=== PATIENT | male | born 1965 | race African-American/Black ===

== ENCOUNTER 2016-09-05 08:28 | Inpatient (IN) | payer OTHER ==
--- NOTE | 2016-09-05 11:24 | HP ---
Admission [facility] - [facility] Chief Complaint: I need rehab to stop drinking & using cocaine Allergies/Adverse Reactions: Allergies Allergy/AdvReac Type Severity Reaction Status Date / Time No Known Drug Allergies Allergy Verified 09/05/16 11:07 peanut Allergy Difficulty Verified 09/05/16 11:07 Breathing History of Present Illness: 50 y/o man with a long hx. of drug & alcohol dependence is admitted to rehab. Pt. completed detox at [facility] 2 wks. ago & was attending [facility]. He drank twice since completing detox. Exam Limitations: No Limitations - Ebola screening Have you traveled outside of the country in the last 21 days: No Have you had contact with anyone from an Ebola affected area: No Have you been sick,other than usual withdrawal symptoms: No Do you have a fever: No - Review of Systems Constitutional: No Symptoms Reported EENT: reports: No Symptoms Reported Respiratory: reports: No Symptoms reported Cardiac: reports: No Symptoms Reported GI: reports: No Symptoms Reported : reports: No Symptoms Reported Musculoskeletal: reports: Back Pain (mild) Integumentary: reports: No Symptoms Reported Neuro: reports: No Symptoms reported Endocrine: reports: No Symptoms Reported Hematology: reports: No Symptoms Reported Psychiatric: reports: No Sypmtoms Reported Other Systems: Reviewed and Negative Patient History - Patient Medical History Hx Anemia: No Hx Asthma: No Hx Chronic Obstructive Pulmonary Disease (COPD): No Hx Cancer: No Hx Cardiac Disorders: No Hx Congestive Heart Failure: No Hx Hypertension: No Hx Hypercholesterolemia: No Hx Pacemaker: No HX Cerebrovascular Accident: No Hx Seizures: No Hx Dementia: No Hx Diabetes: No Hx Gastrointestinal Disorders: No Hx Liver Disease: No Hx Genitourinary Disorders: No Hx Sexually Transmitted Disorders: No (syphilis treatment 21 years ago ) Hx Renal Disease (ESRD): No Hx Thyroid Disease: No Hx Human Immunodeficiency Virus (HIV): No Hx Hepatitis C: No Hx Depression: No Hx Suicide Attempt: No Hx Bipolar Disorder: No Hx Schizophrenia: No - Patient Surgical History Past Surgical History: Yes Hx Neurologic Surgery: No Hx Cataract Extraction: No Hx Cardiac Surgery: No Hx Lung Surgery: No Hx Breast Surgery: No Hx Breast Biopsy: No Hx Abdominal Surgery: Yes (umbilical hernia at age of 11 years) Hx Appendectomy: No Hx Cholecystectomy: No Hx Genitourinary Surgery: No Hx Section: No Hx Orthopedic Surgery: No Anesthesia Reaction: No - PPD History Previous Implant?: Yes Documented Results: Negative w/proof Implanted On Prior [facility] Admission?: Yes Date: 08/05/15 Results: 0 mm PPD to be Administered?: Yes - Smoking Cessation Smoking history: Never smoked Have you smoked in the past 12 months: No Aproximately how many cigarettes per day: 0 Hx Chewing Tobacco Use: No - Substance & Tx. History Hx Alcohol Use: Yes Hx Substance Use: Yes Substance Use Type: Alcohol, Cocaine Hx Substance Use Treatment: Yes (Detox) - Substances Abused Alcohol Route: Oral Frequency: Daily Amount used: Beer 2(6packs) Age of first use: 16 Date of Last Use: 09/04/16 (4 12oz can(was in detox 2 weeks ago)) Crack Route: Smoking Frequency: Daily Amount used: 1/2 gm Age of first use: 22 Date of Last Use: 09/04/16 Family Disease History - Family Disease History Family Disease History: CA: Mother (BREAST,), Other: Father (HTN,) Admission Physical Exam [facility] - Physical General Appearance: Yes: Alcohol on Breath HEENTM: Yes: Within Normal Limits Respiratory: Yes: Chest Non-Tender, Lungs Clear, Normal Breath Sounds Neck: Yes: Supple Breast: Yes: Breast Exam Deferred Cardiology: Yes: Regular Rhythm, Regular Rate, S1, S2 Abdominal: Yes: Normal Bowel Sounds, Non Tender, Soft Genitourinary: Yes: Within Normal Limits Back: Yes: Within Normal Limits Musculoskeletal: Yes: Within Normal Limits Extremities: Yes: Within Normal Limits 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: Yes: Fully Oriented, Alert Integumentary: Yes: Within Normal Limits Lymphatic: Yes: Within Normal Limits - Diagnostic (1) Cocaine dependence Current Visit: Yes Status: Acute (2) Alcohol dependence Current Visit: Yes Status: Chronic Cleared for Admission [facility] - Detox or Rehab Detox Regimen/Protocol: Not Applicable Claeared for Rehab Admission: Yes [facility] Breath Alcohol Content Breath Alcohol Content: 0.015
[2016-09-05] MEDS ORDERED: IBUPROFEN 400 MG TABLET (FP) PO PRN (11:39)
[2016-09-05] MEDS ORDERED: MAGNESIUM HYDROX 2400MG/30ML ORAL SUSPENSION 30 ML CUP PO PRN (11:39)
[2016-09-05] MEDS ORDERED: diphenhydrAMINE HCL 50 MG CAPSULE PO PRN (11:39)
[2016-09-05] MEDS ORDERED: MAGNESIUM CITRATE 300 ML BOTTLE PO PRN (11:39)
[2016-09-05] MEDS ORDERED: MAG HYDROX/AL HYDROX/SIMETH 30 ML UNIT-DOSE CUP PO PRN (11:39)
[2016-09-05] MEDS ORDERED: MENTHOL/PHENOL 1 EACH UD MM PRN (11:39)
[2016-09-05] MEDS ORDERED: P-EPHED 60MG/TRIPROLIDI 2.5MG TABLET PO PRN (11:39)
[2016-09-05] MEDS ORDERED: guaiFENesin/D-METHORPHAN HB 10 ML UNIT-DOSE CUPS PO PRN (11:39)
[2016-09-05] MEDS ORDERED: LOPERAMIDE HCL 2 MG CAPSULE PO PRN (11:39)
[2016-09-05 11:42] VITALS: BMI 29.0
[2016-09-05 14:01] LABS: MCH 29.5 pg (25.7-33.7); MCHC 32.7 g/dl (32.0-35.9); MEAN CELL VOLUME 90.3 fl (80-96); MEAN PLT VOLUME 8.5 fl (7.5-11.1); PLATELET COUNT 220 K/MM3 (134-434); RDW 14.6 % (11.9-15.9); WHITE BLOOD COUNT 7.5 K/mm3 (4.0-10.0)
[2016-09-05 14:16] LABS: ALBUMIN 3.8 g/dl (3.4-5.0); ALK PHOS 93 U/L (45-117); ANION GAP 11 (8-16); BILIRUBIN,TOTAL 0.4 mg/dL (0.2-1.0); CALCIUM 8.6 mg/dL (8.5-10.1); CO2 30 mmol/L (21-32); COCKROFT - GAULT 104.89; GLUCOSE,RANDOM 58 mg/dL (74-106); SGOT/AST 29 U/L (15-37); SGPT/ALT 32 U/L (12-78); TOT PROT 7.5 g/dl (6.4-8.2)
[2016-09-05] MEDS ORDERED: TUBERCULIN PPD 5 TU/0.1ML VIAL ID ONE (15:59)
[2016-09-05 20:19] LABS: URINE APPEARANCE CLEAR; URINE BILIRUBIN NEGATIVE (NEGATIVE); URINE BLOOD NEGATIVE (NEGATIVE); URINE COLOR LTYELLOW; URINE GLUCOSE (UA) NEGATIVE (NEGATIVE); URINE KETONE NEGATIVE (NEGATIVE); URINE LEUK ESTERASE NEGATIVE (NEGATIVE); URINE NITRITE NEGATIVE (NEGATIVE); URINE PROTEIN NEGATIVE (NEGATIVE); URINE UROBILINOGEN NEGATIVE E.U./dl (0.2-1.0)
[2016-09-05] MEDS: THIAMINE HCL 100 MG TABLET (FP) PO SCH ×2 (21:50→21:52)
[2016-09-05] MEDS: ACETAMINOPHEN 325 MG TABLET (FP) PO PRN (21:52)
--- NOTE | 2016-09-06 11:37 | HP ---
Psychiatrist Admission - Data Date of interview: 09/06/16 Admission source: [facility] Identifying data: This is one of the [address] inpatient rehabilitation admission for this 50 year old single black male whois currently undomiciled. Medical History: Significant for history of GERD, LBP, treatment for Syphilis and S/P Umbilical Hernia repair at age 11. Psychiatric History: Patient reports history of treatment for depression, first psychiatric contact in 2002, reports 3 psychiatric hospitalizations with most recent to [facility] on January of last year, reports diagnosed as MDD and was on Zoloft 50 mg po hs, states he stopped medication about 3-4 weeks ago and wants to restart medications. Physical/Sexual Abuse/Trauma History: Denies history of sexual, physical and verbal abuse. Vital Signs: Vital Signs - 24 hr 09/05/16 09/06/16 09/06/16 11:40 03:30 06:56 Temperature 97 F L 97.3 F L Pulse Rate 81 57 L Respiratory 20 18 18 Rate Blood Pressure 143/81 145/87 Allergies/Adverse Reactions: Allergies Allergy/AdvReac Type Severity Reaction Status Date / Time No Known Drug Allergies Allergy Verified 09/05/16 15:14 peanut Allergy Difficulty Verified 09/05/16 15:14 Breathing Date of last physical exam: 09/05/16 Concur with the findings of this exam: Yes - Substance Abuse/Tx History Hx Alcohol Use: Yes (2(6packs) of beer started at age of 16) Substance Use Type: Cocaine (1/2 gr daily, started at age of 22) Hx Substance Use Treatment: Yes (several detox/rehabilit. tx) - Admission Criteria Previous failed treatment: Yes Poor recovery environment: Yes Comorbidities: Yes Lacks judgement: Yes Mental Status Exam - Mental Status Exam Alert and Oriented to: Time, Place, Person Cognitive Function: Good Patient Appearance: Well Groomed Mood: Depressed, Sad Affect: Appropriate, Mood Congruent Patient Behavior: Appropriate, Cooperative Speech Pattern: Clear, Appropriate Voice Loudness: Normal Thought Process: Intact, Goal Oriented Thought Disorder: Not Present Hallucinations: Denies Suicidal Ideation: Denies Homicidal Ideation: Denies Insight/Judgement: Fair Sleep: Fair Appetite: Fair Muscle strength/Tone: Normal Gait/Station: Normal Psychiatric Findings - Problem List ([place] 1, 2,3) (1) Cocaine dependence Current Visit: Yes Status: Acute (2) Alcohol dependence Current Visit: Yes Status: Chronic (3) MDD (major depressive disorder), recurrent episode, moderate Current Visit: No Status: Chronic - Initial Treatment Plan Initial Treatment Plan: Will restart Zoloft 50 mg po daily, monitor progress as needed.
[2016-09-06] MEDS ORDERED: INFLUENZA VACCINE 45 MCG/0.5 ML (MDV 16-17) IM ONE (12:00)
[2016-09-06] MEDS: PRENATAL VITAMINS W/ FOLIC ACID TABLET (FP) PO SCH (12:53)
[2016-09-06] MEDS: METHYL SALICYLATE/MENTHOL OINT 30 GM TUBE TP SCH (15:13)
[2016-09-06] MEDS: THIAMINE HCL 100 MG TABLET (FP) PO SCH (21:29)
[2016-09-07] MEDS: PRENATAL VITAMINS W/ FOLIC ACID TABLET (FP) PO SCH (10:23)
[2016-09-07] MEDS: SERTRALINE HCL 50 MG TABLET (FP) PO SCH (10:23)
[2016-09-07] MEDS: METHYL SALICYLATE/MENTHOL OINT 30 GM TUBE TP SCH (10:23)
--- NOTE | 2016-09-07 16:17 | EKG ---
Test Reason : Blood Pressure : / mmHG Vent. Rate : 065 BPM Atrial Rate : 065 BPM P-R Int : 144 ms QRS Dur : 100 ms QT Int : 434 ms P-R-T Axes : 055 067 030 degrees QTc Int : 451 ms NORMAL SINUS RHYTHM NORMAL ECG NO PREVIOUS ECGS AVAILABLE Confirmed by MELECIO PARIS MD ([id number]) on 09/07/2016 4:17:27 PM Referred By: Deo CABRERA Confirmed By:MELECIO PARIS MD
[2016-09-07] MEDS: THIAMINE HCL 100 MG TABLET (FP) PO SCH (21:56)
[2016-09-08] MEDS: PRENATAL VITAMINS W/ FOLIC ACID TABLET (FP) PO SCH (10:12)
[2016-09-08] MEDS: METHYL SALICYLATE/MENTHOL OINT 30 GM TUBE TP SCH (10:12)
[2016-09-08] MEDS: SERTRALINE HCL 50 MG TABLET (FP) PO SCH (10:12)
[2016-09-08] MEDS: THIAMINE HCL 100 MG TABLET (FP) PO SCH (21:55)
[2016-09-09] MEDS: METHYL SALICYLATE/MENTHOL OINT 30 GM TUBE TP SCH (10:40)
[2016-09-09] MEDS: SERTRALINE HCL 50 MG TABLET (FP) PO SCH (10:40)
[2016-09-09] MEDS: PRENATAL VITAMINS W/ FOLIC ACID TABLET (FP) PO SCH (10:40)
[2016-09-09] MEDS: THIAMINE HCL 100 MG TABLET (FP) PO SCH (21:40)
[2016-09-10] MEDS: SERTRALINE HCL 50 MG TABLET (FP) PO SCH (10:19)
[2016-09-10] MEDS: PRENATAL VITAMINS W/ FOLIC ACID TABLET (FP) PO SCH (10:19)
[2016-09-10] MEDS: METHYL SALICYLATE/MENTHOL OINT 30 GM TUBE TP SCH (10:20)
[2016-09-10] MEDS: THIAMINE HCL 100 MG TABLET (FP) PO SCH (21:51)
[2016-09-11] MEDS: SERTRALINE HCL 50 MG TABLET (FP) PO SCH (10:10)
[2016-09-11] MEDS: PRENATAL VITAMINS W/ FOLIC ACID TABLET (FP) PO SCH (10:10)
[2016-09-11] MEDS: METHYL SALICYLATE/MENTHOL OINT 30 GM TUBE TP SCH (10:10)
[2016-09-11 17:05] LABS: HIV 1 & 2 AB NEGATIVE; HIV 1 AGp24 NEGATIVE
[2016-09-11] MEDS: THIAMINE HCL 100 MG TABLET (FP) PO SCH (21:44)
[2016-09-12] MEDS: PRENATAL VITAMINS W/ FOLIC ACID TABLET (FP) PO SCH (10:15)
[2016-09-12] MEDS: SERTRALINE HCL 50 MG TABLET (FP) PO SCH (10:15)
[2016-09-12] MEDS: METHYL SALICYLATE/MENTHOL OINT 30 GM TUBE TP SCH (10:16)
[2016-09-12] MEDS: ACETAMINOPHEN 325 MG TABLET (FP) PO PRN (10:16)
[2016-09-13] MEDS: THIAMINE HCL 100 MG TABLET (FP) PO SCH ×2 (00:39→21:46)
[2016-09-13] MEDS: PRENATAL VITAMINS W/ FOLIC ACID TABLET (FP) PO SCH (09:56)
[2016-09-13] MEDS: METHYL SALICYLATE/MENTHOL OINT 30 GM TUBE TP SCH (09:56)
[2016-09-13] MEDS: SERTRALINE HCL 50 MG TABLET (FP) PO SCH (09:56)
[2016-09-13] MEDS ORDERED: COLLOIDAL OATMEAL 1 BAR EACH TP PRN (10:24)
[2016-09-13] MEDS: TOLNAFTATE 1% CREAM 15 GM TUBE TP SCH ×2 (11:20→21:46)
[2016-09-14] MEDS: SERTRALINE HCL 50 MG TABLET (FP) PO SCH (10:24)
[2016-09-14] MEDS: PRENATAL VITAMINS W/ FOLIC ACID TABLET (FP) PO SCH (10:24)
[2016-09-14] MEDS: TOLNAFTATE 1% CREAM 15 GM TUBE TP SCH ×2 (10:25→21:49)
[2016-09-14] MEDS: METHYL SALICYLATE/MENTHOL OINT 30 GM TUBE TP SCH (10:25)
[2016-09-14] MEDS: THIAMINE HCL 100 MG TABLET (FP) PO SCH (21:50)
[2016-09-15] MEDS: SERTRALINE HCL 50 MG TABLET (FP) PO SCH (10:34)
[2016-09-15] MEDS: PRENATAL VITAMINS W/ FOLIC ACID TABLET (FP) PO SCH (10:34)
[2016-09-15] MEDS: METHYL SALICYLATE/MENTHOL OINT 30 GM TUBE TP SCH (10:35)
[2016-09-15] MEDS: TOLNAFTATE 1% CREAM 15 GM TUBE TP SCH ×2 (10:36→21:52)
[2016-09-15] MEDS: THIAMINE HCL 100 MG TABLET (FP) PO SCH (21:53)
[2016-09-16] MEDS: SERTRALINE HCL 50 MG TABLET (FP) PO SCH (10:47)
[2016-09-16] MEDS: METHYL SALICYLATE/MENTHOL OINT 30 GM TUBE TP SCH (10:47)
[2016-09-16] MEDS: TOLNAFTATE 1% CREAM 15 GM TUBE TP SCH ×2 (10:47→23:24)
[2016-09-16] MEDS: PRENATAL VITAMINS W/ FOLIC ACID TABLET (FP) PO SCH (10:47)
[2016-09-16] MEDS: THIAMINE HCL 100 MG TABLET (FP) PO SCH (23:25)
[2016-09-17] MEDS: METHYL SALICYLATE/MENTHOL OINT 30 GM TUBE TP SCH (10:10)
[2016-09-17] MEDS: SERTRALINE HCL 50 MG TABLET (FP) PO SCH (10:10)
[2016-09-17] MEDS: PRENATAL VITAMINS W/ FOLIC ACID TABLET (FP) PO SCH (10:10)
[2016-09-17] MEDS: TOLNAFTATE 1% CREAM 15 GM TUBE TP SCH ×2 (10:11→22:12)
[2016-09-17] MEDS: THIAMINE HCL 100 MG TABLET (FP) PO SCH (22:12)
[2016-09-18] MEDS: TOLNAFTATE 1% CREAM 15 GM TUBE TP SCH ×2 (10:15→21:34)
[2016-09-18] MEDS: METHYL SALICYLATE/MENTHOL OINT 30 GM TUBE TP SCH (10:15)
[2016-09-18] MEDS: PRENATAL VITAMINS W/ FOLIC ACID TABLET (FP) PO SCH (10:15)
[2016-09-18] MEDS: SERTRALINE HCL 50 MG TABLET (FP) PO SCH (10:15)
[2016-09-18] MEDS: THIAMINE HCL 100 MG TABLET (FP) PO SCH (21:34)
[2016-09-19] MEDS: SERTRALINE HCL 50 MG TABLET (FP) PO SCH (10:07)
[2016-09-19] MEDS: PRENATAL VITAMINS W/ FOLIC ACID TABLET (FP) PO SCH (10:07)
[2016-09-19] MEDS: TOLNAFTATE 1% CREAM 15 GM TUBE TP SCH ×2 (10:08→21:46)
[2016-09-19] MEDS: METHYL SALICYLATE/MENTHOL OINT 30 GM TUBE TP SCH (10:09)
[2016-09-19] MEDS: THIAMINE HCL 100 MG TABLET (FP) PO SCH (21:46)
[2016-09-20] MEDS: PRENATAL VITAMINS W/ FOLIC ACID TABLET (FP) PO SCH (09:37)
[2016-09-20] MEDS: SERTRALINE HCL 50 MG TABLET (FP) PO SCH (09:37)
[2016-09-20] MEDS: TOLNAFTATE 1% CREAM 15 GM TUBE TP SCH ×2 (09:38→21:48)
[2016-09-20] MEDS: METHYL SALICYLATE/MENTHOL OINT 30 GM TUBE TP SCH (09:38)
[2016-09-20] MEDS: THIAMINE HCL 100 MG TABLET (FP) PO SCH (21:48)
[2016-09-21] MEDS: TOLNAFTATE 1% CREAM 15 GM TUBE TP SCH ×2 (10:04→10:35)
[2016-09-21] MEDS: PRENATAL VITAMINS W/ FOLIC ACID TABLET (FP) PO SCH (10:04)
[2016-09-21] MEDS: SERTRALINE HCL 50 MG TABLET (FP) PO SCH (10:04)
[2016-09-21] MEDS: METHYL SALICYLATE/MENTHOL OINT 30 GM TUBE TP SCH (10:04)
[2016-09-21] MEDS: THIAMINE HCL 100 MG TABLET (FP) PO SCH (10:35)
[2016-09-22] MEDS: PRENATAL VITAMINS W/ FOLIC ACID TABLET (FP) PO SCH (10:19)
[2016-09-22] MEDS: SERTRALINE HCL 50 MG TABLET (FP) PO SCH (10:19)
[2016-09-22] MEDS: TOLNAFTATE 1% CREAM 15 GM TUBE TP SCH ×2 (10:19→22:05)
[2016-09-22] MEDS: METHYL SALICYLATE/MENTHOL OINT 30 GM TUBE TP SCH (10:19)
[2016-09-22] MEDS: THIAMINE HCL 100 MG TABLET (FP) PO SCH (22:05)
[2016-09-23] MEDS: PRENATAL VITAMINS W/ FOLIC ACID TABLET (FP) PO SCH (10:11)
[2016-09-23] MEDS: SERTRALINE HCL 50 MG TABLET (FP) PO SCH (10:11)
[2016-09-23] MEDS: TOLNAFTATE 1% CREAM 15 GM TUBE TP SCH ×2 (10:12→22:21)
[2016-09-23] MEDS: METHYL SALICYLATE/MENTHOL OINT 30 GM TUBE TP SCH (10:12)
[2016-09-23] MEDS: ACETAMINOPHEN 325 MG TABLET (FP) PO PRN (10:12)
[2016-09-23] MEDS: THIAMINE HCL 100 MG TABLET (FP) PO SCH (22:21)
[2016-09-24] MEDS: SERTRALINE HCL 50 MG TABLET (FP) PO SCH (10:28)
[2016-09-24] MEDS: PRENATAL VITAMINS W/ FOLIC ACID TABLET (FP) PO SCH (10:28)
[2016-09-24] MEDS: METHYL SALICYLATE/MENTHOL OINT 30 GM TUBE TP SCH (10:29)
[2016-09-24] MEDS: TOLNAFTATE 1% CREAM 15 GM TUBE TP SCH ×2 (10:29→22:04)
[2016-09-24] MEDS: THIAMINE HCL 100 MG TABLET (FP) PO SCH (22:04)
[2016-09-25] MEDS: TOLNAFTATE 1% CREAM 15 GM TUBE TP SCH ×2 (09:54→22:44)
[2016-09-25] MEDS: PRENATAL VITAMINS W/ FOLIC ACID TABLET (FP) PO SCH (09:54)
[2016-09-25] MEDS: METHYL SALICYLATE/MENTHOL OINT 30 GM TUBE TP SCH (09:54)
[2016-09-25] MEDS: SERTRALINE HCL 50 MG TABLET (FP) PO SCH (09:54)
--- NOTE | 2016-09-25 16:20 | PN ---
Psychiatric Progress Note Vital Signs: Vital Signs Period Temp Pulse Resp BP Sys/[place] Pulse Ox Last 24 Hr 98.2 F 60 18-19 142/82 Date of Session: 09/25/16 Chief Complaint:: Discharge visit HPI: patient addressed Alcohol,Cocaine dependence comorbid with MDD> ROS: Chronoc low back pain,HTN,GERD. Current Medications: Active Medications Generic Name Dose Route Start Last Admin Trade Name Freq PRN Reason Stop Dose Admin Acetaminophen 650 mg 09/05/16 11:39 09/23/16 10:12 Tylenol - PO 650 mg Q4H PRN Administration PAIN Al Hydroxide/Mg Hydroxide 30 ml 09/05/16 11:39 Mylanta Oral Suspension - PO Q6H PRN DYSPEPSIA Colloidal Oatmeal 1 applic 09/13/16 10:24 09/13/16 11:20 Aveeno Soap - TP 1 applic DAILY PRN Administration HYGEINE Diphenhydramine HCl 50 mg 09/05/16 11:39 Benadryl - PO HSMR1 PRN INSOMNIA Eucalyptus/Menthol/Phenol/Sorbitol 1 each 09/05/16 11:39 Cepastat Lozenge - MM Q4H PRN SORE THROAT Guaifenesin 10 ml 09/05/16 11:39 Robitussin Dm - PO Q6H PRN COUGH Ibuprofen 400 mg 09/05/16 11:39 Motrin - PO Q6H PRN SEVERE PAIN Loperamide HCl 4 mg 09/05/16 11:39 Imodium - PO Q6H PRN DIARRHEA Magnesium Citrate 300 ml 09/05/16 11:39 Citroma - PO Q48H PRN CONSTIPATION Magnesium Hydroxide 30 ml 09/05/16 11:39 Milk Of Magnesia - PO DAILY PRN CONSTIPATION Methyl Salicylate 1 applic 09/06/16 13:30 09/25/16 09:54 Francesco-Bradley - TP Not Given DAILY JAYNE Multivit/Folic Acid/Iron 1 tab 09/06/16 10:00 09/25/16 09:54 Vitamins ([facility]) - PO 1 tab DAILY JAYNE Administration Pseudoephedrine/Triprolidine 1 combo 09/05/16 11:39 Actifed - PO TID PRN NASAL CONGESTION Sertraline HCl 50 mg 09/07/16 10:00 09/25/16 09:54 Zoloft - PO 50 mg DAILY JAYNE Administration Thiamine HCl 100 mg 09/05/16 22:00 09/24/16 22:04 Vitamin B1 - PO Not Given HS JAYNE Tolnaftate 1 applic 09/13/16 10:30 09/25/16 09:54 Tinactin 1% Cream - TP Not Given BID JAYNE Current Side Effect: No Lab tests ordered: No Lab tests reviewed: Yes Provider note:: Patient will complete this program tomorrow 09/26/16.He has met his treatment goals and will continue to address his issues on outpatient rehabilitation [place] [facility].patient continue to find that Zoloft 50 mg po daily help.Script for 30 days providedPatient identifiedareas of difficulties and ways ,coping skills he can utilize to maintain recovery. Patient is stable for discharge tomorrow. Total face to face time:: 30 Mental Status Exam - Mental Status Exam Alert and Oriented to: Time, Place, Person Cognitive Function: Grossly Intact Patient Appearance: Well Groomed Mood: Euthymic Affect: Mood Congruent Patient Behavior: Cooperative Speech Pattern: Clear Voice Loudness: Normal Thought Process: Goal Oriented Thought Disorder: Not Present Hallucinations: Denies Suicidal Ideation: Denies Homicidal Ideation: Denies Insight/Judgement: Fair Sleep: Fair Appetite: Good Muscle strength/Tone: Normal Gait/Station: Normal Psychiatric Treatment Plan - Problem List (1) Cocaine dependence Current Visit: Yes (2) Alcohol dependence Current Visit: Yes (3) Chronic low back pain Current Visit: No (4) Essential hypertension Current Visit: No (5) GERD (gastroesophageal reflux disease) Current Visit: No (6) MDD (major depressive disorder), recurrent episode, moderate Current Visit: No
[2016-09-25] MEDS: THIAMINE HCL 100 MG TABLET (FP) PO SCH (22:45)
[2016-09-26 06:55] VITALS: BP 138/82; PULSE 54; TEMP 98
[2016-09-26] MEDS: SERTRALINE HCL 50 MG TABLET (FP) PO SCH (10:34)
[2016-09-26] MEDS: PRENATAL VITAMINS W/ FOLIC ACID TABLET (FP) PO SCH (10:34)
[2016-09-26] MEDS: METHYL SALICYLATE/MENTHOL OINT 30 GM TUBE TP SCH (10:35)
[2016-09-26] MEDS: TOLNAFTATE 1% CREAM 15 GM TUBE TP SCH (10:35)
== END 2016-09-26 10:55 | disposition home or self-care (01) | DRG 772 ==
LOC: YASAS 08:28 → Y5N 12:24
PROVIDERS: ADMIT Psychiatry & Neurology Psychiatry; ATTEND Psychiatry & Neurology Psychiatry
PROC: HZ42ZZZ Group Counseling for Substance Abuse Treatment, Cognitive-Behavioral (ICD-10-PCS; principal; 2016-09-05)
DX: F10.20 Alcohol dependence, uncomplicated (principal); F14.20 Cocaine dependence, uncomplicated; F33.1 Major depressive disorder, recurrent, moderate; I10 Essential (primary) hypertension; K21.9 Gastro-esophageal reflux disease without esophagitis; M54.5 Low back pain; G89.29 Other chronic pain; Z87.438 Personal history of other diseases of male genital organs
CPT/HCPCS: 36415; 80053; 81003; 85027; 86593; 87389; 93005; 93010

== ENCOUNTER 2017-02-12 13:22 | Inpatient (IN) | payer OTHER ==
[2017-02-12 15:12] VITALS: BMI 28.1
--- NOTE | 2017-02-12 17:45 | HP ---
CIWA Score - CIWA Score Nausea/Vomitin Muscle Tremors: 4-Moderate,w/Arms Extend Anxiety: 3 Agitation: 4-Moderately Restless Paroxysmal Sweats: 3 Orientation: 1-Uncertain about Date Tacttile Disturbances: 1-Very Mild Itch/Numbness Auditory Disturbances: 0-None Visual Disturbances: 0-None Headache: 2-Mild CIWA-Ar Total Score: 20 Admission ROS [facility] - HPI Chief Complaint: Withdrawal sx Allergies/Adverse Reactions: Allergies Allergy/AdvReac Type Severity Reaction Status Date / Time No Known Drug Allergies Allergy Verified 02/12/17 16:15 peanut Allergy Difficulty Verified 02/12/17 16:15 Breathing History of Present Illness: 51 y/o man with a long hx. of alcoholism is admitted for detox.Pt. has been in previous detox, pt. reports significant sobriety while attending IOP. Exam Limitations: No Limitations - Ebola screening Have you traveled outside of the country in the last 21 days: No Have you had contact with anyone from an Ebola affected area: No Have you been sick,other than usual withdrawal symptoms: No Do you have a fever: No - Review of Systems Constitutional: Diaphoresis EENT: reports: No Symptoms Reported Respiratory: reports: No Symptoms reported Cardiac: reports: No Symptoms Reported GI: reports: Diarrhea, Nausea : reports: No Symptoms Reported Musculoskeletal: reports: Muscle Pain (spasm) Integumentary: reports: Sweating Neuro: reports: Headache, Tremors, Other (frequent blackouts) Endocrine: reports: No Symptoms Reported Hematology: reports: No Symptoms Reported Psychiatric: reports: No Sypmtoms Reported Other Systems: Reviewed and Negative Patient History - Patient Medical History Hx Anemia: No Hx Asthma: No Hx Chronic Obstructive Pulmonary Disease (COPD): No Hx Cancer: No Hx Cardiac Disorders: No Hx Congestive Heart Failure: No Hx Hypertension: Yes Hx Hypercholesterolemia: No Hx Pacemaker: No HX Cerebrovascular Accident: No Hx Seizures: No Hx Dementia: No Hx Diabetes: No Hx Gastrointestinal Disorders: No Hx Liver Disease: No Hx Genitourinary Disorders: No Hx Sexually Transmitted Disorders: No Hx Renal Disease (ESRD): No Hx Thyroid Disease: No Hx Human Immunodeficiency Virus (HIV): No Hx Hepatitis C: No Hx Depression: Yes Hx Suicide Attempt: No Hx Bipolar Disorder: No Hx Schizophrenia: No - Patient Surgical History Past Surgical History: Yes Hx Neurologic Surgery: No Hx Cataract Extraction: No Hx Cardiac Surgery: No Hx Lung Surgery: No Hx Breast Surgery: No Hx Breast Biopsy: No Hx Abdominal Surgery: Yes (umbilical hernia at age of 11 years) Hx Appendectomy: No Hx Cholecystectomy: No Hx Genitourinary Surgery: No Hx Section: No Hx Orthopedic Surgery: No Other Surgical History: bunion right toe surgery done 06/18 Anesthesia Reaction: No - PPD History Previous Implant?: Yes Documented Results: Negative w/proof Implanted On Prior [facility] Admission?: Yes Date: 09/07/16 Results: 0 MM PPD to be Administered?: No - Smoking Cessation Smoking history: Never smoked Have you smoked in the past 12 months: No Aproximately how many cigarettes per day: 0 Hx Chewing Tobacco Use: No - Substance & Tx. History Hx Alcohol Use: Yes Hx Substance Use: Yes Substance Use Type: Alcohol, Cocaine Hx Substance Use Treatment: Yes (Detox at [facility] 08/2016) - Substances Abused Alcohol Route: Oral Frequency: Daily Amount used: 3-4 PINTS RUM Age of first use: 16 Date of Last Use: 02/12/17 Crack Route: Smoking Frequency: Daily Amount used: 3 GRAMS Age of first use: 22 Date of Last Use: 02/12/17 Family Disease History - Family Disease History Family Disease History: CA: Mother (BREAST,), Other: Father (HTN,) Admission Physical Exam [facility] - Vital Signs Vital Signs: Vital Signs - 24 hr 02/12/17 15:05 Temperature 96.4 F L Pulse Rate 86 Respiratory 20 Rate Blood Pressure 144/80 - Physical General Appearance: Yes: Tremorous, Sweating, Anxious HEENTM: Yes: Within Normal Limits Respiratory: Yes: Chest Non-Tender, Lungs Clear, Normal Breath Sounds Neck: Yes: Supple Breast: Yes: Breast Exam Deferred Cardiology: Yes: Regular Rhythm, Regular Rate, S1, S2 Abdominal: Yes: Normal Bowel Sounds, Non Tender, Soft Genitourinary: Yes: Within Normal Limits Back: Yes: Within Normal Limits Musculoskeletal: Yes: Within Normal Limits Extremities: Yes: Tremors 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: Yes: Fully Oriented, Alert Integumentary: Yes: Diaphoresis Lymphatic: Yes: Within Normal Limits - Diagnostic (1) Alcohol dependence with withdrawal, uncomplicated Current Visit: Yes Status: Acute (2) Cocaine dependence Current Visit: Yes Status: Acute (3) Essential hypertension Current Visit: Yes Status: Chronic Cleared for Admission [facility] - Detox or Rehab [facility] Level of Care: Medically Managed Detox Regimen/Protocol: Librium [facility] Breath Alcohol Content Breath Alcohol Content: 0 Urine Drug Screen - Results Drug Screen Negative: No Urine Drug Screen Results: JAZMIN-Cocaine, BZO-Benzodiazepines
[2017-02-12] MEDS ORDERED: diphenhydrAMINE HCL 50 MG CAPSULE PO PRN (17:49)
[2017-02-12] MEDS ORDERED: MAG HYDROX/AL HYDROX/SIMETH 30 ML UNIT-DOSE CUP PO PRN (17:49)
[2017-02-12] MEDS ORDERED: MAGNESIUM CITRATE 300 ML BOTTLE PO PRN (17:49)
[2017-02-12] MEDS ORDERED: MAGNESIUM HYDROX 2400MG/30ML ORAL SUSPENSION 30 ML CUP PO PRN (17:49)
[2017-02-12] MEDS ORDERED: ACETAMINOPHEN 325 MG TABLET (FP) PO PRN (17:49)
[2017-02-12] MEDS ORDERED: hydrOXYzine PAMOATE 50 MG CAPSULE (FP) PO PRN (17:49)
[2017-02-12] MEDS ORDERED: LOPERAMIDE HCL 2 MG CAPSULE PO PRN (17:49)
[2017-02-12] MEDS ORDERED: chlordiazePOXIDE HCL 25 MG CAPSULE PO ONE (17:49)
[2017-02-12] MEDS ORDERED: chlordiazePOXIDE HCL 25 MG CAPSULE PO PRN (17:49)
[2017-02-12] MEDS ORDERED: guaiFENesin/D-METHORPHAN HB 10 ML UNIT-DOSE CUPS PO PRN (17:49)
[2017-02-12] MEDS ORDERED: IBUPROFEN 400 MG TABLET (FP) PO PRN (17:49)
[2017-02-12] MEDS ORDERED: MENTHOL/PHENOL 1 EACH UD MM PRN (17:49)
[2017-02-12] MEDS ORDERED: P-EPHED 60MG/TRIPROLIDI 2.5MG TABLET PO PRN (17:49)
[2017-02-12] MEDS: amLODIPine BESYLATE 5 MG TABLET (FP) PO SCH (18:42)
[2017-02-12] MEDS: chlordiazePOXIDE HCL 25 MG CAPSULE PO SCH (22:23)
[2017-02-12] MEDS: THIAMINE HCL 100 MG TABLET (FP) PO SCH (22:23)
[2017-02-12] MEDS: CYCLOBENZAPRINE HCL 10 MG TABLET (FP) PO SCH (22:23)
[2017-02-13 01:32] LABS: URINE APPEARANCE CLEAR; URINE BILIRUBIN NEGATIVE (NEGATIVE); URINE BLOOD NEGATIVE (NEGATIVE); URINE COLOR YELLOW; URINE GLUCOSE (UA) NEGATIVE (NEGATIVE); URINE KETONE TRACE (NEGATIVE); URINE LEUK ESTERASE NEGATIVE (NEGATIVE); URINE NITRITE NEGATIVE (NEGATIVE); URINE PROTEIN NEGATIVE (NEGATIVE); URINE UROBILINOGEN NEGATIVE mg/dL (0.2-1.0)
[2017-02-13] MEDS: CYCLOBENZAPRINE HCL 10 MG TABLET (FP) PO SCH ×3 (05:47→22:29)
[2017-02-13] MEDS: chlordiazePOXIDE HCL 25 MG CAPSULE PO SCH ×4 (05:47→22:29)
--- NOTE | 2017-02-13 08:26 | CONSULT ---
[facility] Psychiatric Consult - Data Date of interview: 02/13/17 Admission source: [facility] Identifying data: This is 51 years old male with psychiatric hospitalization history, history of MDD, intoxicated with: Alcohol and Cocaine Substance Abuse History: - Smoking Cessation. Smoking history: Never smoked. Have you smoked in the past 12 months: No. Aproximately how many cigarettes per day: 0. Hx Chewing Tobacco Use: No. - Substance & Tx. History. Hx Alcohol Use: Yes. Hx Substance Use: Yes. Substance Use Type: Alcohol, Cocaine. Hx Substance Use Treatment: Yes (Detox at [facility] 08/2016). - Substances Abused. Alcohol. Route: Oral. Frequency: Daily. Amount used: 3-4 PINTS RUM. Age of first use: 16. Date of Last Use: 02/12/17. Crack. Route: Smoking. Frequency: Daily. Amount used: 3 GRAMS. Age of first use: 22. Date of Last Use: 02/12/17 Medical History: HTN, LBP, GERD, Syncope history Psychiatric History: Patient reports history of depression with mostb recent psychiatric admission on 2015 at [facility] for safety, denies suicidal history, reports taking prior to admission: Zoloft 50mg poqd Mental Status Exam - Mental Status Exam Alert and Oriented to: Person Cognitive Function: Fair Patient Appearance: Well Groomed Mood: Apprehensive Affect: Mood Congruent Patient Behavior: Talkative Speech Pattern: Appropriate Voice Loudness: Mildly Soft/Quiet Thought Process: Circumstantial Thought Disorder: Being Controlled Hallucinations: Denies Suicidal Ideation: Denies Homicidal Ideation: Denies Insight/Judgement: Fair Sleep: Difficulty falling asleep Appetite: Fair Muscle strength/Tone: Mild Hypotonicity Gait/Station: Shuffling Additional Comments: Zoloft 50mg poqd Psychiatric Findings - Problem List ([place] 1, 2,3) (1) Alcohol dependence with withdrawal, uncomplicated Current Visit: Yes Status: Acute (2) Cocaine dependence Current Visit: Yes Status: Acute (3) Alcohol withdrawal Current Visit: No Status: Acute (4) Alcohol dependence Current Visit: No Status: Chronic (5) MDD (major depressive disorder), recurrent episode, moderate Current Visit: No Status: Chronic (6) Drug-induced mood disorder Current Visit: Yes Status: Acute - Initial Treatment Plan Initial Treatment Plan: Zoloft 50mg poqd
--- NOTE | 2017-02-13 09:48 | PN ---
S CIWA - CIWA Score Nausea/Vomitin Muscle Tremors: 4-Moderate,w/Arms Extend Anxiety: 4-Mod. Anxious/Guarded Agitation: 4-Moderately Restless Paroxysmal Sweats: 3 Orientation: 0-Oriented Tacttile Disturbances: 1-Very Mild Itch/Numbness Auditory Disturbances: 0-None Visual Disturbances: 0-None Headache: 1-Very Mild CIWA-Ar Total Score: 20 BHS Progress Note (SOAP) Subjective: nausea, sweats, interrupted sleep, anxiety, tremors Objective: 02/13/17 09:47 Vital Signs - 8 hr 02/13/17 02/13/17 03:30 06:49 Temperature 97.7 F Pulse Rate 67 Respiratory 18 18 Rate Blood Pressure 122/75 Laboratory Tests 02/12/17 23:54 Urine Color Yellow Urine Appearance Clear Urine pH 5.0 Ur Specific [place] >= 1.030 H Urine Protein Negative Urine Glucose (UA) Negative Urine Ketones Trace H Urine Blood Negative Urine Nitrite Negative Urine Bilirubin Negative Urine Urobilinogen Negative labs still pending Assessment: 02/13/17 09:47 withdrawal sx Plan: cont detox, fluids, encoruage ambulation, cane ordered
[2017-02-13 09:59] LABS: MCHC 33.9 g/dl (32.0-35.9); MEAN CELL VOLUME 88.6 fl (80-96); MEAN PLT VOLUME 8.2 fl (7.5-11.1); PLATELET COUNT 203 K/MM3 (134-434); RDW 14.2 % (11.9-15.9); WHITE BLOOD COUNT 4.6 K/mm3 (4.0-10.0)
[2017-02-13 10:04] LABS: ALBUMIN 3.1 g/dl (3.4-5.0); ALK PHOS 79 U/L (45-117); ANION GAP 5 (8-16); BILIRUBIN,TOTAL 0.4 mg/dL (0.2-1.0); CALCIUM 8.3 mg/dL (8.5-10.1); CO2 31 mmol/L (21-32); CREATININE 0.9 mg/dL (0.7-1.3); GLUCOSE,RANDOM 95 mg/dL (74-106); SGOT/AST 17 U/L (15-37); SGPT/ALT 29 U/L (12-78); TOT PROT 6.6 g/dl (6.4-8.2)
[2017-02-13] MEDS: SERTRALINE HCL 50 MG TABLET (FP) PO SCH (10:40)
[2017-02-13] MEDS: PRENATAL VITAMINS W/ FOLIC ACID TABLET (FP) PO SCH (10:40)
[2017-02-13] MEDS: amLODIPine BESYLATE 5 MG TABLET (FP) PO SCH (10:40)
[2017-02-13] MEDS ORDERED: FLU VACCINE QUAD 60 MCG/0.5 ML (MDV 17-18) IM ONE (12:00)
--- NOTE | 2017-02-13 13:25 | EKG ---
Test Reason : Blood Pressure : / mmHG Vent. Rate : 072 BPM Atrial Rate : 072 BPM P-R Int : 156 ms QRS Dur : 094 ms QT Int : 422 ms P-R-T Axes : 051 066 044 degrees QTc Int : 462 ms NORMAL SINUS RHYTHM NORMAL ECG WHEN COMPARED WITH ECG OF 05-SEP-2016 16:05, NO SIGNIFICANT CHANGE WAS FOUND Confirmed by GUILLERMO GUZMÁN MD ([id number]) on 02/13/2017 1:25:19 PM Referred By: Tani Colón Confirmed By:GUILLERMO GUZMÁN MD
[2017-02-13] MEDS: METHYL SALICYLATE/MENTHOL OINT 30 GM TUBE TP SCH (22:28)
[2017-02-13] MEDS: THIAMINE HCL 100 MG TABLET (FP) PO SCH (22:29)
[2017-02-14] MEDS: chlordiazePOXIDE HCL 25 MG CAPSULE PO SCH ×3 (05:28→18:33)
[2017-02-14] MEDS: CYCLOBENZAPRINE HCL 5 MG TABLET PO SCH ×3 (07:04→22:36)
--- NOTE | 2017-02-14 10:17 | PN ---
S CIWA - CIWA Score Nausea/Vomitin Muscle Tremors: 3 Anxiety: 4-Mod. Anxious/Guarded Agitation: 4-Moderately Restless Paroxysmal Sweats: 3 Orientation: 0-Oriented Tacttile Disturbances: 1-Very Mild Itch/Numbness Auditory Disturbances: 0-None Visual Disturbances: 0-None Headache: 1-Very Mild CIWA-Ar Total Score: 19 BHS Progress Note (SOAP) Subjective: nausea, heaves, sweats, interrupted sleep, anxiety, tremors, worried that he has not taken his bp meds (HCTZ) and wants prescription for zooft on d/c home. Objective: 02/14/17 10:16 Vital Signs - 24 hr 02/13/17 02/13/17 02/13/17 13:00 18:58 22:02 Temperature 97.5 F L 97.7 F 98.1 F Pulse Rate 69 68 81 Respiratory 18 18 18 Rate Blood Pressure 135/85 125/52 138/88 02/14/17 02/14/17 02/14/17 00:30 03:30 06:00 Temperature 97.3 F L Pulse Rate 71 Respiratory 18 18 20 Rate Blood Pressure 124/81 02/14/17 09:34 Temperature 97.5 F L Pulse Rate 87 Respiratory 18 Rate Blood Pressure 134/83 Laboratory Tests 02/12/17 02/13/17 02/13/17 23:54 07:50 07:50 WBC 4.6 D RBC 4.51 Hgb 13.5 Hct 39.9 MCV 88.6 MCH 30.0 MCHC 33.9 RDW 14.2 Plt Count 203 MPV 8.2 Sodium 141 Potassium 3.6 Chloride 105 Carbon Dioxide 31 Anion Gap 5 L BUN 16 D Creatinine 0.9 Creat Clearance w eGFR > 60 Random Glucose 95 D Calcium 8.3 L Total Bilirubin 0.4 AST 17 D ALT 29 Alkaline Phosphatase 79 Total Protein 6.6 Albumin 3.1 L Urine Color Yellow Urine Appearance Clear Urine pH 5.0 Ur Specific [place] >= 1.030 H Urine Protein Negative Urine Glucose (UA) Negative Urine Ketones Trace H Urine Blood Negative Urine Nitrite Negative Urine Bilirubin Negative Urine Urobilinogen Negative RPR Titer 02/13/17 07:50 WBC RBC Hgb Hct MCV MCH MCHC RDW Plt Count MPV Sodium Potassium Chloride Carbon Dioxide Anion Gap BUN Creatinine Creat Clearance w eGFR Random Glucose Calcium Total Bilirubin AST ALT Alkaline Phosphatase Total Protein Albumin Urine Color Urine Appearance Urine pH Ur Specific [place] Urine Protein Urine Glucose (UA) Urine Ketones Urine Blood Urine Nitrite Urine Bilirubin Urine Urobilinogen RPR Titer Nonreactive Assessment: 02/14/17 10:16 withdrawal sx, HTN controlled off medication on libirum no using drugs/alcohol Plan: cont detox, fluids, montor bp, restart hCTZ if elevated, cont antidepressant as prescribed.
[2017-02-14] MEDS: METHYL SALICYLATE/MENTHOL OINT 30 GM TUBE TP SCH ×2 (12:48→23:16)
[2017-02-14] MEDS: SERTRALINE HCL 50 MG TABLET (FP) PO SCH (12:48)
[2017-02-14] MEDS: PRENATAL VITAMINS W/ FOLIC ACID TABLET (FP) PO SCH (12:48)
[2017-02-14] MEDS: amLODIPine BESYLATE 5 MG TABLET (FP) PO SCH (12:48)
[2017-02-14] MEDS: THIAMINE HCL 100 MG TABLET (FP) PO SCH (22:36)
[2017-02-14] MEDS: chlordiazePOXIDE 5 MG CAPSULE PO SCH (22:36)
[2017-02-15] MEDS: CYCLOBENZAPRINE HCL 5 MG TABLET PO SCH (06:15)
[2017-02-15] MEDS: chlordiazePOXIDE 5 MG CAPSULE PO SCH ×2 (06:15→10:52)
[2017-02-15 06:34] VITALS: TEMP 97.7
[2017-02-15] MEDS: PRENATAL VITAMINS W/ FOLIC ACID TABLET (FP) PO SCH (10:52)
[2017-02-15] MEDS: METHYL SALICYLATE/MENTHOL OINT 30 GM TUBE TP SCH (10:52)
[2017-02-15] MEDS: amLODIPine BESYLATE 5 MG TABLET (FP) PO SCH (10:52)
[2017-02-15] MEDS: SERTRALINE HCL 50 MG TABLET (FP) PO SCH (10:52)
[2017-02-15 10:53] VITALS: BP 134/88; PULSE 78
--- NOTE | 2017-02-15 12:03 | PN ---
S Progress Note (SOAP) Subjective: Generalized pain, mild abdominal discomfort Objective: 02/15/17 12:01 Vital Signs - 8 hr 02/15/17 02/15/17 06:34 10:52 Temperature 97.7 F 97.7 F Pulse Rate 67 78 Respiratory 18 18 Rate Blood Pressure 116/52 134/88 Laboratory Last Values WBC 4.6 K/mm3 (4.0-10.0) D 02/13/17 07:50 RBC 4.51 M/mm3 (4.00-5.60) 02/13/17 07:50 Hgb 13.5 GM/dL (11.7-16.9) 02/13/17 07:50 Hct 39.9 % (35.4-49) 02/13/17 07:50 MCV 88.6 fl (80-96) 02/13/17 07:50 MCH 30.0 pg (25.7-33.7) 02/13/17 07:50 MCHC 33.9 g/dl (32.0-35.9) 02/13/17 07:50 RDW 14.2 % (11.9-15.9) 02/13/17 07:50 Plt Count 203 K/MM3 (134-434) 02/13/17 07:50 MPV 8.2 fl (7.5-11.1) 02/13/17 07:50 Sodium 141 mmol/L (136-145) 02/13/17 07:50 Potassium 3.6 mmol/L (3.5-5.1) 02/13/17 07:50 Chloride 105 mmol/L (98-107) 02/13/17 07:50 Carbon Dioxide 31 mmol/L (21-32) 02/13/17 07:50 Anion Gap 5 (8-16) L 02/13/17 07:50 BUN 16 mg/dL (7-18) D 02/13/17 07:50 Creatinine 0.9 mg/dL (0.7-1.3) 02/13/17 07:50 Creat Clearance w eGFR > 60 (>60) 02/13/17 07:50 Random Glucose 95 mg/dL (74-106) D 02/13/17 07:50 Calcium 8.3 mg/dL (8.5-10.1) L 02/13/17 07:50 Total Bilirubin 0.4 mg/dL (0.2-1.0) 02/13/17 07:50 AST 17 U/L (15-37) D 02/13/17 07:50 ALT 29 U/L (12-78) 02/13/17 07:50 Alkaline Phosphatase 79 U/L (45-117) 02/13/17 07:50 Total Protein 6.6 g/dl (6.4-8.2) 02/13/17 07:50 Albumin 3.1 g/dl (3.4-5.0) L 02/13/17 07:50 Urine Color Yellow 02/12/17 23:54 Urine Appearance Clear 02/12/17 23:54 Urine pH 5.0 (5.0-8.0) 02/12/17 23:54 Ur Specific [place] >= 1.030 (1.005-1.025) H 02/12/17 23:54 Urine Protein Negative (NEGATIVE) 02/12/17 23:54 Urine Glucose (UA) Negative (NEGATIVE) 02/12/17 23:54 Urine Ketones Trace (NEGATIVE) H 02/12/17 23:54 Urine Blood Negative (NEGATIVE) 02/12/17 23:54 Urine Nitrite Negative (NEGATIVE) 02/12/17 23:54 Urine Bilirubin Negative (NEGATIVE) 02/12/17 23:54 Urine Urobilinogen Negative mg/dL (0.2-1.0) 02/12/17 23:54 RPR Titer Nonreactive (NONREACTIVE) 02/13/17 07:50 labs noted Assessment: 02/15/17 12:02 resolving withdrawal sx Plan: continue detox
--- NOTE | 2017-02-15 17:27 | DS ---
[facility] Detox Discharge Summary Admission Date: 02/12/17 Discharge Date: 02/15/17 - History Present History: Alcohol Dependence, Cocaine Dependence Pertinent Past History: HTN, GERD, low back pain - Physical Exam Results Vital Signs: Vital Signs Temperature 97.7 F 02/15/17 10:52 Pulse Rate 78 02/15/17 10:52 Respiratory Rate 18 02/15/17 10:52 Blood Pressure 134/88 02/15/17 10:52 O2 Sat by Pulse Oximetry (%) Pertinent Admission Physical Exam Findings: withdrawal sx Laboratory Last Values WBC 4.6 K/mm3 (4.0-10.0) D 02/13/17 07:50 RBC 4.51 M/mm3 (4.00-5.60) 02/13/17 07:50 Hgb 13.5 GM/dL (11.7-16.9) 02/13/17 07:50 Hct 39.9 % (35.4-49) 02/13/17 07:50 MCV 88.6 fl (80-96) 02/13/17 07:50 MCH 30.0 pg (25.7-33.7) 02/13/17 07:50 MCHC 33.9 g/dl (32.0-35.9) 02/13/17 07:50 RDW 14.2 % (11.9-15.9) 02/13/17 07:50 Plt Count 203 K/MM3 (134-434) 02/13/17 07:50 MPV 8.2 fl (7.5-11.1) 02/13/17 07:50 Sodium 141 mmol/L (136-145) 02/13/17 07:50 Potassium 3.6 mmol/L (3.5-5.1) 02/13/17 07:50 Chloride 105 mmol/L (98-107) 02/13/17 07:50 Carbon Dioxide 31 mmol/L (21-32) 02/13/17 07:50 Anion Gap 5 (8-16) L 02/13/17 07:50 BUN 16 mg/dL (7-18) D 02/13/17 07:50 Creatinine 0.9 mg/dL (0.7-1.3) 02/13/17 07:50 Creat Clearance w eGFR > 60 (>60) 02/13/17 07:50 Random Glucose 95 mg/dL (74-106) D 02/13/17 07:50 Calcium 8.3 mg/dL (8.5-10.1) L 02/13/17 07:50 Total Bilirubin 0.4 mg/dL (0.2-1.0) 02/13/17 07:50 AST 17 U/L (15-37) D 02/13/17 07:50 ALT 29 U/L (12-78) 02/13/17 07:50 Alkaline Phosphatase 79 U/L (45-117) 02/13/17 07:50 Total Protein 6.6 g/dl (6.4-8.2) 02/13/17 07:50 Albumin 3.1 g/dl (3.4-5.0) L 02/13/17 07:50 Urine Color Yellow 02/12/17 23:54 Urine Appearance Clear 02/12/17 23:54 Urine pH 5.0 (5.0-8.0) 02/12/17 23:54 Ur Specific [place] >= 1.030 (1.005-1.025) H 02/12/17 23:54 Urine Protein Negative (NEGATIVE) 02/12/17 23:54 Urine Glucose (UA) Negative (NEGATIVE) 02/12/17 23:54 Urine Ketones Trace (NEGATIVE) H 02/12/17 23:54 Urine Blood Negative (NEGATIVE) 02/12/17 23:54 Urine Nitrite Negative (NEGATIVE) 02/12/17 23:54 Urine Bilirubin Negative (NEGATIVE) 02/12/17 23:54 Urine Urobilinogen Negative mg/dL (0.2-1.0) 02/12/17 23:54 RPR Titer Nonreactive (NONREACTIVE) 02/13/17 07:50 labs noted - Treatment Hospital Course: Detox Protocol Followed, Detoxed Safely, Responded well, Discharged Condition Good, Rehab Referral Accepted Patient has Accepted a Rehab Referral to: [facility] - Medication Discharge Medications: Ambulatory Orders Sertraline HCl [Zoloft -] 50 mg PO DAILY #30 tablet 02/13/17 - Diagnosis (1) Alcohol dependence with withdrawal, uncomplicated Status: Acute (2) Cocaine dependence Status: Acute (3) Drug-induced mood disorder Status: Acute (4) Chronic low back pain Status: Chronic Qualifiers: Back pain laterality: bilateral Sciatica presence: without sciatica Qualified Code(s): M54.5 - Low back pain; G89.29 - Other chronic pain (5) Essential hypertension Status: Chronic (6) GERD (gastroesophageal reflux disease) Status: Chronic Qualifiers: Esophagitis presence: without esophagitis Qualified Code(s): K21.9 - Gastro-esophageal reflux disease without esophagitis (7) MDD (major depressive disorder), recurrent episode, moderate Status: Acute - AMA Did Patient Leave Against Medical Advice: No (Patient has been accepted for rehab at [facility]. )
[2017-02-15] MEDS ORDERED: chlordiazePOXIDE HCL 10 MG CAPSULE PO SCH (23:00)
== END 2017-02-15 13:00 | disposition home or self-care (01) | DRG 774 ==
LOC: YASAS 13:22 → Y6N 16:29
PROVIDERS: ADMIT Internal Medicine; ATTEND Internal Medicine
PROC: HZ2ZZZZ Detoxification Services for Substance Abuse Treatment (ICD-10-PCS; principal; 2017-02-12)
DX: F10.230 Alcohol dependence with withdrawal, uncomplicated (principal); F14.20 Cocaine dependence, uncomplicated; F33.1 Major depressive disorder, recurrent, moderate; F19.24 Other psychoactive substance dependence with psychoactive substance-induced mood disorder; I10 Essential (primary) hypertension; K21.9 Gastro-esophageal reflux disease without esophagitis; M54.5 Low back pain; G89.29 Other chronic pain
CPT/HCPCS: 36415; 80053; 81003; 85027; 86593; 90688; 93005; 93010; G0008

== ENCOUNTER 2017-05-17 11:27 | Inpatient (IN) | payer OTHER ==
[2017-05-17 11:38] VITALS: BMI 29.7
--- NOTE | 2017-05-17 12:36 | HP ---
CIWA Score - CIWA Score Nausea/Vomitin-Mild Nausea/No Vomiting Muscle Tremors: 4-Moderate,w/Arms Extend Anxiety: 4-Mod. Anxious/Guarded Agitation: 1-Slight > Activity Paroxysmal Sweats: 1-Minimal Palms Moist Orientation: 0-Oriented Tacttile Disturbances: 1-Very Mild Itch/Numbness Auditory Disturbances: 1-Very Mild Visual Disturbances: 1-Very Mild Sensitivity Headache: 1-Very Mild CIWA-Ar Total Score: 15 Admission ROS BHS - HPI Chief Complaint: I want to stop drinking, I can't do it on my own, I'm way overdue to get myself together Allergies/Adverse Reactions: Allergies Allergy/AdvReac Type Severity Reaction Status Date / Time No Known Drug Allergies Allergy Verified 02/12/17 16:15 peanut Allergy Difficulty Verified 02/12/17 16:15 Breathing History of Present Illness: 51 yo gentleman here for detox from alcohol - no seizures but does have black outs, last detox was here in january 2017, one of multiple admissions. Also using crack/cocaine (no benzo though it showed in urine tox he thinks it was cut into cocaine). Living in half-way. Exam Limitations: No Limitations - Ebola screening Have you traveled outside of the country in the last 21 days: No Have you had contact with anyone from an Ebola affected area: No Have you been sick,other than usual withdrawal symptoms: No Do you have a fever: No - Review of Systems Constitutional: Loss of Appetite, Malaise, Changes in sleep, Weakness EENT: reports: Nose Congestion Respiratory: reports: No Symptoms reported Cardiac: reports: No Symptoms Reported GI: reports: Nausea, Indigestion : reports: Frequency Musculoskeletal: reports: Back Pain, Muscle Pain Integumentary: reports: Dryness Neuro: reports: Headache, Tremors Endocrine: reports: No Symptoms Reported Hematology: reports: No Symptoms Reported Psychiatric: reports: Judgement Intact, Mood/Affect Appropiate, Orientated x3, Anxious Other Systems: Reviewed and Negative Patient History - Patient Medical History Hx Anemia: No Hx Asthma: No Hx Chronic Obstructive Pulmonary Disease (COPD): No Hx Cancer: No Hx Cardiac Disorders: No Hx Congestive Heart Failure: No Hx Hypertension: Yes (no meds) Hx Hypercholesterolemia: No Hx Pacemaker: No HX Cerebrovascular Accident: No Hx Seizures: No Hx Dementia: No Hx Diabetes: No Hx Gastrointestinal Disorders: Yes (gerd from drinking) Hx Liver Disease: No Hx Genitourinary Disorders: No Hx Sexually Transmitted Disorders: No Hx Renal Disease (ESRD): No Hx Thyroid Disease: No Hx Human Immunodeficiency Virus (HIV): No Hx Hepatitis C: No Hx Depression: Yes (non adherent with meds, hospitalized 2016) Hx Suicide Attempt: No Hx Bipolar Disorder: No Hx Schizophrenia: Yes ('no voices but I get paranoid') - Patient Surgical History Past Surgical History: Yes Hx Neurologic Surgery: No Hx Cataract Extraction: No Hx Cardiac Surgery: No Hx Lung Surgery: No Hx Breast Surgery: No Hx Breast Biopsy: No Hx Abdominal Surgery: Yes (umbilical hernia at age of 11 years) Hx Appendectomy: No Hx Cholecystectomy: No Hx Genitourinary Surgery: No Hx Section: No Hx Orthopedic Surgery: No Other Surgical History: bunion right toe surgery done 06/18 Anesthesia Reaction: No - PPD History Previous Implant?: Yes Documented Results: Negative w/proof Date: 09/07/16 Results: 0 MM PPD to be Administered?: No - Reproductive History Patient is a Female of Child Bearing Age (11 -55 yrs old): No (male) - Smoking Cessation Smoking history: Never smoked Have you smoked in the past 12 months: No Aproximately how many cigarettes per day: 0 Hx Chewing Tobacco Use: No Initiated information on smoking cessation: No - Substance & Tx. History Hx Alcohol Use: Yes Hx Substance Use: Yes Substance Use Type: Alcohol, Cocaine Hx Substance Use Treatment: Yes (detox , rehab) - Substances Abused Alcohol Route: Oral Frequency: Daily Amount used: 5 pints liquor; two six packs 16oz beer Age of first use: 16 Date of Last Use: 05/17/17 Cocaine Route: Smoking Frequency: 3-6 times per week Amount used: 5gm Age of first use: 22 Date of Last Use: 05/17/17 Family Disease History - Family Disease History Family Disease History: CA: Mother (BREAST,,), Other: Father (living, no contact HTN,), Mother, Brother (one living, healthy), Sister (three living - healthy) Admission Physical Exam BHS - Vital Signs Vital Signs: Vital Signs - 24 hr 05/17/17 11:28 Temperature 96 F L Pulse Rate 87 Respiratory 20 Rate Blood Pressure 138/80 - Physical General Appearance: Yes: Nourished, Appropriately Dressed, Mild Distress, Anxious HEENTM: Yes: EOMI, Hearing grossly Normal, Normal ENT Inspection, Normocephalic , Normal Voice Respiratory: Yes: Normal Breath Sounds, No Respiratory Distress Neck: Yes: No masses,lesions,Nodules, Supple Breast: Yes: Breast Exam Deferred Cardiology: Yes: Regular Rhythm, Regular Rate Abdominal: Yes: Non Tender, Flat Genitourinary: Yes: Frequency Back: Yes: Normal Inspection Musculoskeletal: Yes: full range of Motion, Gait Steady, Muscle Pain Extremities: Yes: Normal Inspection, Non-Tender 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: Yes: Fully Oriented, Alert, Normal Mood/Affect, Normal Response Integumentary: Yes: Normal Color, Dry, Warm Lymphatic: Yes: Within Normal Limits - Diagnostic (1) Alcohol dependence with withdrawal, uncomplicated Current Visit: Yes Status: Acute (2) Cocaine dependence Current Visit: Yes Status: Acute (3) Chronic low back pain Current Visit: Yes Status: Chronic Qualifiers: Back pain laterality: bilateral Sciatica presence: without sciatica Qualified Code(s): M54.5 - Low back pain; G89.29 - Other chronic pain; G89.29 - Other chronic pain (4) Essential hypertension Current Visit: Yes Status: Chronic (5) GERD (gastroesophageal reflux disease) Current Visit: Yes Status: Chronic Qualifiers: Esophagitis presence: without esophagitis Qualified Code(s): K21.9 - Gastro -esophageal reflux disease without esophagitis Cleared for Admission [facility] - Detox or Rehab [facility] Level of Care: Medically Managed Detox Regimen/Protocol: Librium [facility] Breath Alcohol Content Breath Alcohol Content: 0.079 Urine Drug Screen - Results Drug Screen Negative: No Urine Drug Screen Results: JAZMIN-Cocaine, BZO-Benzodiazepines
[2017-05-17] MEDS ORDERED: guaiFENesin/D-METHORPHAN HB 10 ML UNIT-DOSE CUPS PO PRN (12:39)
[2017-05-17] MEDS ORDERED: LOPERAMIDE HCL 2 MG CAPSULE PO PRN (12:39)
[2017-05-17] MEDS ORDERED: ACETAMINOPHEN 325 MG TABLET (FP) PO PRN (12:39)
[2017-05-17] MEDS ORDERED: MAGNESIUM CITRATE 300 ML BOTTLE PO PRN (12:39)
[2017-05-17] MEDS ORDERED: MENTHOL/PHENOL 1 EACH UD MM PRN (12:39)
[2017-05-17] MEDS ORDERED: chlordiazePOXIDE HCL 25 MG CAPSULE PO PRN (12:39)
[2017-05-17] MEDS ORDERED: MAG HYDROX/AL HYDROX/SIMETH 30 ML UNIT-DOSE CUP PO PRN (12:39)
[2017-05-17] MEDS ORDERED: P-EPHED 60MG/TRIPROLIDI 2.5MG TABLET PO PRN (12:39)
[2017-05-17] MEDS ORDERED: MAGNESIUM HYDROX 2400MG/30ML ORAL SUSPENSION 30 ML CUP PO PRN (12:39)
[2017-05-17] MEDS: METHYL SALICYLATE/MENTHOL OINT 30 GM TUBE TP SCH ×2 (15:02→22:17)
[2017-05-17 15:35] LABS: URINE APPEARANCE CLEAR; URINE BILIRUBIN NEGATIVE (NEGATIVE); URINE BLOOD NEGATIVE (NEGATIVE); URINE COLOR YELLOW; URINE GLUCOSE (UA) NEGATIVE (NEGATIVE); URINE KETONE TRACE (NEGATIVE); URINE LEUK ESTERASE NEGATIVE (NEGATIVE); URINE NITRITE NEGATIVE (NEGATIVE); URINE PROTEIN NEGATIVE (NEGATIVE); URINE UROBILINOGEN NEGATIVE mg/dL (0.2-1.0)
[2017-05-17] MEDS: chlordiazePOXIDE HCL 25 MG CAPSULE PO SCH ×2 (17:07→22:16)
--- NOTE | 2017-05-17 17:45 | CONSULT ---
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 Substance Abuse History: Smoking history: Never smoked. Have you smoked in the past 12 months: No. Aproximately how many cigarettes per day: 0. Hx Chewing Tobacco Use: No. Initiated information on smoking cessation: No. - Substance & Tx. History. Hx Alcohol Use: Yes. Hx Substance Use: Yes. Substance Use Type : Alcohol, Cocaine. Hx Substance Use Treatment: Yes (detox , rehab). - Substances Abused. Alcohol. Route: Oral. Frequency: Daily. Amount used: 5 pints liquor; two six packs 16oz beer. Age of first use: 16. Date of Last Use: 05/17/17. Cocaine. Route: Smoking. Frequency: 3-6 times per week. Amount used: 5gm. Age of first use: 22. Date of Last Use: 05/17/17 Medical History: History of GERD,past treatment for syphilis,surgical intervention for bunion (right toe) and umbilical herniorraphy. Psychiatric History: First contact with Psychiatry : 2002.Patient reports history of multiple psychiatric hospitalizations ([facility]).Diagnosed with MDD.Totally non-adherent to OPD care (dropped out of treatment at [facility] OPD clinic).Mr Parra indicates non-compliance with psychotropic medications for months.No reported history of suicide attempts. Physical/Sexual Abuse/Trauma History: Patient denies. Additional Comment: Urine Drug Screen Results: JAZMIN-Cocaine, BZO- Benzodiazepines.Noted. Mental Status Exam - Mental Status Exam Alert and Oriented to: Time, Place, Person Cognitive Function: Good Patient Appearance: Well Groomed Mood: Hopeful, Euthymic Affect: Appropriate, Normal Range Patient Behavior: Fatigued, Appropriate, Cooperative Speech Pattern: Clear Voice Loudness: Normal Thought Process: Intact, Goal Oriented Thought Disorder: Not Present Hallucinations: Denies Suicidal Ideation: Denies Homicidal Ideation: Denies Insight/Judgement: Poor Sleep: Well Appetite: Good Muscle strength/Tone: Normal Gait/Station: Normal Psychiatric Findings - Problem List ([place] 1, 2,3) (1) Alcohol dependence with withdrawal, uncomplicated Current Visit: Yes Status: Acute (2) Cocaine dependence Current Visit: Yes Status: Acute (3) Drug-induced mood disorder Current Visit: Yes Status: Acute - Initial Treatment Plan Initial Treatment Plan: Psychoeducation.Detoxification.Observation.
[2017-05-17 19:28] LABS: URINE LEUK ESTERASE Negative (NEGATIVE)
[2017-05-17] MEDS: THIAMINE HCL 100 MG TABLET (FP) PO SCH (22:16)
[2017-05-17] MEDS: IBUPROFEN 400 MG TABLET (FP) PO PRN (22:17)
[2017-05-18] MEDS: chlordiazePOXIDE HCL 25 MG CAPSULE PO SCH ×4 (05:52→22:03)
[2017-05-18] MEDS: IBUPROFEN 400 MG TABLET (FP) PO PRN (05:53)
[2017-05-18] MEDS ORDERED: COLLOIDAL OATMEAL 1 BAR EACH TP PRN (10:27)
[2017-05-18] MEDS: METHYL SALICYLATE/MENTHOL OINT 30 GM TUBE TP SCH ×2 (10:31→22:03)
[2017-05-18] MEDS: PRENATAL VITAMINS W/ FOLIC ACID TABLET (FP) PO SCH (10:31)
[2017-05-18 10:52] LABS: ALBUMIN 3.6 g/dl (3.4-5.0); ALK PHOS 85 U/L (45-117); ANION GAP 7 (8-16); BILIRUBIN,TOTAL 0.7 mg/dL (0.2-1.0); CALCIUM 8.3 mg/dL (8.5-10.1); CO2 30 mmol/L (21-32); GLUCOSE,RANDOM 89 mg/dL (74-106); SGOT/AST 19 U/L (15-37); SGPT/ALT 34 U/L (12-78); TOT PROT 7.2 g/dl (6.4-8.2)
[2017-05-18 11:31] LABS: MCH 29.9 pg (25.7-33.7); MEAN CELL VOLUME 90.6 fl (80-96); MEAN PLT VOLUME 8.6 fl (7.5-11.1); PLATELET COUNT 241 K/MM3 (134-434); RDW 14.9 % (11.9-15.9); WHITE BLOOD COUNT 4.3 K/mm3 (4.0-10.0)
[2017-05-18] MEDS: CYCLOBENZAPRINE HCL 10 MG TABLET (FP) PO PRN ×2 (12:52→22:03)
--- NOTE | 2017-05-18 15:38 | PN ---
S CIWA - CIWA Score Nausea/Vomitin Muscle Tremors: 4-Moderate,w/Arms Extend Anxiety: 4-Mod. Anxious/Guarded Agitation: 4-Moderately Restless Paroxysmal Sweats: 3 Orientation: 0-Oriented Tacttile Disturbances: 1-Very Mild Itch/Numbness Auditory Disturbances: 0-None Visual Disturbances: 0-None Headache: 2-Mild CIWA-Ar Total Score: 21 BHS Progress Note (SOAP) Subjective: Headache, diarrhea, nausea, muscle ache/spasm, sweating, achy legs, interrupted sleep Objective: 05/18/17 15:36 Last Vital Signs Temp Pulse Resp BP Pulse Ox 97.2 F L 97 H 18 144/94 05/18/17 13:44 05/18/17 13:44 05/18/17 13:44 05/18/17 13:44 Laboratory Tests 05/17/17 05/18/17 05/18/17 15:13 07:30 07:30 WBC 4.3 RBC 4.90 Hgb 14.7 Hct 44.4 MCV 90.6 MCH 29.9 MCHC 33.0 RDW 14.9 Plt Count 241 MPV 8.6 Sodium 140 Potassium 3.7 Chloride 103 Carbon Dioxide 30 Anion Gap 7 L BUN 19 H Creatinine 1.0 Creat Clearance w eGFR > 60 Random Glucose 89 Calcium 8.3 L Total Bilirubin 0.7 D AST 19 ALT 34 Alkaline Phosphatase 85 Total Protein 7.2 Albumin 3.6 Urine Color Yellow Urine Appearance Clear Urine pH 5.0 Ur Specific [place] 1.018 Urine Protein Negative Urine Glucose (UA) Negative Urine Ketones Trace H Urine Blood Negative Urine Nitrite Negative Urine Bilirubin Negative Urine Urobilinogen Negative Ur Leukocyte Esterase Negative RPR Titer 05/18/17 07:30 WBC RBC Hgb Hct MCV MCH MCHC RDW Plt Count MPV Sodium Potassium Chloride Carbon Dioxide Anion Gap BUN Creatinine Creat Clearance w eGFR Random Glucose Calcium Total Bilirubin AST ALT Alkaline Phosphatase Total Protein Albumin Urine Color Urine Appearance Urine pH Ur Specific [place] Urine Protein Urine Glucose (UA) Urine Ketones Urine Blood Urine Nitrite Urine Bilirubin Urine Urobilinogen Ur Leukocyte Esterase RPR Titer Nonreactive Labs noted Assessment: 05/18/17 15:37 Withdrawal symptoms Plan: Continue detox Flexeril 10mg PO TID PRN for muscle spasm
[2017-05-18] MEDS: THIAMINE HCL 100 MG TABLET (FP) PO SCH (22:03)
[2017-05-19] MEDS: chlordiazePOXIDE HCL 25 MG CAPSULE PO SCH ×2 (06:01→10:07)
[2017-05-19] MEDS: PRENATAL VITAMINS W/ FOLIC ACID TABLET (FP) PO SCH (10:07)
[2017-05-19] MEDS: METHYL SALICYLATE/MENTHOL OINT 30 GM TUBE TP SCH ×2 (10:07→22:16)
[2017-05-19] MEDS: CYCLOBENZAPRINE HCL 10 MG TABLET (FP) PO PRN (10:08)
--- NOTE | 2017-05-19 11:09 | PN ---
S CIWA - CIWA Score Nausea/Vomitin Muscle Tremors: 4-Moderate,w/Arms Extend Anxiety: 3 Agitation: 4-Moderately Restless Paroxysmal Sweats: 3 Orientation: 0-Oriented Tacttile Disturbances: 1-Very Mild Itch/Numbness Auditory Disturbances: 0-None Visual Disturbances: 0-None Headache: 3-Moderate CIWA-Ar Total Score: 23 S Progress Note (SOAP) Subjective: Headache (somewhat migraine headache as per patient and that he takes tylenol # 3 which was Rx once at [facility], patient encouraged to use motrin/ tylenol prn or to get referral from his PCP to see a neurologist if he has migraine), n/v/d (diarrhea x 3 episodes), sweating, chills, tremor. Patient requesting inpatient rehab here at [facility]. Bereavement Counselor instructed patient to speak with his counselor today regarding rehab placement. Objective: 05/19/17 11:09 Last Vital Signs Temp Pulse Resp BP Pulse Ox 97.4 F L 74 18 113/76 05/19/17 09:31 05/19/17 09:31 05/19/17 09:31 05/19/17 09:31 Laboratory Tests 05/17/17 05/18/17 05/18/17 15:13 07:30 07:30 WBC 4.3 RBC 4.90 Hgb 14.7 Hct 44.4 MCV 90.6 MCH 29.9 MCHC 33.0 RDW 14.9 Plt Count 241 MPV 8.6 Sodium 140 Potassium 3.7 Chloride 103 Carbon Dioxide 30 Anion Gap 7 L BUN 19 H Creatinine 1.0 Creat Clearance w eGFR > 60 Random Glucose 89 Calcium 8.3 L Total Bilirubin 0.7 D AST 19 ALT 34 Alkaline Phosphatase 85 Total Protein 7.2 Albumin 3.6 Urine Color Yellow Urine Appearance Clear Urine pH 5.0 Ur Specific [place] 1.018 Urine Protein Negative Urine Glucose (UA) Negative Urine Ketones Trace H Urine Blood Negative Urine Nitrite Negative Urine Bilirubin Negative Urine Urobilinogen Negative Ur Leukocyte Esterase Negative RPR Titer 05/18/17 07:30 WBC RBC Hgb Hct MCV MCH MCHC RDW Plt Count MPV Sodium Potassium Chloride Carbon Dioxide Anion Gap BUN Creatinine Creat Clearance w eGFR Random Glucose Calcium Total Bilirubin AST ALT Alkaline Phosphatase Total Protein Albumin Urine Color Urine Appearance Urine pH Ur Specific [place] Urine Protein Urine Glucose (UA) Urine Ketones Urine Blood Urine Nitrite Urine Bilirubin Urine Urobilinogen Ur Leukocyte Esterase RPR Titer Nonreactive Labs noted Assessment: 05/19/17 11:11 Withdrawal symptoms Plan: Continue detox
[2017-05-19 11:29] LABS: HIV 1 & 2 AB NEGATIVE; HIV 1 AGp24 NEGATIVE
[2017-05-19] MEDS: chlordiazePOXIDE 5 MG CAPSULE PO SCH ×2 (17:05→22:15)
[2017-05-19] MEDS: THIAMINE HCL 100 MG TABLET (FP) PO SCH (22:15)
--- NOTE | 2017-05-20 01:56 | EKG ---
Test Reason : Blood Pressure : / mmHG Vent. Rate : 087 BPM Atrial Rate : 087 BPM P-R Int : 144 ms QRS Dur : 096 ms QT Int : 384 ms P-R-T Axes : 057 060 032 degrees QTc Int : 462 ms NORMAL SINUS RHYTHM NORMAL ECG WHEN COMPARED WITH ECG OF 12-FEB-2017 17:46, T WAVE VARIATION Confirmed by WALE CHURCH MD ([id number]) on 05/20/2017 1:56:38 AM Referred By: Confirmed By:WALE CHURCH MD
[2017-05-20] MEDS: CYCLOBENZAPRINE HCL 10 MG TABLET (FP) PO PRN (05:05)
[2017-05-20] MEDS: chlordiazePOXIDE 5 MG CAPSULE PO SCH ×2 (05:05→10:09)
[2017-05-20 09:05] VITALS: BP 122/87; PULSE 71; TEMP 97.1
[2017-05-20] MEDS: METHYL SALICYLATE/MENTHOL OINT 30 GM TUBE TP SCH (10:09)
[2017-05-20] MEDS: PRENATAL VITAMINS W/ FOLIC ACID TABLET (FP) PO SCH (10:09)
--- NOTE | 2017-05-20 14:47 | DS ---
[facility] Detox Discharge Summary Admission Date: 05/17/17 Discharge Date: 05/20/17 - History Present History: Alcohol Dependence, Cocaine Dependence Additional Comments: PATIENT DENIES CURRENT DETOX SYMPTOMS AND REPORTS THAT HE FEELS WELL OVERALL AT TIME OF DISCHARGE FROM DETOX. PATIENT GOING TO [facility] ([place], [place] FOR AFTERCARE. PATIENT WAS DISCHARGED FORM DETOX UNIT IN STABLE MEDICAL CONDITION. Pertinent Past History: Asthma, Depression, Nicotine Dependence, HTN, Chronic Low Back Pain, GERD. - Physical Exam Results Vital Signs: Vital Signs Temperature 97.1 F L 05/20/17 09:05 Pulse Rate 71 05/20/17 09:05 Respiratory Rate 18 05/20/17 09:05 Blood Pressure 122/87 05/20/17 09:05 O2 Sat by Pulse Oximetry (%) Pertinent Admission Physical Exam Findings: WITHDRAWAL SYMPTOMS. Laboratory Tests 05/17/17 05/18/17 05/18/17 15:13 07:30 07:30 WBC 4.3 RBC 4.90 Hgb 14.7 Hct 44.4 MCV 90.6 MCH 29.9 MCHC 33.0 RDW 14.9 Plt Count 241 MPV 8.6 Sodium 140 Potassium 3.7 Chloride 103 Carbon Dioxide 30 Anion Gap 7 L BUN 19 H Creatinine 1.0 Creat Clearance w eGFR > 60 Random Glucose 89 Calcium 8.3 L Total Bilirubin 0.7 D AST 19 ALT 34 Alkaline Phosphatase 85 Total Protein 7.2 Albumin 3.6 Urine Color Yellow Urine Appearance Clear Urine pH 5.0 Ur Specific [place] 1.018 Urine Protein Negative Urine Glucose (UA) Negative Urine Ketones Trace H Urine Blood Negative Urine Nitrite Negative Urine Bilirubin Negative Urine Urobilinogen Negative Ur Leukocyte Esterase Negative RPR Titer HIV 1&2 Antibody Screen HIV P24 Antigen 05/18/17 05/19/17 07:30 07:00 WBC RBC Hgb Hct MCV MCH MCHC RDW Plt Count MPV Sodium Potassium Chloride Carbon Dioxide Anion Gap BUN Creatinine Creat Clearance w eGFR Random Glucose Calcium Total Bilirubin AST ALT Alkaline Phosphatase Total Protein Albumin Urine Color Urine Appearance Urine pH Ur Specific [place] Urine Protein Urine Glucose (UA) Urine Ketones Urine Blood Urine Nitrite Urine Bilirubin Urine Urobilinogen Ur Leukocyte Esterase RPR Titer Nonreactive HIV 1&2 Antibody Screen Negative HIV P24 Antigen Negative LABS NOTED. - Treatment Hospital Course: Detox Protocol Followed, Detoxed Safely, Responded well, Discharged Condition Good Patient has Accepted a Rehab Referral to: PT GOING TO [facility] ([place], [place]) FOR AFTERCARE. - Medication Discharge Medications: Ambulatory Orders NK [No Known Home Medication] 05/17/17 - Diagnosis (1) Alcohol dependence with withdrawal, uncomplicated Status: Acute (2) Chronic low back pain Status: Chronic Qualifiers: Back pain laterality: bilateral Sciatica presence: without sciatica Qualified Code(s): M54.5 - Low back pain; G89.29 - Other chronic pain; G89.29 - Other chronic pain (3) Cocaine dependence Status: Chronic (4) Essential hypertension Status: Chronic (5) GERD (gastroesophageal reflux disease) Status: Chronic Qualifiers: Esophagitis presence: without esophagitis Qualified Code(s): K21.9 - Gastro -esophageal reflux disease without esophagitis (6) Drug-induced mood disorder Status: Acute - AMA Did Patient Leave Against Medical Advice: No
[2017-05-20] MEDS ORDERED: chlordiazePOXIDE HCL 10 MG CAPSULE PO SCH (17:00)
== END 2017-05-20 10:16 | disposition home or self-care (01) | DRG 774 ==
LOC: YASAS 11:27 → Y3N 12:53
PROVIDERS: ADMIT Internal Medicine; ATTEND Internal Medicine
PROC: HZ2ZZZZ Detoxification Services for Substance Abuse Treatment (ICD-10-PCS; principal; 2017-05-17)
DX: F10.230 Alcohol dependence with withdrawal, uncomplicated (principal); F14.20 Cocaine dependence, uncomplicated; F19.24 Other psychoactive substance dependence with psychoactive substance-induced mood disorder; F33.2 Major depressive disorder, recurrent severe without psychotic features; I10 Essential (primary) hypertension; K21.9 Gastro-esophageal reflux disease without esophagitis; M54.5 Low back pain; G89.29 Other chronic pain; Z87.438 Personal history of other diseases of male genital organs; Z91.010 Allergy to peanuts; Z91.14 Patient's other noncompliance with medication regimen
CPT/HCPCS: 36415; 80053; 81003; 85027; 86593; 87389; 93005; 93010

== ENCOUNTER 2017-06-24 09:54 | Inpatient (IN) | payer OTHER ==
[2017-06-24 10:42] VITALS: BMI 29.7
--- NOTE | 2017-06-24 11:57 | HP ---
CIWA Score - CIWA Score Nausea/Vomitin-Int. Nausea w/Dry Heave (AND DIARRHEA) Muscle Tremors: 3 Anxiety: 4-Mod. Anxious/Guarded Agitation: 4-Moderately Restless Paroxysmal Sweats: 1-Minimal Palms Moist Orientation: 0-Oriented Tacttile Disturbances: 3-Moderate Itch/Numb/Burn Auditory Disturbances: 0-None Visual Disturbances: 0-None Headache: 2-Mild CIWA-Ar Total Score: 21 Admission ROS BHS - HPI Chief Complaint: WITHDRAWAL SX FROM ALCOHOL Allergies/Adverse Reactions: Allergies Allergy/AdvReac Type Severity Reaction Status Date / Time No Known Drug Allergies Allergy Verified 02/12/17 16:15 peanut Allergy Difficulty Verified 02/12/17 16:15 Breathing History of Present Illness: 51 Y/O AA/MALE WITH A HX OF ALCOHOL AND COCAINE DEPENDENCE SEEKING DETOX TX. PT HAS MULTIPLE TX EPISODES. REPORTS PERIODS OF SOBRIETY OF 5 YEARS FROM 1994 TO 1999. Exam Limitations: No Limitations - Ebola screening Have you traveled outside of the country in the last 21 days: No (N) Have you had contact with anyone from an Ebola affected area: No Have you been sick,other than usual withdrawal symptoms: No Do you have a fever: No - Review of Systems Constitutional: Chills, Night Sweats, Changes in sleep EENT: reports: Blurred Vision (WEARS GLASSES), Nose Congestion, Dental Problems (MISSING TEETH/EXTRACTION) Respiratory: reports: No Symptoms reported Cardiac: reports: Lightheadedness GI: reports: Constipated, Diarrhea, Nausea, Poor Fluid Intake, Vomiting : reports: Frequency Musculoskeletal: reports: Back Pain, Joint Pain, Muscle Pain Integumentary: reports: No Symptoms Reported Neuro: reports: Headache, Tremors, Unsteady Gait, Dizziness Endocrine: reports: No Symptoms Reported Hematology: reports: No Symptoms Reported Psychiatric: reports: Orientated x3, Depressed Other Systems: Reviewed and Negative Patient History - Patient Medical History Hx Anemia: No Hx Asthma: No Hx Chronic Obstructive Pulmonary Disease (COPD): No Hx Cancer: No Hx Cardiac Disorders: No Hx Congestive Heart Failure: No Hx Hypertension: Yes (HYDROCHLOROTHIAZIDE) Hx Hypercholesterolemia: No Hx Pacemaker: No HX Cerebrovascular Accident: No Hx Seizures: No Hx Dementia: No Hx Diabetes: No Hx Gastrointestinal Disorders: Yes (gerd from drinking) Hx Liver Disease: No Hx Genitourinary Disorders: No Hx Sexually Transmitted Disorders: No Hx Renal Disease (ESRD): No Hx Thyroid Disease: No Hx Human Immunodeficiency Virus (HIV): No (NEGATIVE HX) Hx Hepatitis C: No Hx Depression: Yes (non adherent with meds, hospitalized 2016) Hx Suicide Attempt: No (DENIES) Hx Bipolar Disorder: No Hx Schizophrenia: Yes ('no voices but I get paranoid') - Patient Surgical History Past Surgical History: Yes Hx Neurologic Surgery: No Hx Cataract Extraction: No Hx Cardiac Surgery: No Hx Lung Surgery: No Hx Breast Surgery: No Hx Breast Biopsy: No Hx Abdominal Surgery: Yes (umbilical hernia at age of 11 years) Hx Appendectomy: No Hx Cholecystectomy: No Hx Genitourinary Surgery: No Hx Orthopedic Surgery: No Other Surgical History: bunion right toe surgery done 06/18 Anesthesia Reaction: No - PPD History Previous Implant?: Yes Implanted On Prior [facility] Admission?: Yes Date: 09/07/16 Results: 0 MM PPD to be Administered?: No - Reproductive History Patient is a Female of Child Bearing Age (11 -55 yrs old): No (MALE) - Smoking Cessation Smoking history: Never smoked Have you smoked in the past 12 months: No Aproximately how many cigarettes per day: 0 Hx Chewing Tobacco Use: No Initiated information on smoking cessation: No - Substance & Tx. History Hx Alcohol Use: Yes (BARCADI/BEER) Hx Substance Use: Yes (COCAINE) Substance Use Type: Alcohol, Cocaine Hx Substance Use Treatment: Yes (LAST TX AT [facility]) - Substances Abused Alcohol Route: Oral Frequency: Daily Amount used: Liquor 4 pints, Beer 1 6pk Age of first use: 16 Date of Last Use: 06/24/17 Cocaine Route: Inhalation Frequency: Daily Amount used: 3 Gm Age of first use: 22 Date of Last Use: 06/24/17 Family Disease History - Family Disease History Family Disease History: CA: Mother (BREAST,,), Other: Father (living, no contact HTN,), Mother, Brother (one living, healthy), Sister (three living - healthy) Admission Physical Exam BHS - Vital Signs Vital Signs: Vital Signs - 24 hr 06/24/17 10:41 Temperature 96.4 F L Pulse Rate 76 Respiratory 20 Rate Blood Pressure 160/93 - Physical General Appearance: Yes: Nourished, Appropriately Dressed, Moderate Distress, Irritable, Anxious HEENTM: Yes: EOMI, MARSIEL, Pharynx Normal Respiratory: Yes: Chest Non-Tender, Lungs Clear, Normal Breath Sounds, No Respiratory Distress Neck: Yes: No masses,lesions,Nodules, Supple, Trachea in good position Breast: Yes: Breast Exam Deferred Cardiology: Yes: Regular Rhythm, Regular Rate, S1, S2 Abdominal: Yes: Normal Bowel Sounds, Non Tender, Soft Genitourinary: Yes: Other (N/C) Back: Yes: Within Normal Limits Musculoskeletal: Yes: full range of Motion, Gait Steady Extremities: Yes: Normal Range of Motion, Non-Tender 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: 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: 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 NML intact, Fully Oriented, Alert, Motor Strength 5/5 Integumentary: Yes: Dry, Warm Lymphatic: Yes: Within Normal Limits - Diagnostic (1) Alcohol dependence with withdrawal, uncomplicated Current Visit: Yes Status: Acute (2) Essential hypertension Current Visit: Yes Status: Chronic (3) Cocaine dependence, uncomplicated Current Visit: Yes Status: Acute (4) GERD (gastroesophageal reflux disease) Current Visit: Yes Status: Chronic Qualifiers: Esophagitis presence: esophagitis presence not specified Qualified Code(s) : K21.9 - Gastro-esophageal reflux disease without esophagitis Cleared for Admission [facility] - Detox or Rehab [facility] Level of Care: Medically Managed Detox Regimen/Protocol: Librium [facility] Breath Alcohol Content Breath Alcohol Content: 0 Urine Drug Screen - Results Drug Screen Negative: No Urine Drug Screen Results: JAZMIN-Cocaine
[2017-06-24] MEDS ORDERED: guaiFENesin/D-METHORPHAN HB 10 ML UNIT-DOSE CUPS PO PRN (12:11)
[2017-06-24] MEDS ORDERED: ACETAMINOPHEN 325 MG TABLET (FP) PO PRN (12:11)
[2017-06-24] MEDS ORDERED: MENTHOL/PHENOL 1 EACH UD MM PRN (12:11)
[2017-06-24] MEDS ORDERED: hydrOXYzine PAMOATE 50 MG CAPSULE (FP) PO PRN (12:11)
[2017-06-24] MEDS ORDERED: MAG HYDROX/AL HYDROX/SIMETH 30 ML UNIT-DOSE CUP PO PRN (12:11)
[2017-06-24] MEDS ORDERED: P-EPHED 60MG/TRIPROLIDI 2.5MG TABLET PO PRN (12:11)
[2017-06-24] MEDS ORDERED: LOPERAMIDE HCL 2 MG CAPSULE PO PRN (12:11)
[2017-06-24] MEDS ORDERED: IBUPROFEN 400 MG TABLET (FP) PO PRN (12:11)
[2017-06-24] MEDS ORDERED: MAGNESIUM HYDROX 2400MG/30ML ORAL SUSPENSION 30 ML CUP PO PRN (12:11)
[2017-06-24] MEDS ORDERED: MAGNESIUM CITRATE 300 ML BOTTLE PO PRN (12:11)
[2017-06-24] MEDS ORDERED: chlordiazePOXIDE HCL 25 MG CAPSULE PO PRN (12:11)
[2017-06-24] MEDS ORDERED: chlordiazePOXIDE HCL 25 MG CAPSULE PO ONE (13:02)
[2017-06-24 13:59] LABS: HEMATOCRIT 45.1 % (35.4-49); HEMOGLOBIN 14.9 GM/dL (11.7-16.9); MCH 29.4 pg (25.7-33.7); MEAN CELL VOLUME 89.3 fl (80-96); MEAN PLT VOLUME 8.8 fl (7.5-11.1); PLATELET COUNT 218 K/MM3 (134-434); RBC 5.06 M/mm3 (4.00-5.60); RDW 14.3 % (11.9-15.9); WHITE BLOOD COUNT 6.5 K/mm3 (4.0-10.0)
[2017-06-24 14:05] LABS: ALBUMIN 3.8 g/dl (3.4-5.0); ANION GAP 9 (8-16); BLOOD UREA NITROGEN 17 mg/dL (7-18); CALCIUM 8.6 mg/dL (8.5-10.1); CHLORIDE 100 mmol/L (98-107); CO2 29 mmol/L (21-32); GLUCOSE,RANDOM 82 mg/dL (74-106); POTASSIUM 3.6 mmol/L (3.5-5.1); SODIUM 138 mmol/L (136-145)
[2017-06-24 14:08] LABS: ALK PHOS 93 U/L (45-117); BILIRUBIN,TOTAL 0.5 mg/dL (0.2-1.0); SGOT/AST 18 U/L (15-37); SGPT/ALT 28 U/L (12-78); TOT PROT 7.9 g/dl (6.4-8.2)
[2017-06-24] MEDS: HYDROCHLOROTHIAZIDE 25 MG TABLET (FP) PO SCH (14:27)
[2017-06-24] MEDS: METHYL SALICYLATE/MENTHOL OINT 30 GM TUBE TP SCH ×2 (15:54→22:54)
--- NOTE | 2017-06-24 16:20 | CONSULT ---
[facility] Psychiatric Consult - Data Date of interview: 06/24/17 Admission source: [facility] Identifying data: Pt. is a 51 year old male, single, without kids, and currently unemployed. This is one of multiple admissions for patient. Pt. admitted to for alcohol and cocaine dependence. Substance Abuse History: Following information confirmed with Mr. Parra: Smoking Cessation. Smoking history: Never smoked. Have you smoked in the past 12 months: No. Aproximately how many cigarettes per day: 0. Hx Chewing Tobacco Use: No. Initiated information on smoking cessation: No. - Substance & Tx. History. Hx Alcohol Use: Yes (BARCADI/BEER). Hx Substance Use: Yes ( COCAINE). Substance Use Type: Alcohol, Cocaine. Hx Substance Use Treatment: Yes (LAST TX AT [facility]). - Substances Abused. Alcohol. Route: Oral. Frequency: Daily. Amount used: Liquor 4 pints, Beer 1 6pk. Age of first use: 16. Date of Last Use: 06/24/17. Cocaine. Route: Inhalation. Frequency: Daily. Amount used: 3 Gm. Age of first use: 22. Date of Last Use: 06/24/17 Medical History: hypertension, GERD Psychiatric History: Pt. reports approximately 8 psychiatric hospitalizations. Most recently hospitalized in March and July of 2016 at [facility] for depression. States his diagnosis is MDD and anxiety. Reports seeing an outpatient psychiatrist at [facility] three months ago and has been prescribed zoloft 50mg. Most recently took zoloft last month. As per pharmacy claims a prescription of zoloft was sent to his pharmacy on 03/17/2017. Pt. denies h/o suicide attempt. Physical/Sexual Abuse/Trauma History: Denies. Mental Status Exam - Mental Status Exam Alert and Oriented to: Time, Place, Person Cognitive Function: Good Patient Appearance: Well Groomed Mood: Hopeful Affect: Appropriate Patient Behavior: Appropriate, Cooperative Speech Pattern: Appropriate Voice Loudness: Normal Thought Process: Goal Oriented Thought Disorder: Not Present Hallucinations: Denies Suicidal Ideation: Denies Homicidal Ideation: Denies Insight/Judgement: Poor Sleep: Fair Appetite: Good Muscle strength/Tone: Normal Gait/Station: Normal Psychiatric Findings - Problem List ([facility] 1, 2,3) (1) MDD (major depressive disorder) Current Visit: Yes Status: Chronic Comment: Self reports. (2) Alcohol dependence with withdrawal, uncomplicated Current Visit: Yes Status: Acute (3) Cocaine dependence, uncomplicated Current Visit: Yes Status: Acute (4) Alcohol dependence Current Visit: Yes Status: Acute (5) Cocaine dependence Current Visit: Yes Status: Acute - Initial Treatment Plan Initial Treatment Plan: Psychoeducation provided. Detoxification in progress. Zoloft 50mg PO daily ordered. Benefits and side effects discussed. Verbal consent given. Will continue to monitor patient.
[2017-06-24] MEDS: chlordiazePOXIDE HCL 25 MG CAPSULE PO SCH ×2 (18:10→22:29)
[2017-06-24 21:21] LABS: URINE APPEARANCE CLEAR; URINE BILIRUBIN NEGATIVE (NEGATIVE); URINE BLOOD NEGATIVE (NEGATIVE); URINE COLOR YELLOW; URINE GLUCOSE (UA) 1+ (NEGATIVE); URINE KETONE NEGATIVE (NEGATIVE); URINE LEUK ESTERASE NEGATIVE (NEGATIVE); URINE NITRITE NEGATIVE (NEGATIVE); URINE PROTEIN NEGATIVE (NEGATIVE); URINE UROBILINOGEN NEGATIVE mg/dL (0.2-1.0)
[2017-06-24] MEDS: THIAMINE HCL 100 MG TABLET (FP) PO SCH (22:29)
[2017-06-25] MEDS: chlordiazePOXIDE HCL 25 MG CAPSULE PO SCH ×4 (05:45→22:38)
--- NOTE | 2017-06-25 10:06 | EKG ---
Test Reason : Blood Pressure : / mmHG Vent. Rate : 063 BPM Atrial Rate : 063 BPM P-R Int : 142 ms QRS Dur : 108 ms QT Int : 438 ms P-R-T Axes : 069 062 033 degrees QTc Int : 448 ms NORMAL SINUS RHYTHM NORMAL ECG WHEN COMPARED WITH ECG OF 17-MAY-2017 15:18, NO SIGNIFICANT CHANGE WAS FOUND Confirmed by JESSICA SCHAFER MD ([id number]) on 06/25/2017 10:06:24 AM Referred By: Confirmed By:JESSICA SCHAFER MD
[2017-06-25] MEDS: PRENATAL VITAMINS W/ FOLIC ACID TABLET (FP) PO SCH (10:48)
[2017-06-25] MEDS: HYDROCHLOROTHIAZIDE 25 MG TABLET (FP) PO SCH (10:48)
[2017-06-25] MEDS: METHYL SALICYLATE/MENTHOL OINT 30 GM TUBE TP SCH ×2 (10:48→23:02)
[2017-06-25] MEDS: SERTRALINE HCL 50 MG TABLET (FP) PO SCH (10:48)
--- NOTE | 2017-06-25 14:47 | PN ---
S CIWA - CIWA Score Nausea/Vomitin-Int. Nausea w/Dry Heave Muscle Tremors: 3 Anxiety: 3 Agitation: 3 Paroxysmal Sweats: 3 Orientation: 0-Oriented Tacttile Disturbances: 2-Mild Itch/Numbness/Burn Auditory Disturbances: 0-None Visual Disturbances: 0-None Headache: 0-None Present CIWA-Ar Total Score: 18 BHS Progress Note (SOAP) Subjective: interrupted sleep, sweats, nausea, diarrhea Objective: 06/25/17 14:44 Vital Signs Temperature 97.8 F 06/25/17 13:11 Pulse Rate 70 06/25/17 13:11 Respiratory Rate 18 06/25/17 13:11 Blood Pressure 155/97 06/25/17 13:11 O2 Sat by Pulse Oximetry (%) Laboratory Tests 06/24/17 06/24/17 06/24/17 12:05 12:05 12:05 WBC 6.5 D RBC 5.06 Hgb 14.9 Hct 45.1 MCV 89.3 MCH 29.4 MCHC 33.0 RDW 14.3 Plt Count 218 MPV 8.8 Sodium 138 Potassium 3.6 Chloride 100 Carbon Dioxide 29 Anion Gap 9 BUN 17 Creatinine 1.0 Creat Clearance w eGFR > 60 Random Glucose 82 Calcium 8.6 Total Bilirubin 0.5 D AST 18 ALT 28 Alkaline Phosphatase 93 Total Protein 7.9 Albumin 3.8 Urine Color Urine Appearance Urine pH Ur Specific [place] Urine Protein Urine Glucose (UA) Urine Ketones Urine Blood Urine Nitrite Urine Bilirubin Urine Urobilinogen Ur Leukocyte Esterase RPR Titer Nonreactive 06/24/17 17:15 WBC RBC Hgb Hct MCV MCH MCHC RDW Plt Count MPV Sodium Potassium Chloride Carbon Dioxide Anion Gap BUN Creatinine Creat Clearance w eGFR Random Glucose Calcium Total Bilirubin AST ALT Alkaline Phosphatase Total Protein Albumin Urine Color Yellow Urine Appearance Clear Urine pH 5.0 Ur Specific [place] 1.021 Urine Protein Negative Urine Glucose (UA) 1+ H Urine Ketones Negative Urine Blood Negative Urine Nitrite Negative Urine Bilirubin Negative Urine Urobilinogen Negative Ur Leukocyte Esterase Negative RPR Titer pt aox3 in nad lying in bed Assessment: 06/25/17 14:45 withdrawal sx' Plan: cont detox increase fluids imodium prn
[2017-06-25] MEDS ORDERED: COLLOIDAL OATMEAL 1 BAR EACH TP PRN (14:48)
[2017-06-25] MEDS: THIAMINE HCL 100 MG TABLET (FP) PO SCH (22:38)
[2017-06-26] MEDS: chlordiazePOXIDE HCL 25 MG CAPSULE PO SCH ×2 (05:40→10:41)
[2017-06-26] MEDS: HYDROCHLOROTHIAZIDE 25 MG TABLET (FP) PO SCH (10:41)
[2017-06-26] MEDS: PRENATAL VITAMINS W/ FOLIC ACID TABLET (FP) PO SCH (10:41)
[2017-06-26] MEDS: SERTRALINE HCL 50 MG TABLET (FP) PO SCH (10:41)
[2017-06-26] MEDS: METHYL SALICYLATE/MENTHOL OINT 30 GM TUBE TP SCH ×2 (10:43→22:37)
--- NOTE | 2017-06-26 10:54 | PN ---
S CIWA - CIWA Score Nausea/Vomitin-Mild Nausea/No Vomiting Muscle Tremors: 3 Anxiety: 3 Agitation: 3 Paroxysmal Sweats: 1-Minimal Palms Moist Orientation: 0-Oriented Tacttile Disturbances: 1-Very Mild Itch/Numbness Auditory Disturbances: 0-None Visual Disturbances: 0-None Headache: 1-Very Mild CIWA-Ar Total Score: 13 BHS Progress Note (SOAP) Subjective: mild headache sweat tremor anxiety Objective: 06/26/17 10:53 Vital Signs Temperature 97.0 F L 06/26/17 09:36 Pulse Rate 80 06/26/17 09:36 Respiratory Rate 18 06/26/17 09:36 Blood Pressure 133/82 06/26/17 09:36 O2 Sat by Pulse Oximetry (%) Laboratory Last Values WBC 6.5 K/mm3 (4.0-10.0) D 06/24/17 12:05 RBC 5.06 M/mm3 (4.00-5.60) 06/24/17 12:05 Hgb 14.9 GM/dL (11.7-16.9) 06/24/17 12:05 Hct 45.1 % (35.4-49) 06/24/17 12:05 MCV 89.3 fl (80-96) 06/24/17 12:05 MCH 29.4 pg (25.7-33.7) 06/24/17 12:05 MCHC 33.0 g/dl (32.0-35.9) 06/24/17 12:05 RDW 14.3 % (11.9-15.9) 06/24/17 12:05 Plt Count 218 K/MM3 (134-434) 06/24/17 12:05 MPV 8.8 fl (7.5-11.1) 06/24/17 12:05 Sodium 138 mmol/L (136-145) 06/24/17 12:05 Potassium 3.6 mmol/L (3.5-5.1) 06/24/17 12:05 Chloride 100 mmol/L (98-107) 06/24/17 12:05 Carbon Dioxide 29 mmol/L (21-32) 06/24/17 12:05 Anion Gap 9 (8-16) 06/24/17 12:05 BUN 17 mg/dL (7-18) 06/24/17 12:05 Creatinine 1.0 mg/dL (0.7-1.3) 06/24/17 12:05 Creat Clearance w eGFR > 60 (>60) 06/24/17 12:05 Random Glucose 82 mg/dL (74-106) 06/24/17 12:05 Calcium 8.6 mg/dL (8.5-10.1) 06/24/17 12:05 Total Bilirubin 0.5 mg/dL (0.2-1.0) D 06/24/17 12:05 AST 18 U/L (15-37) 06/24/17 12:05 ALT 28 U/L (12-78) 06/24/17 12:05 Alkaline Phosphatase 93 U/L (45-117) 06/24/17 12:05 Total Protein 7.9 g/dl (6.4-8.2) 06/24/17 12:05 Albumin 3.8 g/dl (3.4-5.0) 06/24/17 12:05 Urine Color Yellow 06/24/17 17:15 Urine Appearance Clear 06/24/17 17:15 Urine pH 5.0 (5.0-8.0) 06/24/17 17:15 Ur Specific [place] 1.021 (1.001-1.035) 06/24/17 17:15 Urine Protein Negative (NEGATIVE) 06/24/17 17:15 Urine Glucose (UA) 1+ (NEGATIVE) H 06/24/17 17:15 Urine Ketones Negative (NEGATIVE) 06/24/17 17:15 Urine Blood Negative (NEGATIVE) 06/24/17 17:15 Urine Nitrite Negative (NEGATIVE) 06/24/17 17:15 Urine Bilirubin Negative (NEGATIVE) 06/24/17 17:15 Urine Urobilinogen Negative mg/dL (0.2-1.0) 06/24/17 17:15 Ur Leukocyte Esterase Negative (NEGATIVE) 06/24/17 17:15 RPR Titer Nonreactive (NONREACTIVE) 06/24/17 12:05 lab noted Assessment: 06/26/17 10:53 withdrawal sx Plan: continue detox
[2017-06-26] MEDS: chlordiazePOXIDE 5 MG CAPSULE PO SCH ×2 (17:55→22:35)
[2017-06-26] MEDS: THIAMINE HCL 100 MG TABLET (FP) PO SCH (22:35)
[2017-06-27] MEDS: chlordiazePOXIDE 5 MG CAPSULE PO SCH (06:37)
[2017-06-27] MEDS ORDERED: chlordiazePOXIDE HCL 10 MG CAPSULE PO SCH ×2 (08:33→17:00)
--- NOTE | 2017-06-27 08:38 | DS ---
[facility] Detox Discharge Summary Admission Date: 06/24/17 Discharge Date: 06/27/17 - History Present History: Alcohol Dependence, Cocaine Dependence Additional Comments: patient requested early discharge , medically stable, detox regimen accelerated , maryetn may go to rehab today at [facility] as planned Pertinent Past History: anxiety, depression, insomnia, nicotine dependence - Physical Exam Results Vital Signs: Vital Signs Temperature 96.4 F L 06/27/17 06:50 Pulse Rate 69 06/27/17 06:50 Respiratory Rate 16 06/27/17 06:50 Blood Pressure 116/75 06/27/17 06:50 O2 Sat by Pulse Oximetry (%) Laboratory Tests 06/24/17 06/24/17 06/24/17 12:05 12:05 12:05 WBC 6.5 D RBC 5.06 Hgb 14.9 Hct 45.1 MCV 89.3 MCH 29.4 MCHC 33.0 RDW 14.3 Plt Count 218 MPV 8.8 Sodium 138 Potassium 3.6 Chloride 100 Carbon Dioxide 29 Anion Gap 9 BUN 17 Creatinine 1.0 Creat Clearance w eGFR > 60 Random Glucose 82 Calcium 8.6 Total Bilirubin 0.5 D AST 18 ALT 28 Alkaline Phosphatase 93 Total Protein 7.9 Albumin 3.8 Urine Color Urine Appearance Urine pH Ur Specific [place] Urine Protein Urine Glucose (UA) Urine Ketones Urine Blood Urine Nitrite Urine Bilirubin Urine Urobilinogen Ur Leukocyte Esterase RPR Titer Nonreactive 06/24/17 17:15 WBC RBC Hgb Hct MCV MCH MCHC RDW Plt Count MPV Sodium Potassium Chloride Carbon Dioxide Anion Gap BUN Creatinine Creat Clearance w eGFR Random Glucose Calcium Total Bilirubin AST ALT Alkaline Phosphatase Total Protein Albumin Urine Color Yellow Urine Appearance Clear Urine pH 5.0 Ur Specific [place] 1.021 Urine Protein Negative Urine Glucose (UA) 1+ H Urine Ketones Negative Urine Blood Negative Urine Nitrite Negative Urine Bilirubin Negative Urine Urobilinogen Negative Ur Leukocyte Esterase Negative RPR Titer Pertinent Admission Physical Exam Findings: withdrawal sx - Medication Discharge Medications: Ambulatory Orders Hydrochlorothiazide 25 mg PO DAILY #30 tablet 06/27/17 - Diagnosis (1) MDD (major depressive disorder), recurrent episode, moderate Current Visit: No Status: Chronic (2) Essential hypertension Current Visit: Yes Status: Chronic (3) GERD (gastroesophageal reflux disease) Current Visit: Yes Status: Chronic Qualifiers: Esophagitis presence: esophagitis presence not specified Qualified Code(s) : K21.9 - Gastro-esophageal reflux disease without esophagitis (4) Alcohol dependence with withdrawal, uncomplicated Current Visit: Yes Status: Chronic (5) Cocaine dependence, uncomplicated Current Visit: Yes Status: Chronic (6) MDD (major depressive disorder) Current Visit: Yes Status: Chronic - AMA Did Patient Leave Against Medical Advice: No
[2017-06-27 09:26] VITALS: BP 136/63; PULSE 75; TEMP 97
[2017-06-27] MEDS: HYDROCHLOROTHIAZIDE 25 MG TABLET (FP) PO SCH (09:37)
[2017-06-27] MEDS: SERTRALINE HCL 50 MG TABLET (FP) PO SCH (09:38)
[2017-06-27] MEDS: PRENATAL VITAMINS W/ FOLIC ACID TABLET (FP) PO SCH (09:38)
== END 2017-06-27 09:47 | disposition home or self-care (01) | DRG 774 ==
LOC: YASAS 09:54 → Y6N 12:55
PROVIDERS: ADMIT Internal Medicine; ATTEND Internal Medicine
PROC: HZ2ZZZZ Detoxification Services for Substance Abuse Treatment (ICD-10-PCS; principal; 2017-06-24)
DX: F10.20 Alcohol dependence, uncomplicated (principal); F14.20 Cocaine dependence, uncomplicated; F17.210 Nicotine dependence, cigarettes, uncomplicated; F41.9 Anxiety disorder, unspecified; F20.9 Schizophrenia, unspecified; F33.9 Major depressive disorder, recurrent, unspecified; G47.00 Insomnia, unspecified; I10 Essential (primary) hypertension; K21.9 Gastro-esophageal reflux disease without esophagitis
CPT/HCPCS: 36415; 80053; 81003; 85027; 86593; 93005; 93010

== ENCOUNTER 2017-09-24 10:44 | Inpatient (IN) | payer OTHER ==
[2017-09-24 11:21] VITALS: BMI 29.7
--- NOTE | 2017-09-24 14:34 | HP ---
CIWA Score - CIWA Score Nausea/Vomitin-Mild Nausea/No Vomiting Muscle Tremors: 4-Moderate,w/Arms Extend Anxiety: 4-Mod. Anxious/Guarded Agitation: 4-Moderately Restless Paroxysmal Sweats: 1-Minimal Palms Moist Orientation: 1-Uncertain about Date Tacttile Disturbances: 1-Very Mild Itch/Numbness Auditory Disturbances: 0-None Visual Disturbances: 0-None Headache: 1-Very Mild CIWA-Ar Total Score: 17 Admission ROS S - HPI Chief Complaint: withdrawal sx Allergies/Adverse Reactions: Allergies Allergy/AdvReac Type Severity Reaction Status Date / Time No Known Drug Allergies Allergy Verified 09/24/17 11:45 peanut Allergy Difficulty Verified 09/24/17 11:45 Breathing History of Present Illness: 51 years old male with long history of alcohol dependence has hypertension depression and muscle ache is admitted to detox Exam Limitations: No Limitations - Ebola screening Have you traveled outside of the country in the last 21 days: No Have you had contact with anyone from an Ebola affected area: No Have you been sick,other than usual withdrawal symptoms: No Do you have a fever: No - Review of Systems Constitutional: Changes in sleep, Weight Stable EENT: reports: Blurred Vision (eye glasses) Respiratory: reports: SOB with Exertion, Productive cough (yellowish) Cardiac: reports: No Symptoms Reported GI: reports: Nausea, Poor Fluid Intake, Indigestion, Abdominal cramping : reports: No Symptoms Reported Musculoskeletal: reports: Back Pain, Joint Pain, Muscle Pain, Neck Pain Integumentary: reports: No Symptoms Reported Neuro: reports: Tremors Endocrine: reports: No Symptoms Reported Hematology: reports: No Symptoms Reported Psychiatric: reports: Judgement Intact, Anxious, Depressed Other Systems: Reviewed and Negative Patient History - Patient Medical History Hx Anemia: No Hx Asthma: No Hx Chronic Obstructive Pulmonary Disease (COPD): No Hx Cancer: No Hx Cardiac Disorders: No Hx Congestive Heart Failure: No Hx Hypertension: Yes (ON MEDS.) Hx Hypercholesterolemia: No Hx Pacemaker: No HX Cerebrovascular Accident: No Hx Seizures: No Hx Dementia: No Hx Diabetes: No Hx Gastrointestinal Disorders: No Hx Liver Disease: No Hx Genitourinary Disorders: No Hx Sexually Transmitted Disorders: No Hx Renal Disease (ESRD): No Hx Thyroid Disease: No Hx Human Immunodeficiency Virus (HIV): No (NEGATIVE HX) Hx Hepatitis C: No Hx Depression: Yes Hx Suicide Attempt: No Hx Bipolar Disorder: No Hx Schizophrenia: No - Patient Surgical History Past Surgical History: Yes Hx Neurologic Surgery: No Hx Cataract Extraction: No Hx Cardiac Surgery: No Hx Lung Surgery: No Hx Breast Surgery: No Hx Breast Biopsy: No Hx Abdominal Surgery: Yes (umbilical hernia at age of 11 years) Hx Appendectomy: No Hx Cholecystectomy: No Hx Genitourinary Surgery: No Hx Orthopedic Surgery: No Other Surgical History: bunion right toe surgery done 06/18 Anesthesia Reaction: No - PPD History Previous Implant?: Yes Documented Results: Negative w/o proof Implanted On Prior R Admission?: Yes Date: 09/07/16 Results: 0 MM PPD to be Administered?: Yes - Smoking Cessation Smoking history: Never smoked Have you smoked in the past 12 months: No Aproximately how many cigarettes per day: 0 Hx Chewing Tobacco Use: No Initiated information on smoking cessation: No - Substance & Tx. History Hx Alcohol Use: Yes Hx Substance Use: Yes Substance Use Type: Alcohol, Cocaine Hx Substance Use Treatment: Yes (06/2017 [facility] - Substances Abused Alcohol Route: Oral Frequency: Daily Amount used: 3-4 PINTS RUM Age of first use: 16 Date of Last Use: 09/24/17 Cocaine Route: Smoking Frequency: Daily Amount used: 4-5 GRAMS Age of first use: 22 Date of Last Use: 09/23/17 Family Disease History - Family Disease History Family Disease History: CA: Mother (BREAST,,), Other: Father (living, no contact HTN,), Mother, Brother (one living, healthy), Sister (three living - healthy) Admission Physical Exam S - Vital Signs Vital Signs: Vital Signs - 24 hr 09/24/17 11:18 Temperature 96 F L Pulse Rate 79 Respiratory 20 Rate Blood Pressure 162/85 - Physical General Appearance: Yes: Nourished, Moderate Distress, Tremorous, Irritable, Sweating, Anxious HEENTM: Yes: Hearing grossly Normal, Normocephalic, Normal Voice, Nasal Congestion Respiratory: Yes: Chest Non-Tender, Lungs Clear, Normal Breath Sounds, No Respiratory Distress, No Accessory Muscle Use Neck: Yes: Supple, Trachea in good position Breast: Yes: Breasts Symetrical, No Discharge Cardiology: Yes: Regular Rhythm, Regular Rate, S1, S2 Abdominal: Yes: Normal Bowel Sounds, Non Tender, Flat Genitourinary: Yes: Within Normal Limits Back: Yes: Normal Inspection Musculoskeletal: Yes: full range of Motion, Gait Steady Extremities: Yes: Normal Inspection, Normal Range of Motion, Non-Tender, Tremors 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: Yes: Fully Oriented, Alert, Motor Strength 5/5, Normal Response, Depressed Affect Integumentary: Yes: Warm Lymphatic: Yes: Within Normal Limits - Diagnostic (1) Dry skin Current Visit: Yes Status: Chronic (2) Alcohol dependence with withdrawal, uncomplicated Current Visit: Yes Status: Acute (3) Essential hypertension Current Visit: Yes Status: Chronic (4) GERD (gastroesophageal reflux disease) Current Visit: Yes Status: Chronic Qualifiers: Esophagitis presence: esophagitis presence not specified Qualified Code(s) : K21.9 - Gastro-esophageal reflux disease without esophagitis Cleared for Admission [facility] - Detox or Rehab [facility] Level of Care: Medically Managed Detox Regimen/Protocol: Librium [facility] Breath Alcohol Content Breath Alcohol Content: 0.111 Urine Drug Screen - Results Drug Screen Negative: No Urine Drug Screen Results: JAZMIN-Cocaine, BZO-Benzodiazepines
[2017-09-24] MEDS ORDERED: MAGNESIUM CITRATE 300 ML BOTTLE PO PRN (14:35)
[2017-09-24] MEDS ORDERED: IBUPROFEN 400 MG TABLET (FP) PO PRN (14:35)
[2017-09-24] MEDS ORDERED: LOPERAMIDE HCL 2 MG CAPSULE PO PRN (14:35)
[2017-09-24] MEDS ORDERED: MENTHOL/PHENOL 1 EACH UD MM PRN (14:35)
[2017-09-24] MEDS ORDERED: MAGNESIUM HYDROX 2400MG/30ML ORAL SUSPENSION 30 ML CUP PO PRN (14:35)
[2017-09-24] MEDS ORDERED: P-EPHED 60MG/TRIPROLIDI 2.5MG TABLET PO PRN (14:35)
[2017-09-24] MEDS ORDERED: chlordiazePOXIDE HCL 25 MG CAPSULE PO PRN (14:35)
[2017-09-24] MEDS ORDERED: MAG HYDROX/AL HYDROX/SIMETH 30 ML UNIT-DOSE CUP PO PRN (14:35)
[2017-09-24] MEDS ORDERED: COLLOIDAL OATMEAL 1 BAR EACH TP PRN (14:40)
[2017-09-24] MEDS: METHYL SALICYLATE/MENTHOL OINT 30 GM TUBE TP SCH (15:47)
[2017-09-24] MEDS: HYDROCHLOROTHIAZIDE 25 MG TABLET (FP) PO SCH (15:47)
[2017-09-24] MEDS: ACETAMINOPHEN 325 MG TABLET (FP) PO PRN ×2 (15:54→20:00)
[2017-09-24] MEDS: guaiFENesin/D-METHORPHAN HB 10 ML UNIT-DOSE CUPS PO PRN ×2 (15:56→22:43)
--- NOTE | 2017-09-24 17:12 | CONSULT ---
[facility] Psychiatric Consult - Data Date of interview: 09/24/17 Admission source: [facility] Identifying data: Readmission to [facility] for this 51 y/o AA male seeking detox treatment on for alcohol and cocaine dependence.Patient is single without children,domiciled,unemployed and supported food stamps/odd jobs. Substance Abuse History: Confirmed by patient.Details in current [facility] report : Smoking history: Never smoked. Have you smoked in the past 12 months: No. Aproximately how many cigarettes per day: 0. Hx Chewing Tobacco Use: No. Initiated information on smoking cessation: No. - Substance & Tx. History. Hx Alcohol Use: Yes. Hx Substance Use: Yes. Substance Use Type: Alcohol, Cocaine. Hx Substance Use Treatment: Yes (06/2017 [facility] - Substances Abused. Alcohol. Route: Oral. Frequency: Daily. Amount used: 3-4 PINTS RUM. Age of first use: 16. Date of Last Use: 09/24/17. Cocaine. Route: Smoking. Frequency: Daily. Amount used: 4-5 GRAMS. Age of first use: 22. Date of Last Use: 09/23/17 Medical History: GERD,past treatment for syphilis,surgical intervention for bunion (right toe) and umbilical herniorraphy. Psychiatric History: Onset of emotional disturbances : 2002.Diagnosed with MDD.Patient admits to a history of multiple psychiatric hospitalizations ( [facility]).Chronically non-adherent to OPD care (dropped out of treatment at [facility] OPD clinic).Used to be prescribed zoloft 50 mg/day.No reported history of suicide attempts. Physical/Sexual Abuse/Trauma History: Patient denies. Additional Comment: Urine Drug Screen Results: JAZMIN-Cocaine, BZO- Benzodiazepines.Noted. Mental Status Exam - Mental Status Exam Alert and Oriented to: Time, Place, Person Cognitive Function: Good Patient Appearance: Well Groomed Mood: Nervous, Anxious, Hopeful Affect: Appropriate, Normal Range Patient Behavior: Appropriate, Cooperative Speech Pattern: Clear, Appropriate Voice Loudness: Normal Thought Process: Intact, Goal Oriented Thought Disorder: Not Present Hallucinations: Denies Suicidal Ideation: Denies Homicidal Ideation: Denies Insight/Judgement: Poor Sleep: Poorly, Difficulty falling asleep Appetite: Good Muscle strength/Tone: Normal Gait/Station: Normal Psychiatric Findings - Problem List (Hardy 1, 2,3) (1) Alcohol dependence with withdrawal, uncomplicated Current Visit: Yes Status: Acute (2) Cocaine dependence Current Visit: Yes Status: Acute (3) Drug-induced mood disorder Current Visit: Yes Status: Acute (4) Insomnia Current Visit: Yes Status: Acute - Initial Treatment Plan Initial Treatment Plan: Psychoeducation.Sleep hygiene.Detoxification in progress.Ambien 10 mg po hs prn.patient informed of risk of sleep- walking.Agrees with this careplan.Observation.
[2017-09-24 21:59] LABS: URINE APPEARANCE TURBID; URINE BILIRUBIN NEGATIVE (<2.0 mg/dL); URINE BLOOD NEGATIVE (NEGATIVE); URINE COLOR AMBER; URINE GLUCOSE (UA) NEGATIVE (NEGATIVE); URINE KETONE NEGATIVE (NEGATIVE); URINE LEUK ESTERASE TRACE (NEGATIVE); URINE NITRITE NEGATIVE (NEGATIVE); URINE PROTEIN NEGATIVE (NEGATIVE); URINE UROBILINOGEN NEGATIVE mg/dL (0.2-1.0)
[2017-09-24] MEDS ORDERED: MELATONIN 5 MG TABLETS PO PRN (22:00)
[2017-09-24] MEDS ORDERED: ZOLPIDEM TARTRATE 5 MG TABLET PO PRN (22:00)
[2017-09-24] MEDS: RANITIDINE HCL 150 MG TABLET (FP) PO SCH (22:41)
[2017-09-24] MEDS: THIAMINE HCL 100 MG TABLET (FP) PO SCH (22:41)
[2017-09-24] MEDS: chlordiazePOXIDE HCL 25 MG CAPSULE PO SCH (22:41)
[2017-09-24] MEDS: MINERAL OIL/PETROLAT/WATER TOPICAL CREAM 113 GM JAR TP SCH (22:41)
[2017-09-25] MEDS: chlordiazePOXIDE HCL 25 MG CAPSULE PO SCH ×4 (05:30→22:16)
[2017-09-25] MEDS: HYDROCHLOROTHIAZIDE 25 MG TABLET (FP) PO SCH (10:25)
[2017-09-25] MEDS: PRENATAL VITAMINS W/ FOLIC ACID TABLET (FP) PO SCH (10:25)
[2017-09-25] MEDS: METHYL SALICYLATE/MENTHOL OINT 30 GM TUBE TP SCH (10:25)
[2017-09-25] MEDS: RANITIDINE HCL 150 MG TABLET (FP) PO SCH ×2 (10:25→22:16)
[2017-09-25] MEDS: ACETAMINOPHEN 325 MG TABLET (FP) PO PRN ×2 (10:26→22:18)
[2017-09-25] MEDS: guaiFENesin/D-METHORPHAN HB 10 ML UNIT-DOSE CUPS PO PRN ×2 (10:28→22:18)
[2017-09-25 10:31] LABS: HEMATOCRIT 44.8 % (35.4-49); HEMOGLOBIN 15.1 GM/dL (11.7-16.9); MCH 30.4 pg (25.7-33.7); MCHC 33.8 g/dl (32.0-35.9); MEAN CELL VOLUME 90.1 fl (80-96); MEAN PLT VOLUME 9.1 fl (7.5-11.1); PLATELET COUNT 238 K/MM3 (134-434); RBC 4.97 M/mm3 (4.00-5.60); RDW 15.3 % (11.9-15.9); WHITE BLOOD COUNT 6.3 K/mm3 (4.0-10.0)
[2017-09-25 10:44] LABS: CHLORIDE 102 mmol/L (98-107); POTASSIUM 3.7 mmol/L (3.5-5.1); SODIUM 141 mmol/L (136-145)
[2017-09-25 11:11] LABS: ALBUMIN 3.9 g/dl (3.4-5.0); ALK PHOS 97 U/L (45-117); ANION GAP 8 (8-16); BILIRUBIN,TOTAL 0.3 mg/dL (0.2-1.0); BLOOD UREA NITROGEN 16 mg/dL (7-18); CALCIUM 8.5 mg/dL (8.5-10.1); CO2 31 mmol/L (21-32); GLUCOSE,RANDOM 80 mg/dL (74-106); SGOT/AST 50 U/L (15-37); SGPT/ALT 37 U/L (12-78); TOT PROT 8.1 g/dl (6.4-8.2)
[2017-09-25] MEDS ORDERED: LIDOCAINE VISCOUS 2% ORAL/TOP 20 ML UNIT-DOSE CUP MM PRN (12:37)
--- NOTE | 2017-09-25 13:00 | EKG ---
Test Reason : Blood Pressure : / mmHG Vent. Rate : 078 BPM Atrial Rate : 078 BPM P-R Int : 140 ms QRS Dur : 096 ms QT Int : 414 ms P-R-T Axes : 073 064 035 degrees QTc Int : 471 ms NORMAL SINUS RHYTHM NORMAL ECG WHEN COMPARED WITH ECG OF 24-JUN-2017 14:20, NO SIGNIFICANT CHANGE WAS FOUND Confirmed by GUILLERMO GUZMÁN MD ([id number]) on 09/25/2017 1:00:21 PM Referred By: Confirmed By:GUILLERMO GUZMÁN MD
--- NOTE | 2017-09-25 14:11 | PN ---
[facility] CIWA - CIWA Score Nausea/Vomitin-No Nausea/No Vomiting Muscle Tremors: 4-Moderate,w/Arms Extend Anxiety: 4-Mod. Anxious/Guarded Agitation: 4-Moderately Restless Paroxysmal Sweats: 1-Minimal Palms Moist Orientation: 0-Oriented Tacttile Disturbances: 0-None Auditory Disturbances: 0-None Visual Disturbances: 0-None Headache: 0-None Present CIWA-Ar Total Score: 13 BHS Progress Note (SOAP) Subjective: ANXIETY, SLIGHT TREMORS, IRRITABILITY, TOOTH ACHE WITH SWELLING TO LOWER LEFT JAW. REPORTS WAS PRESCRIBED AMOXICILLIN 2 WEEKS AGO BUT DID NOT TAKE IT YET. REQUESTS TREATMENT. VERIFIED VIA THE POSTING ON PT'S HOME PHARMACY FOR 09/08/17. Objective: 09/25/17 14:10 Vital Signs Temperature 96.8 F L 09/25/17 13:44 Pulse Rate 73 09/25/17 13:44 Respiratory Rate 18 09/25/17 13:44 Blood Pressure 115/78 09/25/17 13:44 O2 Sat by Pulse Oximetry (%) Laboratory Last Values WBC 6.3 K/mm3 (4.0-10.0) 09/25/17 05:50 RBC 4.97 M/mm3 (4.00-5.60) 09/25/17 05:50 Hgb 15.1 GM/dL (11.7-16.9) 09/25/17 05:50 Hct 44.8 % (35.4-49) 09/25/17 05:50 MCV 90.1 fl (80-96) 09/25/17 05:50 MCH 30.4 pg (25.7-33.7) 09/25/17 05:50 MCHC 33.8 g/dl (32.0-35.9) 09/25/17 05:50 RDW 15.3 % (11.9-15.9) 09/25/17 05:50 Plt Count 238 K/MM3 (134-434) 09/25/17 05:50 MPV 9.1 fl (7.5-11.1) 09/25/17 05:50 Sodium 141 mmol/L (136-145) 09/25/17 05:50 Potassium 3.7 mmol/L (3.5-5.1) 09/25/17 05:50 Chloride 102 mmol/L (98-107) 09/25/17 05:50 Carbon Dioxide 31 mmol/L (21-32) 09/25/17 05:50 Anion Gap 8 (8-16) 09/25/17 05:50 BUN 16 mg/dL (7-18) 09/25/17 05:50 Creatinine 1.0 mg/dL (0.7-1.3) 09/25/17 05:50 Creat Clearance w eGFR > 60 (>60) 09/25/17 05:50 Random Glucose 80 mg/dL (74-106) 09/25/17 05:50 Calcium 8.5 mg/dL (8.5-10.1) 09/25/17 05:50 Total Bilirubin 0.3 mg/dL (0.2-1.0) D 09/25/17 05:50 AST 50 U/L (15-37) H D 09/25/17 05:50 ALT 37 U/L (12-78) D 09/25/17 05:50 Alkaline Phosphatase 97 U/L (45-117) 09/25/17 05:50 Total Protein 8.1 g/dl (6.4-8.2) 09/25/17 05:50 Albumin 3.9 g/dl (3.4-5.0) 09/25/17 05:50 Urine Color Lisa 09/24/17 21:11 Urine Appearance Turbid 09/24/17 21:11 Urine pH 5.0 (5.0-8.0) 09/24/17 21:11 Ur Specific [place] 1.023 (1.001-1.035) 09/24/17 21:11 Urine Protein Negative (NEGATIVE) 09/24/17 21:11 Urine Glucose (UA) Negative (NEGATIVE) 09/24/17 21:11 Urine Ketones Negative (NEGATIVE) 09/24/17 21:11 Urine Blood Negative (NEGATIVE) 09/24/17 21:11 Urine Nitrite Negative (NEGATIVE) 09/24/17 21:11 Urine Bilirubin Negative (<2.0 mg/dL) 09/24/17 21:11 Urine Urobilinogen Negative mg/dL (0.2-1.0) 09/24/17 21:11 Ur Leukocyte Esterase Trace (NEGATIVE) 09/24/17 21:11 Urine WBC (Auto) 4 /hpf (3-5) 09/24/17 21:11 Urine RBC (Auto) 9 /hpf (0-3) 09/24/17 21:11 RPR Titer Nonreactive (NONREACTIVE) 09/25/17 05:50 Assessment: 09/25/17 14:10 WITHDRAWAL SX TOOTH ABSCESS Plan: CONTINUE DETOX RESTART AMOXICILLIN 500 MG PO TID X 5 DAYS
[2017-09-25] MEDS: AMOXICILLIN 500 MG CAPSULE (FP) PO SCH ×2 (14:12→22:16)
[2017-09-25] MEDS: THIAMINE HCL 100 MG TABLET (FP) PO SCH (22:16)
[2017-09-25] MEDS: MINERAL OIL/PETROLAT/WATER TOPICAL CREAM 113 GM JAR TP SCH (23:37)
[2017-09-26] MEDS: AMOXICILLIN 500 MG CAPSULE (FP) PO SCH ×3 (06:15→22:23)
[2017-09-26] MEDS: chlordiazePOXIDE HCL 25 MG CAPSULE PO SCH ×3 (06:15→17:10)
[2017-09-26] MEDS: PRENATAL VITAMINS W/ FOLIC ACID TABLET (FP) PO SCH (10:32)
[2017-09-26] MEDS: RANITIDINE HCL 150 MG TABLET (FP) PO SCH ×2 (10:32→22:23)
[2017-09-26] MEDS: METHYL SALICYLATE/MENTHOL OINT 30 GM TUBE TP SCH (10:32)
[2017-09-26] MEDS: HYDROCHLOROTHIAZIDE 25 MG TABLET (FP) PO SCH (10:32)
[2017-09-26] MEDS: guaiFENesin/D-METHORPHAN HB 10 ML UNIT-DOSE CUPS PO PRN (11:05)
--- NOTE | 2017-09-26 11:51 | PN ---
S CIWA - CIWA Score Nausea/Vomitin-No Nausea/No Vomiting Muscle Tremors: None Anxiety: 2 Agitation: 2 Paroxysmal Sweats: 3 Orientation: 0-Oriented Tacttile Disturbances: 2-Mild Itch/Numbness/Burn Auditory Disturbances: 1-Very Mild Visual Disturbances: 2-Mild Sensitivity Headache: 3-Moderate CIWA-Ar Total Score: 15 BHS Progress Note (SOAP) Subjective: Body Aches, H/A, Sweating. Objective: PATIENT A & O X 3, OBSERVED AMBULATING ON UNIT. NO ACUTE DISTRESS. 09/26/17 11:50 Vital Signs Temperature 96.6 F L 09/26/17 09:10 Pulse Rate 76 09/26/17 09:10 Respiratory Rate 16 09/26/17 09:10 Blood Pressure 106/76 09/26/17 09:10 O2 Sat by Pulse Oximetry (%) Laboratory Tests 09/24/17 09/25/17 09/25/17 21:11 05:50 05:50 WBC 6.3 RBC 4.97 Hgb 15.1 Hct 44.8 MCV 90.1 MCH 30.4 MCHC 33.8 RDW 15.3 Plt Count 238 MPV 9.1 Sodium 141 Potassium 3.7 Chloride 102 Carbon Dioxide 31 Anion Gap 8 BUN 16 Creatinine 1.0 Creat Clearance w eGFR > 60 Random Glucose 80 Calcium 8.5 Total Bilirubin 0.3 D AST 50 H D ALT 37 D Alkaline Phosphatase 97 Total Protein 8.1 Albumin 3.9 Urine Color Lisa Urine Appearance Turbid Urine pH 5.0 Ur Specific [place] 1.023 Urine Protein Negative Urine Glucose (UA) Negative Urine Ketones Negative Urine Blood Negative Urine Nitrite Negative Urine Bilirubin Negative Urine Urobilinogen Negative Ur Leukocyte Esterase Trace Urine WBC (Auto) 4 Urine RBC (Auto) 9 RPR Titer 09/25/17 05:50 WBC RBC Hgb Hct MCV MCH MCHC RDW Plt Count MPV Sodium Potassium Chloride Carbon Dioxide Anion Gap BUN Creatinine Creat Clearance w eGFR Random Glucose Calcium Total Bilirubin AST ALT Alkaline Phosphatase Total Protein Albumin Urine Color Urine Appearance Urine pH Ur Specific [place] Urine Protein Urine Glucose (UA) Urine Ketones Urine Blood Urine Nitrite Urine Bilirubin Urine Urobilinogen Ur Leukocyte Esterase Urine WBC (Auto) Urine RBC (Auto) RPR Titer Nonreactive LABS NOTED. Assessment: 09/26/17 11:51 WITHDRAWAL SYMPTOMS. Plan: CONTINUE DETOX.
[2017-09-26] MEDS: THIAMINE HCL 100 MG TABLET (FP) PO SCH (22:23)
[2017-09-26] MEDS: chlordiazePOXIDE 5 MG CAPSULE PO SCH (22:23)
[2017-09-26] MEDS: MINERAL OIL/PETROLAT/WATER TOPICAL CREAM 113 GM JAR TP SCH (23:52)
[2017-09-27] MEDS: AMOXICILLIN 500 MG CAPSULE (FP) PO SCH ×3 (05:24→22:53)
[2017-09-27] MEDS: chlordiazePOXIDE 5 MG CAPSULE PO SCH ×3 (05:24→18:10)
[2017-09-27] MEDS: PRENATAL VITAMINS W/ FOLIC ACID TABLET (FP) PO SCH (10:29)
[2017-09-27] MEDS: RANITIDINE HCL 150 MG TABLET (FP) PO SCH ×2 (10:29→22:53)
[2017-09-27] MEDS: HYDROCHLOROTHIAZIDE 25 MG TABLET (FP) PO SCH (10:29)
[2017-09-27] MEDS: METHYL SALICYLATE/MENTHOL OINT 30 GM TUBE TP SCH (10:29)
[2017-09-27] MEDS: guaiFENesin/D-METHORPHAN HB 10 ML UNIT-DOSE CUPS PO PRN (10:31)
--- NOTE | 2017-09-27 16:10 | PN ---
BHS Progress Note (SOAP) Subjective: Body Aches, Sweating. Objective: PATIENT A & O X 3, OBSERVED AMBULATING ON UNIT. NO ACUTE DISTRESS. 09/27/17 16:10 Vital Signs Temperature 97.6 F 09/27/17 14:40 Pulse Rate 74 09/27/17 14:40 Respiratory Rate 20 09/27/17 14:40 Blood Pressure 97/66 09/27/17 14:40 O2 Sat by Pulse Oximetry (%) Laboratory Tests 09/24/17 09/25/17 09/25/17 21:11 05:50 05:50 WBC 6.3 RBC 4.97 Hgb 15.1 Hct 44.8 MCV 90.1 MCH 30.4 MCHC 33.8 RDW 15.3 Plt Count 238 MPV 9.1 Sodium 141 Potassium 3.7 Chloride 102 Carbon Dioxide 31 Anion Gap 8 BUN 16 Creatinine 1.0 Creat Clearance w eGFR > 60 Random Glucose 80 Calcium 8.5 Total Bilirubin 0.3 D AST 50 H D ALT 37 D Alkaline Phosphatase 97 Total Protein 8.1 Albumin 3.9 Urine Color Lisa Urine Appearance Turbid Urine pH 5.0 Ur Specific [place] 1.023 Urine Protein Negative Urine Glucose (UA) Negative Urine Ketones Negative Urine Blood Negative Urine Nitrite Negative Urine Bilirubin Negative Urine Urobilinogen Negative Ur Leukocyte Esterase Trace Urine WBC (Auto) 4 Urine RBC (Auto) 9 RPR Titer 09/25/17 05:50 WBC RBC Hgb Hct MCV MCH MCHC RDW Plt Count MPV Sodium Potassium Chloride Carbon Dioxide Anion Gap BUN Creatinine Creat Clearance w eGFR Random Glucose Calcium Total Bilirubin AST ALT Alkaline Phosphatase Total Protein Albumin Urine Color Urine Appearance Urine pH Ur Specific [place] Urine Protein Urine Glucose (UA) Urine Ketones Urine Blood Urine Nitrite Urine Bilirubin Urine Urobilinogen Ur Leukocyte Esterase Urine WBC (Auto) Urine RBC (Auto) RPR Titer Nonreactive LABS NOTED. Assessment: 09/27/17 16:10 WITHDRAWAL SYMPTOMS. Plan: CONTINUE DETOX. INCREASE DAILY PO FLUID INTAKE.
[2017-09-27] MEDS: ACETAMINOPHEN 325 MG TABLET (FP) PO PRN (19:11)
[2017-09-27] MEDS: chlordiazePOXIDE HCL 10 MG CAPSULE PO SCH (22:53)
[2017-09-27] MEDS: MINERAL OIL/PETROLAT/WATER TOPICAL CREAM 113 GM JAR TP SCH (22:53)
[2017-09-27] MEDS: THIAMINE HCL 100 MG TABLET (FP) PO SCH (22:53)
[2017-09-28] MEDS: AMOXICILLIN 500 MG CAPSULE (FP) PO SCH (06:20)
[2017-09-28] MEDS: chlordiazePOXIDE HCL 10 MG CAPSULE PO SCH (06:21)
[2017-09-28 06:47] VITALS: BP 121/74; PULSE 56; TEMP 96.4
--- NOTE | 2017-09-28 20:24 | PN ---
BHS Progress Note (SOAP) Subjective: Patient denies current Detox symptoms and reports that he feels well overall. Objective: PATIENT A & O X 3, OBSERVED AMBULATING ON UNIT. NO ACUTE DISTRESS. 09/28/17 20:23 Vital Signs Temperature 96.4 F L 09/28/17 06:46 Pulse Rate 56 L 09/28/17 06:46 Respiratory Rate 18 09/28/17 06:46 Blood Pressure 121/74 09/28/17 06:46 O2 Sat by Pulse Oximetry (%) Laboratory Tests 09/24/17 09/25/17 09/25/17 21:11 05:50 05:50 WBC 6.3 RBC 4.97 Hgb 15.1 Hct 44.8 MCV 90.1 MCH 30.4 MCHC 33.8 RDW 15.3 Plt Count 238 MPV 9.1 Sodium 141 Potassium 3.7 Chloride 102 Carbon Dioxide 31 Anion Gap 8 BUN 16 Creatinine 1.0 Creat Clearance w eGFR > 60 Random Glucose 80 Calcium 8.5 Total Bilirubin 0.3 D AST 50 H D ALT 37 D Alkaline Phosphatase 97 Total Protein 8.1 Albumin 3.9 Urine Color Lisa Urine Appearance Turbid Urine pH 5.0 Ur Specific [place] 1.023 Urine Protein Negative Urine Glucose (UA) Negative Urine Ketones Negative Urine Blood Negative Urine Nitrite Negative Urine Bilirubin Negative Urine Urobilinogen Negative Ur Leukocyte Esterase Trace Urine WBC (Auto) 4 Urine RBC (Auto) 9 RPR Titer 09/25/17 05:50 WBC RBC Hgb Hct MCV MCH MCHC RDW Plt Count MPV Sodium Potassium Chloride Carbon Dioxide Anion Gap BUN Creatinine Creat Clearance w eGFR Random Glucose Calcium Total Bilirubin AST ALT Alkaline Phosphatase Total Protein Albumin Urine Color Urine Appearance Urine pH Ur Specific [place] Urine Protein Urine Glucose (UA) Urine Ketones Urine Blood Urine Nitrite Urine Bilirubin Urine Urobilinogen Ur Leukocyte Esterase Urine WBC (Auto) Urine RBC (Auto) RPR Titer Nonreactive LABS NOTED. Assessment: 09/28/17 20:24 COMPLETION OF DETOX REGIMEN. Plan: PATIENT SCHEDULED FOR DISCHARGE FROM DETOX UNIT TODAY.
--- NOTE | 2017-09-28 20:28 | DS ---
[facility] Detox Discharge Summary Admission Date: 09/24/17 Discharge Date: 09/28/17 - History Present History: Alcohol Dependence, Cocaine Dependence Additional Comments: PATIENT GOING TO [facility] ([place]) FOR AFTERCARE. PATIENT WAS DISCHARGED FROM DETOX UNIT IN STABLE MEDICAL CONDITION. Pertinent Past History: Depression, HTN, GERD, Dry Skin, Low Back Pain, Insomnia. - Physical Exam Results Vital Signs: Vital Signs Temperature 96.4 F L 09/28/17 06:46 Pulse Rate 56 L 09/28/17 06:46 Respiratory Rate 18 09/28/17 06:46 Blood Pressure 121/74 09/28/17 06:46 O2 Sat by Pulse Oximetry (%) Pertinent Admission Physical Exam Findings: WITHDRAWAL SYMPTOMS. Laboratory Tests 09/24/17 09/25/17 09/25/17 21:11 05:50 05:50 WBC 6.3 RBC 4.97 Hgb 15.1 Hct 44.8 MCV 90.1 MCH 30.4 MCHC 33.8 RDW 15.3 Plt Count 238 MPV 9.1 Sodium 141 Potassium 3.7 Chloride 102 Carbon Dioxide 31 Anion Gap 8 BUN 16 Creatinine 1.0 Creat Clearance w eGFR > 60 Random Glucose 80 Calcium 8.5 Total Bilirubin 0.3 D AST 50 H D ALT 37 D Alkaline Phosphatase 97 Total Protein 8.1 Albumin 3.9 Urine Color Lisa Urine Appearance Turbid Urine pH 5.0 Ur Specific [place] 1.023 Urine Protein Negative Urine Glucose (UA) Negative Urine Ketones Negative Urine Blood Negative Urine Nitrite Negative Urine Bilirubin Negative Urine Urobilinogen Negative Ur Leukocyte Esterase Trace Urine WBC (Auto) 4 Urine RBC (Auto) 9 RPR Titer 09/25/17 05:50 WBC RBC Hgb Hct MCV MCH MCHC RDW Plt Count MPV Sodium Potassium Chloride Carbon Dioxide Anion Gap BUN Creatinine Creat Clearance w eGFR Random Glucose Calcium Total Bilirubin AST ALT Alkaline Phosphatase Total Protein Albumin Urine Color Urine Appearance Urine pH Ur Specific [place] Urine Protein Urine Glucose (UA) Urine Ketones Urine Blood Urine Nitrite Urine Bilirubin Urine Urobilinogen Ur Leukocyte Esterase Urine WBC (Auto) Urine RBC (Auto) RPR Titer Nonreactive LABS NOTED. - Treatment Hospital Course: Detox Protocol Followed, Detoxed Safely, Responded well, Discharged Condition Good, Rehab Referral Accepted Patient has Accepted a Rehab Referral to: [facility] ([place] - Medication Discharge Medications: Ambulatory Orders Hydrochlorothiazide 25 mg PO DAILY #30 tablet 06/27/17 Sertraline HCl [Zoloft -] 50 mg PO DAILY #30 tablet 06/27/17 - Diagnosis (1) Alcohol dependence with withdrawal, uncomplicated Status: Acute (2) Cocaine dependence, uncomplicated Status: Acute (3) Dry skin Status: Chronic (4) GERD (gastroesophageal reflux disease) Status: Chronic Qualifiers: Esophagitis presence: esophagitis presence not specified Qualified Code(s) : K21.9 - Gastro-esophageal reflux disease without esophagitis (5) Chronic low back pain Status: Chronic Qualifiers: Back pain laterality: bilateral Sciatica presence: without sciatica Qualified Code(s): M54.5 - Low back pain; G89.29 - Other chronic pain; G89.29 - Other chronic pain (6) Essential hypertension Status: Chronic (7) Drug-induced mood disorder Status: Acute (8) Insomnia Status: Acute Qualifiers: Insomnia type: unspecified Qualified Code(s): G47.00 - Insomnia, unspecified - AMA Did Patient Leave Against Medical Advice: No
== END 2017-09-28 09:25 | disposition home or self-care (01) | DRG 774 ==
LOC: YASAS 10:44 → Y3N 14:55
PROVIDERS: ADMIT Internal Medicine; ATTEND Internal Medicine
PROC: HZ2ZZZZ Detoxification Services for Substance Abuse Treatment (ICD-10-PCS; principal; 2017-09-24)
DX: F10.230 Alcohol dependence with withdrawal, uncomplicated (principal); F14.20 Cocaine dependence, uncomplicated; F19.24 Other psychoactive substance dependence with psychoactive substance-induced mood disorder; K21.9 Gastro-esophageal reflux disease without esophagitis; I10 Essential (primary) hypertension; M54.5 Low back pain; G89.29 Other chronic pain; G47.00 Insomnia, unspecified; L98.8 Other specified disorders of the skin and subcutaneous tissue; K04.7 Periapical abscess without sinus; Z87.438 Personal history of other diseases of male genital organs; Z91.010 Allergy to peanuts
CPT/HCPCS: 36415; 80053; 81003; 81015; 85027; 86593; 93005; 93010

== ENCOUNTER 2018-02-14 08:23 | Inpatient (IN) | payer OTHER ==
[2018-02-14 10:35] VITALS: BMI 30.2
--- NOTE | 2018-02-14 10:47 | HP ---
CIWA Score - CIWA Score Nausea/Vomitin-Mild Nausea/No Vomiting Muscle Tremors: 4-Moderate,w/Arms Extend Anxiety: 4-Mod. Anxious/Guarded Agitation: 1-Slight > Activity Paroxysmal Sweats: 1-Minimal Palms Moist Orientation: 1-Uncertain about Date Tacttile Disturbances: 1-Very Mild Itch/Numbness Auditory Disturbances: 2-Mild Harshness/Frighten Visual Disturbances: 1-Very Mild Sensitivity Headache: 3-Moderate CIWA-Ar Total Score: 19 Admission ROS BHS - HPI Chief Complaint: I relapsed, I need help to stop Allergies/Adverse Reactions: Allergies Allergy/AdvReac Type Severity Reaction Status Date / Time No Known Drug Allergies Allergy Verified 02/14/18 10:54 peanut Allergy Difficulty Verified 02/14/18 10:54 Breathing History of Present Illness: 52 yo gentleman here for detox from alcohol - one of multiple admissions for detox, last here in October,. NO seizures but does get black outs. Noted urine tox + BZO - patient denies using or being in ED recently - thinks must have been mixed with cocaine. Exam Limitations: Clinical Condition - Ebola screening Have you traveled outside of the country in the last 21 days: No (N) Have you had contact with anyone from an Ebola affected area: No Have you been sick,other than usual withdrawal symptoms: No Do you have a fever: No - Review of Systems Constitutional: Loss of Appetite, Night Sweats, Changes in sleep EENT: reports: No Symptoms Reported, Blurred Vision Respiratory: reports: No Symptoms reported Cardiac: reports: No Symptoms Reported GI: reports: Nausea, Poor Appetite : reports: No Symptoms Reported Musculoskeletal: reports: Back Pain, Muscle Pain Integumentary: reports: Dryness Neuro: reports: Headache, Tremors Endocrine: reports: No Symptoms Reported Hematology: reports: No Symptoms Reported Psychiatric: reports: Judgement Intact, Mood/Affect Appropiate, Anxious Other Systems: Reviewed and Negative Patient History - Patient Medical History Hx Anemia: No Hx Asthma: No Hx Chronic Obstructive Pulmonary Disease (COPD): No Hx Cancer: No Hx Cardiac Disorders: No Hx Congestive Heart Failure: No Hx Hypertension: Yes (on meds.) Hx Hypercholesterolemia: No Hx Pacemaker: No HX Cerebrovascular Accident: No Hx Seizures: No Hx Dementia: No Hx Diabetes: No Hx Gastrointestinal Disorders: No Hx Liver Disease: No Hx Genitourinary Disorders: No Hx Sexually Transmitted Disorders: No Hx Renal Disease (ESRD): No Hx Thyroid Disease: No Hx Human Immunodeficiency Virus (HIV): No (NEGATIVE HX) Hx Hepatitis C: No Hx Depression: Yes (on meds, hospitalized Jun 2017 [facility]) Hx Suicide Attempt: No Hx Bipolar Disorder: Yes Hx Schizophrenia: Yes (not hearing voices now) - Patient Surgical History Past Surgical History: Yes Hx Neurologic Surgery: No Hx Cataract Extraction: No Hx Cardiac Surgery: No Hx Lung Surgery: No Hx Breast Surgery: No Hx Breast Biopsy: No Hx Abdominal Surgery: Yes (umbilical hernia at age of 11 years) Hx Appendectomy: No Hx Cholecystectomy: No Hx Genitourinary Surgery: No Hx Section: No Hx Orthopedic Surgery: No Other Surgical History: bunion right toe surgery done 06/18 Anesthesia Reaction: No - PPD History Previous Implant?: Yes Documented Results: Negative w/proof Implanted On Prior [facility] Admission?: Yes Date: 09/26/17 Results: 0 mm PPD to be Administered?: No - Reproductive History Patient is a Female of Child Bearing Age (11 -55 yrs old): No (male) - Smoking Cessation Smoking history: Never smoked Have you smoked in the past 12 months: No Aproximately how many cigarettes per day: 0 Hx Chewing Tobacco Use: No Initiated information on smoking cessation: No - Substance & Tx. History Hx Alcohol Use: Yes Hx Substance Use: Yes Substance Use Type: Alcohol, Cocaine Hx Substance Use Treatment: Yes (detox, rehab) - Substances Abused alcohol Route: Oral Frequency: Daily Amount used: 3 pints liquor; 2 16 oz beers Age of first use: 16 Date of Last Use: 02/14/18 cocaine Route: Smoking Frequency: 3-6 times per week Amount used: 4gm Age of first use: 22 Date of Last Use: 02/13/18 Family Disease History - Family Disease History Family Disease History: CA: Mother (BREAST,,), Other: Father (living, no contact HTN,), Mother, Brother (one living, healthy), Sister (three living - healthy) Admission Physical Exam BHS - Vital Signs Vital Signs: Vital Signs - 24 hr 02/14/18 10:29 Temperature 97.0 F L Pulse Rate 71 Respiratory 18 Rate Blood Pressure 112/74 - Physical General Appearance: Yes: Nourished, Appropriately Dressed, Moderate Distress, Anxious HEENTM: Yes: Hearing grossly Normal, Normal ENT Inspection, Normocephalic, Normal Voice, Pharynx Normal Respiratory: Yes: Normal Breath Sounds, No Respiratory Distress Neck: Yes: Within Normal Limits Breast: Yes: Breast Exam Deferred Cardiology: Yes: Regular Rhythm, Regular Rate Abdominal: Yes: Flat, Soft Genitourinary: Yes: Frequency Back: Yes: Normal Inspection Musculoskeletal: Yes: full range of Motion, Gait Steady, Back pain, Muscle Pain Extremities: Yes: Normal Inspection, Normal Range of Motion, Non-Tender 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: Yes: Fully Oriented, Alert, Normal Mood/Affect, Normal Response Integumentary: Yes: Normal Color, Warm Lymphatic: Yes: Within Normal Limits - Diagnostic (1) Alcohol dependence with withdrawal, uncomplicated Current Visit: Yes Status: Acute (2) Cocaine dependence, uncomplicated Current Visit: Yes Status: Chronic (3) Chronic low back pain Current Visit: Yes Status: Chronic Qualifiers: Back pain laterality: midline Sciatica presence: without sciatica Qualified Code(s): M54.5 - Low back pain; G89.29 - Other chronic pain Cleared for Admission [facility] - Detox or Rehab [facility] Level of Care: Medically Managed Detox Regimen/Protocol: Librium [facility] Breath Alcohol Content Breath Alcohol Content: 0 Urine Drug Screen - Results Urine Drug Screen Results: JAZMIN-Cocaine, BZO-Benzodiazepines
[2018-02-14] MEDS ORDERED: guaiFENesin/D-METHORPHAN HB 10 ML UNIT-DOSE CUPS PO PRN (10:52)
[2018-02-14] MEDS ORDERED: LOPERAMIDE HCL 2 MG CAPSULE PO PRN (10:52)
[2018-02-14] MEDS ORDERED: MAGNESIUM HYDROX 2400MG/30ML ORAL SUSPENSION 30 ML CUP PO PRN (10:52)
[2018-02-14] MEDS ORDERED: chlordiazePOXIDE HCL 25 MG CAPSULE PO PRN (10:52)
[2018-02-14] MEDS ORDERED: P-EPHED 60MG/TRIPROLIDI 2.5MG TABLET PO PRN (10:52)
[2018-02-14] MEDS ORDERED: MAG HYDROX/AL HYDROX/SIMETH 30 ML UNIT-DOSE CUP PO PRN (10:52)
[2018-02-14] MEDS ORDERED: ACETAMINOPHEN 325 MG TABLET (FP) PO PRN (10:52)
[2018-02-14] MEDS ORDERED: MAGNESIUM CITRATE 300 ML BOTTLE PO PRN (10:52)
[2018-02-14] MEDS ORDERED: MENTHOL/PHENOL 1 EACH UD MM PRN (10:52)
[2018-02-14] MEDS: HYDROCHLOROTHIAZIDE 25 MG TABLET (FP) PO SCH (12:19)
[2018-02-14] MEDS: amLODIPine BESYLATE 5 MG TABLET (FP) PO SCH (12:19)
[2018-02-14] MEDS: METHYL SALICYLATE/MENTHOL OINT 30 GM TUBE TP SCH ×2 (12:20→22:43)
[2018-02-14] MEDS: IBUPROFEN 400 MG TABLET (FP) PO PRN (12:22)
[2018-02-14 17:53] LABS: URINE APPEARANCE CLOUDY; URINE BILIRUBIN NEGATIVE (<2.0 mg/dL); URINE COLOR LTYELLOW; URINE GLUCOSE (UA) 1+ (NEGATIVE); URINE KETONE NEGATIVE (NEGATIVE); URINE LEUK ESTERASE NEGATIVE (NEGATIVE); URINE NITRITE NEGATIVE (NEGATIVE); URINE PROTEIN NEGATIVE (NEGATIVE); URINE UROBILINOGEN NEGATIVE mg/dL (0.2-1.0)
[2018-02-14] MEDS: chlordiazePOXIDE HCL 25 MG CAPSULE PO SCH ×2 (18:26→22:42)
[2018-02-14] MEDS ORDERED: MELATONIN 5 MG TABLETS PO PRN (22:00)
[2018-02-14] MEDS: THIAMINE HCL 100 MG TABLET (FP) PO SCH (22:42)
[2018-02-15] MEDS: chlordiazePOXIDE HCL 25 MG CAPSULE PO SCH ×4 (05:57→23:07)
[2018-02-15] MEDS: PRENATAL VITAMINS W/ FOLIC ACID TABLET (FP) PO SCH (10:36)
[2018-02-15] MEDS: HYDROCHLOROTHIAZIDE 25 MG TABLET (FP) PO SCH (10:37)
[2018-02-15] MEDS: METHYL SALICYLATE/MENTHOL OINT 30 GM TUBE TP SCH ×2 (10:37→23:00)
[2018-02-15] MEDS: amLODIPine BESYLATE 5 MG TABLET (FP) PO SCH (10:37)
[2018-02-15 10:41] LABS: HEMATOCRIT 41.7 % (35.4-49); HEMOGLOBIN 13.9 GM/dL (11.7-16.9); MCH 30.1 pg (25.7-33.7); MCHC 33.2 g/dl (32.0-35.9); MEAN CELL VOLUME 90.7 fl (80-96); MEAN PLT VOLUME 8.5 fl (7.5-11.1); PLATELET COUNT 195 K/MM3 (134-434); RDW 14.9 % (11.9-15.9); WHITE BLOOD COUNT 3.8 K/mm3 (4.0-10.0)
[2018-02-15 10:49] LABS: ALBUMIN 3.1 g/dl (3.4-5.0); ANION GAP 9 MMOL/L (8-16); BILIRUBIN,TOTAL 0.4 mg/dL (0.2-1.0); BLOOD UREA NITROGEN 11 mg/dL (7-18); CALCIUM 8.5 mg/dL (8.5-10.1); CHLORIDE 103 mmol/L (98-107); CO2 30 mmol/L (21-32); CREATININE 0.9 mg/dL (0.55-1.3); GLUCOSE,RANDOM 91 mg/dL (74-106); POTASSIUM 3.3 mmol/L (3.5-5.1); SGOT/AST 15 U/L (15-37); SGPT/ALT 22 U/L (13-61); SODIUM 142 mmol/L (136-145); TOT PROT 6.5 g/dl (6.4-8.2)
[2018-02-15 10:50] LABS: ALK PHOS 71 U/L (45-117)
[2018-02-15] MEDS ORDERED: COLLOIDAL OATMEAL 1 BAR EACH TP PRN (10:52)
[2018-02-15] MEDS: CYCLOBENZAPRINE HCL 10 MG TABLET (FP) PO PRN (17:29)
--- NOTE | 2018-02-15 17:49 | PN ---
[facility] CIWA - CIWA Score Nausea/Vomitin-Mild Nausea/No Vomiting Muscle Tremors: 4-Moderate,w/Arms Extend Anxiety: 4-Mod. Anxious/Guarded Agitation: 4-Moderately Restless Paroxysmal Sweats: 3 Orientation: 0-Oriented Tacttile Disturbances: 1-Very Mild Itch/Numbness Auditory Disturbances: 0-None Visual Disturbances: 0-None Headache: 1-Very Mild CIWA-Ar Total Score: 18 BHS Progress Note (SOAP) Subjective: Back spasm, interrupted sleep, headache, muscle ache Objective: 02/15/18 17:44 Last Vital Signs Temp Pulse Resp BP Pulse Ox 97.0 F L 75 18 116/76 02/15/18 14:23 02/15/18 14:23 02/15/18 14:23 02/15/18 14:23 Laboratory Tests 02/14/18 02/15/18 02/15/18 11:17 07:25 07:25 WBC 3.8 L RBC 4.60 Hgb 13.9 Hct 41.7 MCV 90.7 MCH 30.1 MCHC 33.2 RDW 14.9 Plt Count 195 MPV 8.5 Sodium 142 Potassium 3.3 L Chloride 103 Carbon Dioxide 30 Anion Gap 9 BUN 11 Creatinine 0.9 Creat Clearance w eGFR > 60 Random Glucose 91 Calcium 8.5 Total Bilirubin 0.4 AST 15 ALT 22 Alkaline Phosphatase 71 Total Protein 6.5 Albumin 3.1 L Urine Color [place] Urine Appearance Cloudy Urine pH 5.0 Ur Specific [place] 1.017 Urine Protein Negative Urine Glucose (UA) 1+ H Urine Ketones Negative Urine Blood Negative Urine Nitrite Negative Urine Bilirubin Negative Urine Urobilinogen Negative Ur Leukocyte Esterase Negative RPR Titer 02/15/18 07:25 WBC RBC Hgb Hct MCV MCH MCHC RDW Plt Count MPV Sodium Potassium Chloride Carbon Dioxide Anion Gap BUN Creatinine Creat Clearance w eGFR Random Glucose Calcium Total Bilirubin AST ALT Alkaline Phosphatase Total Protein Albumin Urine Color Urine Appearance Urine pH Ur Specific [place] Urine Protein Urine Glucose (UA) Urine Ketones Urine Blood Urine Nitrite Urine Bilirubin Urine Urobilinogen Ur Leukocyte Esterase RPR Titer Nonreactive Labs reviewed: K 3.3, UA shows 1+ glucose Assessment: 02/15/18 17:45 Withdrawal symptoms Noted with hypokalemia and glycosuria Plan: Continue detox Hypokalemia: K Dur 40meq PO x 1 dose, send serum K level in AM Glycosuria: encouraged PO water intake, repeat UA
[2018-02-15] MEDS ORDERED: POTASSIUM CHLORIDE ORAL LIQUID 20 MEQ/15 ML PO ONE (17:52)
--- NOTE | 2018-02-15 22:30 | EKG ---
Test Reason : Blood Pressure : / mmHG Vent. Rate : 065 BPM Atrial Rate : 065 BPM P-R Int : 154 ms QRS Dur : 096 ms QT Int : 436 ms P-R-T Axes : 058 071 040 degrees QTc Int : 453 ms NORMAL SINUS RHYTHM NORMAL ECG WHEN COMPARED WITH ECG OF 24-NOV-2017 12:33, NO SIGNIFICANT CHANGE WAS FOUND Confirmed by NEW ESPINOZA MD ([id number]) on 02/15/2018 10:30:05 PM Referred By: Confirmed By:NEW ESPINOZA MD
[2018-02-15] MEDS: THIAMINE HCL 100 MG TABLET (FP) PO SCH (23:00)
[2018-02-16] MEDS: chlordiazePOXIDE HCL 25 MG CAPSULE PO SCH ×2 (05:46→10:40)
[2018-02-16] MEDS: PRENATAL VITAMINS W/ FOLIC ACID TABLET (FP) PO SCH (10:39)
[2018-02-16] MEDS: amLODIPine BESYLATE 5 MG TABLET (FP) PO SCH (10:39)
[2018-02-16] MEDS: METHYL SALICYLATE/MENTHOL OINT 30 GM TUBE TP SCH ×2 (10:39→22:11)
[2018-02-16] MEDS: HYDROCHLOROTHIAZIDE 25 MG TABLET (FP) PO SCH (10:39)
[2018-02-16] MEDS: CYCLOBENZAPRINE HCL 10 MG TABLET (FP) PO PRN (10:40)
[2018-02-16] MEDS: IBUPROFEN 400 MG TABLET (FP) PO PRN (10:42)
[2018-02-16 14:54] LABS: URINE APPEARANCE CLEAR; URINE BILIRUBIN NEGATIVE (<2.0 mg/dL); URINE COLOR LTYELLOW; URINE GLUCOSE (UA) NEGATIVE (NEGATIVE); URINE KETONE NEGATIVE (NEGATIVE); URINE LEUK ESTERASE NEGATIVE (NEGATIVE); URINE NITRITE NEGATIVE (NEGATIVE); URINE PROTEIN NEGATIVE (NEGATIVE); URINE UROBILINOGEN NEGATIVE mg/dL (0.2-1.0)
[2018-02-16] MEDS: chlordiazePOXIDE 5 MG CAPSULE PO SCH ×2 (17:44→22:10)
--- NOTE | 2018-02-16 19:25 | PN ---
S CIWA - CIWA Score Nausea/Vomitin Muscle Tremors: 3 Anxiety: 3 Agitation: 2 Paroxysmal Sweats: 3 Orientation: 0-Oriented Tacttile Disturbances: 0-None Auditory Disturbances: 0-None Visual Disturbances: 0-None Headache: 0-None Present CIWA-Ar Total Score: 13 [facility] Progress Note (SOAP) Subjective: shakes sweats sleep disturbance Objective: 02/16/18 19:23 A & O x 3 Laboratory Tests 02/14/18 02/15/18 02/15/18 11:17 07:25 07:25 WBC 3.8 L RBC 4.60 Hgb 13.9 Hct 41.7 MCV 90.7 MCH 30.1 MCHC 33.2 RDW 14.9 Plt Count 195 MPV 8.5 Sodium 142 Potassium 3.3 L Chloride 103 Carbon Dioxide 30 Anion Gap 9 BUN 11 Creatinine 0.9 Creat Clearance w eGFR > 60 Random Glucose 91 Calcium 8.5 Total Bilirubin 0.4 AST 15 ALT 22 Alkaline Phosphatase 71 Total Protein 6.5 Albumin 3.1 L Urine Color Ltyellow Urine Appearance Cloudy Urine pH 5.0 Ur Specific [place] 1.017 Urine Protein Negative Urine Glucose (UA) 1+ H Urine Ketones Negative Urine Blood Negative Urine Nitrite Negative Urine Bilirubin Negative Urine Urobilinogen Negative Ur Leukocyte Esterase Negative RPR Titer 02/15/18 02/16/18 02/16/18 07:25 06:00 10:30 WBC RBC Hgb Hct MCV MCH MCHC RDW Plt Count MPV Sodium Potassium 4.0 Chloride Carbon Dioxide Anion Gap BUN Creatinine Creat Clearance w eGFR Random Glucose Calcium Total Bilirubin AST ALT Alkaline Phosphatase Total Protein Albumin Urine Color Ltyellow Urine Appearance Clear Urine pH 5.0 Ur Specific [place] 1.020 Urine Protein Negative Urine Glucose (UA) Negative Urine Ketones Negative Urine Blood Negative Urine Nitrite Negative Urine Bilirubin Negative Urine Urobilinogen Negative Ur Leukocyte Esterase Negative RPR Titer Nonreactive labs noted; K= now 4.0 Assessment: 02/16/18 19:24 withdrawal sx Plan: continue detox increase fluid K= d/edinson
[2018-02-16] MEDS: THIAMINE HCL 100 MG TABLET (FP) PO SCH (22:10)
[2018-02-17] MEDS: chlordiazePOXIDE 5 MG CAPSULE PO SCH (05:59)
[2018-02-17 09:31] VITALS: BP 104/75; PULSE 80; TEMP 96.8
--- NOTE | 2018-02-17 09:50 | PN ---
[facility] Progress Note Note: PATIENT REQUESTED TO SIGN OUT AMA. STATES HE HAS TO RECERTIFY WITH HEALTH INSURANCE. PATIENT DENIES MEDICAL COMPLAINTS TODAY. DENIES SI/HI. ENCOURAGED TO FOLLOW TO COMPLETE DETOX AND EDUCATED REGARDING RISK FACTORS OF AND RELAPSE. PATIENT REFUSED TO STAY IN DETOX. ADVISED TO FOLLOW UP WITH GROUP MEETINGS TO PREVENT RELAPSE. TWO WEEK PRESCRIPTION OF ANTIHYPERTENSIVE MEDICATION SENT TO PHARMACY.
[2018-02-17] MEDS ORDERED: chlordiazePOXIDE HCL 10 MG CAPSULE PO SCH (17:00)
== END 2018-02-17 09:20 | disposition left against medical advice (07) | DRG 770 ==
LOC: YASAS 08:23 → Y3N 11:08
PROC: HZ2ZZZZ Detoxification Services for Substance Abuse Treatment (ICD-10-PCS; principal; 2018-02-14)
DX: F10.230 Alcohol dependence with withdrawal, uncomplicated (principal); F14.20 Cocaine dependence, uncomplicated; F20.9 Schizophrenia, unspecified; F31.9 Bipolar disorder, unspecified; F32.9 Major depressive disorder, single episode, unspecified; F19.24 Other psychoactive substance dependence with psychoactive substance-induced mood disorder; I10 Essential (primary) hypertension; E87.6 Hypokalemia; K21.9 Gastro-esophageal reflux disease without esophagitis; M54.5 Low back pain; G89.29 Other chronic pain; R81 Glycosuria
CPT/HCPCS: 36415; 80053; 81003; 84132; 85027; 86593; 93005; 93010

== ENCOUNTER 2018-06-26 08:09 | Inpatient (IN) | payer OTHER ==
[2018-06-26 08:18] VITALS: BMI 30.2
--- NOTE | 2018-06-26 08:41 | HP ---
CIWA Score Nausea/Vomitin Muscle Tremors: 2 Anxiety: 2 Agitation: 1-Slight > Activity Paroxysmal Sweats: 2 Orientation: 0-Oriented Tacttile Disturbances: 2-Mild Itch/Numbness/Burn Auditory Disturbances: 0-None Visual Disturbances: 0-None Headache: 2-Mild CIWA-Ar Total Score: 13 - Admission Criteria OASAS Guidelines: Admission for Medically Managed Detox: Requires at least one of the followin. CIWA greater than 12 2. Seizures within the past 24 hours 3. Delirium tremens within the past 24 hours 4. Hallucinations within the past 24 hours 5. Acute intervention needed for co occurring medical disorder 6. Acute intervention needed for co occurring psychiatric disorder 7. Severe withdrawal that cannot be handled at a lower level of care (continued vomiting, continued diarrhea, abnormal vital signs) requiring intravenous medication and/or fluids 8. Patient presents the following: CIWA greater than 12 Admission Criteria Met: Admission criteria met Admission ROS [facility] - HPI Chief Complaint: I'm exhausted I have to stop this life I gotta quit . Allergies/Adverse Reactions: Allergies Allergy/AdvReac Type Severity Reaction Status Date / Time No Known Drug Allergies Allergy Verified 02/14/18 10:54 peanut Allergy Difficulty Verified 02/14/18 10:54 Breathing History of Present Illness: 52 y/o m pt with longstanding h/o etoh /crack dep. seeking detox and rehab. pt want to quit useing etoh and crack. Exam Limitations: No Limitations - Ebola screening Have you traveled outside of the country in the last 21 days: No Have you had contact with anyone from an Ebola affected area: No Have you been sick,other than usual withdrawal symptoms: No Do you have a fever: No - Review of Systems Constitutional: Chills, Malaise, Night Sweats, Changes in sleep EENT: reports: Nose Congestion, Dental Problems (missing tooth) Respiratory: reports: SOB with Exertion Cardiac: reports: No Symptoms Reported GI: reports: Diarrhea, Nausea, Vomiting, Indigestion : reports: Frequency Musculoskeletal: reports: Back Pain, Joint Pain (neck and shoulders) Integumentary: reports: Pruritus (legs) Neuro: reports: Headache, Tremors (when withdrawing), Other (h/o blackouts - last episode 2 weeks ago.) Endocrine: reports: Increased Urine Hematology: reports: No Symptoms Reported Psychiatric: reports: Orientated x3, Anxious, Depressed Other Systems: Reviewed and Negative Patient History - Patient Medical History Hx Anemia: No Hx Asthma: No Hx Chronic Obstructive Pulmonary Disease (COPD): No Hx Cancer: No Hx Cardiac Disorders: No Hx Congestive Heart Failure: No Hx Hypertension: Yes (on hctz 25mg/d,amlodipine 5mg /d .) Hx Hypercholesterolemia: Yes (simvastatin ) Hx Pacemaker: No HX Cerebrovascular Accident: No Hx Seizures: No Hx Dementia: No Hx Diabetes: No Hx Gastrointestinal Disorders: Yes (gerd , ) Hx Liver Disease: No Hx Genitourinary Disorders: No Hx Sexually Transmitted Disorders: No Hx Renal Disease (ESRD): No Hx Thyroid Disease: No Hx Human Immunodeficiency Virus (HIV): No (NEGATIVE HX in 2018) Hx Hepatitis C: No Hx Depression: Yes (on meds, hospitalized Jun 2017 [facility], on zoloft ) Hx Suicide Attempt: No Hx Bipolar Disorder: Yes (no meds ) Hx Schizophrenia: Yes (not hearing voices now) - Patient Surgical History Past Surgical History: Yes Hx Neurologic Surgery: No Hx Cataract Extraction: No Hx Cardiac Surgery: No Hx Lung Surgery: No Hx Breast Surgery: No Hx Breast Biopsy: No Hx Abdominal Surgery: Yes (umbilical hernia at age of 11 years) Hx Appendectomy: No Hx Cholecystectomy: No Hx Genitourinary Surgery: No Hx Section: No Hx Orthopedic Surgery: No Other Surgical History: bunion right toe surgery done 06/18 Anesthesia Reaction: No - PPD History Previous Implant?: No Documented Results: Negative w/o proof Date: 09/26/17 Results: 0 mm PPD to be Administered?: No - Reproductive History Patient is a Female of Child Bearing Age (11 -55 yrs old): No - Smoking Cessation Smoking history: Current some day smoker Have you smoked in the past 12 months: No Aproximately how many cigarettes per day: 2 Cigars Per Day: 0 Hx Chewing Tobacco Use: No Initiated information on smoking cessation: Yes 'Breaking Loose' booklet given: 06/26/18 - Substance & Tx. History Hx Alcohol Use: Yes Hx Substance Use: Yes Substance Use Type: Alcohol, Cocaine Hx Substance Use Treatment: Yes ([facility]) - Substances Abused Alcohol Route: Oral Frequency: Daily Amount used: rum 4 pts , 2-six pks Age of first use: 16 Date of Last Use: 06/26/18 Crack Route: Smoking Frequency: Daily Amount used: 3-4 gms/day Age of first use: 22 Date of Last Use: 06/26/18 Family Disease History - Family Disease History Family Disease History: CA: Mother (BREAST,,), Other: Father (living, no contact HTN,), Mother, Brother (one living, healthy), Sister (three living - healthy) Admission Physical Exam [facility] - Vital Signs Vital Signs: Vital Signs - 24 hr 06/26/18 08:14 Temperature 96.6 F L Pulse Rate 88 Respiratory 18 Rate Blood Pressure 130/75 - Physical General Appearance: Yes: Appropriately Dressed, Obese, Anxious HEENTM: Yes: EOMI, Hearing grossly Normal, Normocephalic, Normal Voice, MARISEL, Other (missing rt lower k9) Respiratory: Yes: Chest Non-Tender, Lungs Clear, Normal Breath Sounds, No Respiratory Distress Neck: Yes: Supple, Trachea in good position Breast: Yes: Within Normal Limits Cardiology: Yes: Regular Rhythm, Regular Rate, S1, S2 Abdominal: Yes: Non Tender, Soft, Increased Bowel Sounds, Protuberent Genitourinary: Yes: Frequency Back: Yes: Decreased Range of Motion Musculoskeletal: Yes: Back pain, Muscle Pain Extremities: Yes: Tremors (mild) 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, Fully Oriented, Alert, Motor Strength 5/5, Normal Mood/Affect, Normal Response Integumentary: Yes: Moist Lymphatic: Yes: Within Normal Limits - Diagnostic (1) Alcohol dependence with withdrawal, uncomplicated Current Visit: Yes Status: Acute (2) Cocaine dependence, uncomplicated Current Visit: Yes Status: Chronic (3) Essential hypertension Current Visit: Yes Status: Chronic (4) GERD (gastroesophageal reflux disease) Current Visit: Yes Status: Chronic Qualifiers: Esophagitis presence: with esophagitis Qualified Code(s): K21.0 - Gastro- esophageal reflux disease with esophagitis (5) MDD (major depressive disorder) Current Visit: Yes Status: Chronic Qualifiers: Major depression episode severity: unspecified Comment: Self reports. Cleared for Admission [facility] - Detox or Rehab [facility] Level of Care: Medically Managed Detox Regimen/Protocol: Librium S Breath Alcohol Content Breath Alcohol Content: 0.040 Urine Drug Screen - Results Drug Screen Negative: No Urine Drug Screen Results: JAZMIN-Cocaine, BZO-Benzodiazepines
[2018-06-26] MEDS ORDERED: P-EPHED 60MG/TRIPROLIDI 2.5MG TABLET PO PRN (09:03)
[2018-06-26] MEDS ORDERED: ACETAMINOPHEN 325 MG TABLET (FP) PO PRN (09:03)
[2018-06-26] MEDS ORDERED: MAG HYDROX/AL HYDROX/SIMETH 30 ML UNIT-DOSE CUP PO PRN (09:03)
[2018-06-26] MEDS ORDERED: chlordiazePOXIDE HCL 25 MG CAPSULE PO PRN (09:03)
[2018-06-26] MEDS ORDERED: LOPERAMIDE HCL 2 MG CAPSULE PO PRN (09:03)
[2018-06-26] MEDS ORDERED: guaiFENesin/D-METHORPHAN HB 10 ML UNIT-DOSE CUPS PO PRN (09:03)
[2018-06-26] MEDS ORDERED: MENTHOL/PHENOL 1 EACH UD MM PRN (09:03)
[2018-06-26] MEDS ORDERED: MAGNESIUM CITRATE 300 ML BOTTLE PO PRN (09:03)
[2018-06-26] MEDS ORDERED: MAGNESIUM HYDROX 2400MG/30ML ORAL SUSPENSION 30 ML CUP PO PRN (09:03)
[2018-06-26] MEDS: chlordiazePOXIDE HCL 25 MG CAPSULE PO SCH ×3 (12:54→22:31)
[2018-06-26] MEDS: HYDROCHLOROTHIAZIDE 25 MG TABLET (FP) PO SCH (12:54)
[2018-06-26] MEDS: amLODIPine BESYLATE 5 MG TABLET (FP) PO SCH (12:54)
[2018-06-26] MEDS: IBUPROFEN 400 MG TABLET (FP) PO PRN (12:58)
[2018-06-26] MEDS: PRENATAL VITAMINS W/ FOLIC ACID TABLET (FP) PO SCH (12:59)
[2018-06-26] MEDS ORDERED: MELATONIN 5 MG TABLETS PO PRN (22:00)
[2018-06-26] MEDS: THIAMINE HCL 100 MG TABLET (FP) PO SCH (22:31)
[2018-06-27] MEDS: chlordiazePOXIDE HCL 25 MG CAPSULE PO SCH ×4 (05:48→22:59)
[2018-06-27] MEDS: HYDROCHLOROTHIAZIDE 25 MG TABLET (FP) PO SCH (10:51)
[2018-06-27] MEDS: PRENATAL VITAMINS W/ FOLIC ACID TABLET (FP) PO SCH (10:51)
[2018-06-27] MEDS: amLODIPine BESYLATE 5 MG TABLET (FP) PO SCH (10:52)
[2018-06-27 11:00] LABS: HEMATOCRIT 42.1 % (35.4-49); HEMOGLOBIN 14.6 GM/dL (11.7-16.9); MCH 31.4 pg (25.7-33.7); MCHC 34.7 g/dl (32.0-35.9); MEAN CELL VOLUME 90.7 fl (80-96); MEAN PLT VOLUME 9.3 fl (7.5-11.1); PLATELET COUNT 223 K/MM3 (134-434); RBC 4.65 M/mm3 (4.00-5.60); RDW 14.5 % (11.9-15.9); WHITE BLOOD COUNT 6.6 K/mm3 (4.0-10.0)
[2018-06-27 11:21] LABS: ALBUMIN 3.8 g/dl (3.4-5.0); ALK PHOS 90 U/L (45-117); ANION GAP 5 MMOL/L (8-16); BILIRUBIN,TOTAL 0.3 mg/dL (0.2-1); BLOOD UREA NITROGEN 19 mg/dL (7-18); CALCIUM 8.6 mg/dL (8.5-10.1); CHLORIDE 103 mmol/L (98-107); CO2 31 mmol/L (21-32); CREATININE 1.1 mg/dL (0.55-1.3); GLUCOSE,RANDOM 109 mg/dL (74-106); POTASSIUM 3.9 mmol/L (3.5-5.1); SGOT/AST 24 U/L (15-37); SGPT/ALT 36 U/L (13-61); SODIUM 139 mmol/L (136-145); TOT PROT 7.7 g/dl (6.4-8.2)
[2018-06-27 11:32] LABS: URINE APPEARANCE TURBID; URINE BILIRUBIN NEGATIVE (<2.0 mg/dL); URINE COLOR DKYELLOW; URINE GLUCOSE (UA) 1+ (NEGATIVE); URINE KETONE NEGATIVE (NEGATIVE); URINE LEUK ESTERASE NEGATIVE (NEGATIVE); URINE NITRITE NEGATIVE (NEGATIVE); URINE PROTEIN NEGATIVE (NEGATIVE); URINE UROBILINOGEN NEGATIVE mg/dL (0.2-1.0)
--- NOTE | 2018-06-27 13:26 | EKG ---
Test Reason : Blood Pressure : / mmHG Vent. Rate : 083 BPM Atrial Rate : 083 BPM P-R Int : 164 ms QRS Dur : 096 ms QT Int : 408 ms P-R-T Axes : 061 068 037 degrees QTc Int : 479 ms NORMAL SINUS RHYTHM NORMAL ECG WHEN COMPARED WITH ECG OF 14-FEB-2018 12:05, NO SIGNIFICANT CHANGE WAS FOUND Confirmed by HEIDY TRAYLOR MD ([id number]) on 06/27/2018 1:26:02 PM Referred By: Confirmed By:HEIDY TRAYLOR MD
--- NOTE | 2018-06-27 13:49 | PN ---
S CIWA - CIWA Score Nausea/Vomitin Muscle Tremors: 2 Anxiety: 2 Agitation: 2 Paroxysmal Sweats: 2 Orientation: 0-Oriented Tacttile Disturbances: 2-Mild Itch/Numbness/Burn Auditory Disturbances: 1-Very Mild Visual Disturbances: 1-Very Mild Sensitivity Headache: 1-Very Mild CIWA-Ar Total Score: 15 [facility] Progress Note (SOAP) Subjective: Sweats, tremors,nausea and headache Objective: 06/27/18 13:48 Vital Signs - 8 hr 06/27/18 06/27/18 06:00 09:49 Temperature 97.5 F L 97.8 F Pulse Rate 69 75 Respiratory 18 19 Rate Blood Pressure 126/76 111/59 L Laboratory Last Values WBC 6.6 K/mm3 (4.0-10.0) 06/27/18 05:40 RBC 4.65 M/mm3 (4.00-5.60) 06/27/18 05:40 Hgb 14.6 GM/dL (11.7-16.9) 06/27/18 05:40 Hct 42.1 % (35.4-49) 06/27/18 05:40 MCV 90.7 fl (80-96) 06/27/18 05:40 MCH 31.4 pg (25.7-33.7) 06/27/18 05:40 MCHC 34.7 g/dl (32.0-35.9) 06/27/18 05:40 RDW 14.5 % (11.9-15.9) 06/27/18 05:40 Plt Count 223 K/MM3 (134-434) 06/27/18 05:40 MPV 9.3 fl (7.5-11.1) 06/27/18 05:40 Sodium 139 mmol/L (136-145) 06/27/18 05:40 Potassium 3.9 mmol/L (3.5-5.1) 06/27/18 05:40 Chloride 103 mmol/L (98-107) 06/27/18 05:40 Carbon Dioxide 31 mmol/L (21-32) 06/27/18 05:40 Anion Gap 5 MMOL/L (8-16) L 06/27/18 05:40 BUN 19 mg/dL (7-18) H 06/27/18 05:40 Creatinine 1.1 mg/dL (0.55-1.3) 06/27/18 05:40 Creat Clearance w eGFR > 60 (>60) 06/27/18 05:40 Random Glucose 109 mg/dL (74-106) H 06/27/18 05:40 Calcium 8.6 mg/dL (8.5-10.1) 06/27/18 05:40 Total Bilirubin 0.3 mg/dL (0.2-1) 06/27/18 05:40 AST 24 U/L (15-37) 06/27/18 05:40 ALT 36 U/L (13-61) 06/27/18 05:40 Alkaline Phosphatase 90 U/L (45-117) 06/27/18 05:40 Total Protein 7.7 g/dl (6.4-8.2) 06/27/18 05:40 Albumin 3.8 g/dl (3.4-5.0) 06/27/18 05:40 Urine Color Dkyellow 06/27/18 08:50 Urine Appearance Turbid 06/27/18 08:50 Urine pH 6.0 (5.0-8.0) 06/27/18 08:50 Ur Specific [place] 1.021 (1.010-1.035) 06/27/18 08:50 Urine Protein Negative (NEGATIVE) 06/27/18 08:50 Urine Glucose (UA) 1+ (NEGATIVE) H 06/27/18 08:50 Urine Ketones Negative (NEGATIVE) 06/27/18 08:50 Urine Blood Negative (NEGATIVE) 06/27/18 08:50 Urine Nitrite Negative (NEGATIVE) 06/27/18 08:50 Urine Bilirubin Negative (<2.0 mg/dL) 06/27/18 08:50 Urine Urobilinogen Negative mg/dL (0.2-1.0) 06/27/18 08:50 Ur Leukocyte Esterase Negative (NEGATIVE) 06/27/18 08:50 RPR Titer Nonreactive (NONREACTIVE) 06/27/18 05:40 HIV 1&2 Antibody Screen Negative 06/26/18 10:20 HIV P24 Antigen Negative 06/26/18 10:20 Labs noted-no panic values Assessment: 06/27/18 13:49 Withdrawal sx Plan: Continue detox
--- NOTE | 2018-06-27 14:40 | CONSULT ---
[facility] Psychiatric Consult - Data Date of interview: 06/27/18 Admission source: [facility] Identifying data: This is one of multiple admissions to [facility] for this 52 y/ o AA male undergoing detoxification treatment (lacohol, cocaine). Examined on 3 . 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 Substance Abuse History: Confirmed by the patient in this session. Details to be found in current [facility] report as follows : Smoking history: Current some day smoker. Have you smoked in the past 12 months: No. Aproximately how many cigarettes per day: 2. Cigars Per Day: 0. Hx Chewing Tobacco Use: No. Initiated information on smoking cessation: Yes. 'Breaking Loose' booklet given : 06/26/18. - Substance & Tx. History. Hx Alcohol Use: Yes. Hx Substance Use : Yes. Substance Use Type: Alcohol, Cocaine. Hx Substance Use Treatment: Yes ( [facility]). - Substances Abused. Alcohol. Route: Oral. Frequency: Daily. Amount used: rum 4 pts , 2-six pks. Age of first use: 16. Date of Last Use: . Crack. Route: Smoking. Frequency: Daily. Amount used: 3-4 gms/ day. Age of first use: 22. Date of Last Use: 06/26/18 Medical History: Consistent with hypertension, GERD, past treatment for syphilis , surgical intervention for bunion (right toe) and a distant history of herniorraphy (umbilical). Psychiatric History: In this interview, the patient reports that he experienced hs first psychiatric disturbances in 2009. Diagnosed at the time with MDD, Bipolar Disorder and Anxiety Disorder. Mr Parra admits to a history of multiple psychiatric hospitalizations ([facility] + [facility]). Known for his chronic non-adherence to OPD care and medications ( dropped out of treatment at [facility] OPD clinic). Patient has been lost to follow-up for several months. Used to be prescribed zoloft 50 mg/day. Patient denies history of suicide attempts. Physical/Sexual Abuse/Trauma History: Patient denies. Additional Comment: Urine Drug Screen Results: JAZMIN-Cocaine, BZO- Benzodiazepines. Noted. Mental Status Exam - Mental Status Exam Alert and Oriented to: Time, Place, Person Cognitive Function: Good Patient Appearance: Well Groomed Mood: Nervous, Withdrawn, Hopeful Affect: Constricted Patient Behavior: Fatigued, Appropriate, Cooperative Speech Pattern: Clear Voice Loudness: Normal Thought Process: Goal Oriented Thought Disorder: Not Present Hallucinations: Denies Suicidal Ideation: Denies Homicidal Ideation: Denies Insight/Judgement: Poor Sleep: Well Appetite: Good Muscle strength/Tone: Normal Gait/Station: Normal Psychiatric Findings - Problem List ([place] 1, 2,3) (1) Alcohol dependence with withdrawal, uncomplicated Current Visit: Yes Status: Acute (2) Cocaine dependence, uncomplicated Current Visit: Yes Status: Chronic (3) Drug-induced mood disorder Current Visit: Yes Status: Chronic - Initial Treatment Plan Initial Treatment Plan: Psychoeducation : made aware of complications of alcohol /cocaine abuse in terms of medical, legal, psychological, vocational and social issues. Sleep hygiene. Detoxification in progress. Encouraged to enlist in rehabilitation. Informed of current strategies for relapse prevention ( naltrexone, AA doctrine, psychotherapy). No clinical justification for resumption of sertraline at this stage. Patient is in agreement with this plan of care.
[2018-06-27] MEDS: THIAMINE HCL 100 MG TABLET (FP) PO SCH (22:58)
[2018-06-28] MEDS: chlordiazePOXIDE HCL 25 MG CAPSULE PO SCH (05:32)
[2018-06-28] MEDS: IBUPROFEN 400 MG TABLET (FP) PO PRN (10:13)
[2018-06-28] MEDS: chlordiazePOXIDE 5 MG CAPSULE PO SCH ×3 (10:14→22:39)
[2018-06-28] MEDS: amLODIPine BESYLATE 5 MG TABLET (FP) PO SCH (10:14)
[2018-06-28] MEDS: PRENATAL VITAMINS W/ FOLIC ACID TABLET (FP) PO SCH (10:14)
[2018-06-28] MEDS: HYDROCHLOROTHIAZIDE 25 MG TABLET (FP) PO SCH (10:14)
[2018-06-28] MEDS ORDERED: CYCLOBENZAPRINE HCL 10 MG TABLET (FP) PO PRN (11:17)
--- NOTE | 2018-06-28 17:30 | PN ---
[facility] CIWA - CIWA Score Nausea/Vomitin-Mild Nausea/No Vomiting Muscle Tremors: 3 Anxiety: 3 Agitation: 3 Paroxysmal Sweats: 3 Orientation: 0-Oriented Tacttile Disturbances: 0-None Auditory Disturbances: 0-None Visual Disturbances: 0-None Headache: 0-None Present CIWA-Ar Total Score: 13 [facility] Progress Note (SOAP) Subjective: Headache 8/10, sweating, muscle spasm/aches, interrupted sleep, diarrhea. Patient requesting flexeril. Objective: 06/28/18 17:28 Last Vital Signs Temp Pulse Resp BP Pulse Ox 97.9 F 75 18 133/78 06/28/18 14:34 06/28/18 14:34 06/28/18 14:34 06/28/18 14:34 Laboratory Tests 06/26/18 06/27/18 06/27/18 10:20 05:40 05:40 WBC 6.6 RBC 4.65 Hgb 14.6 Hct 42.1 MCV 90.7 MCH 31.4 MCHC 34.7 RDW 14.5 Plt Count 223 MPV 9.3 Sodium 139 Potassium 3.9 Chloride 103 Carbon Dioxide 31 Anion Gap 5 L BUN 19 H Creatinine 1.1 Creat Clearance w eGFR > 60 Random Glucose 109 H Calcium 8.6 Total Bilirubin 0.3 AST 24 ALT 36 Alkaline Phosphatase 90 Total Protein 7.7 Albumin 3.8 Urine Color Urine Appearance Urine pH Ur Specific [place] Urine Protein Urine Glucose (UA) Urine Ketones Urine Blood Urine Nitrite Urine Bilirubin Urine Urobilinogen Ur Leukocyte Esterase RPR Titer HIV 1&2 Antibody Screen Negative HIV P24 Antigen Negative 06/27/18 06/27/18 05:40 08:50 WBC RBC Hgb Hct MCV MCH MCHC RDW Plt Count MPV Sodium Potassium Chloride Carbon Dioxide Anion Gap BUN Creatinine Creat Clearance w eGFR Random Glucose Calcium Total Bilirubin AST ALT Alkaline Phosphatase Total Protein Albumin Urine Color Dkyellow Urine Appearance Turbid Urine pH 6.0 Ur Specific [place] 1.021 Urine Protein Negative Urine Glucose (UA) 1+ H Urine Ketones Negative Urine Blood Negative Urine Nitrite Negative Urine Bilirubin Negative Urine Urobilinogen Negative Ur Leukocyte Esterase Negative RPR Titer Nonreactive HIV 1&2 Antibody Screen HIV P24 Antigen Labs reviewed: UA shows 1+ glucose Assessment: 06/28/18 17:29 Withdrawal symptoms Glycosuria noted Plan: Continue detox Encouraged PO water hydration Glycosuria: most likely due to withdrawal, repeat UA
[2018-06-28] MEDS: THIAMINE HCL 100 MG TABLET (FP) PO SCH (22:39)
[2018-06-29] MEDS: chlordiazePOXIDE 5 MG CAPSULE PO SCH (05:09)
[2018-06-29] MEDS: IBUPROFEN 400 MG TABLET (FP) PO PRN (05:10)
[2018-06-29 09:31] VITALS: BP 112/67; PULSE 75; TEMP 97.7
[2018-06-29 09:55] LABS: URINE APPEARANCE CLEAR; URINE BILIRUBIN NEGATIVE (<2.0 mg/dL); URINE COLOR YELLOW; URINE GLUCOSE (UA) NEGATIVE (NEGATIVE); URINE KETONE NEGATIVE (NEGATIVE); URINE LEUK ESTERASE NEGATIVE (NEGATIVE); URINE NITRITE NEGATIVE (NEGATIVE); URINE PROTEIN NEGATIVE (NEGATIVE); URINE UROBILINOGEN NEGATIVE mg/dL (0.2-1.0)
[2018-06-29] MEDS: HYDROCHLOROTHIAZIDE 25 MG TABLET (FP) PO SCH (10:30)
[2018-06-29] MEDS: PRENATAL VITAMINS W/ FOLIC ACID TABLET (FP) PO SCH (10:30)
[2018-06-29] MEDS: amLODIPine BESYLATE 5 MG TABLET (FP) PO SCH (10:31)
[2018-06-29] MEDS ORDERED: chlordiazePOXIDE HCL 10 MG CAPSULE PO SCH (11:00)
--- NOTE | 2018-06-29 12:23 | PN ---
[facility] Progress Note Note: pt states feeling better no s/s of withdrawals, however he wants to sign out AMA.
--- NOTE | 2018-06-29 12:24 | DS ---
[facility] Detox Discharge Summary Admission Date: 06/26/18 - History Present History: Alcohol Dependence, Cocaine Dependence - Physical Exam Results Vital Signs: Vital Signs Temperature 97.7 F 06/29/18 09:30 Pulse Rate 75 06/29/18 09:30 Respiratory Rate 18 06/29/18 09:30 Blood Pressure 112/67 06/29/18 09:30 O2 Sat by Pulse Oximetry (%) - Treatment Hospital Course: Discharged Condition Good - Medication Discharge Medications: Ambulatory Orders Sertraline HCl [Zoloft -] 50 mg PO DAILY #30 tablet 06/27/17 Amlodipine Besylate [Norvasc -] 5 mg PO DAILY #14 tablet 02/17/18 Hydrochlorothiazide 25 mg PO DAILY #14 tablet 02/17/18 - AMA Did Patient Leave Against Medical Advice: Yes
== END 2018-06-29 12:36 | disposition left against medical advice (07) | DRG 770 ==
LOC: YASAS 08:09 → Y6N 11:25
PROVIDERS: ADMIT Neuromusculoskeletal Medicine & OMM; ATTEND Neuromusculoskeletal Medicine & OMM
PROC: HZ2ZZZZ Detoxification Services for Substance Abuse Treatment (ICD-10-PCS; principal; 2018-06-26)
DX: F10.230 Alcohol dependence with withdrawal, uncomplicated (principal); F10.282 Alcohol dependence with alcohol-induced sleep disorder; F14.20 Cocaine dependence, uncomplicated; F17.210 Nicotine dependence, cigarettes, uncomplicated; F33.1 Major depressive disorder, recurrent, moderate; F19.24 Other psychoactive substance dependence with psychoactive substance-induced mood disorder; I10 Essential (primary) hypertension; E78.00 Pure hypercholesterolemia, unspecified; K21.9 Gastro-esophageal reflux disease without esophagitis; R81 Glycosuria; M54.5 Low back pain; G89.29 Other chronic pain; E66.9 Obesity, unspecified; Z68.30 Body mass index [BMI] 30.0-30.9, adult; Z87.438 Personal history of other diseases of male genital organs; Z91.010 Allergy to peanuts
CPT/HCPCS: 36415; 80053; 81003; 85027; 86593; 87389; 93005; 93010

== ENCOUNTER 2018-07-28 14:23 | Inpatient (IN) | payer OTHER ==
[2018-07-28 17:20] VITALS: BMI 31.0
--- NOTE | 2018-07-28 18:45 | HP ---
CIWA Score Nausea/Vomitin-No Nausea/No Vomiting Muscle Tremors: 2 Anxiety: 3 Agitation: 2 Paroxysmal Sweats: 2 Orientation: 1-Uncertain about Date Tacttile Disturbances: 0-None Auditory Disturbances: 2-Mild Harshness/Frighten Visual Disturbances: 0-None Headache: 2-Mild CIWA-Ar Total Score: 14 - Admission Criteria OASAS Guidelines: Admission for Medically Managed Detox: Requires at least one of the followin. CIWA greater than 12 2. Seizures within the past 24 hours 3. Delirium tremens within the past 24 hours 4. Hallucinations within the past 24 hours 5. Acute intervention needed for co occurring medical disorder 6. Acute intervention needed for co occurring psychiatric disorder 7. Severe withdrawal that cannot be handled at a lower level of care (continued vomiting, continued diarrhea, abnormal vital signs) requiring intravenous medication and/or fluids 8. Patient presents the following: CIWA greater than 12 Admission Criteria Met: Admission criteria met Admission ROS BHS - HPI Chief Complaint: " I want to get clean" Allergies/Adverse Reactions: Allergies Allergy/AdvReac Type Severity Reaction Status Date / Time peanut Allergy Difficulty Verified 06/26/18 09:30 Breathing History of Present Illness: 52 yo male with hx of alcohol and cocaine dependence is here seeking alcohol detox, self referred, this is one of multiple admissions. Reports getting the " shakes in AM and diarrhea." PMHX: HTN, GERD, HDL, depression, anxiety. Denies suicidal / homicidal ideation. Denies hx of seizures. Reports hx of ETOH blacks out with last episode four weeks ago. Exam Limitations: No Limitations - Ebola screening Have you traveled outside of the country in the last 21 days: No Have you had contact with anyone from an Ebola affected area: No Have you been sick,other than usual withdrawal symptoms: No - Review of Systems Constitutional: Night Sweats, Changes in sleep, Weakness EENT: reports: No Symptoms Reported Respiratory: reports: No Symptoms reported Cardiac: reports: No Symptoms Reported GI: reports: Diarrhea (x 4 days), Poor Fluid Intake Musculoskeletal: reports: Back Pain, Joint Pain Integumentary: reports: No Symptoms Reported Neuro: reports: See HPI, Headache, Weakness Endocrine: reports: Increased Thirst Hematology: reports: No Symptoms Reported Psychiatric: reports: Orientated x3, Anxious Other Systems: Reviewed and Negative Patient History - Patient Medical History Hx Anemia: No Hx Asthma: No Hx Chronic Obstructive Pulmonary Disease (COPD): No Hx Cancer: No Hx Cardiac Disorders: No Hx Congestive Heart Failure: No Hx Hypertension: Yes Hx Hypercholesterolemia: Yes (simvastatin ) Hx Pacemaker: No HX Cerebrovascular Accident: No Hx Seizures: No Hx Dementia: No Hx Diabetes: No Hx Gastrointestinal Disorders: No Hx Liver Disease: No Hx Genitourinary Disorders: No Hx Sexually Transmitted Disorders: Yes (syphilis at age 24) Hx Renal Disease (ESRD): No Hx Thyroid Disease: No Hx Human Immunodeficiency Virus (HIV): No (NEGATIVE HX in 2018) Hx Hepatitis C: No Hx Depression: Yes Hx Suicide Attempt: No Hx Bipolar Disorder: Yes (no meds ) Hx Schizophrenia: No - Patient Surgical History Past Surgical History: Yes Hx Neurologic Surgery: No Hx Cataract Extraction: No Hx Cardiac Surgery: No Hx Lung Surgery: No Hx Breast Surgery: No Hx Breast Biopsy: No Hx Abdominal Surgery: Yes (umbilical hernia repair at age 11) Hx Appendectomy: No Hx Cholecystectomy: No Hx Genitourinary Surgery: No Hx Section: No Hx Orthopedic Surgery: No Other Surgical History: bunion right toe surgery done 06/18 Anesthesia Reaction: No - PPD History Previous Implant?: No Documented Results: Negative w/proof Date: 09/26/17 Results: 0 mm PPD to be Administered?: No - Smoking Cessation Smoking history: Current some day smoker Have you smoked in the past 12 months: No Aproximately how many cigarettes per day: 2 If you are a former smoker, when did you quit?: 2014 Cigars Per Day: 0 Hx Chewing Tobacco Use: No Initiated information on smoking cessation: No 'Breaking Loose' booklet given: 07/28/18 - Substance & Tx. History Hx Alcohol Use: Yes Hx Substance Use: Yes Substance Use Type: Alcohol, Cocaine Hx Substance Use Treatment: Yes ([facility] detox 06/26/18 -06/29/18) - Substances Abused alcohol Route: Oral Frequency: Daily Amount used: 3 pints liquor + 8 - 9 x 16 oz beers Age of first use: 16 Date of Last Use: 07/28/18 cocaine Route: Inhalation Frequency: Daily Amount used: 2 - 3 grams Age of first use: 22 Date of Last Use: 07/27/18 Family Disease History - Family Disease History Family Disease History: [place]: Mother (BREAST,,), Other: Father (living, no contact HTN,), Mother, Brother (one living, healthy), Sister (three living - healthy) Admission Physical Exam [facility] - Vital Signs Vital Signs: Vital Signs - 24 hr 07/28/18 17:18 Temperature 98.5 F Pulse Rate 84 Respiratory 19 Rate Blood Pressure 124/69 - Physical General Appearance: Yes: Appropriately Dressed, Mild Distress, Tremorous, Sweating, Anxious HEENTM: Yes: EOMI, Hearing grossly Normal, Normal ENT Inspection, Normocephalic , Normal Voice, MARISEL, Pharynx Normal Respiratory: Yes: Chest Non-Tender, Lungs Clear, Normal Breath Sounds, No Respiratory Distress, No Accessory Muscle Use Neck: Yes: Within Normal Limits Breast: Yes: Breast Exam Deferred Cardiology: Yes: Regular Rhythm, Regular Rate Abdominal: Yes: Normal Bowel Sounds, Non Tender, Flat, Soft Genitourinary: Yes: Within Normal Limits Back: Yes: Normal Inspection Musculoskeletal: Yes: full range of Motion, Gait Steady, Pelvis Stable, Back pain Extremities: Yes: Normal Capillary Refill, Normal Inspection, Normal Range of Motion 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: Yes: [email or web address] II-XII NML intact, Fully Oriented, Alert, Motor Strength 5/5, Depressed Affect Integumentary: Yes: Normal Color, Warm, Diaphoresis Lymphatic: Yes: Within Normal Limits - Diagnostic (1) Hyperlipidemia Current Visit: Yes Status: Acute Qualifiers: Hyperlipidemia type: unspecified Qualified Code(s): E78.5 - Hyperlipidemia , unspecified (2) Diarrhea Current Visit: Yes Status: Acute Qualifiers: Diarrhea type: unspecified type Qualified Code(s): R19.7 - Diarrhea, unspecified (3) Alcohol dependence with withdrawal, uncomplicated Current Visit: Yes Status: Acute (4) Chronic low back pain Current Visit: Yes Status: Chronic Qualifiers: Back pain laterality: midline Sciatica presence: without sciatica Qualified Code(s): M54.5 - Low back pain; G89.29 - Other chronic pain (5) Cocaine dependence Current Visit: Yes Status: Chronic (6) Dry skin Current Visit: Yes Status: Chronic (7) Essential hypertension Current Visit: Yes Status: Chronic (8) GERD (gastroesophageal reflux disease) Current Visit: Yes Status: Chronic Qualifiers: Esophagitis presence: with esophagitis Qualified Code(s): K21.0 - Gastro- esophageal reflux disease with esophagitis Cleared for Admission [facility] - Detox or Rehab [facility] Level of Care: Medically Managed Detox Regimen/Protocol: Librium [facility] Breath Alcohol Content Breath Alcohol Content: 0.038 Urine Drug Screen - Results Drug Screen Negative: No Urine Drug Screen Results: JAZMIN-Cocaine, BZO-Benzodiazepines Inpatient Rehab Admission - Rehab Decision to Admit Inpatient rehab admission?: No
[2018-07-28] MEDS ORDERED: P-EPHED 60MG/TRIPROLIDI 2.5MG TABLET PO PRN (18:52)
[2018-07-28] MEDS ORDERED: ACETAMINOPHEN 325 MG TABLET (FP) PO PRN (18:52)
[2018-07-28] MEDS ORDERED: MAGNESIUM CITRATE 300 ML BOTTLE PO PRN (18:52)
[2018-07-28] MEDS ORDERED: MAG HYDROX/AL HYDROX/SIMETH 30 ML UNIT-DOSE CUP PO PRN (18:52)
[2018-07-28] MEDS ORDERED: LOPERAMIDE HCL 2 MG CAPSULE PO PRN (18:52)
[2018-07-28] MEDS ORDERED: MENTHOL/PHENOL 1 EACH UD MM PRN (18:52)
[2018-07-28] MEDS ORDERED: guaiFENesin/D-METHORPHAN HB 10 ML UNIT-DOSE CUPS PO PRN (18:52)
[2018-07-28] MEDS ORDERED: MAGNESIUM HYDROX 2400MG/30ML ORAL SUSPENSION 30 ML CUP PO PRN (18:52)
[2018-07-28] MEDS ORDERED: chlordiazePOXIDE HCL 25 MG CAPSULE PO PRN (18:52)
[2018-07-28] MEDS ORDERED: COLLOIDAL OATMEAL 1 BAR EACH TP PRN (18:57)
[2018-07-28] MEDS ORDERED: MELATONIN 5 MG TABLETS PO PRN (22:00)
[2018-07-29] MEDS: IBUPROFEN 400 MG TABLET (FP) PO PRN (02:31)
[2018-07-29] MEDS: THIAMINE HCL 100 MG TABLET (FP) PO SCH ×2 (02:32→22:41)
[2018-07-29] MEDS: chlordiazePOXIDE HCL 25 MG CAPSULE PO SCH ×5 (02:32→22:40)
[2018-07-29] MEDS: ATORVASTATIN CA 10 MG TABLET (FP) PO SCH ×2 (02:32→22:40)
--- NOTE | 2018-07-29 07:45 | CONSULT ---
[facility] Psychiatric Consult - Data Date of interview: 07/29/18 Admission source: [facility] Identifying data: 52 yo male with hx of alcohol and cocaine dependence is here seeking alcohol detox, self referred, this is one of multiple admissions. Reports getting the " shakes in AM and diarrhea.". PMHX: HTN, GERD, HDL, depression, anxiety. Denies suicidal / homicidal ideation. Denies hx of seizures. Reports hx of ETOH blacks out with last episode four weeks ago. Substance Abuse History: Smoking history: Current some day smoker. Have you smoked in the past 12 months: No. Aproximately how many cigarettes per day: 2. If you are a former smoker, when did you quit?: 2014. Cigars Per Day: 0. Hx Chewing Tobacco Use: No. Initiated information on smoking cessation: No. ' Breaking Loose' booklet given: 07/28/18. - Substance & Tx. History. Hx Alcohol Use: Yes. Hx Substance Use: Yes. Substance Use Type: Alcohol, Cocaine. Hx Substance Use Treatment: Yes ([facility] detox 06/26/18 -06/29/18). - Substances Abused. alcohol. Route: Oral. Frequency: Daily. Amount used: 3 pints liquor + 8 - 9 x 16 oz beers. Age of first use: 16. Date of Last Use: 07/28/18. cocaine. Route: Inhalation. Frequency: Daily. Amount used: 2 - 3 grams. Age of first use: 22. Date of Last Use: 07/27/18 Psychiatric Findings - Problem List ([place] 1, 2,3) (1) Alcohol dependence with withdrawal, uncomplicated Current Visit: Yes Status: Acute (2) Hyperlipidemia Current Visit: Yes Status: Acute Qualifiers: Hyperlipidemia type: unspecified Qualified Code(s): E78.5 - Hyperlipidemia , unspecified (3) Chronic low back pain Current Visit: Yes Status: Chronic Qualifiers: Back pain laterality: midline Sciatica presence: without sciatica Qualified Code(s): M54.5 - Low back pain; G89.29 - Other chronic pain (4) Cocaine dependence Current Visit: Yes Status: Chronic (5) Essential hypertension Current Visit: Yes Status: Chronic (6) GERD (gastroesophageal reflux disease) Current Visit: Yes Status: Chronic Qualifiers: Esophagitis presence: with esophagitis Qualified Code(s): K21.0 - Gastro- esophageal reflux disease with esophagitis (7) Alcohol dependence Current Visit: No Status: Acute (8) Cocaine dependence, uncomplicated Current Visit: No Status: Chronic (9) Drug-induced mood disorder Current Visit: No Status: Chronic (10) MDD (major depressive disorder) Current Visit: No Status: Chronic Qualifiers: Major depression recurrence: recurrent Major depression episode severity: moderate Comment: Self reports. (11) Syncope Current Visit: No Status: Chronic (12) Hypokalemia Current Visit: No Status: Resolved
--- NOTE | 2018-07-29 10:12 | CONSULT ---
[facility] Psychiatric Consult - Data Date of interview: 07/29/18 Admission source: [facility] Identifying data: This is one of the multilple admissions to [facility] for this 52 yo AA single childless male ,unempoyed,undomiciled admitted to detox for Alcohol,Cocaine dependence . Substance Abuse History: Reports drinking since 16 years old,4 pints of rum,2 six packs of beer daily,Cocaine since 22 yo,3-4 gms daily. Medical History: Significant for HTN,GERD,H/o Syphilis,H/O Umbilical hernia repair. Psychiatric History: Patient reports first contact with psychiatrist about 5 years ago when he was hospitalized to [facility] as a result of suicidal attempt(DOD with cocaine),severe depression,anxiety.He wasx dx with Bipolar disorder and plced on medications.Patient reports 4 more psychiatric admissions.Poor OPD care,poor compliance with treatment.Obtains Zoloft 50 mg po daily from his PCO and willing to restrat above medication while in treatment. Physical/Sexual Abuse/Trauma History: denies Mental Status Exam - Mental Status Exam Alert and Oriented to: Time, Place, Person Cognitive Function: Grossly Intact Patient Appearance: Unkempt Mood: Sad Affect: Mood Congruent, Labile Patient Behavior: Cooperative Speech Pattern: Clear Voice Loudness: Normal Thought Process: Goal Oriented Thought Disorder: Not Present Hallucinations: Denies Suicidal Ideation: Denies Homicidal Ideation: Denies Insight/Judgement: Fair Sleep: Fair Appetite: Fair Muscle strength/Tone: Normal Gait/Station: Normal Psychiatric Findings - Problem List ([place] 1, 2,3) (1) Hyperlipidemia Current Visit: Yes Status: Chronic Qualifiers: Hyperlipidemia type: unspecified Qualified Code(s): E78.5 - Hyperlipidemia , unspecified (2) Chronic low back pain Current Visit: Yes Status: Chronic Qualifiers: Back pain laterality: midline Sciatica presence: without sciatica Qualified Code(s): M54.5 - Low back pain; G89.29 - Other chronic pain (3) Cocaine dependence Current Visit: Yes Status: Chronic (4) Dry skin Current Visit: Yes Status: Chronic (5) Essential hypertension Current Visit: Yes Status: Chronic (6) GERD (gastroesophageal reflux disease) Current Visit: Yes Status: Chronic Qualifiers: Esophagitis presence: with esophagitis Qualified Code(s): K21.0 - Gastro- esophageal reflux disease with esophagitis (7) Alcohol dependence Current Visit: Yes Status: Chronic (8) Bipolar disorder Current Visit: Yes Status: Chronic - Initial Treatment Plan Initial Treatment Plan: Zoloft 50 mg po daily. Will monitor progress.
[2018-07-29] MEDS: PRENATAL VITAMINS W/ FOLIC ACID TABLET (FP) PO SCH (10:16)
[2018-07-29] MEDS: SERTRALINE HCL 50 MG TABLET (FP) PO SCH (10:16)
[2018-07-29] MEDS: amLODIPine BESYLATE 5 MG TABLET (FP) PO SCH (10:16)
[2018-07-29] MEDS: CYCLOBENZAPRINE HCL 10 MG TABLET (FP) PO PRN (10:16)
[2018-07-29] MEDS: HYDROCHLOROTHIAZIDE 25 MG TABLET (FP) PO SCH (10:17)
[2018-07-29] MEDS: hydrOXYzine PAMOATE 25 MG CAPSULE (FP) PO PRN (10:18)
[2018-07-29 12:40] LABS: HEMATOCRIT 39.2 % (35.4-49); HEMOGLOBIN 13.3 GM/dL (11.7-16.9); MCH 30.8 pg (25.7-33.7); MCHC 33.8 g/dl (32.0-35.9); MEAN CELL VOLUME 91.2 fl (80-96); MEAN PLT VOLUME 8.3 fl (7.5-11.1); PLATELET COUNT 195 K/MM3 (134-434); RDW 14.4 % (11.9-15.9); WHITE BLOOD COUNT 3.7 K/mm3 (4.0-10.0)
[2018-07-29 12:44] LABS: ALBUMIN 3.1 g/dl (3.4-5.0); ALK PHOS 74 U/L (45-117); ANION GAP 3 MMOL/L (8-16); BILIRUBIN,TOTAL 0.4 mg/dL (0.2-1); BLOOD UREA NITROGEN 16 mg/dL (7-18); CALCIUM 7.6 mg/dL (8.5-10.1); CHLORIDE 107 mmol/L (98-107); CO2 30 mmol/L (21-32); GLUCOSE,RANDOM 82 mg/dL (74-106); POTASSIUM 3.8 mmol/L (3.5-5.1); SGOT/AST 17 U/L (15-37); SGPT/ALT 26 U/L (13-61); SODIUM 140 mmol/L (136-145); TOT PROT 6.7 g/dl (6.4-8.2)
--- NOTE | 2018-07-29 15:50 | PN ---
[facility] CIWA - CIWA Score Nausea/Vomitin-No Nausea/No Vomiting Muscle Tremors: None Anxiety: 3 Agitation: 1-Slight > Activity Paroxysmal Sweats: 3 Orientation: 0-Oriented Tacttile Disturbances: 2-Mild Itch/Numbness/Burn Auditory Disturbances: 2-Mild Harshness/Frighten Visual Disturbances: 3-Moderate Sensitivity Headache: 0-None Present CIWA-Ar Total Score: 14 S Progress Note (SOAP) Subjective: Sweating, Body Aches, Fatigue. Objective: PATIENT A & O X 3. IN NO ACUTE DISTRESS. 07/29/18 15:48 Vital Signs Temperature 98.3 F 07/29/18 13:10 Pulse Rate 90 07/29/18 13:10 Respiratory Rate 18 07/29/18 13:10 Blood Pressure 138/89 07/29/18 13:10 O2 Sat by Pulse Oximetry (%) Laboratory Tests 07/29/18 07/29/18 07:00 07:00 WBC 3.7 L RBC 4.30 Hgb 13.3 Hct 39.2 MCV 91.2 MCH 30.8 MCHC 33.8 RDW 14.4 Plt Count 195 MPV 8.3 D Sodium 140 Potassium 3.8 Chloride 107 Carbon Dioxide 30 Anion Gap 3 L BUN 16 Creatinine 1.0 Creat Clearance w eGFR > 60 Random Glucose 82 Calcium 7.6 L Total Bilirubin 0.4 AST 17 ALT 26 Alkaline Phosphatase 74 Total Protein 6.7 Albumin 3.1 L LABS NOTED. RPR RESULT PENDING. 07/29/18 15:51 Assessment: 07/29/18 15:49 WITHDRAWAL SYMPTOMS. LEUKOPENIA. 07/29/18 15:50 Plan: CONTINUE DETOX.
[2018-07-29] MEDS: METHYL SALICYLATE/MENTHOL OINT 30 GM TUBE TP SCH (23:12)
[2018-07-30] MEDS: hydrOXYzine PAMOATE 25 MG CAPSULE (FP) PO PRN (06:19)
[2018-07-30] MEDS: chlordiazePOXIDE HCL 25 MG CAPSULE PO SCH ×3 (06:25→17:25)
[2018-07-30] MEDS: PRENATAL VITAMINS W/ FOLIC ACID TABLET (FP) PO SCH (10:44)
[2018-07-30] MEDS: amLODIPine BESYLATE 5 MG TABLET (FP) PO SCH (10:44)
[2018-07-30] MEDS: METHYL SALICYLATE/MENTHOL OINT 30 GM TUBE TP SCH ×2 (10:44→23:02)
[2018-07-30] MEDS: SERTRALINE HCL 50 MG TABLET (FP) PO SCH (10:44)
[2018-07-30] MEDS: CYCLOBENZAPRINE HCL 10 MG TABLET (FP) PO PRN (10:44)
[2018-07-30] MEDS: HYDROCHLOROTHIAZIDE 25 MG TABLET (FP) PO SCH (10:44)
[2018-07-30] MEDS: IBUPROFEN 400 MG TABLET (FP) PO PRN (10:45)
[2018-07-30] MEDS ORDERED: RANITIDINE HCL 150 MG TABLET (FP) PO ONE (14:08)
--- NOTE | 2018-07-30 14:55 | PN ---
S CIWA - CIWA Score Nausea/Vomitin Muscle Tremors: None Anxiety: 2 Agitation: 0-Normal Activity Paroxysmal Sweats: 3 Orientation: 0-Oriented Tacttile Disturbances: 0-None Auditory Disturbances: 1-Very Mild Visual Disturbances: 2-Mild Sensitivity Headache: 3-Moderate CIWA-Ar Total Score: 14 S Progress Note (SOAP) Subjective: Body Aches, Fatigue, Sweating, Nausea, Stomach Cramping, Diarrhea, H/A. Objective: PATIENT A & O X 3, OBSERVED AMBULATING ON UNIT. IN NO ACUTE DISTRESS. 07/30/18 14:56 Vital Signs Temperature 98.0 F 07/30/18 13:12 Pulse Rate 69 07/30/18 13:12 Respiratory Rate 20 07/30/18 13:12 Blood Pressure 106/59 L 07/30/18 13:12 O2 Sat by Pulse Oximetry (%) Laboratory Tests 07/29/18 07/29/18 07/29/18 07:00 07:00 07:00 WBC 3.7 L RBC 4.30 Hgb 13.3 Hct 39.2 MCV 91.2 MCH 30.8 MCHC 33.8 RDW 14.4 Plt Count 195 MPV 8.3 D Sodium 140 Potassium 3.8 Chloride 107 Carbon Dioxide 30 Anion Gap 3 L BUN 16 Creatinine 1.0 Creat Clearance w eGFR > 60 Random Glucose 82 Calcium 7.6 L Total Bilirubin 0.4 AST 17 ALT 26 Alkaline Phosphatase 74 Total Protein 6.7 Albumin 3.1 L RPR Titer Nonreactive LABS NOTED. ADMISSION UA RESULTS PENDING. 07/30/18 14:57 Assessment: 07/30/18 14:57 WITHDRAWAL SYMPTOMS. LEUKOPENIA. 07/30/18 14:58 Plan: CONTINUE DETOX. INCREASE DAILY PO FLUID INTAKE. PRN IMMODIUM FOR DIARRHEA.
[2018-07-30 18:07] LABS: URINE APPEARANCE CLEAR; URINE BILIRUBIN NEGATIVE (<2.0 mg/dL); URINE COLOR YELLOW; URINE GLUCOSE (UA) NEGATIVE (NEGATIVE); URINE KETONE NEGATIVE (NEGATIVE); URINE LEUK ESTERASE NEGATIVE (NEGATIVE); URINE NITRITE NEGATIVE (NEGATIVE); URINE PROTEIN NEGATIVE (NEGATIVE); URINE UROBILINOGEN NEGATIVE mg/dL (0.2-1.0)
[2018-07-30] MEDS: RANITIDINE HCL 150 MG TABLET (FP) PO SCH (22:59)
[2018-07-30] MEDS: ATORVASTATIN CA 10 MG TABLET (FP) PO SCH (22:59)
[2018-07-30] MEDS: chlordiazePOXIDE 5 MG CAPSULE PO SCH (22:59)
[2018-07-30] MEDS: THIAMINE HCL 100 MG TABLET (FP) PO SCH (22:59)
[2018-07-31] MEDS: chlordiazePOXIDE 5 MG CAPSULE PO SCH ×2 (05:49→10:38)
--- NOTE | 2018-07-31 09:30 | PN ---
S Progress Note (SOAP) Subjective: alert,irritable,interrupted sleep Objective: 07/31/18 09:29 Vital Signs Temperature 97.9 F 07/31/18 09:21 Pulse Rate 73 07/31/18 09:21 Respiratory Rate 18 07/31/18 09:21 Blood Pressure 110/57 L 07/31/18 09:21 O2 Sat by Pulse Oximetry (%) Assessment: 07/31/18 09:29 withdrawal symptom Plan: continue detox,discharge in am
[2018-07-31] MEDS: METHYL SALICYLATE/MENTHOL OINT 30 GM TUBE TP SCH (10:00)
[2018-07-31] MEDS: RANITIDINE HCL 150 MG TABLET (FP) PO SCH (10:35)
[2018-07-31] MEDS: HYDROCHLOROTHIAZIDE 25 MG TABLET (FP) PO SCH (10:35)
[2018-07-31] MEDS: PRENATAL VITAMINS W/ FOLIC ACID TABLET (FP) PO SCH (10:35)
[2018-07-31] MEDS: SERTRALINE HCL 50 MG TABLET (FP) PO SCH (10:35)
[2018-07-31] MEDS: amLODIPine BESYLATE 5 MG TABLET (FP) PO SCH (10:38)
--- NOTE | 2018-07-31 14:12 | PN ---
[facility] Progress Note Note: patient is stable for discharge today ,to go to rehab for further level of care today,no withdrawal symptom,
--- NOTE | 2018-07-31 14:13 | DS ---
[facility] Detox Discharge Summary Admission Date: 07/28/18 Discharge Date: 07/31/18 - History Present History: Alcohol Dependence, Cocaine Dependence Additional Comments: patient is stable to be discharged to rehab for further level of care Pertinent Past History: hypertension gerd hyperlipidemia - Physical Exam Results Vital Signs: Vital Signs Temperature 97.7 F 07/31/18 13:04 Pulse Rate 82 07/31/18 13:04 Respiratory Rate 18 07/31/18 13:04 Blood Pressure 106/72 07/31/18 13:04 O2 Sat by Pulse Oximetry (%) Pertinent Admission Physical Exam Findings: withdrawal signs and symptom - Treatment Hospital Course: Detox Protocol Followed, Detoxed Safely, Responded well, Discharged Condition Good, Rehab Referral Accepted Patient has Accepted a Rehab Referral to: [facility] - Medication Discharge Medications: Ambulatory Orders Amlodipine Besylate [Norvasc -] 5 mg PO DAILY #14 tablet 02/17/18 Hydrochlorothiazide 25 mg PO DAILY #14 tablet 02/17/18 Simvastatin 20 mg PO HS 07/28/18 Sertraline HCl [Zoloft -] 50 mg PO DAILY #30 tablet 07/29/18 - Diagnosis (1) Alcohol dependence with withdrawal, uncomplicated Current Visit: Yes Status: Acute (2) Bipolar disorder Current Visit: Yes Status: Chronic (3) Chronic low back pain Current Visit: Yes Status: Chronic Qualifiers: Back pain laterality: midline Sciatica presence: without sciatica Qualified Code(s): M54.5 - Low back pain; G89.29 - Other chronic pain (4) Cocaine dependence Current Visit: Yes Status: Chronic - AMA Did Patient Leave Against Medical Advice: No
[2018-07-31 17:08] VITALS: BP 156/97; PULSE 74; TEMP 98.2
[2018-07-31] MEDS ORDERED: chlordiazePOXIDE HCL 10 MG CAPSULE PO SCH (23:00)
== END 2018-07-31 07:23 | disposition other institution (70) | DRG 774 ==
LOC: YASAS 14:23 → Y6N 21:34
PROVIDERS: ADMIT Surgery; ATTEND Surgery
PROC: HZ2ZZZZ Detoxification Services for Substance Abuse Treatment (ICD-10-PCS; principal; 2018-07-28)
DX: F10.230 Alcohol dependence with withdrawal, uncomplicated (principal); F14.20 Cocaine dependence, uncomplicated; F31.9 Bipolar disorder, unspecified; I10 Essential (primary) hypertension; K21.0 Gastro-esophageal reflux disease with esophagitis; L85.3 Xerosis cutis; E78.5 Hyperlipidemia, unspecified; D72.819 Decreased white blood cell count, unspecified; M54.5 Low back pain; G89.29 Other chronic pain; R19.7 Diarrhea, unspecified; Z86.19 Personal history of other infectious and parasitic diseases
CPT/HCPCS: 36415; 80053; 81003; 85027; 86593

== ENCOUNTER 2018-07-31 19:21 | Inpatient (IN) | payer OTHER ==
--- NOTE | 2018-07-31 15:09 | HP ---
[facility] Rehab Assess/Revision - Admission History Admitted to Rehab from: [facility] Date of Admission to Rehab: [facility] - Findings Detox History & Physical reviewed: Yes Concur with findings: Yes Comments/Additional Findings: for rehab as protocol Inpatient Rehab Admission - Rehab Decision to Admit Inpatient rehab admission?: Yes - Initial Determination Are CD services needed?: Yes Free of communicable disease: Yes Not in need of hospitalization: Yes - Rehab Admission Criteria Previous failed treatment: Yes Poor recovery environment: Yes Comorbidities: Yes Lacks judgement: No Patient is meeting Inpatient Rehab admission criteria:: Yes
[~2018-07-31 19:21] MED LIST: ACETAMINOPHEN 325 MG TABLET (FP) PO PRN; IBUPROFEN 400 MG TABLET (FP) PO PRN; LOPERAMIDE HCL 2 MG CAPSULE PO PRN; MAG HYDROX/AL HYDROX/SIMETH 30 ML UNIT-DOSE CUP PO PRN; MAGNESIUM CITRATE 300 ML BOTTLE PO PRN; MAGNESIUM HYDROX 2400MG/30ML ORAL SUSPENSION 30 ML CUP PO PRN; MENTHOL/PHENOL 1 EACH UD MM PRN; P-EPHED 60MG/TRIPROLIDI 2.5MG TABLET PO PRN; guaiFENesin/D-METHORPHAN HB 10 ML UNIT-DOSE CUPS PO PRN; hydrOXYzine PAMOATE 50 MG CAPSULE (FP) PO PRN
[2018-07-31] MEDS ORDERED: MELATONIN 5 MG TABLETS PO PRN (22:00)
[2018-07-31] MEDS ORDERED: THIAMINE HCL 100 MG TABLET (FP) PO SCH (22:00)
[2018-07-31] MEDS ORDERED: ATORVASTATIN CA 10 MG TABLET (FP) PO SCH (22:00)
[2018-08-01 07:00] VITALS: BP 121/85; PULSE 67; TEMP 97.5
--- NOTE | 2018-08-01 07:30 | DS ---
[facility] Detox Discharge Summary Admission Date: 07/31/18 Discharge Date: 08/01/18 - History Additional Comments: Patient is leaving against medical advice. He was transferred from [address] [place] [address] yesterday and reports that he does not like his room. Patient was offered to move to another room since we have some empty beds. He declined and states that he has already made up his mind to leave because he is not ready for rehab now. Patient is medically stable at this time. He is in no acute distress, alert and and time. oriented to person, place and time. Pertinent Past History: ALCOHOL DEPENDENCE, GERD, HYPERTENSION, hYPERLIPIDEMIA, LOW BACK PAIN AND COCAINE DEPENDENCE - Physical Exam Results Vital Signs: Vital Signs Temperature 97.5 F L 08/01/18 06:59 Pulse Rate 67 08/01/18 06:59 Respiratory Rate 18 08/01/18 06:59 Blood Pressure 121/85 08/01/18 06:59 O2 Sat by Pulse Oximetry (%) Pertinent Admission Physical Exam Findings: Alcohol withdrawal symptoms - Medication Discharge Medications: Ambulatory Orders Amlodipine Besylate [Norvasc -] 5 mg PO DAILY #14 tablet 02/17/18 Hydrochlorothiazide 25 mg PO DAILY #14 tablet 02/17/18 Simvastatin 20 mg PO HS 07/28/18 Sertraline HCl [Zoloft -] 50 mg PO DAILY #30 tablet 07/29/18 - Diagnosis (1) Alcohol dependence with withdrawal, uncomplicated Status: Chronic (2) Chronic low back pain Status: Chronic Qualifiers: Back pain laterality: midline Sciatica presence: without sciatica Qualified Code(s): M54.5 - Low back pain; G89.29 - Other chronic pain (3) Cocaine dependence Status: Chronic (4) Dry skin Status: Chronic (5) Essential hypertension Status: Chronic (6) GERD (gastroesophageal reflux disease) Status: Chronic Qualifiers: Esophagitis presence: with esophagitis Qualified Code(s): K21.0 - Gastro- esophageal reflux disease with esophagitis (7) Hyperlipidemia Status: Chronic Qualifiers: Hyperlipidemia type: unspecified Qualified Code(s): E78.5 - Hyperlipidemia , unspecified - AMA Did Patient Leave Against Medical Advice: Yes
[2018-08-01] MEDS ORDERED: amLODIPine BESYLATE 5 MG TABLET (FP) PO SCH (10:00)
[2018-08-01] MEDS ORDERED: HYDROCHLOROTHIAZIDE 25 MG TABLET (FP) PO SCH (10:00)
[2018-08-01] MEDS ORDERED: PRENATAL VITAMINS W/ FOLIC ACID TABLET (FP) PO SCH (10:00)
== END 2018-08-01 06:35 | disposition left against medical advice (07) | DRG 770 ==
LOC: YASAS 19:21 → Y3W 19:23
PROVIDERS: ADMIT Neuromusculoskeletal Medicine & OMM; ATTEND Neuromusculoskeletal Medicine & OMM
PROC: HZ42ZZZ Group Counseling for Substance Abuse Treatment, Cognitive-Behavioral (ICD-10-PCS; principal; 2018-07-31)
DX: F10.20 Alcohol dependence, uncomplicated (principal); F14.20 Cocaine dependence, uncomplicated; I10 Essential (primary) hypertension; L98.8 Other specified disorders of the skin and subcutaneous tissue; K21.9 Gastro-esophageal reflux disease without esophagitis; E78.5 Hyperlipidemia, unspecified; M54.5 Low back pain; G89.29 Other chronic pain

== ENCOUNTER 2018-09-13 10:18 | Inpatient (IN) | payer OTHER ==
[2018-09-13 11:18] VITALS: BMI 30.8
--- NOTE | 2018-09-13 12:09 | HP ---
CIWA Score Nausea/Vomitin Muscle Tremors: 2 Anxiety: 2 Agitation: 2 Paroxysmal Sweats: 2 Orientation: 0-Oriented Tacttile Disturbances: 1-Very Mild Itch/Numbness Auditory Disturbances: 1-Very Mild Visual Disturbances: 0-None Headache: 2-Mild CIWA-Ar Total Score: 14 - Admission Criteria OASAS Guidelines: Admission for Medically Managed Detox: Requires at least one of the followin. CIWA greater than 12 2. Seizures within the past 24 hours 3. Delirium tremens within the past 24 hours 4. Hallucinations within the past 24 hours 5. Acute intervention needed for co occurring medical disorder 6. Acute intervention needed for co occurring psychiatric disorder 7. Severe withdrawal that cannot be handled at a lower level of care (continued vomiting, continued diarrhea, abnormal vital signs) requiring intravenous medication and/or fluids 8. Admission ROS [facility] - HPI Chief Complaint: i need help to stop drinking alcohol and cocaine Allergies/Adverse Reactions: Allergies Allergy/AdvReac Type Severity Reaction Status Date / Time No Known Drug Allergies Allergy Verified 09/13/18 11:11 peanut Allergy Difficulty Verified 09/13/18 11:11 Breathing History of Present Illness: this 52 years old male with alcohol and cocaine dependence,seeking detox, withdrawal symptom multiple admissions in he past last [facility] 07/28/18 to 07/31/18 detox,rehab 07/31/18 o 08/01/18 not completed syncope alcohol related hypertension,hypercholesterolemia longest sobriety 5 years plan for rehab after detox Exam Limitations: No Limitations - Ebola screening Have you traveled outside of the country in the last 21 days: No (N) Have you had contact with anyone from an Ebola affected area: No Do you have a fever: No - Review of Systems Constitutional: Loss of Appetite, Malaise, Night Sweats, Changes in sleep, Weakness EENT: reports: Nose Congestion Respiratory: reports: No Symptoms reported Cardiac: reports: No Symptoms Reported GI: reports: Nausea, Poor Appetite, Abdominal cramping : reports: No Symptoms Reported Musculoskeletal: reports: Back Pain, Muscle Pain Integumentary: reports: Dryness Neuro: reports: Headache, Tremors Endocrine: reports: No Symptoms Reported Hematology: reports: No Symptoms Reported Psychiatric: reports: No Sypmtoms Reported, Judgement Intact, Mood/Affect Appropiate, Orientated x3, Anxious, Depressed, other Patient History - Patient Medical History Hx Anemia: No Hx Asthma: No Hx Chronic Obstructive Pulmonary Disease (COPD): No Hx Cancer: No Hx Cardiac Disorders: No Hx Congestive Heart Failure: No Hx Hypertension: Yes (on med) Hx Hypercholesterolemia: Yes (simvastatin ) Hx Pacemaker: No HX Cerebrovascular Accident: No Hx Seizures: No Hx Dementia: No Hx Diabetes: No Hx Gastrointestinal Disorders: Yes Hx Liver Disease: No Hx Genitourinary Disorders: No Hx Sexually Transmitted Disorders: No Hx Renal Disease (ESRD): No Hx Thyroid Disease: No Hx Human Immunodeficiency Virus (HIV): No (NEGATIVE HX in 2018) Hx Hepatitis C: No Hx Depression: Yes Hx Suicide Attempt: No Hx Bipolar Disorder: Yes (no meds ) Hx Schizophrenia: No Other Medical History: no suicidal,no homicidal - Patient Surgical History Past Surgical History: Yes Hx Neurologic Surgery: No Hx Cataract Extraction: No Hx Cardiac Surgery: No Hx Lung Surgery: No Hx Breast Surgery: No Hx Breast Biopsy: No Hx Abdominal Surgery: Yes (umbilical hernia repair at age 11) Hx Appendectomy: No Hx Cholecystectomy: No Hx Genitourinary Surgery: No Hx Section: No Hx Orthopedic Surgery: No Other Surgical History: bunion right toe surgery done 06/18 Anesthesia Reaction: No - PPD History Previous Implant?: Yes Documented Results: Negative w/proof Date: 09/26/17 Results: 0 mm PPD to be Administered?: No - Smoking Cessation Smoking history: Never smoked Have you smoked in the past 12 months: No Cigars Per Day: 0 Hx Chewing Tobacco Use: No - Substance & Tx. History Hx Alcohol Use: Yes Hx Substance Use: Yes Substance Use Type: Alcohol, Cocaine Hx Substance Use Treatment: Yes ([facility] 07/28/18 to 07/31/18 detox,rehab 07/31/18 to 08/01/18 not cpmpleted) - Substances abused Alcohol Substance route: Oral Frequency: Daily Amount used: 3 PINTS OF BACARDI AND 8 CANS OF 16 OUNCES OF BEER Age of first use: 16 Date of last use: 09/12/18 Cocaine Substance route: Inhalation Frequency: Daily Amount used: 2-3 GRAMS Age of first use: 22 Date of last use: 09/12/18 Family Disease History - Family Disease History Family Disease History: [place]: Mother (BREAST,,), Other: Father (living, no contact HTN,), Mother, Brother (one living, healthy), Sister (three living - healthy) Admission Physical Exam [facility] - Vital Signs Vital Signs: Vital Signs - 24 hr 09/13/18 09/13/18 11:14 11:26 Temperature 99.1 F 99.1 F Pulse Rate 85 85 Respiratory 18 18 Rate Blood Pressure 104/56 L 104/56 L - Physical General Appearance: Yes: Moderate Distress, Tremorous, Irritable, Sweating, Anxious HEENTM: Yes: Normal ENT Inspection, MARISEL, Pharynx Normal Respiratory: Yes: Lungs Clear, Normal Breath Sounds, No Respiratory Distress Neck: Yes: Within Normal Limits, Supple, Trachea in good position Breast: Yes: Within Normal Limits Cardiology: Yes: Within Normal Limits, Regular Rhythm, Regular Rate, S1, S2 Abdominal: Yes: Within Normal Limits, Normal Bowel Sounds, Non Tender, Flat, Soft Genitourinary: Yes: Within Normal Limits Back: Yes: Muscle Spasm Musculoskeletal: Yes: full range of Motion, Back pain, Muscle Pain Extremities: Yes: Within Normal Limits, Normal Range of Motion, Tremors 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: Yes: head custodian II-XII NML intact, Alert, Motor Strength 5/5 Integumentary: Yes: Dry Lymphatic: Yes: Within Normal Limits - Diagnostic (1) Alcohol dependence with withdrawal, uncomplicated Current Visit: No Status: Chronic (2) Bipolar disorder Current Visit: No Status: Chronic (3) Chronic low back pain Current Visit: No Status: Chronic Qualifiers: Back pain laterality: midline Sciatica presence: without sciatica Qualified Code(s): M54.5 - Low back pain; G89.29 - Other chronic pain (4) Cocaine dependence Current Visit: No Status: Chronic (5) Essential hypertension Current Visit: No Status: Chronic (6) GERD (gastroesophageal reflux disease) Current Visit: No Status: Chronic Qualifiers: Esophagitis presence: with esophagitis Qualified Code(s): K21.0 - Gastro- esophageal reflux disease with esophagitis (7) Hyperlipidemia Current Visit: No Status: Chronic Qualifiers: Hyperlipidemia type: unspecified Qualified Code(s): E78.5 - Hyperlipidemia , unspecified (8) Syncope Current Visit: No Status: Chronic Cleared for Admission [facility] - Detox or Rehab [facility] Level of Care: Medically Managed Detox Regimen/Protocol: Librium Breathalyzer - Breathalyzer Breathalyzer: 0 Urine Drug Screen - Test Device Lot number: [id number] Expiration date: 05/01/20 - Control Is test valid?: Yes - Results Drug screen NEGATIVE: No Urine drug screen results: THC-Marijuana, JAZMIN-Cocaine, BZO-Benzodiazepines Inpatient Rehab Admission - Rehab Decision to Admit Inpatient rehab admission?: No
[2018-09-13] MEDS ORDERED: MELATONIN 5 MG TABLETS PO PRN (12:18)
[2018-09-13] MEDS ORDERED: chlordiazePOXIDE HCL 25 MG CAPSULE PO PRN (12:18)
[2018-09-13] MEDS ORDERED: ACETAMINOPHEN 325 MG TABLET (FP) PO PRN ×2 (12:18)
[2018-09-13] MEDS ORDERED: MENTHOL/PHENOL 1 EACH UD MM PRN (12:18)
[2018-09-13] MEDS ORDERED: MAGNESIUM HYDROX 2400MG/30ML ORAL SUSPENSION 30 ML CUP PO PRN (12:18)
[2018-09-13] MEDS ORDERED: BISMUTH SUBSALICYLATE 524 MG/30 ML UD PO PRN (12:18)
[2018-09-13] MEDS ORDERED: hydrOXYzine PAMOATE 25 MG CAPSULE (FP) PO PRN (12:18)
[2018-09-13] MEDS ORDERED: MAGNESIUM CITRATE 300 ML BOTTLE PO PRN (12:18)
[2018-09-13] MEDS ORDERED: MAG HYDROX/AL HYDROX/SIMETH 30 ML UNIT-DOSE CUP PO PRN (12:18)
[2018-09-13] MEDS: IBUPROFEN 400 MG TABLET (FP) PO PRN (13:32)
[2018-09-13] MEDS: chlordiazePOXIDE HCL 25 MG CAPSULE PO SCH ×2 (18:25→22:23)
[2018-09-13] MEDS: THIAMINE HCL 100 MG TABLET (FP) PO SCH (22:22)
[2018-09-13] MEDS: ATORVASTATIN CA 10 MG TABLET (FP) PO SCH (22:22)
[2018-09-14] MEDS: chlordiazePOXIDE HCL 25 MG CAPSULE PO SCH ×4 (04:49→23:29)
[2018-09-14] MEDS: IBUPROFEN 400 MG TABLET (FP) PO PRN (04:50)
[2018-09-14 10:05] LABS: HEMOGLOBIN 13.6 GM/dL (11.7-16.9); MCH 30.7 pg (25.7-33.7); MCHC 33.9 g/dl (32.0-35.9); MEAN CELL VOLUME 90.6 fl (80-96); MEAN PLT VOLUME 8.6 fl (7.5-11.1); PLATELET COUNT 187 K/MM3 (134-434); RBC 4.41 M/mm3 (4.00-5.60); RDW 14.4 % (11.9-15.9); WHITE BLOOD COUNT 3.5 K/mm3 (4.0-10.0)
[2018-09-14 10:14] LABS: ALBUMIN 3.1 g/dl (3.4-5.0); ALK PHOS 79 U/L (45-117); ANION GAP 4 MMOL/L (8-16); BILIRUBIN,TOTAL 0.4 mg/dL (0.2-1); BLOOD UREA NITROGEN 18 mg/dL (7-18); CALCIUM 8.2 mg/dL (8.5-10.1); CHLORIDE 105 mmol/L (98-107); CO2 29 mmol/L (21-32); GLUCOSE,RANDOM 91 mg/dL (74-106); POTASSIUM 3.6 mmol/L (3.5-5.1); SGOT/AST 17 U/L (15-37); SGPT/ALT 27 U/L (13-61); SODIUM 138 mmol/L (136-145); TOT PROT 6.6 g/dl (6.4-8.2)
[2018-09-14] MEDS: SERTRALINE HCL 50 MG TABLET (FP) PO SCH (10:36)
[2018-09-14] MEDS: amLODIPine BESYLATE 5 MG TABLET (FP) PO SCH (10:36)
[2018-09-14] MEDS: HYDROCHLOROTHIAZIDE 25 MG TABLET (FP) PO SCH (10:36)
[2018-09-14] MEDS: PRENATAL VITAMINS W/ FOLIC ACID TABLET (FP) PO SCH (10:36)
[2018-09-14] MEDS: METHOCARBAMOL 500 MG TABLET PO PRN (10:40)
[2018-09-14] MEDS ORDERED: ONDANSETRON *ODT* 4 MG TABLET SL PRN (12:18)
--- NOTE | 2018-09-14 12:19 | PN ---
S CIWA - CIWA Score Nausea/Vomitin Muscle Tremors: 2 Anxiety: 2 Agitation: 1-Slight > Activity Paroxysmal Sweats: 3 Orientation: 0-Oriented Tacttile Disturbances: 0-None Auditory Disturbances: 0-None Visual Disturbances: 2-Mild Sensitivity Headache: 3-Moderate CIWA-Ar Total Score: 18 BHS Progress Note (SOAP) Subjective: Sweating, H/A, Vomiting, Stomach Cramping, Tremors, Interrupted Sleep, Body Aches. Objective: PATIENT A & O X 3, OBSERVED AMBULATING ON UNIT. IN NO ACUTE DISTRESS. 09/14/18 12:17 Vital Signs Temperature 99.3 F 09/14/18 09:45 Pulse Rate 88 09/14/18 09:45 Respiratory Rate 18 09/14/18 09:45 Blood Pressure 119/75 09/14/18 09:45 O2 Sat by Pulse Oximetry (%) Laboratory Tests 09/14/18 09/14/18 09/14/18 07:00 07:00 07:00 WBC 3.5 L RBC 4.41 Hgb 13.6 Hct 40.0 MCV 90.6 MCH 30.7 MCHC 33.9 RDW 14.4 Plt Count 187 MPV 8.6 Sodium 138 Potassium 3.6 Chloride 105 Carbon Dioxide 29 Anion Gap 4 L BUN 18 Creatinine 1.0 Creat Clearance w eGFR 78.47 Random Glucose 91 Calcium 8.2 L Total Bilirubin 0.4 AST 17 ALT 27 Alkaline Phosphatase 79 Total Protein 6.6 Albumin 3.1 L RPR Titer Nonreactive LABS NOTED. Assessment: 09/14/18 12:18 WITHDRAWAL SYMPTOMS. LEUKOPENIA. Plan: CONTINUE DETOX. PRN ROBAXIN PO FOR BODY ACHES / MUSCLE SPASMS. PRN ZOFRAN SL FOR VOMITING.
[2018-09-14] MEDS: METHYL SALICYLATE/MENTHOL OINT 30 GM TUBE TP SCH ×2 (14:50→23:28)
--- NOTE | 2018-09-14 15:02 | CONSULT ---
[facility] Psychiatric Consult - Data Date of interview: 09/14/18 Admission source: [facility] Identifying data: Readmission to [facility] for this 52 y/o AA male self- referred for detoxification treatment (alcohol, cocaine). Examined on . 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 Substance Abuse History: Confirmed by patient in this interview. Details in current [facility] report : Smoking history: Never smoked. Have you smoked in the past 12 months: No. Cigars Per Day: 0. Hx Chewing Tobacco Use: No. - Substance & Tx. History. Hx Alcohol Use: Yes. Hx Substance Use: Yes. Substance Use Type: Alcohol, Cocaine. Hx Substance Use Treatment: Yes ([facility] to 07/31/18 detox,rehab 07/31/18 to 08/01/18 not cpmpleted). - Substances abused. Alcohol. Substance route: Oral. Frequency: Daily. Amount used: 3 PINTS OF BACARDI AND 8 CANS OF 16 OUNCES OF BEER. Age of first use: 16. Date of last use: 09/12/18. Cocaine. Substance route: Inhalation. Frequency: Daily. Amount used: 2-3 GRAMS. Age of first use: 22. Date of last use: 09/12/18 Medical History: Remarkable for hypertension, GERD, past treatment for syphilis , surgical intervention for bunion (right toe) and a distant history of herniorraphy (umbilical). Psychiatric History: Onset of psychiatric disturbances : 2009 (during incarceration). Diagnosed, at the time, with MDD, Bipolar Disorder and Anxiety Disorder. Mr Parra admits to a history of multiple psychiatric hospitalizations ([facility] + [facility]). Chronically non-adherent to OPD care and medications (dropped out of treatment at [facility] OPD clinic). Lost to follow-up for several months. Used to be prescribed zoloft 50 mg/day + seroquel 100 mg/hs + trazodone 50 mg/hs. Currently willing to resume these medications. Patient denies history of suicide attempts. Physical/Sexual Abuse/Trauma History: No history of abuse. Patient indicates that he has been incarcerated for 20 years (cumulatively) for various offenses. Not on parole or probation. Additional Comment: Urine drug screen results: THC-Marijuana, JAZMIN-Cocaine, BZO- Benzodiazepines. Noted. Mental Status Exam - Mental Status Exam Alert and Oriented to: Time, Place, Person Cognitive Function: Good Patient Appearance: Well Groomed Mood: Nervous, Withdrawn, Hopeful Affect: Appropriate, Normal Range Patient Behavior: Fatigued, Appropriate, Cooperative Speech Pattern: Clear, Appropriate Voice Loudness: Normal Thought Process: Intact, Goal Oriented Thought Disorder: Not Present Hallucinations: Denies Suicidal Ideation: Denies Homicidal Ideation: Denies Insight/Judgement: Poor Sleep: Poorly, Difficulty falling asleep Appetite: Good Muscle strength/Tone: Normal Gait/Station: Normal Psychiatric Findings - Problem List ([place] 1, 2,3) (1) Alcohol dependence Current Visit: Yes Status: Chronic (2) Cannabis abuse Current Visit: Yes Status: Chronic (3) Cocaine dependence Current Visit: Yes Status: Chronic (4) Bipolar disorder Current Visit: Yes Status: Chronic Comment: By history. Non-compliant with medications. (5) Substance induced mood disorder Current Visit: Yes Status: Chronic (6) Insomnia Current Visit: Yes Status: Chronic Qualifiers: Insomnia type: alcohol-induced Qualified Code(s): F10.982 - Alcohol use, unspecified with alcohol-induced sleep disorder (7) Non-compliance Current Visit: Yes Status: Chronic - Initial Treatment Plan Initial Treatment Plan: Psychoeducation. Sleep hygiene. Detoxification in progress. Support. AA meetings. Relapse prevention (MAT choices) : discussed with patient. Rehabilitation suggested : met with patient's ambivalence. Medications resumed at patient's request : seroquel 100 mg po hs. Side effects/ benefits are discussed with the patient (in addition to risk of priapism, metabolic syndrome and oversedation). Ms Parra expresses his agreement to this plan of care. Consent (verbal) granted to Md. Pelayo
[2018-09-14] MEDS: ATORVASTATIN CA 10 MG TABLET (FP) PO SCH (23:29)
[2018-09-14] MEDS: THIAMINE HCL 100 MG TABLET (FP) PO SCH (23:29)
[2018-09-14] MEDS: QUEtiapine FUMARATE 100 MG TABLET (FP) PO SCH (23:29)
[2018-09-15] MEDS: chlordiazePOXIDE HCL 25 MG CAPSULE PO SCH ×2 (05:52→10:27)
[2018-09-15 10:15] LABS: PH,URINE 6.5 (5.0-8.0); URINE APPEARANCE CLEAR; URINE BILIRUBIN NEGATIVE (NEGATIVE); URINE COLOR YELLOW; URINE GLUCOSE (UA) NEGATIVE (NEGATIVE); URINE KETONE NEGATIVE (NEGATIVE); URINE LEUK ESTERASE NEGATIVE (NEGATIVE); URINE NITRITE NEGATIVE (NEGATIVE); URINE PROTEIN NEGATIVE (NEGATIVE); URINE UROBILINOGEN 0.2 mg/dL (0.2-1.0)
[2018-09-15] MEDS: amLODIPine BESYLATE 5 MG TABLET (FP) PO SCH (10:26)
[2018-09-15] MEDS: PRENATAL VITAMINS W/ FOLIC ACID TABLET (FP) PO SCH (10:26)
[2018-09-15] MEDS: HYDROCHLOROTHIAZIDE 25 MG TABLET (FP) PO SCH (10:26)
[2018-09-15] MEDS: SERTRALINE HCL 50 MG TABLET (FP) PO SCH (10:27)
[2018-09-15] MEDS: METHYL SALICYLATE/MENTHOL OINT 30 GM TUBE TP SCH ×2 (10:27→22:14)
[2018-09-15] MEDS: METHOCARBAMOL 500 MG TABLET PO PRN (10:30)
--- NOTE | 2018-09-15 10:57 | PN ---
S CIWA - CIWA Score Nausea/Vomitin-No Nausea/No Vomiting Muscle Tremors: 3 Anxiety: 3 Agitation: 0-Normal Activity Paroxysmal Sweats: 3 Orientation: 0-Oriented Tacttile Disturbances: 0-None Auditory Disturbances: 1-Very Mild Visual Disturbances: 1-Very Mild Sensitivity Headache: 0-None Present CIWA-Ar Total Score: 11 BHS Progress Note (SOAP) Subjective: Sweating, Tremors, Interrupted Sleep. Patient reports that withdrawal symptoms in general are subsiding in severity. Objective: PATIENT A & O X 3, OBSERVED AMBULATING ON UNIT. IN NO ACUTE DISTRESS. 09/15/18 10:54 Vital Signs Temperature 98.3 F 09/15/18 09:10 Pulse Rate 66 09/15/18 09:10 Respiratory Rate 18 09/15/18 09:10 Blood Pressure 130/72 09/15/18 09:10 O2 Sat by Pulse Oximetry (%) Laboratory Tests 09/14/18 09/14/18 09/14/18 07:00 07:00 07:00 WBC 3.5 L RBC 4.41 Hgb 13.6 Hct 40.0 MCV 90.6 MCH 30.7 MCHC 33.9 RDW 14.4 Plt Count 187 MPV 8.6 Sodium 138 Potassium 3.6 Chloride 105 Carbon Dioxide 29 Anion Gap 4 L BUN 18 Creatinine 1.0 Creat Clearance w eGFR 78.47 Random Glucose 91 Calcium 8.2 L Total Bilirubin 0.4 AST 17 ALT 27 Alkaline Phosphatase 79 Total Protein 6.6 Albumin 3.1 L Urine Color Urine Appearance Urine pH Ur Specific [place] Urine Protein Urine Glucose (UA) Urine Ketones Urine Blood Urine Nitrite Urine Bilirubin Urine Urobilinogen Ur Leukocyte Esterase RPR Titer Nonreactive 09/15/18 07:00 WBC RBC Hgb Hct MCV MCH MCHC RDW Plt Count MPV Sodium Potassium Chloride Carbon Dioxide Anion Gap BUN Creatinine Creat Clearance w eGFR Random Glucose Calcium Total Bilirubin AST ALT Alkaline Phosphatase Total Protein Albumin Urine Color Yellow Urine Appearance Clear Urine pH 6.5 Ur Specific [place] 1.017 Urine Protein Negative Urine Glucose (UA) Negative Urine Ketones Negative Urine Blood Negative Urine Nitrite Negative Urine Bilirubin Negative Urine Urobilinogen 0.2 Ur Leukocyte Esterase Negative RPR Titer LABS NOTED. Assessment: 09/15/18 10:55 WITHDRAWAL SYMPTOMS. LEUKOPENIA. 09/15/18 10:57 Plan: CONTINUE DETOX. INCREASE DAILY PO FLUID / WATER INTAKE.
[2018-09-15] MEDS ORDERED: chlordiazePOXIDE HCL 10 MG CAPSULE PO PRN (17:00)
[2018-09-15] MEDS: chlordiazePOXIDE HCL 10 MG CAPSULE PO SCH ×2 (17:32→22:14)
[2018-09-15] MEDS: IBUPROFEN 400 MG TABLET (FP) PO PRN (17:33)
[2018-09-15] MEDS: QUEtiapine FUMARATE 100 MG TABLET (FP) PO SCH (22:14)
[2018-09-15] MEDS: THIAMINE HCL 100 MG TABLET (FP) PO SCH (22:14)
[2018-09-15] MEDS: ATORVASTATIN CA 10 MG TABLET (FP) PO SCH (22:14)
[2018-09-16] MEDS: chlordiazePOXIDE HCL 10 MG CAPSULE PO SCH ×3 (06:08→17:45)
[2018-09-16] MEDS: PRENATAL VITAMINS W/ FOLIC ACID TABLET (FP) PO SCH (10:45)
[2018-09-16] MEDS: SERTRALINE HCL 50 MG TABLET (FP) PO SCH (10:45)
[2018-09-16] MEDS: HYDROCHLOROTHIAZIDE 25 MG TABLET (FP) PO SCH (10:45)
[2018-09-16] MEDS: METHYL SALICYLATE/MENTHOL OINT 30 GM TUBE TP SCH ×2 (10:46→22:20)
[2018-09-16] MEDS: amLODIPine BESYLATE 5 MG TABLET (FP) PO SCH (10:46)
[2018-09-16] MEDS: IBUPROFEN 400 MG TABLET (FP) PO PRN (10:49)
--- NOTE | 2018-09-16 11:07 | PN ---
BHS Progress Note (SOAP) Subjective: tired interrupted sleep Objective: 09/16/18 11:07 Vital Signs Temperature 98.2 F 09/16/18 09:29 Pulse Rate 74 09/16/18 09:29 Respiratory Rate 18 09/16/18 09:29 Blood Pressure 111/66 09/16/18 09:29 O2 Sat by Pulse Oximetry (%) [id number] ambulating no acute distress Assessment: 09/16/18 11:07 mild withdrawal sx Plan: continue detox increase fluids d/c in am
[2018-09-16] MEDS: THIAMINE HCL 100 MG TABLET (FP) PO SCH (22:19)
[2018-09-16] MEDS: QUEtiapine FUMARATE 100 MG TABLET (FP) PO SCH (22:19)
[2018-09-16] MEDS: ATORVASTATIN CA 10 MG TABLET (FP) PO SCH (22:19)
[2018-09-17] MEDS: chlordiazePOXIDE HCL 10 MG CAPSULE PO SCH (05:43)
[2018-09-17 06:18] VITALS: BP 128/77; PULSE 59; TEMP 97
--- NOTE | 2018-09-17 09:21 | PN ---
[facility] Progress Note Note: Psychiatric nurse practitioner note: A seven day supply of Seroquel 100mg was electronically sent to [facility]. Patient recommend to follow up with his psychiatrist after discharge.
--- NOTE | 2018-09-17 15:51 | DS ---
[facility] Detox Discharge Summary Admission Date: 09/13/18 Discharge Date: 09/17/18 - History Present History: Alcohol Dependence, Cannabis Dependence, Cocaine Dependence Additional Comments: PATIENT RETURNING HOME AND GOING TO ATTEND 'PROJECT RENEWAL' OUTPATIENT PROGRAM ([place], [place]) FOR AFTERCARE. PATIENT DECLINED OFFER OF MEDICATION PRESCRIPTION FOR HOME (ANTI-HYPERTENSIVE) MEDICATION AT TIME OF DISCHARGE FROM DETOX, NOTING THAT HE CURRENTLY HAS RENEWALS OF THOSE MEDICATIONS WAITING TO BE PICKED UP AT HIS PHARMACY. PATIENT WAS DISCHARGED FORM DETOX UNIT IN STABLE MEDICAL CONDITION. Pertinent Past History: HTN, Hyperlipidemia, History Of Bipolar Disorder, History Of Lower Back Pain, History Of G.E.R.D., History Of Syncope, History Of Insomnia. - Physical Exam Results Vital Signs: Vital Signs Temperature 97 F L 09/17/18 06:18 Pulse Rate 59 L 09/17/18 06:18 Respiratory Rate 16 09/17/18 06:18 Blood Pressure 128/77 09/17/18 06:18 O2 Sat by Pulse Oximetry (%) Pertinent Admission Physical Exam Findings: WITHDRAWAL SYMPTOMS. Laboratory Tests 09/14/18 09/14/18 09/14/18 07:00 07:00 07:00 WBC 3.5 L RBC 4.41 Hgb 13.6 Hct 40.0 MCV 90.6 MCH 30.7 MCHC 33.9 RDW 14.4 Plt Count 187 MPV 8.6 Sodium 138 Potassium 3.6 Chloride 105 Carbon Dioxide 29 Anion Gap 4 L BUN 18 Creatinine 1.0 Creat Clearance w eGFR 78.47 Random Glucose 91 Calcium 8.2 L Total Bilirubin 0.4 AST 17 ALT 27 Alkaline Phosphatase 79 Total Protein 6.6 Albumin 3.1 L Urine Color Urine Appearance Urine pH Ur Specific [place] Urine Protein Urine Glucose (UA) Urine Ketones Urine Blood Urine Nitrite Urine Bilirubin Urine Urobilinogen Ur Leukocyte Esterase RPR Titer Nonreactive 09/15/18 07:00 WBC RBC Hgb Hct MCV MCH MCHC RDW Plt Count MPV Sodium Potassium Chloride Carbon Dioxide Anion Gap BUN Creatinine Creat Clearance w eGFR Random Glucose Calcium Total Bilirubin AST ALT Alkaline Phosphatase Total Protein Albumin Urine Color Yellow Urine Appearance Clear Urine pH 6.5 Ur Specific [place] 1.017 Urine Protein Negative Urine Glucose (UA) Negative Urine Ketones Negative Urine Blood Negative Urine Nitrite Negative Urine Bilirubin Negative Urine Urobilinogen 0.2 Ur Leukocyte Esterase Negative RPR Titer LABS NOTED. - Treatment Hospital Course: Detox Protocol Followed, Detoxed Safely, Responded well, Discharged Condition Good Patient has Accepted a Rehab Referral to: PATIENT WILL ATTEND 'PROJECT RENEWAL' OUTPATIENT PROGRAM ([place] - Medication Discharge Medications: Ambulatory Orders Amlodipine Besylate [Norvasc -] 5 mg PO DAILY #14 tablet 02/17/18 Hydrochlorothiazide 25 mg PO DAILY #14 tablet 02/17/18 Simvastatin 20 mg PO HS 07/28/18 Sertraline HCl [Zoloft -] 50 mg PO DAILY #30 tablet 07/29/18 Quetiapine Fumarate [Seroquel] 100 mg PO HS #7 tablet 09/17/18 - Diagnosis (1) Alcohol dependence with withdrawal, uncomplicated Status: Acute (2) Bipolar disorder Status: Chronic Qualifiers: Active/Remission status: remission status unspecified Qualified Code(s): F31.9 - Bipolar disorder, unspecified (3) Chronic low back pain Status: Chronic Qualifiers: Back pain laterality: midline Sciatica presence: without sciatica Qualified Code(s): M54.5 - Low back pain; G89.29 - Other chronic pain (4) Cocaine dependence, uncomplicated Status: Chronic (5) Essential hypertension Status: Chronic (6) GERD (gastroesophageal reflux disease) Status: Chronic Qualifiers: Esophagitis presence: with esophagitis Qualified Code(s): K21.0 - Gastro- esophageal reflux disease with esophagitis (7) Hyperlipidemia Status: Chronic Qualifiers: Hyperlipidemia type: unspecified Qualified Code(s): E78.5 - Hyperlipidemia , unspecified (8) Syncope Status: Chronic Qualifiers: Syncope type: unspecified Qualified Code(s): R55 - Syncope and collapse (9) Insomnia Status: Chronic Qualifiers: Insomnia type: alcohol-induced Qualified Code(s): F10.982 - Alcohol use, unspecified with alcohol-induced sleep disorder (10) Non-compliance Status: Chronic (11) Cannabis abuse Status: Chronic (12) Substance induced mood disorder Status: Chronic - AMA Did Patient Leave Against Medical Advice: No
== END 2018-09-17 09:20 | disposition home or self-care (01) | DRG 774 ==
LOC: YASAS 10:18 → Y6N 12:18
PROVIDERS: ADMIT Surgery; ATTEND Surgery
PROC: HZ2ZZZZ Detoxification Services for Substance Abuse Treatment (ICD-10-PCS; principal; 2018-09-13)
DX: F10.230 Alcohol dependence with withdrawal, uncomplicated (principal); F14.20 Cocaine dependence, uncomplicated; F12.20 Cannabis dependence, uncomplicated; F19.24 Other psychoactive substance dependence with psychoactive substance-induced mood disorder; F10.282 Alcohol dependence with alcohol-induced sleep disorder; F31.9 Bipolar disorder, unspecified; I10 Essential (primary) hypertension; E78.5 Hyperlipidemia, unspecified; K21.0 Gastro-esophageal reflux disease with esophagitis; D72.819 Decreased white blood cell count, unspecified; Z86.79 Personal history of other diseases of the circulatory system; Z86.19 Personal history of other infectious and parasitic diseases; Z91.19 Patient's noncompliance with other medical treatment and regimen
CPT/HCPCS: 36415; 80053; 81003; 85027; 86593

== ENCOUNTER 2018-10-10 17:40 | Inpatient (IN) | payer OTHER ==
[2018-10-10 21:56] VITALS: BMI 29.0
--- NOTE | 2018-10-10 22:11 | HP ---
CIWA Score Nausea/Vomitin-Mild Nausea/No Vomiting Muscle Tremors: 3 Anxiety: 4-Mod. Anxious/Guarded Agitation: 1-Slight > Activity Paroxysmal Sweats: 3 (Increased facial moisture) Orientation: 0-Oriented Tacttile Disturbances: 0-None Auditory Disturbances: 0-None Visual Disturbances: 0-None Headache: 2-Mild CIWA-Ar Total Score: 14 - Admission Criteria OAS Guidelines: Admission for Medically Managed Detox: Requires at least one of the followin. CIWA greater than 12 2. Seizures within the past 24 hours 3. Delirium tremens within the past 24 hours 4. Hallucinations within the past 24 hours 5. Acute intervention needed for co occurring medical disorder 6. Acute intervention needed for co occurring psychiatric disorder 7. Severe withdrawal that cannot be handled at a lower level of care (continued vomiting, continued diarrhea, abnormal vital signs) requiring intravenous medication and/or fluids 8. Patient presents the following: CIWA greater than 12 Admission Criteria Met: Admission criteria met Admission ROS [facility] Chief Complaint: Here for alcohol withdrawal. Allergies/Adverse Reactions: Allergies Allergy/AdvReac Type Severity Reaction Status Date / Time No Known Drug Allergies Allergy Verified 10/10/18 21:43 peanut Allergy Difficulty Verified 10/10/18 21:43 Breathing History of Present Illness: States I need detox from alcohol and cocaine. 53 yo male with multiple admissions for alcohol and cocaine use disorder. Alcohol use began at age 16. States current use for years. Cocaine use began at age 22. Sniffs and smokes. Longest sobriety after discharge is 1-2 weeks. Past sobriety [id number]. PMHX: HTN, GERD, Increased Lipids, shoulder and back aches, cough MHHx: Depression and anxiety.Denies thoughts of harming self or others. States on MH meds. Last saw a MH Provider 10/02/18. Denies hx of seizures. Hx of blackouts with last episode four weeks ago. Patient Name: Dimitrios Parra Date: 1965 Address: [address] [address] Sex: Male Rx Written Rx Dispensed Drug Quantity Days Supply Prescriber Name 08/04/2018 08/04/2018 diazepam 10 mg tablet 18 5 Jamshid Abel) Exam Limitations: No Limitations - Ebola screening Have you traveled outside of the country in the last 21 days: No (N) Have you had contact with anyone from an Ebola affected area: No Have you been sick,other than usual withdrawal symptoms: No (Denies recent exposure to measles.) Do you have a fever: No - Review of Systems Constitutional: Diaphoresis, Changes in sleep (Difficulty staying aslee.) EENT: reports: Blurred Vision, Throat Pain (Scratchy throat.) Respiratory: reports: Cough (Cough x 1 week - yellow mucous.), Shortness of Breath (when laying down) Cardiac: reports: No Symptoms Reported GI: reports: Diarrhea (watery, green x 3 episodes today. Denies abd pain.), Nausea, Vomiting (States vomited up food) : reports: No Symptoms Reported Musculoskeletal: reports: Back Pain (LBP x 7 years. Sharp r/t activity. Increases w/ bending; improves w/ back support and icy hot), Joint Pain ((R) shoulder sharp pain x years: Increases when puts pressure on it. Improves w/ ' icy-hot') Integumentary: reports: No Symptoms Reported Neuro: reports: Headache (Mild - frontal) Endocrine: reports: Increased Thirst Hematology: reports: No Symptoms Reported Psychiatric: reports: Judgement Intact, Orientated x3, Agitated, Anxious, Depressed (Denies thoughts of harming self or others.) Patient History - Patient Medical History Hx Anemia: No Hx Asthma: No Hx Chronic Obstructive Pulmonary Disease (COPD): No Hx Cancer: No Hx Cardiac Disorders: No Hx Congestive Heart Failure: No Hx Hypertension: Yes (on med) Hx Hypercholesterolemia: Yes (simvastatin ) Hx Pacemaker: No HX Cerebrovascular Accident: No Hx Seizures: No Hx Dementia: No Hx Diabetes: No Hx Gastrointestinal Disorders: Yes Hx Liver Disease: No Hx Genitourinary Disorders: No Hx Sexually Transmitted Disorders: No Hx Renal Disease (ESRD): No Hx Thyroid Disease: No Hx Human Immunodeficiency Virus (HIV): No (NEGATIVE HX in 2018) Hx Hepatitis C: No Hx Depression: Yes Hx Suicide Attempt: No Hx Bipolar Disorder: Yes (no meds ) Hx Schizophrenia: No - Patient Surgical History Past Surgical History: Yes Hx Neurologic Surgery: No Hx Cataract Extraction: No Hx Cardiac Surgery: No Hx Lung Surgery: No Hx Breast Surgery: No Hx Breast Biopsy: No Hx Abdominal Surgery: Yes (umbilical hernia repair at age 11) Hx Appendectomy: No Hx Cholecystectomy: No Hx Genitourinary Surgery: No Hx Section: No Hx Orthopedic Surgery: No Other Surgical History: bunion right toe surgery done 06/18 Anesthesia Reaction: No - PPD History Previous Implant?: Yes Documented Results: Negative w/o proof Implanted On Prior [facility] Admission?: Yes Date: 09/26/17 Results: 0 mm PPD to be Administered?: Yes - Smoking Cessation Smoking history: Never smoked Have you smoked in the past 12 months: No Cigars Per Day: 0 Hx Chewing Tobacco Use: No - Substance & Tx. History Hx Alcohol Use: Yes Hx Substance Use: Yes Substance Use Type: Alcohol, Cocaine Hx Substance Use Treatment: Yes (Multiple admissions to detox and rehab) - Substances abused Alcohol Substance route: Oral Frequency: Daily Amount used: 3 PINTS OF BACARDI AND 8 CANS OF 16 OUNCES OF BEER Age of first use: 16 Date of last use: 10/10/18 Cocaine Substance route: Inhalation Frequency: Daily Amount used: 2-3 GRAMS Age of first use: 22 Date of last use: 10/10/18 Family Disease History - Family Disease History Family Disease History: CA: Mother (BREAST,,), Other: Father (living, no contact HTN,), Mother, Brother (one living, healthy), Sister (three living - healthy) Admission Physical Exam S - Vital Signs Vital Signs: Vital Signs - 24 hr 10/10/18 10/10/18 10/10/18 21:40 21:44 21:47 Temperature 98.6 F 98.6 F 98.6 F Pulse Rate 70 70 70 Respiratory 16 16 16 Rate Blood Pressure 123/82 123/82 123/82 - Physical General Appearance: Yes: Nourished, Mild Distress, Tremorous (Mild), Sweating, Anxious HEENTM: Yes: EOMI, Hearing grossly Normal, Normocephalic, Normal Voice, MARISEL, Pharynx Normal, Nasal Congestion Respiratory: Yes: No Respiratory Distress, No Accessory Muscle Use, Wheezing ( Mild inspir wheeze both lobes.), Other (Noisy cough, non-productive. 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 intact, Fully Oriented, Alert, Motor Strength 5/5 Integumentary: Yes: Normal Color, Warm Lymphatic: Yes: Within Normal Limits - Diagnostic (1) Alcohol dependence with withdrawal, uncomplicated Current Visit: Yes Status: Acute (2) Chronic low back pain Current Visit: Yes Status: Chronic Qualifiers: Back pain laterality: midline Sciatica presence: without sciatica Qualified Code(s): M54.5 - Low back pain; G89.29 - Other chronic pain (3) Cocaine dependence, uncomplicated Current Visit: Yes Status: Chronic (4) GERD (gastroesophageal reflux disease) Current Visit: Yes Status: Chronic Qualifiers: Esophagitis presence: with esophagitis Qualified Code(s): K21.0 - Gastro- esophageal reflux disease with esophagitis (5) Inspiratory wheeze on examination Current Visit: Yes Status: Acute Comment: w/o SOB Cleared for Admission [facility] - Detox or Rehab [facility] Level of Care: Medically Managed Detox Regimen/Protocol: Librium Claeared for Rehab Admission: No Breathalyzer - Breathalyzer Breathalyzer: 0 Urine Drug Screen - Test Device Lot number: [id number] Expiration date: 07/02/20 - Control Is test valid?: Yes - Results Drug screen NEGATIVE: No Urine drug screen results: THC-Marijuana, JAZMIN-Cocaine, BZO-Benzodiazepines Inpatient Rehab Admission - Rehab Decision to Admit Inpatient rehab admission?: No
[2018-10-10] MEDS ORDERED: MAGNESIUM CITRATE 300 ML BOTTLE PO PRN (22:42)
[2018-10-10] MEDS ORDERED: chlordiazePOXIDE HCL 25 MG CAPSULE PO PRN (22:42)
[2018-10-10] MEDS ORDERED: MAGNESIUM HYDROX 2400MG/30ML ORAL SUSPENSION 30 ML CUP PO PRN (22:42)
[2018-10-10] MEDS ORDERED: MENTHOL/PHENOL 1 EACH UD MM PRN (22:42)
[2018-10-10] MEDS ORDERED: PROCHLORPERAZINE MALEATE 5 MG TABLET PO PRN (22:42)
[2018-10-10] MEDS ORDERED: METHOCARBAMOL 500 MG TABLET PO PRN (22:42)
[2018-10-10] MEDS ORDERED: MAG HYDROX/AL HYDROX/SIMETH 30 ML UNIT-DOSE CUP PO PRN (22:42)
[2018-10-10] MEDS ORDERED: MELATONIN 5 MG TABLETS PO PRN (22:42)
[2018-10-10] MEDS ORDERED: BISMUTH SUBSALICYLATE 524 MG/30 ML UD PO PRN (22:42)
[2018-10-10] MEDS ORDERED: ACETAMINOPHEN 325 MG TABLET (FP) PO PRN ×2 (22:42)
[2018-10-10] MEDS ORDERED: ALBUTEROL SO4 0.083% IH SOL 2.5 MG/3 ML VIAL.NEB. NEB PRN (22:50)
[2018-10-10] MEDS ORDERED: ALBUTEROL SO4 0.083% IH SOL 2.5 MG/3 ML VIAL.NEB. NEB ONE (22:50)
[2018-10-10] MEDS: chlordiazePOXIDE HCL 25 MG CAPSULE PO SCH (23:43)
[2018-10-11] MEDS: chlordiazePOXIDE HCL 25 MG CAPSULE PO SCH ×4 (06:00→22:24)
[2018-10-11] MEDS: HYDROCHLOROTHIAZIDE 25 MG TABLET (FP) PO SCH (10:25)
[2018-10-11] MEDS: amLODIPine BESYLATE 5 MG TABLET (FP) PO SCH (10:25)
[2018-10-11] MEDS: PRENATAL VITAMINS W/ FOLIC ACID TABLET (FP) PO SCH (10:25)
[2018-10-11] MEDS: IBUPROFEN 400 MG TABLET (FP) PO PRN (10:28)
[2018-10-11 10:49] LABS: ALBUMIN 3.1 g/dl (3.4-5.0); BILIRUBIN,TOTAL 0.4 mg/dL (0.2-1); CALCIUM 8.2 mg/dL (8.5-10.1); POTASSIUM 3.2 mmol/L (3.5-5.1); TOT PROT 6.4 g/dl (6.4-8.2)
[2018-10-11 11:10] LABS: HEMATOCRIT 40.5 % (35.4-49); HEMOGLOBIN 13.6 GM/dL (11.7-16.9); MCH 30.5 pg (25.7-33.7); MCHC 33.7 g/dl (32.0-35.9); MEAN CELL VOLUME 90.6 fl (80-96); MEAN PLT VOLUME 8.7 fl (7.5-11.1); PLATELET COUNT 194 K/MM3 (134-434); RBC 4.47 M/mm3 (4.00-5.60); RDW 14.4 % (11.9-15.9); WHITE BLOOD COUNT 4.2 K/mm3 (4.0-10.0)
--- NOTE | 2018-10-11 11:22 | PN ---
[facility] CIWA - CIWA Score Nausea/Vomitin-Mild Nausea/No Vomiting Muscle Tremors: 3 Anxiety: 2 Agitation: 2 Paroxysmal Sweats: 1-Minimal Palms Moist Orientation: 1-Uncertain about Date Tacttile Disturbances: 0-None Auditory Disturbances: 0-None Visual Disturbances: 0-None Headache: 0-None Present CIWA-Ar Total Score: 10 S Progress Note (SOAP) Subjective: doing well with librium detox regimen general body aches from arthritis kim dubois Objective: 10/11/18 11:19 Vital Signs Temperature 96.9 F L 10/11/18 10:24 Pulse Rate 61 10/11/18 10:24 Respiratory Rate 18 10/11/18 10:24 Blood Pressure 134/66 10/11/18 10:24 O2 Sat by Pulse Oximetry (%) Laboratory Last Values Sodium 140 mmol/L (136-145) 10/11/18 07:40 Potassium 3.2 mmol/L (3.5-5.1) L 10/11/18 07:40 Chloride 105 mmol/L (98-107) 10/11/18 07:40 Carbon Dioxide 30 mmol/L (21-32) 10/11/18 07:40 Anion Gap 6 MMOL/L (8-16) L 10/11/18 07:40 BUN 17 mg/dL (7-18) 10/11/18 07:40 Creatinine 1.0 mg/dL (0.55-1.3) 10/11/18 07:40 Est GFR (CKD-EPI)AfAm 99.15 10/11/18 07:40 Est GFR (CKD-EPI)NonAf 85.55 10/11/18 07:40 Random Glucose 99 mg/dL (74-106) 10/11/18 07:40 Calcium 8.2 mg/dL (8.5-10.1) L 10/11/18 07:40 Total Bilirubin 0.4 mg/dL (0.2-1) 10/11/18 07:40 AST 12 U/L (15-37) L 10/11/18 07:40 ALT 22 U/L (13-61) 10/11/18 07:40 Alkaline Phosphatase 72 U/L (45-117) 10/11/18 07:40 Total Protein 6.4 g/dl (6.4-8.2) 10/11/18 07:40 Albumin 3.1 g/dl (3.4-5.0) L 10/11/18 07:40 lab noted K+ low Assessment: 10/11/18 11:22 alcohol withdrawal sx low K+ Plan: continue alcohol detox K+ supplement repeat K+
[2018-10-11] MEDS: METHYL SALICYLATE/MENTHOL OINT 30 GM TUBE TP PRN (12:10)
[2018-10-11] MEDS: METHYL SALICYLATE/MENTHOL OINT 30 GM TUBE TP SCH ×2 (12:10→22:24)
[2018-10-11] MEDS: POTASSIUM CHLORIDE ORAL LIQUID 20 MEQ/15 ML PO SCH ×2 (12:10→17:35)
--- NOTE | 2018-10-11 12:15 | CONSULT ---
[facility] Psychiatric Consult - Data Date of interview: 10/11/18 Admission source: [facility] Identifying data: 53 y/o AA male single, unemployed, homeless no children with weak support system. Readmitted due to alcohol and cocaine dependence Substance Abuse History: Patient has a history of multiple detox admissions. He has a historyof black out spells but no seizure. he e drinks daily Bacardi, beer. He relepased following his most recent Detox admission to [facility] was in August. Refer to addiction counselor note for more relevant substance use history Medical History: HTN, hypercholesterolemia, GERD , Sciatica. Surgical history is signficant for umbilical hernia repair during adolescence age Psychiatric History: patient suffers from depression, he has prior psychiatric hospitalizations and treatment and is medciated with Seroquel and Zoloft. He efeels depressed, he wants to withdraw from Serqouel becauese he feels it is ineffective. 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 Mental Status Exam - Mental Status Exam Alert and Oriented to: Place, Person Cognitive Function: Fair Patient Appearance: Unkempt Mood: Depressed, Nervous Affect: Appropriate Patient Behavior: Appropriate, Cooperative Speech Pattern: Appropriate Voice Loudness: Normal Thought Process: Intact Thought Disorder: Not Present Hallucinations: Denies Suicidal Ideation: Denies Homicidal Ideation: Denies Insight/Judgement: Poor Sleep: Fair Appetite: Fair Muscle strength/Tone: Normal Gait/Station: Normal Psychiatric Findings - Problem List ([place] 1, 2,3) (1) Cocaine dependence, uncomplicated Current Visit: Yes Status: Chronic (2) GERD (gastroesophageal reflux disease) Current Visit: Yes Status: Chronic Qualifiers: Esophagitis presence: with esophagitis Qualified Code(s): K21.0 - Gastro- esophageal reflux disease with esophagitis (3) Alcohol dependence Current Visit: No Status: Chronic (4) Bipolar disorder Current Visit: No Status: Chronic Qualifiers: Active/Remission status: remission status unspecified Qualified Code(s): F31.9 - Bipolar disorder, unspecified Comment: By history. Non-compliant with medications. (5) Cannabis abuse Current Visit: No Status: Chronic (6) Drug-induced mood disorder Current Visit: No Status: Chronic - Initial Treatment Plan Initial Treatment Plan: Continue detox protocol. Renew Zoloft 50 mg po daily. Monitor response
[2018-10-11] MEDS: guaiFENesin 200 MG/10 ML 10 ML UNIT-DOSE CUPS PO PRN (13:38)
[2018-10-11 14:12] LABS: URINE APPEARANCE TURBID; URINE BILIRUBIN NEGATIVE (NEGATIVE); URINE COLOR YELLOW; URINE GLUCOSE (UA) NEGATIVE (NEGATIVE); URINE KETONE NEGATIVE (NEGATIVE); URINE LEUK ESTERASE NEGATIVE (NEGATIVE); URINE NITRITE NEGATIVE (NEGATIVE); URINE PROTEIN NEGATIVE (NEGATIVE); URINE UROBILINOGEN 0.2 mg/dL (0.2-1.0)
[2018-10-11] MEDS ORDERED: PATIENT'S OWN MEDICATION (NON-FORMULARY) (Simvastatin [Simvastatin] 20 MG) PO SCH (22:00)
[2018-10-11] MEDS: THIAMINE HCL 100 MG TABLET (FP) PO SCH (22:24)
[2018-10-11] MEDS: ATORVASTATIN CA 10 MG TABLET (FP) PO SCH (22:24)
[2018-10-12] MEDS: chlordiazePOXIDE HCL 25 MG CAPSULE PO SCH ×3 (05:46→17:32)
[2018-10-12] MEDS ORDERED: SERTRALINE HCL 50 MG TABLET (FP) PO SCH (10:00)
[2018-10-12] MEDS: PRENATAL VITAMINS W/ FOLIC ACID TABLET (FP) PO SCH (10:57)
[2018-10-12] MEDS: amLODIPine BESYLATE 5 MG TABLET (FP) PO SCH (10:57)
[2018-10-12] MEDS: HYDROCHLOROTHIAZIDE 25 MG TABLET (FP) PO SCH (10:57)
[2018-10-12] MEDS: METHYL SALICYLATE/MENTHOL OINT 30 GM TUBE TP PRN (10:58)
[2018-10-12] MEDS: IBUPROFEN 400 MG TABLET (FP) PO PRN ×2 (10:59→22:18)
[2018-10-12] MEDS: METHYL SALICYLATE/MENTHOL OINT 30 GM TUBE TP SCH ×2 (11:04→22:31)
[2018-10-12] MEDS: guaiFENesin 200 MG/10 ML 10 ML UNIT-DOSE CUPS PO PRN (11:15)
--- NOTE | 2018-10-12 12:38 | PN ---
S CIWA - CIWA Score Nausea/Vomitin-Mild Nausea/No Vomiting Muscle Tremors: 3 Anxiety: 1-Mildly Anxious Agitation: 2 Paroxysmal Sweats: 1-Minimal Palms Moist Orientation: 0-Oriented Tacttile Disturbances: 0-None Auditory Disturbances: 0-None Visual Disturbances: 0-None Headache: 0-None Present CIWA-Ar Total Score: 8 S Progress Note (SOAP) Subjective: feeling better social with peers in day room discuss risks of alcohol misuse Objective: 10/12/18 12:40 Vital Signs Temperature 97.4 F L 10/12/18 09:11 Pulse Rate 64 10/12/18 09:11 Respiratory Rate 18 10/12/18 09:11 Blood Pressure 105/69 10/12/18 09:11 O2 Sat by Pulse Oximetry (%) Laboratory Last Values WBC 4.2 K/mm3 (4.0-10.0) 10/11/18 07:40 RBC 4.47 M/mm3 (4.00-5.60) 10/11/18 07:40 Hgb 13.6 GM/dL (11.7-16.9) 10/11/18 07:40 Hct 40.5 % (35.4-49) 10/11/18 07:40 MCV 90.6 fl (80-96) 10/11/18 07:40 MCH 30.5 pg (25.7-33.7) 10/11/18 07:40 MCHC 33.7 g/dl (32.0-35.9) 10/11/18 07:40 RDW 14.4 % (11.9-15.9) 10/11/18 07:40 Plt Count 194 K/MM3 (134-434) 10/11/18 07:40 MPV 8.7 fl (7.5-11.1) 10/11/18 07:40 Sodium 140 mmol/L (136-145) 10/11/18 07:40 Potassium 3.6 mmol/L (3.5-5.1) 10/12/18 08:00 Chloride 105 mmol/L (98-107) 10/11/18 07:40 Carbon Dioxide 30 mmol/L (21-32) 10/11/18 07:40 Anion Gap 6 MMOL/L (8-16) L 10/11/18 07:40 BUN 17 mg/dL (7-18) 10/11/18 07:40 Creatinine 1.0 mg/dL (0.55-1.3) 10/11/18 07:40 Est GFR (CKD-EPI)AfAm 99.15 10/11/18 07:40 Est GFR (CKD-EPI)NonAf 85.55 10/11/18 07:40 Random Glucose 99 mg/dL (74-106) 10/11/18 07:40 Calcium 8.2 mg/dL (8.5-10.1) L 10/11/18 07:40 Total Bilirubin 0.4 mg/dL (0.2-1) 10/11/18 07:40 AST 12 U/L (15-37) L 10/11/18 07:40 ALT 22 U/L (13-61) 10/11/18 07:40 Alkaline Phosphatase 72 U/L (45-117) 10/11/18 07:40 Total Protein 6.4 g/dl (6.4-8.2) 10/11/18 07:40 Albumin 3.1 g/dl (3.4-5.0) L 10/11/18 07:40 Urine Color Yellow 10/11/18 09:48 Urine Appearance Turbid 10/11/18 09:48 Urine pH 5.0 (5.0-8.0) D 10/11/18 09:48 Ur Specific [place] 1.020 (1.010-1.035) 10/11/18 09:48 Urine Protein Negative (NEGATIVE) 10/11/18 09:48 Urine Glucose (UA) Negative (NEGATIVE) 10/11/18 09:48 Urine Ketones Negative (NEGATIVE) 10/11/18 09:48 Urine Blood Negative (NEGATIVE) 10/11/18 09:48 Urine Nitrite Negative (NEGATIVE) 10/11/18 09:48 Urine Bilirubin Negative (NEGATIVE) 10/11/18 09:48 Urine Urobilinogen 0.2 mg/dL (0.2-1.0) 10/11/18 09:48 Ur Leukocyte Esterase Negative (NEGATIVE) 10/11/18 09:48 RPR Titer Nonreactive (NONREACTIVE) 10/11/18 07:40 lab noted Assessment: 10/12/18 12:43 withdrawal sx Plan: continue detox
[2018-10-12] MEDS: THIAMINE HCL 100 MG TABLET (FP) PO SCH (22:16)
[2018-10-12] MEDS: ATORVASTATIN CA 10 MG TABLET (FP) PO SCH (22:16)
[2018-10-12] MEDS: chlordiazePOXIDE HCL 10 MG CAPSULE PO SCH (22:17)
[2018-10-12] MEDS ORDERED: chlordiazePOXIDE HCL 10 MG CAPSULE PO PRN (23:00)
[2018-10-13] MEDS: chlordiazePOXIDE HCL 10 MG CAPSULE PO SCH (05:39)
[2018-10-13 06:47] VITALS: BP 119/76; PULSE 56; TEMP 97.6
--- NOTE | 2018-10-13 14:03 | DS ---
[facility] Detox Discharge Summary Admission Date: 10/10/18 Discharge Date: 10/13/18 - History Present History: Alcohol Dependence Additional Comments: 53 years old male admitted on 10/10/18 for alcohol withdrawal stabilization feeling better today preferring alcohol rehab today aftercare as per counselor arrangement Pertinent Past History: bring in medication list and lab report to aftercare appointment - Physical Exam Results Vital Signs: Vital Signs Temperature 97.6 F 10/13/18 06:47 Pulse Rate 56 L 10/13/18 06:47 Respiratory Rate 18 10/13/18 06:47 Blood Pressure 119/76 10/13/18 06:47 O2 Sat by Pulse Oximetry (%) Pertinent Admission Physical Exam Findings: alcohol withdrawal sx Laboratory Last Values WBC 4.2 K/mm3 (4.0-10.0) 10/11/18 07:40 RBC 4.47 M/mm3 (4.00-5.60) 10/11/18 07:40 Hgb 13.6 GM/dL (11.7-16.9) 10/11/18 07:40 Hct 40.5 % (35.4-49) 10/11/18 07:40 MCV 90.6 fl (80-96) 10/11/18 07:40 MCH 30.5 pg (25.7-33.7) 10/11/18 07:40 MCHC 33.7 g/dl (32.0-35.9) 10/11/18 07:40 RDW 14.4 % (11.9-15.9) 10/11/18 07:40 Plt Count 194 K/MM3 (134-434) 10/11/18 07:40 MPV 8.7 fl (7.5-11.1) 10/11/18 07:40 Sodium 140 mmol/L (136-145) 10/11/18 07:40 Potassium 3.6 mmol/L (3.5-5.1) 10/12/18 08:00 Chloride 105 mmol/L (98-107) 10/11/18 07:40 Carbon Dioxide 30 mmol/L (21-32) 10/11/18 07:40 Anion Gap 6 MMOL/L (8-16) L 10/11/18 07:40 BUN 17 mg/dL (7-18) 10/11/18 07:40 Creatinine 1.0 mg/dL (0.55-1.3) 10/11/18 07:40 Est GFR (CKD-EPI)AfAm 99.15 10/11/18 07:40 Est GFR (CKD-EPI)NonAf 85.55 10/11/18 07:40 Random Glucose 99 mg/dL (74-106) 10/11/18 07:40 Calcium 8.2 mg/dL (8.5-10.1) L 10/11/18 07:40 Total Bilirubin 0.4 mg/dL (0.2-1) 10/11/18 07:40 AST 12 U/L (15-37) L 10/11/18 07:40 ALT 22 U/L (13-61) 10/11/18 07:40 Alkaline Phosphatase 72 U/L (45-117) 10/11/18 07:40 Total Protein 6.4 g/dl (6.4-8.2) 10/11/18 07:40 Albumin 3.1 g/dl (3.4-5.0) L 10/11/18 07:40 Urine Color Yellow 10/11/18 09:48 Urine Appearance Turbid 10/11/18 09:48 Urine pH 5.0 (5.0-8.0) D 10/11/18 09:48 Ur Specific [place] 1.020 (1.010-1.035) 10/11/18 09:48 Urine Protein Negative (NEGATIVE) 10/11/18 09:48 Urine Glucose (UA) Negative (NEGATIVE) 10/11/18 09:48 Urine Ketones Negative (NEGATIVE) 10/11/18 09:48 Urine Blood Negative (NEGATIVE) 10/11/18 09:48 Urine Nitrite Negative (NEGATIVE) 10/11/18 09:48 Urine Bilirubin Negative (NEGATIVE) 10/11/18 09:48 Urine Urobilinogen 0.2 mg/dL (0.2-1.0) 10/11/18 09:48 Ur Leukocyte Esterase Negative (NEGATIVE) 10/11/18 09:48 RPR Titer Nonreactive (NONREACTIVE) 10/11/18 07:40 lab noted - Treatment Hospital Course: Detox Protocol Followed, Detoxed Safely, Responded well, Discharged Condition Good, Rehab Referral Accepted Patient has Accepted a Rehab Referral to: as per counselor arrangement - Medication Discharge Medications: Ambulatory Orders Sertraline HCl [Zoloft -] 50 mg PO DAILY #30 tablet 07/29/18 Quetiapine Fumarate [Seroquel] 100 mg PO HS #7 tablet 09/17/18 Amlodipine Besylate [Norvasc -] 5 mg PO DAILY #14 tablet 10/13/18 Hydrochlorothiazide 25 mg PO DAILY #14 tablet 10/13/18 Simvastatin 20 mg PO HS #14 tablet 10/13/18 - Diagnosis (1) Alcohol dependence with withdrawal, uncomplicated Status: Acute (2) Essential hypertension Status: Chronic (3) GERD (gastroesophageal reflux disease) Status: Chronic Qualifiers: Esophagitis presence: with esophagitis Qualified Code(s): K21.0 - Gastro- esophageal reflux disease with esophagitis (4) Hyperlipidemia Status: Chronic Qualifiers: Hyperlipidemia type: unspecified Qualified Code(s): E78.5 - Hyperlipidemia , unspecified (5) Substance induced mood disorder Status: Suspected - AMA Did Patient Leave Against Medical Advice: No
[2018-10-13] MEDS ORDERED: chlordiazePOXIDE HCL 10 MG CAPSULE PO SCH (23:00)
== END 2018-10-13 09:20 | disposition home or self-care (01) | DRG 774 ==
LOC: YASAS 17:40 → Y3N 23:08
PROVIDERS: ADMIT Surgery; ATTEND Surgery
PROC: HZ2ZZZZ Detoxification Services for Substance Abuse Treatment (ICD-10-PCS; principal; 2018-10-10)
DX: F10.230 Alcohol dependence with withdrawal, uncomplicated (principal); F14.20 Cocaine dependence, uncomplicated; F12.20 Cannabis dependence, uncomplicated; F19.24 Other psychoactive substance dependence with psychoactive substance-induced mood disorder; F31.9 Bipolar disorder, unspecified; I10 Essential (primary) hypertension; K21.9 Gastro-esophageal reflux disease without esophagitis; E78.5 Hyperlipidemia, unspecified; M54.5 Low back pain; G89.29 Other chronic pain; R06.2 Wheezing; Z91.010 Allergy to peanuts
CPT/HCPCS: 36415; 80053; 81003; 84132; 85027; 86593

== ENCOUNTER 2018-12-21 11:54 | Inpatient (IN) | payer OTHER ==
[2018-12-21 15:34] VITALS: BMI 28.6
--- NOTE | 2018-12-21 16:14 | HP ---
CIWA Score Nausea/Vomitin-Mild Nausea/No Vomiting Muscle Tremors: 3 Anxiety: 2 Agitation: 2 Paroxysmal Sweats: 2 Orientation: 0-Oriented Tacttile Disturbances: 0-None Auditory Disturbances: 0-None Visual Disturbances: 0-None Headache: 2-Mild CIWA-Ar Total Score: 12 - Admission Criteria OASAS Guidelines: Admission for Medically Managed Detox: Requires at least one of the followin. CIWA greater than 12 2. Seizures within the past 24 hours 3. Delirium tremens within the past 24 hours 4. Hallucinations within the past 24 hours 5. Acute intervention needed for co occurring medical disorder 6. Acute intervention needed for co occurring psychiatric disorder 7. Severe withdrawal that cannot be handled at a lower level of care (continued vomiting, continued diarrhea, abnormal vital signs) requiring intravenous medication and/or fluids 8. Admission ROS [facility] Chief Complaint: here for alcohol and cocaine detox Allergies/Adverse Reactions: Allergies Allergy/AdvReac Type Severity Reaction Status Date / Time peanut Allergy Difficulty Verified 10/10/18 21:43 Breathing History of Present Illness: 53 yo male with multiple admissions for alcohol and cocaine use disorder, last here 09/2018. Pt is homeless in [place]. alcohol use- 2-3 pints/day bacardi rum, and a few beers cocaine- 3-4 grams/da, sniffing and smoking From last admission: Alcohol use began at age 16. States current use for years. Cocaine use began at age 22. Sniffs and smokes. Longest sobriety after discharge is 1-2 weeks. Past sobriety [id number]. PMHX: HTN, GERD, Increased Lipids MHHx: Depression and anxiety.Denies thoughts of harming self or others. States on MH meds. Last saw a MH Provider when he was admitted here Denies hx of seizures. Hx of blackouts with last episode four weeks ago. DUR- no recent meds - Ebola screening Have you traveled outside of the country in the last 21 days: No Have you had contact with anyone from an Ebola affected area: No - Review of Systems Constitutional: No Symptoms Reported EENT: reports: No Symptoms Reported Respiratory: reports: No Symptoms reported Cardiac: reports: No Symptoms Reported GI: reports: No Symptoms Reported Musculoskeletal: reports: No Symptoms Reported Integumentary: reports: No Symptoms Reported Neuro: reports: No Symptoms reported Endocrine: reports: No Symptoms Reported Hematology: reports: No Symptoms Reported, Swollen Glands Other Systems: Reviewed and Negative Patient History - Patient Medical History Hx Anemia: No Hx Asthma: No Hx Chronic Obstructive Pulmonary Disease (COPD): No Hx Cancer: No Hx Cardiac Disorders: No Hx Congestive Heart Failure: No Hx Hypertension: Yes (on med) Hx Hypercholesterolemia: Yes (simvastatin ) Hx Pacemaker: No HX Cerebrovascular Accident: No Hx Seizures: No Hx Dementia: No Hx Diabetes: No Hx Gastrointestinal Disorders: Yes Hx Liver Disease: No Hx Genitourinary Disorders: No Hx Sexually Transmitted Disorders: No Hx Renal Disease (ESRD): No Hx Thyroid Disease: No Hx Human Immunodeficiency Virus (HIV): No (NEGATIVE HX in 2018) Hx Hepatitis C: No Hx Depression: Yes Hx Suicide Attempt: No Hx Bipolar Disorder: Yes (no meds ) Hx Schizophrenia: No - Patient Surgical History Past Surgical History: Yes Hx Neurologic Surgery: No Hx Cataract Extraction: No Hx Cardiac Surgery: No Hx Lung Surgery: No Hx Breast Surgery: No Hx Breast Biopsy: No Hx Abdominal Surgery: Yes (umbilical hernia repair at age 11) Hx Appendectomy: No Hx Cholecystectomy: No Hx Genitourinary Surgery: No Hx Section: No Hx Orthopedic Surgery: No Other Surgical History: bunion right toe surgery done 06/18 Anesthesia Reaction: No - PPD History Date: 10/12/18 Results: 0 mm - Smoking Cessation Smoking history: Never smoked Have you smoked in the past 12 months: No Aproximately how many cigarettes per day: 2 If you are a former smoker, when did you quit?: 2014 Cigars Per Day: 0 Hx Chewing Tobacco Use: No Initiated information on smoking cessation: No - Substance & Tx. History Hx Alcohol Use: Yes Hx Substance Use: Yes Substance Use Type: Alcohol, Cocaine - Substances abused Alcohol Substance route: Oral Frequency: Daily Amount used: 3 PINTS OF BACARDI AND 8 CANS OF 16 OUNCES OF BEER Age of first use: 16 Date of last use: 12/21/18 Cocaine Substance route: Smoking Frequency: Daily Amount used: 2-3 GRAMS Age of first use: Date of last use: 12/21/18 Family Disease History - Family Disease History Family Disease History: CA: Mother (BREAST,,), Other: Father (living, no contact HTN,), Mother, Brother (one living, healthy), Sister (three living - healthy) Admission Physical Exam S - Vital Signs Vital Signs: Vital Signs - 24 hr 12/21/18 15:29 Temperature 97.0 F L Pulse Rate 76 Respiratory 18 Rate Blood Pressure 136/93 - Physical General Appearance: Yes: Within Normal Limits HEENTM: Yes: Within Normal Limits, EOMI Respiratory: Yes: Within Normal Limits, Chest Non-Tender, Lungs Clear Neck: Yes: Within Normal Limits, No masses,lesions,Nodules Cardiology: Yes: Within Normal Limits, Regular Rhythm Abdominal: Yes: Within Normal Limits, Normal Bowel Sounds Genitourinary: Yes: Within Normal Limits Back: Yes: Within Normal Limits Musculoskeletal: Yes: Within Normal Limits Extremities: Yes: Within Normal Limits, Normal Capillary Refill 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: Yes: Within Normal Limits, water manager II-XII NML intact, Motor Strength 5 /5, Normal Mood/Affect Integumentary: Yes: Within Normal Limits Lymphatic: Yes: Within Normal Limits - Diagnostic (1) Cannabis abuse Current Visit: No Status: Chronic (2) Cocaine dependence Current Visit: No Status: Chronic Breathalyzer - Breathalyzer Breathalyzer: 0 Urine Drug Screen - Test Device Lot number: [id number] Expiration date: 09/29/20 - Control Is test valid?: Yes - Results Drug screen NEGATIVE: No Urine drug screen results: JAZMIN-Cocaine, BZO-Benzodiazepines Inpatient Rehab Admission - Rehab Decision to Admit Inpatient rehab admission?: No
[2018-12-21] MEDS ORDERED: MELATONIN 5 MG TABLETS PO PRN (16:17)
[2018-12-21] MEDS ORDERED: MENTHOL/PHENOL 1 EACH UD MM PRN (16:17)
[2018-12-21] MEDS ORDERED: BISMUTH SUBSALICYLATE 524 MG/30 ML UD PO PRN (16:17)
[2018-12-21] MEDS ORDERED: METHOCARBAMOL 500 MG TABLET PO PRN (16:17)
[2018-12-21] MEDS ORDERED: MAGNESIUM HYDROX 2400MG/30ML ORAL SUSPENSION 30 ML CUP PO PRN (16:17)
[2018-12-21] MEDS ORDERED: hydrOXYzine HCL 25 MG TABLET (FP) PO PRN (16:17)
[2018-12-21] MEDS ORDERED: ACETAMINOPHEN 325 MG TABLET (FP) PO PRN (16:17)
[2018-12-21] MEDS ORDERED: MAG HYDROX/AL HYDROX/SIMETH 30 ML UNIT-DOSE CUP PO PRN (16:17)
[2018-12-21] MEDS ORDERED: MAGNESIUM CITRATE 300 ML BOTTLE PO PRN (16:17)
[2018-12-21] MEDS ORDERED: chlordiazePOXIDE HCL 25 MG CAPSULE PO PRN (16:19)
[2018-12-21] MEDS: chlordiazePOXIDE HCL 25 MG CAPSULE PO SCH ×2 (17:25→22:39)
[2018-12-21] MEDS: IBUPROFEN 400 MG TABLET (FP) PO PRN (17:26)
[2018-12-21] MEDS: ATORVASTATIN CA 10 MG TABLET (FP) PO SCH (22:39)
[2018-12-21] MEDS: traZODone HCL 50 MG TABLET (FP) PO PRN (22:39)
[2018-12-21] MEDS: THIAMINE HCL 100 MG TABLET (FP) PO SCH (22:40)
[2018-12-21] MEDS: METHYL SALICYLATE/MENTHOL OINT 30 GM TUBE TP SCH (22:41)
[2018-12-22] MEDS: chlordiazePOXIDE HCL 25 MG CAPSULE PO SCH ×4 (06:03→23:21)
[2018-12-22] MEDS: METHYL SALICYLATE/MENTHOL OINT 30 GM TUBE TP SCH ×2 (10:25→23:20)
[2018-12-22] MEDS: PRENATAL VITAMINS W/ FOLIC ACID TABLET (FP) PO SCH (10:25)
[2018-12-22] MEDS: SERTRALINE HCL 50 MG TABLET (FP) PO SCH (10:26)
[2018-12-22] MEDS: amLODIPine BESYLATE 5 MG TABLET (FP) PO SCH (10:26)
[2018-12-22] MEDS: HYDROCHLOROTHIAZIDE 25 MG TABLET (FP) PO SCH (10:26)
[2018-12-22] MEDS: IBUPROFEN 400 MG TABLET (FP) PO PRN (10:29)
[2018-12-22 12:15] LABS: HEMATOCRIT 41.3 % (35.4-49); HEMOGLOBIN 14.1 GM/dL (11.7-16.9); MCH 30.8 pg (25.7-33.7); MCHC 34.1 g/dl (32.0-35.9); MEAN CELL VOLUME 90.3 fl (80-96); MEAN PLT VOLUME 8.6 fl (7.5-11.1); PLATELET COUNT 205 K/MM3 (134-434); RBC 4.57 M/mm3 (4.00-5.60); RDW 14.8 % (11.9-15.9); WHITE BLOOD COUNT 3.5 K/mm3 (4.0-10.0)
[2018-12-22 12:22] LABS: ALBUMIN 3.2 g/dl (3.4-5.0); BILIRUBIN,TOTAL 0.5 mg/dL (0.2-1); BLOOD UREA NITROGEN 16.3 mg/dL (7-18); CALCIUM 8.3 mg/dL (8.5-10.1); TOT PROT 6.4 g/dl (6.4-8.2)
--- NOTE | 2018-12-22 12:34 | PN ---
S CIWA - CIWA Score Nausea/Vomitin-No Nausea/No Vomiting Muscle Tremors: 3 Anxiety: 1-Mildly Anxious Agitation: 2 Paroxysmal Sweats: 1-Minimal Palms Moist Orientation: 0-Oriented Tacttile Disturbances: 0-None Auditory Disturbances: 0-None Visual Disturbances: 0-None Headache: 0-None Present CIWA-Ar Total Score: 7 BHS Progress Note (SOAP) Subjective: sweats interrupted sleep body aches agitation Objective: 12/22/18 12:32 Vital Signs Temperature 97.7 F 12/22/18 09:47 Pulse Rate 69 12/22/18 09:47 Respiratory Rate 16 12/22/18 09:47 Blood Pressure 121/61 12/22/18 09:47 O2 Sat by Pulse Oximetry (%) Laboratory Tests 12/22/18 12/22/18 07:00 07:00 WBC 3.5 L RBC 4.57 Hgb 14.1 Hct 41.3 MCV 90.3 MCH 30.8 MCHC 34.1 RDW 14.8 Plt Count 205 MPV 8.6 Sodium 142 Potassium 4.0 Chloride 107 Carbon Dioxide 31 Anion Gap 4 L BUN 16.3 Creatinine 1.0 Est GFR (CKD-EPI)AfAm 99.15 Est GFR (CKD-EPI)NonAf 85.55 Random Glucose 86 Calcium 8.3 L Total Bilirubin 0.5 AST 16 ALT 30 Alkaline Phosphatase 79 Total Protein 6.4 Albumin 3.2 L aaox3 ambulating no acute distress labs noted Assessment: 12/22/18 12:33 mild withdrawal sx Plan: continue detox increase fluids
[2018-12-22] MEDS: ATORVASTATIN CA 10 MG TABLET (FP) PO SCH (23:21)
[2018-12-22] MEDS: THIAMINE HCL 100 MG TABLET (FP) PO SCH (23:21)
[2018-12-23] MEDS: chlordiazePOXIDE HCL 25 MG CAPSULE PO SCH ×4 (05:38→22:42)
[2018-12-23] MEDS: amLODIPine BESYLATE 5 MG TABLET (FP) PO SCH (10:18)
[2018-12-23] MEDS: SERTRALINE HCL 50 MG TABLET (FP) PO SCH (10:18)
[2018-12-23] MEDS: HYDROCHLOROTHIAZIDE 25 MG TABLET (FP) PO SCH (10:18)
[2018-12-23] MEDS: METHYL SALICYLATE/MENTHOL OINT 30 GM TUBE TP SCH ×2 (10:18→22:42)
[2018-12-23] MEDS: PRENATAL VITAMINS W/ FOLIC ACID TABLET (FP) PO SCH (10:18)
--- NOTE | 2018-12-23 10:29 | PN ---
[facility] CIWA - CIWA Score Nausea/Vomitin-No Nausea/No Vomiting Muscle Tremors: 1-None Visible, but [place] Anxiety: 2 Agitation: 2 Paroxysmal Sweats: 1-Minimal Palms Moist Orientation: 0-Oriented Tacttile Disturbances: 0-None Auditory Disturbances: 0-None Visual Disturbances: 0-None Headache: 0-None Present CIWA-Ar Total Score: 6 BHS Progress Note (SOAP) Subjective: sweats interrupted sleep body aches irritable Objective: 12/23/18 10:25 Vital Signs Temperature 97.5 F L 12/23/18 09:19 Pulse Rate 68 12/23/18 09:19 Respiratory Rate 18 12/23/18 09:19 Blood Pressure 108/60 12/23/18 09:19 O2 Sat by Pulse Oximetry (%) Laboratory Tests 12/22/18 12/22/18 12/22/18 07:00 07:00 07:00 WBC 3.5 L RBC 4.57 Hgb 14.1 Hct 41.3 MCV 90.3 MCH 30.8 MCHC 34.1 RDW 14.8 Plt Count 205 MPV 8.6 Sodium 142 Potassium 4.0 Chloride 107 Carbon Dioxide 31 Anion Gap 4 L BUN 16.3 Creatinine 1.0 Est GFR (CKD-EPI)AfAm 99.15 Est GFR (CKD-EPI)NonAf 85.55 Random Glucose 86 Calcium 8.3 L Total Bilirubin 0.5 AST 16 ALT 30 Alkaline Phosphatase 79 Total Protein 6.4 Albumin 3.2 L RPR Titer Nonreactive aaox3 ambulating no acute distress Assessment: 12/23/18 10:29 withdrawal sx Plan: continue detox increase fluids
[2018-12-23] MEDS: THIAMINE HCL 100 MG TABLET (FP) PO SCH (22:42)
[2018-12-23] MEDS: ATORVASTATIN CA 10 MG TABLET (FP) PO SCH (22:42)
[2018-12-23] MEDS: traZODone HCL 50 MG TABLET (FP) PO PRN (22:45)
[2018-12-24] MEDS ORDERED: chlordiazePOXIDE HCL 10 MG CAPSULE PO PRN
[2018-12-24] MEDS: chlordiazePOXIDE HCL 10 MG CAPSULE PO SCH ×4 (06:30→22:44)
[2018-12-24] MEDS: PRENATAL VITAMINS W/ FOLIC ACID TABLET (FP) PO SCH (10:33)
[2018-12-24] MEDS: amLODIPine BESYLATE 5 MG TABLET (FP) PO SCH (10:33)
[2018-12-24] MEDS: METHYL SALICYLATE/MENTHOL OINT 30 GM TUBE TP SCH ×2 (10:33→22:43)
[2018-12-24] MEDS: HYDROCHLOROTHIAZIDE 25 MG TABLET (FP) PO SCH (10:33)
[2018-12-24] MEDS: SERTRALINE HCL 50 MG TABLET (FP) PO SCH (10:33)
[2018-12-24] MEDS: IBUPROFEN 400 MG TABLET (FP) PO PRN (10:36)
--- NOTE | 2018-12-24 11:29 | PN ---
S CIWA - CIWA Score Nausea/Vomitin-No Nausea/No Vomiting Muscle Tremors: 2 Anxiety: 2 Agitation: 2 Paroxysmal Sweats: 2 Orientation: 0-Oriented Tacttile Disturbances: 0-None Auditory Disturbances: 0-None Visual Disturbances: 0-None Headache: 0-None Present CIWA-Ar Total Score: 8 BHS Progress Note (SOAP) Subjective: agitation sweats irritable Objective: 12/24/18 11:29 Vital Signs Temperature 98.2 F 12/24/18 09:27 Pulse Rate 72 12/24/18 09:27 Respiratory Rate 18 12/24/18 09:27 Blood Pressure 103/71 12/24/18 09:27 O2 Sat by Pulse Oximetry (%) aaox3 ambulating no acute distress Assessment: 12/24/18 11:29 mild withdrawal sx Plan: continue detox increase fluids
[2018-12-24] MEDS: ATORVASTATIN CA 10 MG TABLET (FP) PO SCH (22:43)
[2018-12-24] MEDS: THIAMINE HCL 100 MG TABLET (FP) PO SCH (22:43)
[2018-12-25] MEDS ORDERED: chlordiazePOXIDE HCL 10 MG CAPSULE PO SCH (05:00)
[2018-12-25 06:14] VITALS: BP 111/63; PULSE 63; TEMP 98.1
--- NOTE | 2018-12-25 09:38 | DS ---
[facility] Detox Discharge Summary Admission Date: 12/21/18 Discharge Date: 12/25/18 - History Present History: Alcohol Dependence, Cannabis Dependence, Cocaine Dependence - Physical Exam Results Vital Signs: Vital Signs Temperature 98.1 F 12/25/18 06:14 Pulse Rate 63 12/25/18 06:14 Respiratory Rate 18 12/25/18 06:14 Blood Pressure 111/63 12/25/18 06:14 O2 Sat by Pulse Oximetry (%) Pertinent Admission Physical Exam Findings: pt arrived in withdrawals Laboratory Tests 12/22/18 12/22/18 12/22/18 07:00 07:00 07:00 WBC 3.5 L RBC 4.57 Hgb 14.1 Hct 41.3 MCV 90.3 MCH 30.8 MCHC 34.1 RDW 14.8 Plt Count 205 MPV 8.6 Sodium 142 Potassium 4.0 Chloride 107 Carbon Dioxide 31 Anion Gap 4 L BUN 16.3 Creatinine 1.0 Est GFR (CKD-EPI)AfAm 99.15 Est GFR (CKD-EPI)NonAf 85.55 Random Glucose 86 Calcium 8.3 L Total Bilirubin 0.5 AST 16 ALT 30 Alkaline Phosphatase 79 Total Protein 6.4 Albumin 3.2 L RPR Titer Nonreactive today pt is aaox3 ambulating no acute distress no s/s of withdrawals - Treatment Hospital Course: Detox Protocol Followed, Detoxed Safely, Responded well, Discharged Condition Good, Rehab Referral Accepted Patient has Accepted a Rehab Referral to: pt declined rehab - Medication Discharge Medications: Ambulatory Orders Sertraline HCl [Zoloft -] 50 mg PO DAILY #30 tablet 07/29/18 Quetiapine Fumarate [Seroquel] 100 mg PO HS #7 tablet 09/17/18 Amlodipine Besylate [Norvasc -] 5 mg PO DAILY #14 tablet 10/13/18 Hydrochlorothiazide 25 mg PO DAILY #14 tablet 10/13/18 Simvastatin 20 mg PO HS #14 tablet 10/13/18 - Diagnosis (1) Alcohol dependence with withdrawal, uncomplicated Status: Chronic (2) Glycosuria Status: Acute (3) Inspiratory wheeze on examination Status: Acute (4) Tooth decay Status: Acute (5) Bipolar disorder Status: Chronic Qualifiers: Active/Remission status: remission status unspecified Qualified Code(s): F31.9 - Bipolar disorder, unspecified (6) Cannabis abuse Status: Chronic (7) Chronic low back pain Status: Chronic Qualifiers: Back pain laterality: midline Sciatica presence: without sciatica Qualified Code(s): M54.5 - Low back pain; G89.29 - Other chronic pain (8) Cocaine dependence, uncomplicated Status: Chronic (9) Drug-induced mood disorder Status: Chronic (10) Dry skin Status: Chronic (11) Essential hypertension Status: Chronic (12) GERD (gastroesophageal reflux disease) Status: Chronic Qualifiers: Esophagitis presence: with esophagitis Qualified Code(s): K21.0 - Gastro- esophageal reflux disease with esophagitis (13) Hyperlipidemia Status: Chronic Qualifiers: Hyperlipidemia type: unspecified Qualified Code(s): E78.5 - Hyperlipidemia , unspecified (14) Insomnia Status: Chronic Qualifiers: Insomnia type: alcohol-induced Qualified Code(s): F10.982 - Alcohol use, unspecified with alcohol-induced sleep disorder (15) MDD (major depressive disorder) Status: Chronic Qualifiers: Major depression recurrence: recurrent Major depression episode severity: moderate (16) MDD (major depressive disorder), recurrent episode, moderate Status: Chronic (17) Syncope Status: Chronic Qualifiers: Syncope type: unspecified Qualified Code(s): R55 - Syncope and collapse (18) Substance induced mood disorder Status: Suspected - AMA Did Patient Leave Against Medical Advice: No (pt refused rehab; referral provided)
[2018-12-26] MEDS ORDERED: chlordiazePOXIDE HCL 10 MG CAPSULE PO ONE (05:00)
== END 2018-12-25 08:35 | disposition home or self-care (01) | DRG 774 ==
LOC: YASAS 11:54 → Y6N 16:47
PROVIDERS: ADMIT Surgery; ATTEND Surgery
PROC: HZ2ZZZZ Detoxification Services for Substance Abuse Treatment (ICD-10-PCS; principal; 2018-12-21)
DX: F10.230 Alcohol dependence with withdrawal, uncomplicated (principal); F14.20 Cocaine dependence, uncomplicated; F12.10 Cannabis abuse, uncomplicated; F19.24 Other psychoactive substance dependence with psychoactive substance-induced mood disorder; F33.1 Major depressive disorder, recurrent, moderate; I10 Essential (primary) hypertension; R81 Glycosuria; R06.2 Wheezing; K02.9 Dental caries, unspecified; M54.5 Low back pain; G89.29 Other chronic pain; L98.8 Other specified disorders of the skin and subcutaneous tissue; K21.9 Gastro-esophageal reflux disease without esophagitis; E78.5 Hyperlipidemia, unspecified; G47.00 Insomnia, unspecified; Z91.010 Allergy to peanuts
CPT/HCPCS: 36415; 80053; 85027; 86593

== ENCOUNTER 2019-01-27 08:08 | Inpatient (IN) | payer OTHER ==
[2019-01-27 08:50] VITALS: BMI 29.0
--- NOTE | 2019-01-27 09:18 | HP ---
CIWA Score Nausea/Vomitin-No Nausea/No Vomiting Muscle Tremors: 1-None Visible, but [place] Anxiety: 0-No Anxiety, at Ease Agitation: 0-Normal Activity Paroxysmal Sweats: No Perspiration Orientation: 0-Oriented Tacttile Disturbances: 0-None Auditory Disturbances: 0-None Visual Disturbances: 0-None Headache: 0-None Present (appropriate for rehab admission) CIWA-Ar Total Score: 1 - Admission Criteria OASAS Guidelines: Admission for Medically Managed Detox: Requires at least one of the followin. CIWA greater than 12 2. Seizures within the past 24 hours 3. Delirium tremens within the past 24 hours 4. Hallucinations within the past 24 hours 5. Acute intervention needed for co occurring medical disorder 6. Acute intervention needed for co occurring psychiatric disorder 7. Severe withdrawal that cannot be handled at a lower level of care (continued vomiting, continued diarrhea, abnormal vital signs) requiring intravenous medication and/or fluids 8. Admission ROS [facility] Chief Complaint: "i am here for rehab." Allergies/Adverse Reactions: Allergies Allergy/AdvReac Type Severity Reaction Status Date / Time No Known Drug Allergies Allergy Verified 01/27/19 08:41 peanut Allergy Difficulty Verified 01/27/19 08:41 Breathing History of Present Illness: 53 year old black male who was referred from detox at [facility] but yesterday there was no bed but he is here today for rehab admission. Patient is drinking 3 pints of vodka per day, last drank on last week. Patient is using cocaine about 3 gm per day, last used last Friday last week. Patient has had blackouts in the past, last one in july 2018. Patient never smoked ciggarettes. Patient rarely uses marijuana. Last time 3 months ago. Patient denies all other substances: benzo, metamphetamine, adderall, etc. Patient has no pending legal issues. PMH: HTN, HLD Psurg Hx: Unbilical Hernia at age 11 Psych Hx: Depression on Zoloft 50 qhs Patient is domiciled. 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 - Ebola screening Have you traveled outside of the country in the last 21 days: No Have you had contact with anyone from an Ebola affected area: No Have you been sick,other than usual withdrawal symptoms: No Do you have a fever: No - Review of Systems Constitutional: No Symptoms Reported EENT: reports: No Symptoms Reported Respiratory: reports: No Symptoms reported Cardiac: reports: No Symptoms Reported GI: reports: No Symptoms Reported : reports: No Symptoms Reported Musculoskeletal: reports: Back Pain, Muscle Pain Integumentary: reports: No Symptoms Reported Neuro: reports: No Symptoms reported Endocrine: reports: No Symptoms Reported Hematology: reports: No Symptoms Reported Psychiatric: reports: No Sypmtoms Reported, Judgement Intact, Mood/Affect Appropiate, Orientated x3 Other Systems: Reviewed and Negative Patient History - Patient Medical History Hx Anemia: No Hx Asthma: No Hx Chronic Obstructive Pulmonary Disease (COPD): No Hx Cancer: No Hx Cardiac Disorders: No Hx Congestive Heart Failure: No Hx Hypertension: No Hx Hypercholesterolemia: Yes (simvastatin ) Hx Pacemaker: No HX Cerebrovascular Accident: No Hx Seizures: No Hx Dementia: No Hx Diabetes: No Hx Gastrointestinal Disorders: No Hx Liver Disease: No Hx Genitourinary Disorders: No Hx Sexually Transmitted Disorders: No Hx Renal Disease (ESRD): No Hx Thyroid Disease: No Hx Human Immunodeficiency Virus (HIV): No (NEGATIVE HX in 2018) Hx Hepatitis C: No Hx Depression: Yes Hx Suicide Attempt: No Hx Bipolar Disorder: Yes (no meds ) Hx Schizophrenia: No - Patient Surgical History Past Surgical History: Yes Hx Neurologic Surgery: No Hx Cataract Extraction: No Hx Cardiac Surgery: No Hx Lung Surgery: No Hx Breast Surgery: No Hx Breast Biopsy: No Hx Abdominal Surgery: Yes (umbilical hernia repair at age 11) Hx Appendectomy: No Hx Cholecystectomy: No Hx Genitourinary Surgery: No Hx Section: No Hx Orthopedic Surgery: No Other Surgical History: bunion right toe surgery done 06/18 Anesthesia Reaction: No - PPD History Previous Implant?: Yes Documented Results: Negative w/proof Implanted On Prior R Admission?: Yes Date: 10/12/18 Results: 0 mm PPD to be Administered?: Yes - Reproductive History Patient is a Female of Child Bearing Age (11 -55 yrs old): No - Smoking Cessation Smoking history: Never smoked Have you smoked in the past 12 months: No Aproximately how many cigarettes per day: 2 If you are a former smoker, when did you quit?: 2015 Cigars Per Day: 0 Hx Chewing Tobacco Use: No Initiated information on smoking cessation: No - Substance & Tx. History Hx Alcohol Use: Yes (2 pints daily) Hx Substance Use: Yes Substance Use Type: Cocaine, Tranquilizers Hx Substance Use Treatment: Yes (multiple prior detoxes and rehabs) - Substances abused Alcohol Substance route: Oral Frequency: Daily Amount used: 3 PINTS OF BACARDI AND 8 CANS OF 16 OUNCES OF BEER Age of first use: 16 Date of last use: 01/22/19 Cocaine Substance route: Smoking Frequency: Daily Amount used: 2-3 GRAMS Age of first use: 22 Date of last use: 01/22/19 Family Disease History - Family Disease History Family Disease History: CA: Mother (BREAST,,), Other: Father (living, no contact HTN,), Mother, Brother (one living, healthy), Sister (three living - healthy) Admission Physical Exam S - Vital Signs Vital Signs: Vital Signs - 24 hr 01/27/19 08:41 Temperature 97.5 F L Pulse Rate 55 L Respiratory 18 Rate Blood Pressure 144/90 - Physical General Appearance: Yes: No Apparent Distress HEENTM: Yes: EOMI, Hearing grossly Normal, Normal ENT Inspection, Normocephalic , MARISEL, Pharynx Normal Respiratory: Yes: Chest Non-Tender, Lungs Clear, Normal Breath Sounds, No Respiratory Distress, No Accessory Muscle Use Neck: Yes: No masses,lesions,Nodules, Supple, Trachea in good position Breast: Yes: Within Normal Limits Cardiology: Yes: Regular Rhythm, Regular Rate, S1, S2 Abdominal: Yes: Normal Bowel Sounds, Protuberent, Surgical Scar Genitourinary: Yes: Within Normal Limits Back: Yes: Normal Inspection Musculoskeletal: Yes: full range of Motion, Gait Steady Extremities: Yes: Normal Capillary Refill, Normal Inspection, Normal Range of Motion, Non-Tender 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: Yes: records and information manager II-XII NML intact, Fully Oriented, Alert, Motor Strength 5/5, Normal Mood/Affect Integumentary: Yes: Normal Color, Warm Lymphatic: Yes: Within Normal Limits - Diagnostic (1) Alcohol dependence Current Visit: Yes Status: Acute (2) Chronic low back pain Current Visit: Yes Status: Chronic Qualifiers: Back pain laterality: midline Sciatica presence: without sciatica Qualified Code(s): M54.5 - Low back pain; G89.29 - Other chronic pain (3) Hyperlipidemia Current Visit: Yes Status: Chronic Qualifiers: Hyperlipidemia type: unspecified Qualified Code(s): E78.5 - Hyperlipidemia , unspecified (4) MDD (major depressive disorder) Current Visit: Yes Status: Chronic Qualifiers: Major depression recurrence: recurrent Major depression episode severity: moderate Comment: Self reports. Cleared for Admission [facility] - Detox or Rehab [facility] Level of Care: Medically Managed Screened but not Admitted - Documentation of Visit Screened but not Admitted: No Breathalyzer - Breathalyzer Breathalyzer: 0 (almost one week ago) Vital Signs - Vital Signs Vital signs refused: No Temperature: 97.5 F Temperature source: Oral Pulse Rate: 55 Respiratory Rate: 18 Blood Pressure: 144/90 BP Location: Left Arm Blood Pressure position: Sitting - Height Height: 5 ft 7 in - Weight Weight: 185 lb Weight measurement method: Standing scale (185) - BMI Body Mass Index (BMI): 29.0 - Bowel Function Bowel Movement: No Urine Drug Screen - Test Device Lot number: [id number] Expiration date: 09/29/20 - Control Is test valid?: Yes - Results Drug screen NEGATIVE: No Urine drug screen results: JAZMIN-Cocaine, BZO-Benzodiazepines Inpatient Rehab Admission - Rehab Decision to Admit Inpatient rehab admission?: Yes - Initial Determination Are CD services needed?: Yes Free of communicable disease: Yes Not in need of hospitalization: Yes - Rehab Admission Criteria Previous failed treatment: Yes Poor recovery environment: Yes Comorbidities: Yes Lacks judgement: Yes Patient is meeting Inpatient Rehab admission criteria:: Yes
[2019-01-27] MEDS ORDERED: LOPERAMIDE HCL 2 MG CAPSULE PO PRN (09:28)
[2019-01-27] MEDS ORDERED: guaiFENesin 200 MG/10 ML 10 ML UNIT-DOSE CUPS PO PRN (09:28)
[2019-01-27] MEDS ORDERED: P-EPHED 60MG/TRIPROLIDI 2.5MG TABLET PO PRN (09:28)
[2019-01-27] MEDS ORDERED: MAGNESIUM CITRATE 300 ML BOTTLE PO PRN (09:28)
[2019-01-27] MEDS ORDERED: MAGNESIUM HYDROX 2400MG/30ML ORAL SUSPENSION 30 ML CUP PO PRN (09:28)
[2019-01-27] MEDS ORDERED: ACETAMINOPHEN 325 MG TABLET (FP) PO PRN (09:28)
[2019-01-27] MEDS ORDERED: MAG HYDROX/AL HYDROX/SIMETH 30 ML UNIT-DOSE CUP PO PRN (09:28)
[2019-01-27] MEDS ORDERED: MENTHOL/PHENOL 1 EACH UD MM PRN (09:28)
[2019-01-27] MEDS ORDERED: PNEUMOC 13-VAL CONJ-DIP CRM/PF 0.5 ML DISP.SYRIN IM ONE (09:47)
[2019-01-27] MEDS: SERTRALINE HCL 50 MG TABLET (FP) PO SCH (10:58)
[2019-01-27] MEDS: PRENATAL VITAMINS W/ FOLIC ACID TABLET (FP) PO SCH (10:58)
[2019-01-27] MEDS: amLODIPine BESYLATE 10 MG TABLET (FP) PO SCH (10:58)
[2019-01-27] MEDS ORDERED: PNEUMOCOCCAL 23 VACCINE 0.5 ML VIAL IM ONE (12:00)
[2019-01-27 12:28] LABS: HEMATOCRIT 42.3 % (35.4-49); HEMOGLOBIN 14.3 GM/dL (11.7-16.9); MCH 30.4 pg (25.7-33.7); MCHC 33.8 g/dl (32.0-35.9); MEAN CELL VOLUME 90.2 fl (80-96); MEAN PLT VOLUME 8.9 fl (7.5-11.1); PLATELET COUNT 223 K/MM3 (134-434); RBC 4.69 M/mm3 (4.00-5.60); RDW 15.1 % (11.9-15.9); WHITE BLOOD COUNT 5.1 K/mm3 (4.0-10.0)
[2019-01-27 12:35] LABS: ALBUMIN 3.5 g/dl (3.4-5.0); BILIRUBIN,TOTAL 0.4 mg/dL (0.2-1); BLOOD UREA NITROGEN 16.9 mg/dL (7-18); CALCIUM 8.7 mg/dL (8.5-10.1); CREATININE 1.1 mg/dL (0.55-1.3); TOT PROT 7.2 g/dl (6.4-8.2)
--- NOTE | 2019-01-27 14:10 | CONSULT ---
[facility] Psychiatric Consult - Data Date of interview: 01/27/19 Admission source: [facility] Identifying data: Direct admission to [address] for this 53 y/o AA male self-referred for rehabilitation to address substance use disorder (alcohol , cocaine) co-morbid with MDD. 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 Substance Abuse History: Discussed in this session. Patient confirms current [facility] report on his addictions. Details as follows : Smoking history: Never smoked. Have you smoked in the past 12 months: No. Aproximately how many cigarettes per day: 2. If you are a former smoker, when did you quit?: 2014. Cigars Per Day: 0. Hx Chewing Tobacco Use: No. Initiated information on smoking cessation: No. - Substance & Tx. History. Hx Alcohol Use: Yes (2 pints daily). Hx Substance Use: Yes. Substance Use Type: Cocaine, Tranquilizers. Hx Substance Use Treatment: Yes (multiple prior detoxes and rehabs). - Substances abused. Alcohol. Substance route: Oral. Frequency: Daily. Amount used: 3 PINTS OF BACARDI AND 8 CANS OF 16 OUNCES OF BEER. Age of first use: 16. Date of last use: 01/22/19. Cocaine. Substance route: Smoking. Frequency: Daily. Amount used: 2-3 GRAMS. Age of first use: 22. Date of last use: 01/22/19 Medical History: Medical profile is remarkable for hypertension, GERD, past treatment for syphilis, surgical intervention for bunion (right toe) and a distant history of herniorraphy (umbilical). Psychiatric History: No change in psychiatric profile since encounter of 2018. Mr Parra maintains that his psychiatric issues started in 2009 (during incarceration). Was reportedly diagnosed, at the time, with MDD, Bipolar Disorder and Anxiety Disorder. History of multiple psychiatric hospitalizations ([facility] + [facility]). Patient endorses chronic non-adherence to OPD care and medications (dropped out of treatment at [facility] OPD clinic). Lost to follow-up for several months. Used to be prescribed zoloft 50 mg/day + seroquel 100 mg/hs + trazodone 50 mg/ hs. Patient denies history of suicide attempts. Physical/Sexual Abuse/Trauma History: Patient denies. Additional Comment: Urine drug screen results: JAZMIN-Cocaine, BZO- Benzodiazepines. Noted. Mental Status Exam - Mental Status Exam Alert and Oriented to: Time, Place, Person Cognitive Function: Good Patient Appearance: Well Groomed Mood: Hopeful, Euthymic Affect: Appropriate, Normal Range Patient Behavior: Appropriate, Cooperative Speech Pattern: Clear, Appropriate Voice Loudness: Normal Thought Process: Intact, Goal Oriented Thought Disorder: Not Present Hallucinations: Denies Suicidal Ideation: Denies Homicidal Ideation: Denies Insight/Judgement: Fair Sleep: Well Appetite: Good Muscle strength/Tone: Normal Gait/Station: Normal Psychiatric Findings - Problem List ([place] 1, 2,3) (1) Alcohol dependence Current Visit: Yes Status: Chronic (2) Cocaine dependence, uncomplicated Current Visit: Yes Status: Chronic (3) MDD (major depressive disorder) Current Visit: Yes Status: Chronic Qualifiers: Major depression recurrence: recurrent Major depression episode severity: moderate Comment: - Initial Treatment Plan Initial Treatment Plan: Psychoeducation. Support. Sleep hygiene. Motivational counseling. Groups. Relapse prevention (MAT) discussed with patient. Zoloft 50 mg po daily. Side effects/benefits discussed. Mr Parra gave verbal consent to MD. Tan.
[2019-01-27 14:29] LABS: URINE APPEARANCE CLEAR; URINE BILIRUBIN NEGATIVE (NEGATIVE); URINE COLOR YELLOW; URINE GLUCOSE (UA) NEGATIVE (NEGATIVE); URINE KETONE NEGATIVE (NEGATIVE); URINE LEUK ESTERASE NEGATIVE (NEGATIVE); URINE NITRITE NEGATIVE (NEGATIVE); URINE PROTEIN NEGATIVE (NEGATIVE); URINE UROBILINOGEN 0.2 mg/dL (0.2-1.0)
[2019-01-27] MEDS ORDERED: MELATONIN 5 MG TABLETS PO PRN (22:00)
[2019-01-27] MEDS: THIAMINE HCL 100 MG TABLET (FP) PO SCH (22:08)
[2019-01-27] MEDS: LIDOCAINE PATCH REMOVAL MC SCH (22:09)
[2019-01-28] MEDS: LIDOCAINE 5% TOPICAL PATCH TP SCH (10:20)
[2019-01-28] MEDS: amLODIPine BESYLATE 10 MG TABLET (FP) PO SCH (10:20)
[2019-01-28] MEDS: SERTRALINE HCL 50 MG TABLET (FP) PO SCH (10:20)
[2019-01-28] MEDS: PRENATAL VITAMINS W/ FOLIC ACID TABLET (FP) PO SCH (10:20)
[2019-01-28] MEDS: IBUPROFEN 400 MG TABLET (FP) PO PRN (10:22)
[2019-01-28] MEDS: METHYL SALICYLATE/MENTHOL OINT 30 GM TUBE TP SCH (13:07)
[2019-01-28] MEDS ORDERED: PT OWN MED DRAWER 7, Y5N ONE (16:02)
[2019-01-28] MEDS: LIDOCAINE PATCH REMOVAL MC SCH (22:02)
[2019-01-28] MEDS: THIAMINE HCL 100 MG TABLET (FP) PO SCH (22:03)
[2019-01-29] MEDS: SERTRALINE HCL 50 MG TABLET (FP) PO SCH (10:03)
[2019-01-29] MEDS: amLODIPine BESYLATE 10 MG TABLET (FP) PO SCH (10:03)
[2019-01-29] MEDS: METHYL SALICYLATE/MENTHOL OINT 30 GM TUBE TP SCH (10:03)
[2019-01-29] MEDS: PRENATAL VITAMINS W/ FOLIC ACID TABLET (FP) PO SCH (10:03)
[2019-01-29] MEDS: LIDOCAINE 5% TOPICAL PATCH TP SCH (10:04)
[2019-01-29] MEDS: THIAMINE HCL 100 MG TABLET (FP) PO SCH (21:15)
[2019-01-29] MEDS: LIDOCAINE PATCH REMOVAL MC SCH (21:16)
[2019-01-30] MEDS: PRENATAL VITAMINS W/ FOLIC ACID TABLET (FP) PO SCH (10:05)
[2019-01-30] MEDS: SERTRALINE HCL 50 MG TABLET (FP) PO SCH (10:05)
[2019-01-30] MEDS: LIDOCAINE 5% TOPICAL PATCH TP SCH (10:05)
[2019-01-30] MEDS: amLODIPine BESYLATE 10 MG TABLET (FP) PO SCH (10:05)
[2019-01-30] MEDS: METHYL SALICYLATE/MENTHOL OINT 30 GM TUBE TP SCH (10:05)
[2019-01-30] MEDS: IBUPROFEN 400 MG TABLET (FP) PO PRN (10:06)
[2019-01-30] MEDS: LIDOCAINE PATCH REMOVAL MC SCH (22:51)
[2019-01-30] MEDS: THIAMINE HCL 100 MG TABLET (FP) PO SCH (22:51)
[2019-01-31] MEDS: PRENATAL VITAMINS W/ FOLIC ACID TABLET (FP) PO SCH (10:14)
[2019-01-31] MEDS: amLODIPine BESYLATE 10 MG TABLET (FP) PO SCH (10:14)
[2019-01-31] MEDS: METHYL SALICYLATE/MENTHOL OINT 30 GM TUBE TP SCH (10:14)
[2019-01-31] MEDS: SERTRALINE HCL 50 MG TABLET (FP) PO SCH (10:14)
[2019-01-31] MEDS: IBUPROFEN 400 MG TABLET (FP) PO PRN (10:15)
[2019-01-31] MEDS: LIDOCAINE 5% TOPICAL PATCH TP SCH (10:16)
[2019-01-31] MEDS: LIDOCAINE PATCH REMOVAL MC SCH (21:24)
[2019-01-31] MEDS: THIAMINE HCL 100 MG TABLET (FP) PO SCH (21:25)
[2019-02-01] MEDS ORDERED: hydrOXYzine PAMOATE 50 MG CAPSULE (FP) PO PRN (09:02)
[2019-02-01] MEDS: SERTRALINE HCL 50 MG TABLET (FP) PO SCH (10:02)
[2019-02-01] MEDS: amLODIPine BESYLATE 10 MG TABLET (FP) PO SCH (10:02)
[2019-02-01] MEDS: PRENATAL VITAMINS W/ FOLIC ACID TABLET (FP) PO SCH (10:02)
[2019-02-01] MEDS: METHYL SALICYLATE/MENTHOL OINT 30 GM TUBE TP SCH (10:02)
[2019-02-01] MEDS: LIDOCAINE 5% TOPICAL PATCH TP SCH (10:03)
--- NOTE | 2019-02-01 11:35 | PN ---
[facility] Progress Note (SOAP) Subjective: PATIENT c/o right ear pain; denies using q-tips; takes showers but dries ear with rolled up tissues, denies nasal congestion. Objective: General: no apparent distress HEENT: left ear: clear, tympanic membrane pearly rooney, no pain on palpation; Right ear canal reddened, slightly swollen, difficult to visualize tympanic membrane. Tender on palpation. nares patent, sinus non-tender. Throat clear Lymph nodes: non-tender to palpation Lungs: clear Heart: s1 s2 audible Neuro: hearing intact. 02/01/19 11:31 CBC, BMP 01/27/19 09:50 01/27/19 09:50 Vital Signs (72 hours) 01/30/19 01/30/19 01/30/19 00:30 03:30 06:36 Temperature 98.5 F Pulse Rate 61 Respiratory 18 18 18 Rate Blood Pressure 128/82 01/30/19 01/31/19 01/31/19 09:18 00:30 03:30 Temperature Pulse Rate 65 Respiratory 18 18 Rate Blood Pressure 123/70 01/31/19 01/31/19 02/01/19 06:51 11:07 00:30 Temperature 98 F Pulse Rate 62 63 Respiratory 18 18 Rate Blood Pressure 133/84 129/78 02/01/19 02/01/19 03:30 06:34 Temperature 97.9 F Pulse Rate 58 L Respiratory 18 18 Rate Blood Pressure 135/84 Assessment: Otitis externa 02/01/19 11:34 Plan: ofloxicin 10 gtt right ear for 10 days.
[2019-02-01] MEDS: OFLOXACIN 0.3% OTIC SOLUTION 5 ML BOTTLE AD SCH (14:40)
[2019-02-01] MEDS: TOLNAFTATE 1% POWDER 45 GM POW TP SCH (21:13)
[2019-02-01] MEDS: LIDOCAINE PATCH REMOVAL MC SCH (21:13)
[2019-02-01] MEDS: THIAMINE HCL 100 MG TABLET (FP) PO SCH (21:13)
[2019-02-02] MEDS: amLODIPine BESYLATE 10 MG TABLET (FP) PO SCH (10:15)
[2019-02-02] MEDS: METHYL SALICYLATE/MENTHOL OINT 30 GM TUBE TP SCH (10:15)
[2019-02-02] MEDS: LIDOCAINE 5% TOPICAL PATCH TP SCH (10:15)
[2019-02-02] MEDS: PRENATAL VITAMINS W/ FOLIC ACID TABLET (FP) PO SCH (10:15)
[2019-02-02] MEDS: OFLOXACIN 0.3% OTIC SOLUTION 5 ML BOTTLE AD SCH (10:15)
[2019-02-02] MEDS: SERTRALINE HCL 50 MG TABLET (FP) PO SCH (10:15)
[2019-02-02] MEDS: TOLNAFTATE 1% POWDER 45 GM POW TP SCH ×2 (10:15→21:48)
[2019-02-02] MEDS: THIAMINE HCL 100 MG TABLET (FP) PO SCH (21:48)
[2019-02-02] MEDS: LIDOCAINE PATCH REMOVAL MC SCH (21:48)
[2019-02-03] MEDS: PRENATAL VITAMINS W/ FOLIC ACID TABLET (FP) PO SCH (10:23)
[2019-02-03] MEDS: amLODIPine BESYLATE 10 MG TABLET (FP) PO SCH (10:23)
[2019-02-03] MEDS: SERTRALINE HCL 50 MG TABLET (FP) PO SCH (10:23)
[2019-02-03] MEDS ORDERED: PT OWN MED DRAWER 7, Y5N ONE (10:24)
[2019-02-03] MEDS: OFLOXACIN 0.3% OTIC SOLUTION 5 ML BOTTLE AD SCH (10:24)
[2019-02-03] MEDS: METHYL SALICYLATE/MENTHOL OINT 30 GM TUBE TP SCH (10:24)
[2019-02-03] MEDS: TOLNAFTATE 1% POWDER 45 GM POW TP SCH ×2 (10:24→21:58)
[2019-02-03] MEDS: LIDOCAINE 5% TOPICAL PATCH TP SCH (10:25)
[2019-02-03] MEDS: IBUPROFEN 400 MG TABLET (FP) PO PRN (10:25)
[2019-02-03] MEDS: THIAMINE HCL 100 MG TABLET (FP) PO SCH (21:58)
[2019-02-03] MEDS: LIDOCAINE PATCH REMOVAL MC SCH (21:58)
[2019-02-04] MEDS: SERTRALINE HCL 50 MG TABLET (FP) PO SCH (10:09)
[2019-02-04] MEDS: OFLOXACIN 0.3% OTIC SOLUTION 5 ML BOTTLE AD SCH (10:09)
[2019-02-04] MEDS: PRENATAL VITAMINS W/ FOLIC ACID TABLET (FP) PO SCH (10:09)
[2019-02-04] MEDS: amLODIPine BESYLATE 10 MG TABLET (FP) PO SCH (10:09)
[2019-02-04] MEDS: LIDOCAINE 5% TOPICAL PATCH TP SCH (10:10)
[2019-02-04] MEDS: METHYL SALICYLATE/MENTHOL OINT 30 GM TUBE TP SCH (10:10)
[2019-02-04] MEDS: TOLNAFTATE 1% POWDER 45 GM POW TP SCH ×2 (10:11→22:01)
[2019-02-04] MEDS ORDERED: PT OWN MED DRAWER 7, Y5N ONE (20:29)
[2019-02-04] MEDS: LIDOCAINE PATCH REMOVAL MC SCH (22:01)
[2019-02-04] MEDS: THIAMINE HCL 100 MG TABLET (FP) PO SCH (22:01)
[2019-02-05] MEDS: PRENATAL VITAMINS W/ FOLIC ACID TABLET (FP) PO SCH (10:21)
[2019-02-05] MEDS: LIDOCAINE 5% TOPICAL PATCH TP SCH (10:22)
[2019-02-05] MEDS: amLODIPine BESYLATE 10 MG TABLET (FP) PO SCH (10:22)
[2019-02-05] MEDS: SERTRALINE HCL 50 MG TABLET (FP) PO SCH (10:22)
[2019-02-05] MEDS: OFLOXACIN 0.3% OTIC SOLUTION 5 ML BOTTLE AD SCH (10:25)
[2019-02-05] MEDS: TOLNAFTATE 1% POWDER 45 GM POW TP SCH ×2 (10:27→22:06)
[2019-02-05] MEDS ORDERED: PT OWN MED DRAWER 7, Y5N ONE (10:27)
[2019-02-05] MEDS: METHYL SALICYLATE/MENTHOL OINT 30 GM TUBE TP SCH (10:27)
[2019-02-05] MEDS: IBUPROFEN 400 MG TABLET (FP) PO PRN (21:09)
[2019-02-05] MEDS: THIAMINE HCL 100 MG TABLET (FP) PO SCH (21:09)
[2019-02-05] MEDS: LIDOCAINE PATCH REMOVAL MC SCH (21:10)
[2019-02-06] MEDS ORDERED: PT OWN MED DRAWER 7, Y5N ONE (08:38)
[2019-02-06] MEDS: SERTRALINE HCL 50 MG TABLET (FP) PO SCH (09:52)
[2019-02-06] MEDS: PRENATAL VITAMINS W/ FOLIC ACID TABLET (FP) PO SCH (09:52)
[2019-02-06] MEDS: OFLOXACIN 0.3% OTIC SOLUTION 5 ML BOTTLE AD SCH (09:52)
[2019-02-06] MEDS: LIDOCAINE 5% TOPICAL PATCH TP SCH (09:52)
[2019-02-06] MEDS: TOLNAFTATE 1% POWDER 45 GM POW TP SCH ×2 (09:52→21:47)
[2019-02-06] MEDS: amLODIPine BESYLATE 10 MG TABLET (FP) PO SCH (09:52)
[2019-02-06] MEDS: METHYL SALICYLATE/MENTHOL OINT 30 GM TUBE TP SCH (09:52)
[2019-02-06] MEDS: LIDOCAINE PATCH REMOVAL MC SCH (21:47)
[2019-02-06] MEDS: THIAMINE HCL 100 MG TABLET (FP) PO SCH (21:47)
[2019-02-07] MEDS: SERTRALINE HCL 50 MG TABLET (FP) PO SCH (09:49)
[2019-02-07] MEDS: PRENATAL VITAMINS W/ FOLIC ACID TABLET (FP) PO SCH (09:49)
[2019-02-07] MEDS: TOLNAFTATE 1% POWDER 45 GM POW TP SCH ×2 (09:49→21:49)
[2019-02-07] MEDS: METHYL SALICYLATE/MENTHOL OINT 30 GM TUBE TP SCH (09:49)
[2019-02-07] MEDS: amLODIPine BESYLATE 10 MG TABLET (FP) PO SCH (09:49)
[2019-02-07] MEDS: LIDOCAINE 5% TOPICAL PATCH TP SCH (09:49)
[2019-02-07] MEDS: IBUPROFEN 400 MG TABLET (FP) PO PRN (09:50)
[2019-02-07] MEDS: OFLOXACIN 0.3% OTIC SOLUTION 5 ML BOTTLE AD SCH (09:51)
[2019-02-07] MEDS: LIDOCAINE PATCH REMOVAL MC SCH (21:49)
[2019-02-07] MEDS: THIAMINE HCL 100 MG TABLET (FP) PO SCH (21:49)
[2019-02-08] MEDS: PRENATAL VITAMINS W/ FOLIC ACID TABLET (FP) PO SCH (10:36)
[2019-02-08] MEDS: SERTRALINE HCL 50 MG TABLET (FP) PO SCH (10:37)
[2019-02-08] MEDS: TOLNAFTATE 1% POWDER 45 GM POW TP SCH ×2 (10:38→22:26)
[2019-02-08] MEDS: amLODIPine BESYLATE 10 MG TABLET (FP) PO SCH (10:38)
[2019-02-08] MEDS: METHYL SALICYLATE/MENTHOL OINT 30 GM TUBE TP SCH (10:39)
[2019-02-08] MEDS ORDERED: PT OWN MED DRAWER 7, Y5N ONE (10:40)
[2019-02-08] MEDS: LIDOCAINE 5% TOPICAL PATCH TP SCH (10:41)
[2019-02-08] MEDS: LIDOCAINE PATCH REMOVAL MC SCH (22:26)
[2019-02-08] MEDS: THIAMINE HCL 100 MG TABLET (FP) PO SCH (22:26)
[2019-02-09] MEDS: TOLNAFTATE 1% POWDER 45 GM POW TP SCH ×2 (10:38→21:59)
[2019-02-09] MEDS: SERTRALINE HCL 50 MG TABLET (FP) PO SCH (10:38)
[2019-02-09] MEDS: PRENATAL VITAMINS W/ FOLIC ACID TABLET (FP) PO SCH (10:38)
[2019-02-09] MEDS: METHYL SALICYLATE/MENTHOL OINT 30 GM TUBE TP SCH (10:38)
[2019-02-09] MEDS: amLODIPine BESYLATE 10 MG TABLET (FP) PO SCH (10:38)
[2019-02-09] MEDS: LIDOCAINE 5% TOPICAL PATCH TP SCH (10:39)
[2019-02-09] MEDS: LIDOCAINE PATCH REMOVAL MC SCH (21:59)
[2019-02-09] MEDS: THIAMINE HCL 100 MG TABLET (FP) PO SCH (21:59)
[2019-02-10] MEDS: PRENATAL VITAMINS W/ FOLIC ACID TABLET (FP) PO SCH (10:27)
[2019-02-10] MEDS: amLODIPine BESYLATE 10 MG TABLET (FP) PO SCH (10:27)
[2019-02-10] MEDS: SERTRALINE HCL 50 MG TABLET (FP) PO SCH (10:27)
[2019-02-10] MEDS: METHYL SALICYLATE/MENTHOL OINT 30 GM TUBE TP SCH (10:28)
[2019-02-10] MEDS: TOLNAFTATE 1% POWDER 45 GM POW TP SCH ×2 (10:28→21:53)
[2019-02-10] MEDS: LIDOCAINE 5% TOPICAL PATCH TP SCH (10:29)
[2019-02-10] MEDS: THIAMINE HCL 100 MG TABLET (FP) PO SCH (21:53)
[2019-02-10] MEDS: LIDOCAINE PATCH REMOVAL MC SCH (21:53)
[2019-02-11] MEDS: SERTRALINE HCL 50 MG TABLET (FP) PO SCH (10:19)
[2019-02-11] MEDS: PRENATAL VITAMINS W/ FOLIC ACID TABLET (FP) PO SCH (10:19)
[2019-02-11] MEDS: amLODIPine BESYLATE 10 MG TABLET (FP) PO SCH (10:19)
[2019-02-11] MEDS: LIDOCAINE 5% TOPICAL PATCH TP SCH (10:20)
[2019-02-11] MEDS: TOLNAFTATE 1% POWDER 45 GM POW TP SCH (10:20)
[2019-02-11] MEDS: METHYL SALICYLATE/MENTHOL OINT 30 GM TUBE TP SCH (10:20)
[2019-02-11 10:21] VITALS: BP 112/61; PULSE 76; TEMP 98.3
[2019-02-11] MEDS ORDERED: PT OWN MED DRAWER 7, Y5N ONE (10:22)
--- NOTE | 2019-02-11 10:37 | DS ---
[facility] Rehab Discharge Summary - [facility] Rehab Discharge Summary Admission Date: 01/27/19 Discharge Date: 02/11/19 - History Present History: Alcohol dependence, Cannabis dependence, Cocaine dependence Pertinent Past History: History of Present Illness: Patient is drinking 3 pints of vodka per day, Patient is using cocaine about 3 gm per day, Patient has had blackouts in the past, last one in july 2018. Patient never smoked cigarettes. Patient rarely uses marijuana. Last time 3 months ago. Patient denies all other substances: benzo, metamphetamine, adderall, etc. Patient has no pending legal issues. PMH: HTN, HLD Psurg Hx: Unbilical Hernia at age 11 Psych Hx: Depression on Zoloft 50 qhs Patient is domiciled. 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 - Discharge Physical Exam Vital Signs: Vital Signs Temperature 98.3 F 02/11/19 09:00 Pulse Rate 76 02/11/19 09:00 Respiratory Rate 16 02/11/19 09:00 Blood Pressure 112/61 02/11/19 09:00 O2 Sat by Pulse Oximetry (%) Pertinent Admission Physical Exam Findings: - Physical General Appearance: No Apparent Distress HEENTM: Normocephalic, PERLLA Respiratory: Lungs Clear, Neck: Supple, Trachea in good position Cardiology:S1, S2 Abdominal:+ Bowel Sounds, Protuberent, Surgical Scar Musculoskeletal: full range of Motion, Gait Steady, full Range of Motion 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: still tender II-XII NML intact, Motor Strength 5/5, Integumentary: color consistent throughout trunk and extremities - Treatment Discharge Condition: Outpatient referral accepted (Patient will go to [facility] in [place], [place]. He has an appointment on 02/18, but plans to go there today.) Hospital Course: patient was adherent to the treatment program and medication regimen. He attended meetings and met with his counselor 1:1; he was also seen by psychiatry. He was seen by the medical provider for an ear infection, which was treated with ofloxcin gtts and resolved. He is medically stable for discharge. - Medication Discharge Medications: Ambulatory Orders Sertraline HCl [Zoloft -] 50 mg PO DAILY #30 tablet 07/29/18 Amlodipine Besylate [Norvasc -] 10 mg PO DAILY #30 tablet 02/11/19 - Medication-Assisted Treatment (MAT) Medication-Assisted Treatment (MAT): No - Discharge Instructions Diet, activity, other medical instructions: Diet: as tolerated Activity: as tolerated Other medical instructions: please keep appointment for aftercare with [facility]. - Diagnosis (1) Alcohol dependence Current Visit: Yes Status: Chronic Qualifiers: Substance use status: uncomplicated Qualified Code(s): F10.20 - Alcohol dependence, uncomplicated (2) Cocaine dependence, uncomplicated Current Visit: Yes Status: Chronic (3) Cannabis abuse Current Visit: No Status: Chronic - Follow-up Referral Minutes to complete discharge: 20 - AMA Did Patient Leave Against Medical Advice: No
== END 2019-02-11 10:56 | disposition home or self-care (01) | DRG 772 ==
LOC: YASAS 08:08 → Y3W 10:15
PROVIDERS: ADMIT Neuromusculoskeletal Medicine & OMM; ATTEND Neuromusculoskeletal Medicine & OMM
PROC: HZ42ZZZ Group Counseling for Substance Abuse Treatment, Cognitive-Behavioral (ICD-10-PCS; principal; 2019-01-27)
DX: F10.20 Alcohol dependence, uncomplicated (principal); F14.20 Cocaine dependence, uncomplicated; F12.10 Cannabis abuse, uncomplicated; F33.1 Major depressive disorder, recurrent, moderate; I10 Essential (primary) hypertension; H60.91 Unspecified otitis externa, right ear; K21.9 Gastro-esophageal reflux disease without esophagitis; E78.5 Hyperlipidemia, unspecified; M54.5 Low back pain; G89.29 Other chronic pain; Z91.010 Allergy to peanuts; Z87.438 Personal history of other diseases of male genital organs
CPT/HCPCS: 36415; 80053; 81003; 85027; 86593; 86803; 90732; G0009

== ENCOUNTER 2019-03-22 14:27 | Inpatient (IN) | payer OTHER ==
[2019-03-22 15:11] VITALS: BMI 29.0
--- NOTE | 2019-03-22 16:49 | HP ---
CIWA Score Nausea/Vomitin-Mild Nausea/No Vomiting Muscle Tremors: 1-None Visible, but [place] Anxiety: 4-Mod. Anxious/Guarded Agitation: 0-Normal Activity Paroxysmal Sweats: 3 (Increased facial moisture) Orientation: 0-Oriented Tacttile Disturbances: 0-None Auditory Disturbances: 0-None Visual Disturbances: 0-None Headache: 4-Moderately Severe CIWA-Ar Total Score: 13 - Admission Criteria OASAS Guidelines: Admission for Medically Managed Detox: Requires at least one of the followin. CIWA greater than 12 2. Seizures within the past 24 hours 3. Delirium tremens within the past 24 hours 4. Hallucinations within the past 24 hours 5. Acute intervention needed for co occurring medical disorder 6. Acute intervention needed for co occurring psychiatric disorder 7. Severe withdrawal that cannot be handled at a lower level of care (continued vomiting, continued diarrhea, abnormal vital signs) requiring intravenous medication and/or fluids 8. Admitting History and Physical - Smoking History Smoking history: Never smoked Have you smoked in the past 12 months: No Aproximately how many cigarettes per day: 2 If you are a former smoker, when did you quit?: 2015 - Alcohol/Substance Use Hx Alcohol Use: Yes (2 pints daily) Admission [facility] Chief Complaint: Here for detox from alcohol and cocaine. Allergies/Adverse Reactions: Allergies Allergy/AdvReac Type Severity Reaction Status Date / Time No Known Drug Allergies Allergy Verified 03/22/19 15:03 peanut Allergy Difficulty Verified 03/22/19 15:03 Breathing History of Present Illness: 53 yo presents requesting detox and then rehab for history of alcohol and cocaine use disorder. Last admission @ [facility] 01/27/19-02/11/19. States relapsed 2 weeks after last discharge. States started drinking CARMEN: 0.0 Utox: + JAZMIN/BZO Alcohol use began at age 16. States current use 3-4 pints liquor but does not drink every day. States last drink of 3-4 pints liquor yesterday, and prior to that 3 days ago. Cocaine use began at age 22. Sniffs and smokes. Last used yesterday. Denies hx of seizures or overdoses. Longest sobriety after discharge is 1-2 weeks. Past sobriety [id number]. PMHX: HTN (last took meds 1 week ago) GERD, Cough x 5 days Encouraged to obtain a PCP. EK06/26/18: NSR RPR: 01/27/19: Nonreactive MHHx: Depression and anxiety. Denies thoughts of harming self or others. States stopped MH meds when ran and has not f/u w/ a MH Provider. Encouraged to obtain a MH Provider. SHx: Homeless. Unemployed. Denies legal. Search Terms: Fidel Plunkett, 1965 Search Date: 03/22/2019 04:33:54 PM The Drug Utilization Report below displays all of the controlled substance prescriptions, if any, that your patient has filled in the last twelve months. The information displayed on this report is compiled from pharmacy submissions to the Department, and accurately reflects the information as submitted by the pharmacies. This report was requested by: Cristiana Lima | Reference #: [id number] There are no results for the search terms that you entered. Patient Name: Dimitrios Parra Date: 1965 Address: [place] [address] Sex: Male Rx Written Rx Dispensed Drug Quantity Days Supply Prescriber Name 08/04/2018 08/04/2018 diazepam 10 mg tablet 18 5 Jamshid Abel () Exam Limitations: No Limitations - Ebola screening Have you traveled outside of the country in the last 21 days: No Have you had contact with anyone from an Ebola affected area: No Have you been sick,other than usual withdrawal symptoms: No Do you have a fever: No - Review of Systems Constitutional: Chills, Changes in sleep (Difficulty falling and staying asleep) EENT: reports: Blurred Vision, Other (throat dry and scratchy) Respiratory: reports: Cough (Cough x 5 days - coughing up yellow phlegm) Cardiac: reports: No Symptoms Reported GI: reports: Constipated (Last BM 3 days ago - did not look at stool), Nausea, Vomiting (Yesterday - vomitied food), Indigestion (Acid reflux,), Abdominal cramping : reports: No Symptoms Reported Musculoskeletal: reports: Back Pain (Chronic sharp upper and lower back pain. States present all the time. Unsure of what makes it worse or better. Pain is a "7"), Joint Pain (Eder sharp knee pain - present all the time. Increases w/ walker. Improves w/ muscle rub.) Integumentary: reports: No Symptoms Reported Neuro: reports: Headache (Throbbing "9" headache x 3 days. Denies hitting head.) Endocrine: reports: Increased Thirst Hematology: reports: No Symptoms Reported Psychiatric: reports: Orientated x3, Agitated, Anxious, Depressed Patient History - Patient Medical History Hx Anemia: No Hx Asthma: No Hx Chronic Obstructive Pulmonary Disease (COPD): No Hx Cancer: No Hx Cardiac Disorders: No Hx Congestive Heart Failure: No Hx Hypertension: Yes (currently on medication) Hx Hypercholesterolemia: Yes (simvastatin ) Hx Pacemaker: No HX Cerebrovascular Accident: No Hx Seizures: No Hx Dementia: No Hx Diabetes: No Hx Gastrointestinal Disorders: No Hx Liver Disease: No Hx Genitourinary Disorders: No Hx Sexually Transmitted Disorders: No Hx Renal Disease (ESRD): No Hx Thyroid Disease: No Hx Human Immunodeficiency Virus (HIV): No (NEGATIVE HX in 2018) Hx Hepatitis C: No Hx Depression: Yes Hx Suicide Attempt: No Hx Bipolar Disorder: Yes (no meds ) Hx Schizophrenia: No - Patient Surgical History Past Surgical History: Yes Hx Neurologic Surgery: No Hx Cataract Extraction: No Hx Cardiac Surgery: No Hx Lung Surgery: No Hx Breast Surgery: No Hx Breast Biopsy: No Hx Abdominal Surgery: Yes (umbilical hernia repair at age 11) Hx Appendectomy: No Hx Cholecystectomy: No Hx Genitourinary Surgery: No Hx Section: No Hx Orthopedic Surgery: No Other Surgical History: bunion right toe surgery done 06/18 Anesthesia Reaction: No - PPD History Previous Implant?: Yes Documented Results: Negative w/proof Implanted On Prior [facility] Admission?: Yes Date: 10/12/18 Results: 0 mm PPD to be Administered?: No - Smoking Cessation Smoking history: Former smoker Have you smoked in the past 12 months: No If you are a former smoker, when did you quit?: 2014 Cigars Per Day: 0 Hx Chewing Tobacco Use: No Initiated information on smoking cessation: No - Substance & Tx. History Hx Alcohol Use: Yes Hx Substance Use: Yes Substance Use Type: Alcohol, Cocaine Hx Substance Use Treatment: Yes (detox, rehab) - Substances abused Alcohol Substance route: Oral Frequency: Daily Amount used: 4 PINTS OF BACARDI AND 8 CANS OF 16 OUNCES OF BEER Age of first use: 16 Date of last use: 03/22/19 Cocaine Substance route: Smoking Frequency: Daily Amount used: 4 GRAMS Age of first use: 22 Date of last use: 03/21/19 Admission Physical Exam [facility] - Vital Signs Vital Signs: Vital Signs - 24 hr 03/22/19 15:02 Temperature 97.8 F Pulse Rate 77 Respiratory 18 Rate Blood Pressure 126/77 - Physical General Appearance: Yes: Nourished, Mild Distress, Tremorous (Mild), Irritable, Sweating (Increased facial moisture), Anxious HEENTM: Yes: EOMI, Hearing grossly Normal, Normal ENT Inspection, Normocephalic , Normal Voice, MARISEL Respiratory: Yes: Lungs Clear (Pulse Ox = 96 %), Normal Breath Sounds, No Respiratory Distress Neck: Yes: No masses,lesions,Nodules, Supple Breast: Yes: Breast Exam Deferred Cardiology: Yes: Regular Rhythm, Regular Rate, S1, S2 Abdominal: Yes: Normal Bowel Sounds, Non Tender, Soft Genitourinary: Yes: Within Normal Limits Back: Yes: Normal Inspection Musculoskeletal: Yes: full range of Motion, Gait Steady Extremities: Yes: Normal Capillary Refill (Peipheral pulses +), Tremors (Slight felt) 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: Yes: relationship manager II-XII NML intact, Fully Oriented, Alert, Motor Strength 5/5 Integumentary: Yes: Normal Color, Warm, Diaphoresis (Increased facial moisture) , Other (1 cm superficial lacteration (R) pointer finger w/ serous drainage.) Lymphatic: Yes: Within Normal Limits - Diagnostic (1) Alcohol dependence with withdrawal, uncomplicated Current Visit: Yes Status: Acute (2) Chronic low back pain Current Visit: Yes Status: Chronic Qualifiers: Back pain laterality: midline Sciatica presence: without sciatica Qualified Code(s): M54.5 - Low back pain; G89.29 - Other chronic pain (3) Cocaine dependence, uncomplicated Current Visit: Yes Status: Chronic (4) Laceration Current Visit: Yes Status: Acute Comment: Superficial (R) pointer finger (5) GERD (gastroesophageal reflux disease) Current Visit: Yes Status: Chronic Qualifiers: Esophagitis presence: without esophagitis Qualified Code(s): K21.9 - Gastro -esophageal reflux disease without esophagitis Cleared for Admission [facility] - Detox or Rehab [facility] Level of Care: Medically Managed Detox Regimen/Protocol: Librium Claeared for Rehab Admission: No Breathalyzer - Breathalyzer Breathalyzer: 0 Urine Drug Screen - Test Device Lot number: [id number] Expiration date: 10/30/20 - Control Is test valid?: Yes - Results Drug screen NEGATIVE: No Urine drug screen results: JAZMIN-Cocaine, BZO-Benzodiazepines Inpatient Rehab Admission - Rehab Decision to Admit Inpatient rehab admission?: No
[2019-03-22] MEDS ORDERED: chlordiazePOXIDE HCL 25 MG CAPSULE PO PRN (17:24)
[2019-03-22] MEDS ORDERED: ACETAMINOPHEN 325 MG TABLET (FP) PO PRN ×2 (17:24)
[2019-03-22] MEDS ORDERED: METHOCARBAMOL 500 MG TABLET PO PRN (17:24)
[2019-03-22] MEDS ORDERED: MAGNESIUM CITRATE 300 ML BOTTLE PO PRN (17:24)
[2019-03-22] MEDS ORDERED: MELATONIN 5 MG TABLETS PO PRN (17:24)
[2019-03-22] MEDS ORDERED: MAGNESIUM HYDROX 2400MG/30ML ORAL SUSPENSION 30 ML CUP PO PRN (17:24)
[2019-03-22] MEDS ORDERED: BISMUTH SUBSALICYLATE 524 MG/30 ML UD PO PRN (17:24)
[2019-03-22] MEDS ORDERED: MENTHOL/PHENOL 1 EACH UD MM PRN (17:24)
[2019-03-22] MEDS ORDERED: chlordiazePOXIDE HCL 25 MG CAPSULE PO ONE (17:24)
[2019-03-22] MEDS ORDERED: MAG HYDROX/AL HYDROX/SIMETH 30 ML UNIT-DOSE CUP PO PRN (17:24)
[2019-03-22] MEDS: THIAMINE HCL 100 MG TABLET (FP) PO SCH (22:27)
[2019-03-22] MEDS: BACITRACIN 15 GM TUBE TOPICAL OINTMENT TP SCH (22:27)
[2019-03-22] MEDS: guaiFENesin 200 MG/10 ML 10 ML UNIT-DOSE CUPS PO SCH (22:30)
[2019-03-22] MEDS: chlordiazePOXIDE HCL 25 MG CAPSULE PO SCH (22:50)
[2019-03-23] MEDS: guaiFENesin 200 MG/10 ML 10 ML UNIT-DOSE CUPS PO SCH ×5 (00:35→23:38)
[2019-03-23] MEDS: chlordiazePOXIDE HCL 25 MG CAPSULE PO SCH ×4 (05:43→23:38)
[2019-03-23] MEDS: IBUPROFEN 400 MG TABLET (FP) PO PRN ×2 (06:42→17:50)
[2019-03-23] MEDS: PRENATAL VITAMINS W/ FOLIC ACID TABLET (FP) PO SCH (10:20)
[2019-03-23] MEDS: BACITRACIN 15 GM TUBE TOPICAL OINTMENT TP SCH (10:21)
[2019-03-23] MEDS: amLODIPine BESYLATE 5 MG TABLET (FP) PO SCH (10:21)
[2019-03-23 12:09] LABS: HEMATOCRIT 43.1 % (35.4-49); HEMOGLOBIN 14.4 GM/dL (11.7-16.9); MCH 30.1 pg (25.7-33.7); MCHC 33.4 g/dl (32.0-35.9); MEAN CELL VOLUME 90.3 fl (80-96); MEAN PLT VOLUME 8.5 fl (7.5-11.1); PLATELET COUNT 256 K/MM3 (134-434); RBC 4.77 M/mm3 (4.00-5.60); WHITE BLOOD COUNT 3.9 K/mm3 (4.0-10.0)
[2019-03-23 12:21] LABS: ALBUMIN 3.2 g/dl (3.4-5.0); BILIRUBIN,TOTAL 0.5 mg/dL (0.2-1); BLOOD UREA NITROGEN 15.9 mg/dL (7-18); CALCIUM 8.4 mg/dL (8.5-10.1); POTASSIUM 3.7 mmol/L (3.5-5.1); TOT PROT 6.7 g/dl (6.4-8.2)
--- NOTE | 2019-03-23 12:58 | PN ---
[facility] Progress Note (SOAP) Subjective: received nurse report that cough medication scheduled in odd time change schedule q6h begin 1700 today
--- NOTE | 2019-03-23 13:02 | PN ---
[facility] CIWA - CIWA Score Nausea/Vomitin-Mild Nausea/No Vomiting Muscle Tremors: 2 Anxiety: 3 Agitation: 2 Paroxysmal Sweats: 2 Orientation: 0-Oriented Tacttile Disturbances: 0-None Auditory Disturbances: 0-None Visual Disturbances: 0-None Headache: 0-None Present CIWA-Ar Total Score: 10 [facility] Progress Note (SOAP) Subjective: doing well with librium detox regimen ambulating on hallway social with peers in day room less tremor mild anxiety Objective: 03/23/19 13:01 Vital Signs Temperature 98 F 03/23/19 09:22 Pulse Rate 58 L 03/23/19 09:22 Respiratory Rate 20 03/23/19 09:22 Blood Pressure 121/62 03/23/19 09:22 O2 Sat by Pulse Oximetry (%) Laboratory Last Values WBC 3.9 K/mm3 (4.0-10.0) L 03/23/19 08:40 RBC 4.77 M/mm3 (4.00-5.60) 03/23/19 08:40 Hgb 14.4 GM/dL (11.7-16.9) 03/23/19 08:40 Hct 43.1 % (35.4-49) 03/23/19 08:40 MCV 90.3 fl (80-96) 03/23/19 08:40 MCH 30.1 pg (25.7-33.7) 03/23/19 08:40 MCHC 33.4 g/dl (32.0-35.9) 03/23/19 08:40 RDW 15.0 % (11.9-15.9) 03/23/19 08:40 Plt Count 256 K/MM3 (134-434) 03/23/19 08:40 MPV 8.5 fl (7.5-11.1) 03/23/19 08:40 Sodium 140 mmol/L (136-145) 03/23/19 08:40 Potassium 3.7 mmol/L (3.5-5.1) 03/23/19 08:40 Chloride 104 mmol/L (98-107) 03/23/19 08:40 Carbon Dioxide 28 mmol/L (21-32) 03/23/19 08:40 Anion Gap 8 MMOL/L (8-16) 03/23/19 08:40 BUN 15.9 mg/dL (7-18) 03/23/19 08:40 Creatinine 1.0 mg/dL (0.55-1.3) 03/23/19 08:40 Est GFR (CKD-EPI)AfAm 99.15 03/23/19 08:40 Est GFR (CKD-EPI)NonAf 85.55 03/23/19 08:40 Random Glucose 75 mg/dL (74-106) 03/23/19 08:40 Calcium 8.4 mg/dL (8.5-10.1) L 03/23/19 08:40 Total Bilirubin 0.5 mg/dL (0.2-1) 03/23/19 08:40 AST 15 U/L (15-37) 03/23/19 08:40 ALT 23 U/L (13-61) 03/23/19 08:40 Alkaline Phosphatase 95 U/L (45-117) 03/23/19 08:40 Total Protein 6.7 g/dl (6.4-8.2) 03/23/19 08:40 Albumin 3.2 g/dl (3.4-5.0) L 03/23/19 08:40 lab noted Assessment: 03/23/19 13:02 alcohol withdrawal sx Plan: continue librium detox regimen
[2019-03-23] MEDS: THIAMINE HCL 100 MG TABLET (FP) PO SCH (23:38)
[2019-03-24] MEDS: chlordiazePOXIDE HCL 25 MG CAPSULE PO SCH ×2 (05:25→10:11)
[2019-03-24] MEDS: guaiFENesin 200 MG/10 ML 10 ML UNIT-DOSE CUPS PO SCH ×2 (05:25→11:48)
[2019-03-24 09:09] VITALS: BP 115/82; PULSE 90; TEMP 96.9
[2019-03-24] MEDS: PRENATAL VITAMINS W/ FOLIC ACID TABLET (FP) PO SCH (09:47)
[2019-03-24] MEDS: amLODIPine BESYLATE 5 MG TABLET (FP) PO SCH (09:47)
[2019-03-24] MEDS: BACITRACIN 15 GM TUBE TOPICAL OINTMENT TP SCH (09:47)
--- NOTE | 2019-03-24 14:17 | DS ---
[facility] Detox Discharge Summary Admission Date: 03/22/19 Discharge Date: 03/24/19 - History Present History: Alcohol Dependence Additional Comments: 53 years old male admitted on 03/22/19 for alcohol withdrawal sx management did well with librium detox regimen no complication through out the detox stay patient has chronic tooth front decay report feeling better today has dental appointment today taking care for patient is alert oriented x 3 cardiac S1S2 regular rate rhythm respiratory lung clear bilaterally on auscultation extremities full range of motion - Physical Exam Results Vital Signs: Vital Signs Temperature 96.9 F L 03/24/19 09:09 Pulse Rate 90 03/24/19 09:09 Respiratory Rate 18 03/24/19 09:09 Blood Pressure 115/82 03/24/19 09:09 O2 Sat by Pulse Oximetry (%) Pertinent Admission Physical Exam Findings: alcohol withdrawal sx Laboratory Last Values WBC 3.9 K/mm3 (4.0-10.0) L 03/23/19 08:40 RBC 4.77 M/mm3 (4.00-5.60) 03/23/19 08:40 Hgb 14.4 GM/dL (11.7-16.9) 03/23/19 08:40 Hct 43.1 % (35.4-49) 03/23/19 08:40 MCV 90.3 fl (80-96) 03/23/19 08:40 MCH 30.1 pg (25.7-33.7) 03/23/19 08:40 MCHC 33.4 g/dl (32.0-35.9) 03/23/19 08:40 RDW 15.0 % (11.9-15.9) 03/23/19 08:40 Plt Count 256 K/MM3 (134-434) 03/23/19 08:40 MPV 8.5 fl (7.5-11.1) 03/23/19 08:40 Sodium 140 mmol/L (136-145) 03/23/19 08:40 Potassium 3.7 mmol/L (3.5-5.1) 03/23/19 08:40 Chloride 104 mmol/L (98-107) 03/23/19 08:40 Carbon Dioxide 28 mmol/L (21-32) 03/23/19 08:40 Anion Gap 8 MMOL/L (8-16) 03/23/19 08:40 BUN 15.9 mg/dL (7-18) 03/23/19 08:40 Creatinine 1.0 mg/dL (0.55-1.3) 03/23/19 08:40 Est GFR (CKD-EPI)AfAm 99.15 03/23/19 08:40 Est GFR (CKD-EPI)NonAf 85.55 03/23/19 08:40 Random Glucose 75 mg/dL (74-106) 03/23/19 08:40 Calcium 8.4 mg/dL (8.5-10.1) L 03/23/19 08:40 Total Bilirubin 0.5 mg/dL (0.2-1) 03/23/19 08:40 AST 15 U/L (15-37) 03/23/19 08:40 ALT 23 U/L (13-61) 03/23/19 08:40 Alkaline Phosphatase 95 U/L (45-117) 03/23/19 08:40 Total Protein 6.7 g/dl (6.4-8.2) 03/23/19 08:40 Albumin 3.2 g/dl (3.4-5.0) L 03/23/19 08:40 lab noted - Treatment Hospital Course: Detox Protocol Followed, Detoxed Safely, Responded well, Discharged Condition Good, Rehab Referral Accepted Patient has Accepted a Rehab Referral to: [facility] - Medication Discharge Medications: Ambulatory Orders Amlodipine Besylate [Norvasc -] 10 mg PO DAILY #30 tablet 02/11/19 - Diagnosis (1) Alcohol dependence with withdrawal, uncomplicated Current Visit: Yes Status: Acute (2) GERD (gastroesophageal reflux disease) Current Visit: Yes Status: Chronic Qualifiers: Esophagitis presence: without esophagitis Qualified Code(s): K21.9 - Gastro -esophageal reflux disease without esophagitis (3) Tooth decay Current Visit: Yes Status: Acute - AMA Did Patient Leave Against Medical Advice: No CIWA Score - CIWA Score Nausea/Vomitin-No Nausea/No Vomiting Muscle Tremors: 1-None Visible, but [place] Anxiety: 2 Agitation: 1-Slight > Activity Paroxysmal Sweats: 1-Minimal Palms Moist Orientation: 0-Oriented Tacttile Disturbances: 0-None Auditory Disturbances: 0-None Visual Disturbances: 0-None Headache: 0-None Present CIWA-Ar Total Score: 5
[2019-03-25] MEDS ORDERED: chlordiazePOXIDE HCL 10 MG CAPSULE PO PRN
[2019-03-25] MEDS ORDERED: chlordiazePOXIDE HCL 10 MG CAPSULE PO SCH (05:00)
[2019-03-26] MEDS ORDERED: chlordiazePOXIDE HCL 10 MG CAPSULE PO SCH (05:00)
[2019-03-27] MEDS ORDERED: chlordiazePOXIDE HCL 10 MG CAPSULE PO ONE (05:00)
== END 2019-03-24 09:40 | disposition home or self-care (01) | DRG 775 ==
LOC: YASAS 14:27 → Y5N 16:55 → UNDOADMIN 16:55 → Y3N 17:42
PROVIDERS: ADMIT Allergy & Immunology; ATTEND Allergy & Immunology
PROC: HZ2ZZZZ Detoxification Services for Substance Abuse Treatment (ICD-10-PCS; principal; 2019-03-22)
DX: F10.230 Alcohol dependence with withdrawal, uncomplicated (principal); I10 Essential (primary) hypertension; K21.9 Gastro-esophageal reflux disease without esophagitis; K02.9 Dental caries, unspecified; E78.00 Pure hypercholesterolemia, unspecified; M54.5 Low back pain; G89.29 Other chronic pain; S61.210A Laceration without foreign body of right index finger without damage to nail, initial encounter; X58.XXXA Exposure to other specified factors, initial encounter; Y93.9 Activity, unspecified; Y92.9 Unspecified place or not applicable; Z87.891 Personal history of nicotine dependence; Z91.010 Allergy to peanuts
CPT/HCPCS: 36415; 80053; 85027

== ENCOUNTER 2019-06-02 16:41 | Inpatient (IN) | payer OTHER ==
[2019-06-02 18:02] VITALS: BMI 29.9
--- NOTE | 2019-06-02 18:42 | HP ---
CIWA Score Nausea/Vomitin Muscle Tremors: 4-Moderate,w/Arms Extend Anxiety: 3 Agitation: 2 Paroxysmal Sweats: No Perspiration Orientation: 0-Oriented Tacttile Disturbances: 0-None Auditory Disturbances: 0-None Visual Disturbances: 0-None Headache: 1-Very Mild CIWA-Ar Total Score: 12 - Admission Criteria OASAS Guidelines: Admission for Medically Managed Detox: Requires at least one of the followin. CIWA greater than 12 2. Seizures within the past 24 hours 3. Delirium tremens within the past 24 hours 4. Hallucinations within the past 24 hours 5. Acute intervention needed for co occurring medical disorder 6. Acute intervention needed for co occurring psychiatric disorder 7. Severe withdrawal that cannot be handled at a lower level of care (continued vomiting, continued diarrhea, abnormal vital signs) requiring intravenous medication and/or fluids 8. Admitting History and Physical - Smoking History Smoking history: Former smoker Have you smoked in the past 12 months: No Aproximately how many cigarettes per day: 2 If you are a former smoker, when did you quit?: 2014 - Alcohol/Substance Use Hx Alcohol Use: Yes Admission [facility] Chief Complaint: alcohol detox Allergies/Adverse Reactions: Allergies Allergy/AdvReac Type Severity Reaction Status Date / Time No Known Drug Allergies Allergy Verified 06/02/19 17:55 peanut Allergy Difficulty Verified 06/02/19 17:55 Breathing History of Present Illness: 53 yo with long h/o AUD, was last here in Mar 2019. Says he is in outpt program at [facility]. Says he relapsed in mid-April. Says he is trying to detox and "clean up". Drinking 4 pints of Bacardi and several beers a day. no h/o seizures/DT's. Living with a friend. cocaine- 3-4 grams cocaine/day Med problems- HTN, Rx with norvasc MH- Bipolar/depression, on zoloft 50mg/day- last dose a few days ago. Does not have a PCP or MH Utox-pos for cocaine and bzo- pt states BZO is from the cocaine - Ebola screening Have you traveled outside of the country in the last 21 days: No (N) Have you had contact with anyone from an Ebola affected area: No Do you have a fever: No Patient History - Patient Medical History Hx Anemia: No Hx Asthma: No Hx Chronic Obstructive Pulmonary Disease (COPD): No Hx Cancer: No Hx Cardiac Disorders: No Hx Congestive Heart Failure: No Hx Hypertension: Yes (currently on medication) Hx Hypercholesterolemia: Yes (simvastatin ) Hx Pacemaker: No HX Cerebrovascular Accident: No Hx Seizures: No Hx Dementia: No Hx Diabetes: No Hx Gastrointestinal Disorders: No Hx Liver Disease: No Hx Genitourinary Disorders: No Hx Sexually Transmitted Disorders: No Hx Renal Disease (ESRD): No Hx Thyroid Disease: No Hx Human Immunodeficiency Virus (HIV): No (NEGATIVE HX in 2018) Hx Hepatitis C: No Hx Depression: Yes Hx Suicide Attempt: No Hx Bipolar Disorder: Yes (no meds ) Hx Schizophrenia: No - Patient Surgical History Past Surgical History: Yes Hx Neurologic Surgery: No Hx Cataract Extraction: No Hx Cardiac Surgery: No Hx Lung Surgery: No Hx Breast Surgery: No Hx Breast Biopsy: No Hx Abdominal Surgery: Yes (umbilical hernia repair at age 11) Hx Appendectomy: No Hx Cholecystectomy: No Hx Genitourinary Surgery: No Hx Section: No Hx Orthopedic Surgery: No Other Surgical History: bunion right toe surgery done 06/18 Anesthesia Reaction: No - PPD History Previous Implant?: Yes Documented Results: Negative w/proof Date: 10/12/18 Results: 0 mm - Smoking Cessation Smoking history: Former smoker Have you smoked in the past 12 months: No Aproximately how many cigarettes per day: 2 If you are a former smoker, when did you quit?: 2014 Cigars Per Day: 0 Hx Chewing Tobacco Use: No Initiated information on smoking cessation: Yes 'Breaking Loose' booklet given: 06/02/19 - Substances abused Alcohol Substance route: Oral Frequency: Daily Amount used: 4 PINTS OF BACARDI AND 8 CANS OF 16 OUNCES OF BEER Age of first use: 16 Date of last use: 06/02/19 Cocaine Substance route: Smoking Frequency: Daily Amount used: 4 GRAMS Age of first use: 22 Date of last use: 06/01/19 Admission Physical Exam [facility] - Vital Signs Vital Signs: Vital Signs - 24 hr 06/02/19 17:52 Temperature 99.1 F Pulse Rate 80 Respiratory 20 Rate Blood Pressure 141/81 - Physical General Appearance: Yes: Within Normal Limits HEENTM: Yes: Within Normal Limits Respiratory: Yes: Within Normal Limits, Lungs Clear Neck: Yes: Within Normal Limits Cardiology: Yes: Within Normal Limits, Regular Rate Abdominal: Yes: Within Normal Limits, Normal Bowel Sounds, Non Tender Back: Yes: Within Normal Limits, Normal Inspection Musculoskeletal: Yes: Within Normal Limits, full range of Motion 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: Yes: Within Normal Limits, mold laminator II-XII NML intact Integumentary: Yes: Within Normal Limits, Normal Color Lymphatic: Yes: Within Normal Limits - Diagnostic (1) Alcohol dependence with withdrawal, uncomplicated Current Visit: No Status: Acute (2) Bipolar disorder Current Visit: No Status: Chronic Qualifiers: Active/Remission status: remission status unspecified Qualified Code(s): F31.9 - Bipolar disorder, unspecified Comment: By history. Non-compliant with medications. (3) Essential hypertension Current Visit: No Status: Chronic (4) MDD (major depressive disorder) Current Visit: No Status: Chronic Qualifiers: Major depression recurrence: recurrent Major depression episode severity: moderate Comment: Breathalyzer - Breathalyzer Breathalyzer: 0.015 Urine Drug Screen - Test Device Lot number: [id number] Expiration date: 12/30/20 - Control Is test valid?: Yes - Results Drug screen NEGATIVE: No Urine drug screen results: JAZMIN-Cocaine, BZO-Benzodiazepines Inpatient Rehab Admission - Rehab Decision to Admit Inpatient rehab admission?: No
[2019-06-02] MEDS ORDERED: MAGNESIUM HYDROX 2400MG/30ML ORAL SUSPENSION 30 ML CUP PO PRN (18:47)
[2019-06-02] MEDS ORDERED: MAGNESIUM CITRATE 300 ML BOTTLE PO PRN (18:47)
[2019-06-02] MEDS ORDERED: MAG HYDROX/AL HYDROX/SIMETH 30 ML UNIT-DOSE CUP PO PRN (18:47)
[2019-06-02] MEDS ORDERED: METHOCARBAMOL 500 MG TABLET PO PRN (18:47)
[2019-06-02] MEDS ORDERED: ACETAMINOPHEN 325 MG TABLET (FP) PO PRN ×2 (18:47)
[2019-06-02] MEDS ORDERED: hydrOXYzine PAMOATE 25 MG CAPSULE (FP) PO PRN (18:47)
[2019-06-02] MEDS ORDERED: BISMUTH SUBSALICYLATE 524 MG/30 ML UD PO PRN (18:47)
[2019-06-02] MEDS ORDERED: chlordiazePOXIDE HCL 10 MG CAPSULE PO PRN (18:47)
[2019-06-02] MEDS ORDERED: MENTHOL/PHENOL 1 EACH UD MM PRN (18:47)
[2019-06-02] MEDS: IBUPROFEN 400 MG TABLET (FP) PO PRN (19:52)
[2019-06-02] MEDS: amLODIPine BESYLATE 10 MG TABLET (FP) PO SCH (19:52)
[2019-06-02] MEDS ORDERED: MELATONIN 5 MG TABLETS PO PRN (22:00)
[2019-06-02] MEDS: chlordiazePOXIDE HCL 25 MG CAPSULE PO SCH (22:31)
[2019-06-02] MEDS: THIAMINE HCL 100 MG TABLET (FP) PO SCH (22:32)
[2019-06-03] MEDS: chlordiazePOXIDE HCL 25 MG CAPSULE PO SCH ×3 (05:57→22:21)
[2019-06-03] MEDS ORDERED: SERTRALINE HCL 50 MG TABLET (FP) PO SCH (10:00)
[2019-06-03] MEDS: amLODIPine BESYLATE 10 MG TABLET (FP) PO SCH (10:07)
[2019-06-03] MEDS: PRENATAL VITAMINS W/ FOLIC ACID TABLET (FP) PO SCH (10:08)
[2019-06-03 10:19] LABS: HEMATOCRIT 44.6 % (35.4-49); HEMOGLOBIN 14.8 GM/dL (11.7-16.9); MCH 29.8 pg (25.7-33.7); MCHC 33.1 g/dl (32.0-35.9); MEAN PLT VOLUME 8.4 fl (7.5-11.1); PLATELET COUNT 231 K/MM3 (134-434); RBC 4.96 M/mm3 (4.00-5.60); RDW 14.6 % (11.9-15.9); WHITE BLOOD COUNT 4.2 K/mm3 (4.0-10.0)
--- NOTE | 2019-06-03 10:29 | CONSULT ---
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 This is one of multiple admissions for patient. Patient admitted to for alcohol and cocaine dependence. Substance Abuse History: Smoking Cessation. Smoking history: Former smoker. Have you smoked in the past 12 months: No. Aproximately how many cigarettes per day: 2. If you are a former smoker, when did you quit?: 2015. Cigars Per Day: 0. Hx Chewing Tobacco Use: No. Initiated information on smoking cessation : Yes. 'Breaking Loose' booklet given: 06/02/19. - Substances abused. Alcohol. Substance route: Oral. Frequency: Daily. Amount used: 4 PINTS OF BACARDI AND 8 CANS OF 16 OUNCES OF BEER. Age of first use: 16. Date of last use: 06/02/19. Cocaine. Substance route: Smoking. Frequency: Daily. Amount used: 4 GRAMS. Age of first use: 22. Date of last use: 06/01/19 Medical History: Medical profile is remarkable for hypertension, GERD, past treatment for syphilis, surgical intervention for bunion (right toe) and a distant history of herniorraphy (umbilical). Psychiatric History: Mr. Parra first psychiatric contact was ten years ago at [facility] after he was admitted to the psychiatric unit due to feeling severely depressed. He was diagnosed with Bipolar II disorder and prescribed psychotropic medications. Patient reports additional hospitalizations at [facility] secondary to depressive symptoms. States that he used to take zoloft 50mg + Trazodone 50mg HS + Seroquel 100mg HS. Currently, he only accepts zoloft 50mg daily. Patient denies history of suicide attempt. Physical/Sexual Abuse/Trauma History: denies. Mental Status Exam - Mental Status Exam Alert and Oriented to: Time, Place, Person Cognitive Function: Good Patient Appearance: Well Groomed Mood: Withdrawn Affect: Appropriate Thought Process: Intact, Goal Oriented Thought Disorder: Not Present Hallucinations: Denies Suicidal Ideation: Denies Homicidal Ideation: Denies Insight/Judgement: Poor Sleep: Fair Appetite: Fair Muscle strength/Tone: Normal Gait/Station: Normal Psychiatric Findings - Problem List ([place] 1, 2,3) (1) Alcohol dependence with withdrawal, uncomplicated Status: Acute (2) Cocaine dependence, uncomplicated Status: Chronic (3) Mood disorder Status: Chronic (4) Substance induced mood disorder Status: Suspected - Initial Treatment Plan Initial Treatment Plan: Psychoeducation provided. Detoxification in progress. Will resume zoloft 50mg daily. Benefits and side effects discussed. Verbal consent given.
--- NOTE | 2019-06-03 10:33 | PN ---
[facility] CIWA - CIWA Score Nausea/Vomitin-Mild Nausea/No Vomiting Muscle Tremors: 2 Anxiety: 3 Agitation: 2 Paroxysmal Sweats: 2 Orientation: 1-Uncertain about Date (date of week) Tacttile Disturbances: 0-None Auditory Disturbances: 0-None Visual Disturbances: 0-None Headache: 0-None Present CIWA-Ar Total Score: 11 S Progress Note (SOAP) Subjective: 53 years old male admitted on 06/02/19 for alcohol withdrawal sx management treating with librium detox regimen c/o general body and joints aches using kim udbois at home continue kim dubois to jonts and muscle c/o long history of fungal toes no bleeding mild erythmetous clotrimazole topical to toes Objective: 06/03/19 10:32 Vital Signs Temperature 99.5 F 06/03/19 09:13 Pulse Rate 77 06/03/19 09:13 Respiratory Rate 18 06/03/19 09:13 Blood Pressure 119/81 06/03/19 09:13 O2 Sat by Pulse Oximetry (%) Laboratory Last Values WBC 4.2 K/mm3 (4.0-10.0) 06/03/19 08:00 RBC 4.96 M/mm3 (4.00-5.60) 06/03/19 08:00 Hgb 14.8 GM/dL (11.7-16.9) 06/03/19 08:00 Hct 44.6 % (35.4-49) 06/03/19 08:00 MCV 90.0 fl (80-96) 06/03/19 08:00 MCH 29.8 pg (25.7-33.7) 06/03/19 08:00 MCHC 33.1 g/dl (32.0-35.9) 06/03/19 08:00 RDW 14.6 % (11.9-15.9) 06/03/19 08:00 Plt Count 231 K/MM3 (134-434) 06/03/19 08:00 MPV 8.4 fl (7.5-11.1) 06/03/19 08:00 lab noted Assessment: 06/03/19 10:33 alcohol withdrawal Plan: librium regimen
[2019-06-03 10:34] LABS: ALBUMIN 3.6 g/dl (3.4-5.0); BILIRUBIN,TOTAL 0.5 mg/dL (0.2-1); BLOOD UREA NITROGEN 13.8 mg/dL (7-18); CALCIUM 8.4 mg/dL (8.5-10.1); CREATININE 0.9 mg/dL (0.55-1.3); POTASSIUM 3.5 mmol/L (3.5-5.1); TOT PROT 7.2 g/dl (6.4-8.2)
[2019-06-03] MEDS: METHYL SALICYLATE/MENTHOL OINT 30 GM TUBE TP SCH ×2 (11:17→22:22)
[2019-06-03] MEDS: CLOTRIMAZOLE 1% CREAM 15 GM TUBE TP SCH ×2 (11:17→22:22)
[2019-06-03] MEDS: THIAMINE HCL 100 MG TABLET (FP) PO SCH (22:22)
[2019-06-04] MEDS: chlordiazePOXIDE 5 MG CAPSULE PO SCH ×3 (05:34→22:44)
[2019-06-04] MEDS: SERTRALINE HCL 50 MG TABLET (FP) PO SCH (09:48)
[2019-06-04] MEDS: amLODIPine BESYLATE 10 MG TABLET (FP) PO SCH (09:48)
[2019-06-04] MEDS: PRENATAL VITAMINS W/ FOLIC ACID TABLET (FP) PO SCH (09:48)
[2019-06-04] MEDS: CLOTRIMAZOLE 1% CREAM 15 GM TUBE TP SCH ×2 (09:49→22:43)
[2019-06-04] MEDS: METHYL SALICYLATE/MENTHOL OINT 30 GM TUBE TP SCH ×2 (09:49→22:43)
--- NOTE | 2019-06-04 10:26 | PN ---
[facility] CIWA - CIWA Score Nausea/Vomitin-No Nausea/No Vomiting Muscle Tremors: 2 Anxiety: 3 Agitation: 0-Normal Activity Paroxysmal Sweats: 3 Orientation: 0-Oriented Tacttile Disturbances: 1-Very Mild Itch/Numbness Auditory Disturbances: 0-None Visual Disturbances: 0-None Headache: 1-Very Mild CIWA-Ar Total Score: 10 S Progress Note (SOAP) Subjective: c/o anxiety, sweats, mscle aches, and headache. Objective: 06/04/19 10:25 Vital Signs 06/04/19 06/04/19 06/04/19 03:30 06:30 09:17 Temperature 98.4 F 97.1 F L Pulse Rate 77 81 Respiratory 18 18 20 Rate Blood Pressure 122/84 126/77 Laboratory Last Values WBC 4.2 K/mm3 (4.0-10.0) 06/03/19 08:00 RBC 4.96 M/mm3 (4.00-5.60) 06/03/19 08:00 Hgb 14.8 GM/dL (11.7-16.9) 06/03/19 08:00 Hct 44.6 % (35.4-49) 06/03/19 08:00 MCV 90.0 fl (80-96) 06/03/19 08:00 MCH 29.8 pg (25.7-33.7) 06/03/19 08:00 MCHC 33.1 g/dl (32.0-35.9) 06/03/19 08:00 RDW 14.6 % (11.9-15.9) 06/03/19 08:00 Plt Count 231 K/MM3 (134-434) 06/03/19 08:00 MPV 8.4 fl (7.5-11.1) 06/03/19 08:00 Sodium 141 mmol/L (136-145) 06/03/19 08:00 Potassium 3.5 mmol/L (3.5-5.1) 06/03/19 08:00 Chloride 105 mmol/L (98-107) 06/03/19 08:00 Carbon Dioxide 31 mmol/L (21-32) 06/03/19 08:00 Anion Gap 5 MMOL/L (8-16) L 06/03/19 08:00 BUN 13.8 mg/dL (7-18) 06/03/19 08:00 Creatinine 0.9 mg/dL (0.55-1.3) 06/03/19 08:00 Est GFR (CKD-EPI)AfAm 112.62 06/03/19 08:00 Est GFR (CKD-EPI)NonAf 97.17 06/03/19 08:00 Random Glucose 99 mg/dL (74-106) 06/03/19 08:00 Calcium 8.4 mg/dL (8.5-10.1) L 06/03/19 08:00 Total Bilirubin 0.5 mg/dL (0.2-1) 06/03/19 08:00 AST 23 U/L (15-37) 06/03/19 08:00 ALT 37 U/L (13-61) 06/03/19 08:00 Alkaline Phosphatase 94 U/L (45-117) 06/03/19 08:00 Total Protein 7.2 g/dl (6.4-8.2) 06/03/19 08:00 Albumin 3.6 g/dl (3.4-5.0) 06/03/19 08:00 Labs noted. Assessment: AOX3, in no acute respiratory distress. Full ROM, ambulating in the unit. Withdrawal symptoms. Plan: continue detox.
[2019-06-04] MEDS: THIAMINE HCL 100 MG TABLET (FP) PO SCH (22:44)
[2019-06-04] MEDS: IBUPROFEN 400 MG TABLET (FP) PO PRN (22:46)
[2019-06-05] MEDS ORDERED: chlordiazePOXIDE HCL 10 MG CAPSULE PO PRN
[2019-06-05] MEDS: chlordiazePOXIDE HCL 10 MG CAPSULE PO SCH ×3 (05:35→22:40)
[2019-06-05] MEDS: amLODIPine BESYLATE 10 MG TABLET (FP) PO SCH (10:18)
[2019-06-05] MEDS: SERTRALINE HCL 50 MG TABLET (FP) PO SCH (10:18)
[2019-06-05] MEDS: PRENATAL VITAMINS W/ FOLIC ACID TABLET (FP) PO SCH (10:18)
[2019-06-05] MEDS: METHYL SALICYLATE/MENTHOL OINT 30 GM TUBE TP SCH ×2 (10:20→22:39)
[2019-06-05] MEDS: CLOTRIMAZOLE 1% CREAM 15 GM TUBE TP SCH ×2 (10:21→22:40)
--- NOTE | 2019-06-05 11:34 | PN ---
[facility] CIWA - CIWA Score Nausea/Vomitin-No Nausea/No Vomiting Muscle Tremors: None Anxiety: 2 Agitation: 0-Normal Activity Paroxysmal Sweats: 2 Orientation: 0-Oriented Tacttile Disturbances: 0-None Auditory Disturbances: 0-None Visual Disturbances: 0-None Headache: 1-Very Mild CIWA-Ar Total Score: 5 BHS Progress Note (SOAP) Subjective: c/o mild withdrawal symptoms. Objective: 06/05/19 11:36 Vital Signs 06/05/19 06/05/19 06:14 09:12 Temperature 97.9 F 98.2 F Pulse Rate 69 71 Respiratory 18 18 Rate Blood Pressure 124/71 128/82 Laboratory Last Values WBC 4.2 K/mm3 (4.0-10.0) 06/03/19 08:00 RBC 4.96 M/mm3 (4.00-5.60) 06/03/19 08:00 Hgb 14.8 GM/dL (11.7-16.9) 06/03/19 08:00 Hct 44.6 % (35.4-49) 06/03/19 08:00 MCV 90.0 fl (80-96) 06/03/19 08:00 MCH 29.8 pg (25.7-33.7) 06/03/19 08:00 MCHC 33.1 g/dl (32.0-35.9) 06/03/19 08:00 RDW 14.6 % (11.9-15.9) 06/03/19 08:00 Plt Count 231 K/MM3 (134-434) 06/03/19 08:00 MPV 8.4 fl (7.5-11.1) 06/03/19 08:00 Sodium 141 mmol/L (136-145) 06/03/19 08:00 Potassium 3.5 mmol/L (3.5-5.1) 06/03/19 08:00 Chloride 105 mmol/L (98-107) 06/03/19 08:00 Carbon Dioxide 31 mmol/L (21-32) 06/03/19 08:00 Anion Gap 5 MMOL/L (8-16) L 06/03/19 08:00 BUN 13.8 mg/dL (7-18) 06/03/19 08:00 Creatinine 0.9 mg/dL (0.55-1.3) 06/03/19 08:00 Est GFR (CKD-EPI)AfAm 112.62 06/03/19 08:00 Est GFR (CKD-EPI)NonAf 97.17 06/03/19 08:00 Random Glucose 99 mg/dL (74-106) 06/03/19 08:00 Calcium 8.4 mg/dL (8.5-10.1) L 06/03/19 08:00 Total Bilirubin 0.5 mg/dL (0.2-1) 06/03/19 08:00 AST 23 U/L (15-37) 06/03/19 08:00 ALT 37 U/L (13-61) 06/03/19 08:00 Alkaline Phosphatase 94 U/L (45-117) 06/03/19 08:00 Total Protein 7.2 g/dl (6.4-8.2) 06/03/19 08:00 Albumin 3.6 g/dl (3.4-5.0) 06/03/19 08:00 Labs noted. Assessment: 06/05/19 11:36 AOX3, in no acute respiratory distress. Full ROM, ambulating in the unit. Mild Withdrawal symptoms. For d/c tomorrow. Plan: continue detox. D/C in AM.
[2019-06-05] MEDS: THIAMINE HCL 100 MG TABLET (FP) PO SCH (22:40)
[2019-06-05] MEDS: IBUPROFEN 400 MG TABLET (FP) PO PRN (22:48)
[2019-06-06] MEDS ORDERED: chlordiazePOXIDE HCL 10 MG CAPSULE PO ONE (05:00)
[2019-06-06] MEDS: amLODIPine BESYLATE 10 MG TABLET (FP) PO SCH (09:14)
[2019-06-06] MEDS: PRENATAL VITAMINS W/ FOLIC ACID TABLET (FP) PO SCH (09:14)
[2019-06-06] MEDS: CLOTRIMAZOLE 1% CREAM 15 GM TUBE TP SCH (09:14)
[2019-06-06] MEDS: SERTRALINE HCL 50 MG TABLET (FP) PO SCH (09:14)
[2019-06-06] MEDS: METHYL SALICYLATE/MENTHOL OINT 30 GM TUBE TP SCH (09:14)
[2019-06-06 09:19] VITALS: BP 128/86; PULSE 84; TEMP 98.8
--- NOTE | 2019-06-06 14:36 | DS ---
[facility] Detox Discharge Summary Admission Date: 06/02/19 Discharge Date: 06/06/19 - History Present History: Alcohol Dependence Additional Comments: 53 years old male admitted on 06/02/19 for alcohol withdrawal sx management treated with librium detox regimen patient tolerated well alert oriented x 3 cardiac s1s2 regular rate rhythm respiratory clear lungs bilaterally on auscultation skin warm and dry - Physical Exam Results Vital Signs: Vital Signs Temperature 98.8 F 06/06/19 08:45 Pulse Rate 84 06/06/19 08:45 Respiratory Rate 18 06/06/19 08:45 Blood Pressure 128/86 06/06/19 08:45 O2 Sat by Pulse Oximetry (%) Pertinent Admission Physical Exam Findings: alcohol withdrawal Laboratory Last Values WBC 4.2 K/mm3 (4.0-10.0) 06/03/19 08:00 RBC 4.96 M/mm3 (4.00-5.60) 06/03/19 08:00 Hgb 14.8 GM/dL (11.7-16.9) 06/03/19 08:00 Hct 44.6 % (35.4-49) 06/03/19 08:00 MCV 90.0 fl (80-96) 06/03/19 08:00 MCH 29.8 pg (25.7-33.7) 06/03/19 08:00 MCHC 33.1 g/dl (32.0-35.9) 06/03/19 08:00 RDW 14.6 % (11.9-15.9) 06/03/19 08:00 Plt Count 231 K/MM3 (134-434) 06/03/19 08:00 MPV 8.4 fl (7.5-11.1) 06/03/19 08:00 Sodium 141 mmol/L (136-145) 06/03/19 08:00 Potassium 3.5 mmol/L (3.5-5.1) 06/03/19 08:00 Chloride 105 mmol/L (98-107) 06/03/19 08:00 Carbon Dioxide 31 mmol/L (21-32) 06/03/19 08:00 Anion Gap 5 MMOL/L (8-16) L 06/03/19 08:00 BUN 13.8 mg/dL (7-18) 06/03/19 08:00 Creatinine 0.9 mg/dL (0.55-1.3) 06/03/19 08:00 Est GFR (CKD-EPI)AfAm 112.62 06/03/19 08:00 Est GFR (CKD-EPI)NonAf 97.17 06/03/19 08:00 Random Glucose 99 mg/dL (74-106) 06/03/19 08:00 Calcium 8.4 mg/dL (8.5-10.1) L 06/03/19 08:00 Total Bilirubin 0.5 mg/dL (0.2-1) 06/03/19 08:00 AST 23 U/L (15-37) 06/03/19 08:00 ALT 37 U/L (13-61) 06/03/19 08:00 Alkaline Phosphatase 94 U/L (45-117) 06/03/19 08:00 Total Protein 7.2 g/dl (6.4-8.2) 06/03/19 08:00 Albumin 3.6 g/dl (3.4-5.0) 06/03/19 08:00 Vital Signs Temperature 98.8 F 06/06/19 08:45 Pulse Rate 84 06/06/19 08:45 Respiratory Rate 18 06/06/19 08:45 Blood Pressure 128/86 06/06/19 08:45 O2 Sat by Pulse Oximetry (%) - Treatment Hospital Course: Detox Protocol Followed, Detoxed Safely, Responded well, Discharged Condition Good, Rehab Referral Accepted Patient has Accepted a Rehab Referral to: community support approach - Medication Discharge Medications: Ambulatory Orders Sertraline HCl [Zoloft -] 50 mg PO DAILY 06/02/19 Amlodipine Besylate [Norvasc -] 10 mg PO DAILY 15 Days #15 tablet 06/05/19 - Diagnosis (1) Alcohol dependence with withdrawal, uncomplicated Status: Acute (2) Substance induced mood disorder Status: Suspected (3) Essential hypertension Status: Chronic (4) GERD (gastroesophageal reflux disease) Status: Chronic Qualifiers: Esophagitis presence: without esophagitis Qualified Code(s): K21.9 - Gastro -esophageal reflux disease without esophagitis (5) Hyperlipidemia Status: Chronic Qualifiers: Hyperlipidemia type: unspecified Qualified Code(s): E78.5 - Hyperlipidemia , unspecified (6) Substance induced mood disorder Status: Suspected - AMA Did Patient Leave Against Medical Advice: No CIWA Score - CIWA Score Nausea/Vomitin-No Nausea/No Vomiting Muscle Tremors: None Anxiety: 1-Mildly Anxious Agitation: 0-Normal Activity Paroxysmal Sweats: 1-Minimal Palms Moist Orientation: 0-Oriented Tacttile Disturbances: 0-None Auditory Disturbances: 0-None Visual Disturbances: 0-None Headache: 0-None Present CIWA-Ar Total Score: 2
== END 2019-06-06 08:54 | disposition home or self-care (01) | DRG 774 ==
LOC: YASAS 16:41 → Y3N 19:03
PROVIDERS: ADMIT Allergy & Immunology; ATTEND Allergy & Immunology
PROC: HZ2ZZZZ Detoxification Services for Substance Abuse Treatment (ICD-10-PCS; principal; 2019-06-02)
DX: F10.230 Alcohol dependence with withdrawal, uncomplicated (principal); F14.20 Cocaine dependence, uncomplicated; F19.24 Other psychoactive substance dependence with psychoactive substance-induced mood disorder; F39 Unspecified mood [affective] disorder; F33.1 Major depressive disorder, recurrent, moderate; I10 Essential (primary) hypertension; K21.9 Gastro-esophageal reflux disease without esophagitis; E78.5 Hyperlipidemia, unspecified; Z91.010 Allergy to peanuts; Z87.891 Personal history of nicotine dependence; Z87.438 Personal history of other diseases of male genital organs
CPT/HCPCS: 36415; 80053; 85027

== ENCOUNTER 2019-07-10 09:49 | Inpatient (IN) | payer OTHER ==
[2019-07-10 10:07] VITALS: BMI 29.7
--- NOTE | 2019-07-10 10:31 | HP ---
CIWA Score Nausea/Vomitin Muscle Tremors: 1-None Visible, but [place] Anxiety: 1-Mildly Anxious Agitation: 1-Slight > Activity Paroxysmal Sweats: 2 Orientation: 1-Uncertain about Date Tacttile Disturbances: 2-Mild Itch/Numbness/Burn Auditory Disturbances: 1-Very Mild Visual Disturbances: 1-Very Mild Sensitivity Headache: 2-Mild CIWA-Ar Total Score: 15 - Admission Criteria OASAS Guidelines: Admission for Medically Managed Detox: Requires at least one of the followin. CIWA greater than 12 2. Seizures within the past 24 hours 3. Delirium tremens within the past 24 hours 4. Hallucinations within the past 24 hours 5. Acute intervention needed for co occurring medical disorder 6. Acute intervention needed for co occurring psychiatric disorder 7. Severe withdrawal that cannot be handled at a lower level of care (continued vomiting, continued diarrhea, abnormal vital signs) requiring intravenous medication and/or fluids 8. Admitting History and Physical - Admission Chief Complaint: WITHDRAWAL SYMPTOMS History Source: Patient Limitations to Obtaining History: No Limitations - Past Medical History MANAGER OF PATIENT: Yes: Peripheral Neuropathy Cardiovascular: Yes: HTN Gastrointestinal: Yes: GERD Psych: Yes: Depression Musculoskeletal: Yes: Chronic low back pain, Other (Right shoulder pain) - Past Surgical History Past Surgical History: Yes: Hernia Repair Additional Past Surgical History: H/o syncope - Smoking History Smoking history: Former smoker Have you smoked in the past 12 months: No Aproximately how many cigarettes per day: 2 If you are a former smoker, when did you quit?: 2014 - Alcohol/Substance Use Hx Alcohol Use: Yes History of Substance Use: reports: Cocaine - Social History Usual Living Arrangement: Yes: Other (Assisted) Do you think of yourself as: Straight/Heterosexual ADL: Independent Occupation: Unemployeed History of Recent Travel: No Admission [facility] Chief Complaint: WITHDRAWAL SYMPTOMS Allergies/Adverse Reactions: Allergies Allergy/AdvReac Type Severity Reaction Status Date / Time No Known Drug Allergies Allergy Verified 06/02/19 17:55 peanut Allergy Difficulty Verified 07/10/19 09:53 Breathing History of Present Illness: 53 Y.O. MAN WITH AN EXTENSIVE HISTORY OF ALCOHOL AND COCAINE DEPENDENCE IS HERE SEEKING DETOX SERVICES. HE HAS HAD MULTIPLE ADMISSIONS HERE FOR DETOX AND REHAB SERVICES; HE WAS LAST TREATED HERE LAST MONTH. LONGEST PERIOD OF SOBRIETY HAS BEEN 5 YEARS. Exam Limitations: No Limitations - Ebola screening Have you traveled outside of the country in the last 21 days: No Have you had contact with anyone from an Ebola affected area: No Have you been sick,other than usual withdrawal symptoms: No Do you have a fever: No - Review of Systems Constitutional: Chills, Night Sweats, Unintentional Wgt. Loss EENT: reports: Blurred Vision, Tearing Respiratory: reports: No Symptoms reported Cardiac: reports: No Symptoms Reported GI: reports: Diarrhea, Nausea, Vomiting : reports: No Symptoms Reported Musculoskeletal: reports: Back Pain, Joint Pain (RIGHT SHOULDER) Integumentary: reports: No Symptoms Reported Neuro: reports: Numbness, Tingling, Tremors Endocrine: reports: No Symptoms Reported Hematology: reports: No Symptoms Reported Psychiatric: reports: Mood/Affect Appropiate, Anxious, Depressed Other Systems: Reviewed and Negative Patient History - Patient Medical History Hx Anemia: No Hx Asthma: No Hx Chronic Obstructive Pulmonary Disease (COPD): No Hx Cancer: No Hx Cardiac Disorders: No Hx Congestive Heart Failure: No Hx Hypertension: Yes (Currently on medication) Hx Hypercholesterolemia: Yes (No medications ) Hx Pacemaker: No HX Cerebrovascular Accident: No Hx Seizures: No (H/o alcohol induced syncope ) Hx Dementia: No Hx Diabetes: No Hx Gastrointestinal Disorders: No Hx Liver Disease: No Hx Genitourinary Disorders: No Hx Sexually Transmitted Disorders: No Hx Renal Disease (ESRD): No Hx Thyroid Disease: No Hx Human Immunodeficiency Virus (HIV): No (NEGATIVE HX in 2019) Hx Hepatitis C: No Hx Depression: Yes Hx Suicide Attempt: No Hx Bipolar Disorder: Yes (no meds ) Hx Schizophrenia: No - Patient Surgical History Past Surgical History: Yes Hx Neurologic Surgery: No Hx Cataract Extraction: No Hx Cardiac Surgery: No Hx Lung Surgery: No Hx Breast Surgery: No Hx Breast Biopsy: No Hx Abdominal Surgery: Yes (umbilical hernia repair at age 11) Hx Appendectomy: No Hx Cholecystectomy: No Hx Genitourinary Surgery: No Hx Section: No Hx Orthopedic Surgery: No Other Surgical History: bunion right toe surgery done 06/18 Anesthesia Reaction: No - PPD History Previous Implant?: Yes Documented Results: Negative w/proof Implanted On Prior R Admission?: Yes Date: 10/12/18 Results: 0 mm PPD to be Administered?: No - Reproductive History Patient is a Female of Child Bearing Age (11 -55 yrs old): No - Smoking Cessation Smoking history: Former smoker Have you smoked in the past 12 months: No Aproximately how many cigarettes per day: 2 If you are a former smoker, when did you quit?: 2014 Cigars Per Day: 0 Hx Chewing Tobacco Use: No Initiated information on smoking cessation: No - Substance & Tx. History Hx Alcohol Use: Yes Hx Substance Use: Yes Substance Use Type: Alcohol, Cocaine Hx Substance Use Treatment: Yes (Completed detox in 06/2019 here ) - Substances abused Alcohol Substance route: Oral Frequency: Daily Amount used: 6-7 pints of bacardi Age of first use: 16 Date of last use: 07/10/19 Cocaine Substance route: Smoking Frequency: Daily Amount used: 2-3 grams Age of first use: 22 Date of last use: 07/10/19 Admission Physical Exam S - Vital Signs Vital Signs: Vital Signs - 24 hr 07/10/19 10:04 Temperature 99.1 F Pulse Rate 82 Respiratory 16 Rate Blood Pressure 138/86 - Physical General Appearance: Yes: Sweating, Anxious HEENTM: Yes: Hearing grossly Normal, Normocephalic, Normal Voice Respiratory: Yes: Chest Non-Tender, Lungs Clear, Normal Breath Sounds, No Respiratory Distress, No Accessory Muscle Use Neck: Yes: Within Normal Limits Breast: Yes: Breast Exam Deferred Cardiology: Yes: Regular Rhythm, Regular Rate Abdominal: Yes: Normal Bowel Sounds, Non Tender Genitourinary: Yes: Within Normal Limits Back: Yes: Within Normal Limits, Normal Inspection Musculoskeletal: Yes: full range of Motion, Gait Steady Extremities: Yes: Normal Capillary Refill, Normal Inspection, Normal Range of Motion, Non-Tender 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: Yes: Alert, Normal Mood/Affect, Normal Response Integumentary: Yes: Normal Color, Dry, Warm Lymphatic: Yes: Within Normal Limits - Diagnostic (1) Alcohol dependence with withdrawal, uncomplicated Current Visit: Yes Status: Chronic (2) Chronic low back pain Current Visit: Yes Status: Chronic Qualifiers: Back pain laterality: midline Sciatica presence: without sciatica Qualified Code(s): M54.5 - Low back pain; G89.29 - Other chronic pain (3) Cocaine dependence, uncomplicated Current Visit: Yes Status: Chronic (4) Essential hypertension Current Visit: Yes Status: Chronic (5) GERD (gastroesophageal reflux disease) Current Visit: Yes Status: Chronic Qualifiers: Esophagitis presence: without esophagitis Qualified Code(s): K21.9 - Gastro -esophageal reflux disease without esophagitis (6) Hyperlipidemia Current Visit: Yes Status: Chronic Qualifiers: Hyperlipidemia type: unspecified Qualified Code(s): E78.5 - Hyperlipidemia , unspecified (7) Syncope Current Visit: Yes Status: Chronic Qualifiers: Syncope type: unspecified Qualified Code(s): R55 - Syncope and collapse Comment: Last blackout was in 01/2019 (8) Neuropathy Current Visit: Yes Status: Chronic Cleared for Admission S - Detox or Rehab [facility] Level of Care: Medically Managed Detox Regimen/Protocol: Librium Breathalyzer - Breathalyzer Breathalyzer: 0.010 Urine Drug Screen - Test Device Lot number: [id number] Expiration date: 12/30/20 - Control Is test valid?: Yes - Results Drug screen NEGATIVE: No Urine drug screen results: JAZMIN-Cocaine, BZO-Benzodiazepines Inpatient Rehab Admission - Rehab Decision to Admit Inpatient rehab admission?: No
[2019-07-10] MEDS ORDERED: BISMUTH SUBSALICYLATE 524 MG/30 ML UD PO PRN (10:47)
[2019-07-10] MEDS ORDERED: MAGNESIUM CITRATE 300 ML BOTTLE PO PRN (10:47)
[2019-07-10] MEDS ORDERED: hydrOXYzine PAMOATE 25 MG CAPSULE (FP) PO PRN (10:47)
[2019-07-10] MEDS ORDERED: MENTHOL/PHENOL 1 EACH UD MM PRN (10:47)
[2019-07-10] MEDS ORDERED: ACETAMINOPHEN 325 MG TABLET (FP) PO PRN ×2 (10:47)
[2019-07-10] MEDS ORDERED: METHOCARBAMOL 500 MG TABLET PO PRN (10:47)
[2019-07-10] MEDS ORDERED: MAG HYDROX/AL HYDROX/SIMETH 30 ML UNIT-DOSE CUP PO PRN (10:47)
[2019-07-10] MEDS ORDERED: chlordiazePOXIDE HCL 10 MG CAPSULE PO PRN (10:47)
[2019-07-10] MEDS ORDERED: MAGNESIUM HYDROX 2400MG/30ML ORAL SUSPENSION 30 ML CUP PO PRN (10:47)
[2019-07-10] MEDS: chlordiazePOXIDE HCL 25 MG CAPSULE PO SCH ×2 (12:24→22:02)
[2019-07-10] MEDS: amLODIPine BESYLATE 10 MG TABLET (FP) PO SCH (12:24)
[2019-07-10] MEDS: IBUPROFEN 600 MG TABLET (FP) PO PRN ×2 (12:25→22:03)
[2019-07-10] MEDS: METHYL SALICYLATE/MENTHOL OINT 30 GM TUBE TP SCH ×2 (14:15→22:04)
--- NOTE | 2019-07-10 16:11 | CONSULT ---
[facility] Psychiatric Consult - Data Date of interview: 07/10/19 Admission source: [facility] Identifying data: Readmission to [address] [place] [address] for this 53 y/o AA male self-referred for detoxification treatment. [place] issues : alcohol, cocaine, nicotine. 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 Substance Abuse History: Discussed with patient. Details in current [facility] report as follows : Smoking history: Former smoker. Have you smoked in the past 12 months: No. Aproximately how many cigarettes per day: 2. If you are a former smoker, when did you quit?: 2014. Cigars Per Day: 0. Hx Chewing Tobacco Use: No. Initiated information on smoking cessation: No. - Substance & Tx. History. Hx Alcohol Use: Yes. Hx Substance Use: Yes. Substance Use Type: Alcohol, Cocaine. Hx Substance Use Treatment: Yes (Completed detox in 06/2019 here ). - Substances abused. Alcohol. Substance route: Oral. Frequency: Daily. Amount used: 6-7 pints of bacardi. Age of first use: 16. Date of last use: 07/10/19. Cocaine. Substance route: Smoking. Frequency: Daily. Amount used: 2-3 grams. Age of first use: 22. Date of last use: 07/10/19 Medical History: Medical profile is remarkable for hypertension, GERD, past treatment for syphilis, surgical intervention for bunion (right toe) and a distant history of herniorraphy (umbilical). Psychiatric History: Onset of psychiatric disturbances : 2009. Patient was incarcerated at the time. Diagnosed with MDD (later revised to Bipolar Disorder) . Mr Parra endorses a history of multiple psychiatric hospitalizations ([facility] + [facility]). Chronically non-adherent to OPD care and medications (dropped out of treatment at [facility] OPD clinic). Patient is still without the services of a mental health OPD care provider. Has been lost to follow-up for several months. Has neglected to honor his referrals for aftercare. Patient has been treated, in the past, on a regimen of zoloft 50 mg/ day + seroquel 100 mg/hs + trazodone 50 mg/hs. In this hospital course, he requests to get back on sertraline 50 mg/daily (only). Denies history of suicide attempts. Physical/Sexual Abuse/Trauma History: Patient denies. Additional Comment: Urine drug screen results: JAZMIN-Cocaine, BZO- Benzodiazepines. Noted. Mental Status Exam - Mental Status Exam Alert and Oriented to: Time, Place, Person Cognitive Function: Good Patient Appearance: Well Groomed Mood: Withdrawn, Hopeful Affect: Appropriate, Normal Range Patient Behavior: Fatigued, Appropriate, Cooperative Speech Pattern: Clear, Appropriate Voice Loudness: Normal Thought Process: Intact, Goal Oriented Thought Disorder: Not Present Hallucinations: Denies Suicidal Ideation: Denies Homicidal Ideation: Denies Insight/Judgement: Poor Sleep: Fair Appetite: Good Gait/Station: Normal Psychiatric Findings - Problem List ([place] 1, 2,3) (1) Alcohol dependence with withdrawal, uncomplicated Current Visit: Yes Status: Chronic (2) Cocaine dependence, uncomplicated Current Visit: Yes Status: Chronic (3) Substance induced mood disorder Current Visit: Yes Status: Chronic (4) History of depression Current Visit: Yes Status: Chronic - Initial Treatment Plan Initial Treatment Plan: Psychoeducation. Sleep hygiene. Detoxification. Resumed , at patient's request : zoloft 50 mg po daily. Side effects/benefits discussed with patient. Gave his consent (verbal) to MD. Tan.
[2019-07-10] MEDS ORDERED: MELATONIN 5 MG TABLETS PO PRN (22:00)
[2019-07-10] MEDS: THIAMINE HCL 100 MG TABLET (FP) PO SCH (22:02)
[2019-07-11] MEDS: chlordiazePOXIDE HCL 25 MG CAPSULE PO SCH ×3 (06:00→22:18)
--- NOTE | 2019-07-11 09:05 | PN ---
S CIWA - CIWA Score Nausea/Vomitin-Mild Nausea/No Vomiting Muscle Tremors: 3 Anxiety: 2 Agitation: 1-Slight > Activity Paroxysmal Sweats: 2 Orientation: 0-Oriented Tacttile Disturbances: 0-None Auditory Disturbances: 0-None Visual Disturbances: 1-Very Mild Sensitivity Headache: 2-Mild CIWA-Ar Total Score: 12 BHS Progress Note (SOAP) Subjective: 53 years old male admitted on 07/10/19 for alcohol withdrawal sx management treating with librium detox regiment resting in bed feeling tired encourage to attend behavior and psysocial therapies groups and meetings while in detox Objective: 07/11/19 09:04 Vital Signs Temperature 97.5 F L 07/11/19 07:03 Pulse Rate 68 07/11/19 07:03 Respiratory Rate 18 07/11/19 07:03 Blood Pressure 124/80 07/11/19 07:03 O2 Sat by Pulse Oximetry (%) 07/11/19 09:04 lab pending Assessment: 07/11/19 09:04 alcohol withdrawal Plan: librium regiment
[2019-07-11] MEDS: amLODIPine BESYLATE 10 MG TABLET (FP) PO SCH (10:09)
[2019-07-11] MEDS: PRENATAL VITAMINS W/ FOLIC ACID TABLET (FP) PO SCH (10:09)
[2019-07-11] MEDS: SERTRALINE HCL 50 MG TABLET (FP) PO SCH (10:09)
[2019-07-11] MEDS: METHYL SALICYLATE/MENTHOL OINT 30 GM TUBE TP SCH ×2 (10:10→22:19)
[2019-07-11 10:12] LABS: HEMATOCRIT 44.8 % (35.4-49); HEMOGLOBIN 15.1 GM/dL (11.7-16.9); MCH 30.1 pg (25.7-33.7); MCHC 33.8 g/dl (32.0-35.9); MEAN CELL VOLUME 89.2 fl (80-96); MEAN PLT VOLUME 8.9 fl (7.5-11.1); PLATELET COUNT 207 K/MM3 (134-434); RBC 5.02 M/mm3 (4.00-5.60); RDW 14.3 % (11.9-15.9); WHITE BLOOD COUNT 3.9 K/mm3 (4.0-10.0)
[2019-07-11 10:51] LABS: ALBUMIN 3.4 g/dl (3.4-5.0); BILIRUBIN,TOTAL 1.2 mg/dL (0.2-1); BLOOD UREA NITROGEN 14.7 mg/dL (7-18); CALCIUM 8.3 mg/dL (8.5-10.1); CREATININE 0.8 mg/dL (0.55-1.3); POTASSIUM 3.6 mmol/L (3.5-5.1); TOT PROT 7.2 g/dl (6.4-8.2)
[2019-07-11] MEDS ORDERED: FLU VACCINE QUAD 60 MCG/0.5 ML (MDV 19-20) IM ONE (12:00)
[2019-07-11] MEDS: THIAMINE HCL 100 MG TABLET (FP) PO SCH (22:18)
[2019-07-12] MEDS: chlordiazePOXIDE 5 MG CAPSULE PO SCH ×3 (05:36→22:07)
[2019-07-12] MEDS: amLODIPine BESYLATE 10 MG TABLET (FP) PO SCH (10:25)
[2019-07-12] MEDS: PRENATAL VITAMINS W/ FOLIC ACID TABLET (FP) PO SCH (10:25)
[2019-07-12] MEDS: SERTRALINE HCL 50 MG TABLET (FP) PO SCH (10:25)
[2019-07-12] MEDS: METHYL SALICYLATE/MENTHOL OINT 30 GM TUBE TP SCH ×2 (10:25→22:14)
--- NOTE | 2019-07-12 15:34 | PN ---
[facility] CIWA - CIWA Score Nausea/Vomitin-No Nausea/No Vomiting Muscle Tremors: 2 Anxiety: 3 Agitation: 1-Slight > Activity Paroxysmal Sweats: 2 Orientation: 0-Oriented Tacttile Disturbances: 0-None Auditory Disturbances: 0-None Visual Disturbances: 0-None Headache: 0-None Present CIWA-Ar Total Score: 8 BHS Progress Note (SOAP) Subjective: 53 years old male admitted on 07/10/19 for alcohol withdrawal sx management treating with librium detox regiment feeling ok today sleep better at night encourage the patient to attend behavior and psychosocial therapies groups and meetings Objective: 07/12/19 15:35 Vital Signs Temperature 97.5 F L 07/12/19 12:44 Pulse Rate 77 07/12/19 12:44 Respiratory Rate 16 07/12/19 12:44 Blood Pressure 117/69 07/12/19 12:44 O2 Sat by Pulse Oximetry (%) Laboratory Last Values WBC 3.9 K/mm3 (4.0-10.0) L 07/11/19 07:20 RBC 5.02 M/mm3 (4.00-5.60) 07/11/19 07:20 Hgb 15.1 GM/dL (11.7-16.9) 07/11/19 07:20 Hct 44.8 % (35.4-49) 07/11/19 07:20 MCV 89.2 fl (80-96) 07/11/19 07:20 MCH 30.1 pg (25.7-33.7) 07/11/19 07:20 MCHC 33.8 g/dl (32.0-35.9) 07/11/19 07:20 RDW 14.3 % (11.9-15.9) 07/11/19 07:20 Plt Count 207 K/MM3 (134-434) 07/11/19 07:20 MPV 8.9 fl (7.5-11.1) 07/11/19 07:20 Sodium 139 mmol/L (136-145) 07/11/19 07:20 Potassium 3.6 mmol/L (3.5-5.1) 07/11/19 07:20 Chloride 104 mmol/L (98-107) 07/11/19 07:20 Carbon Dioxide 30 mmol/L (21-32) 07/11/19 07:20 Anion Gap 5 MMOL/L (8-16) L 07/11/19 07:20 BUN 14.7 mg/dL (7-18) 07/11/19 07:20 Creatinine 0.8 mg/dL (0.55-1.3) 07/11/19 07:20 Est GFR (CKD-EPI)AfAm 118.20 07/11/19 07:20 Est GFR (CKD-EPI)NonAf 101.99 07/11/19 07:20 Random Glucose 90 mg/dL (74-106) 07/11/19 07:20 Calcium 8.3 mg/dL (8.5-10.1) L 07/11/19 07:20 Total Bilirubin 1.2 mg/dL (0.2-1) H 07/11/19 07:20 AST 18 U/L (15-37) 07/11/19 07:20 ALT 30 U/L (13-61) 07/11/19 07:20 Alkaline Phosphatase 102 U/L (45-117) 07/11/19 07:20 Total Protein 7.2 g/dl (6.4-8.2) 07/11/19 07:20 Albumin 3.4 g/dl (3.4-5.0) 07/11/19 07:20 RPR Titer Nonreactive (NONREACTIVE) 07/11/19 07:20 HIV 1&2 Antibody Screen Cancelled 07/11/19 07:20 HIV P24 Antigen Cancelled 07/11/19 07:20 lab noted Assessment: 07/12/19 15:37 alcohol withdrawal Plan: librium regiment
[2019-07-12] MEDS: THIAMINE HCL 100 MG TABLET (FP) PO SCH (22:07)
[2019-07-13] MEDS ORDERED: chlordiazePOXIDE HCL 10 MG CAPSULE PO PRN
[2019-07-13] MEDS ORDERED: chlordiazePOXIDE HCL 10 MG CAPSULE PO SCH (05:00)
[2019-07-13 09:40] VITALS: BP 104/74; PULSE 97; TEMP 98.2
--- NOTE | 2019-07-13 09:41 | DS ---
[facility] Detox Discharge Summary Admission Date: 07/10/19 Discharge Date: 07/13/19 - History Present History: Alcohol Dependence Additional Comments: 53 years old male admitted on 07/10/19 for alcohol withdrawal sx management [place] with libirum detox regiment patient prefers to leave the detox today that one day earlier than estimated day of 07/14/19 patient is alert oriented x 4 speech clearly coherently ambulating steady gait seen by psychiatrist resume zoloft respiratory clear lungs bilaterally on auscultation extremities full range of motion skin warm and dry Pertinent Past History: time for discharge: 29 minutes - Physical Exam Results Vital Signs: Vital Signs Temperature 98.2 F 07/13/19 09:17 Pulse Rate 97 H 07/13/19 09:17 Respiratory Rate 18 07/13/19 09:17 Blood Pressure 104/74 07/13/19 09:17 O2 Sat by Pulse Oximetry (%) Pertinent Admission Physical Exam Findings: alcohol withdrawal Laboratory Last Values WBC 3.9 K/mm3 (4.0-10.0) L 07/11/19 07:20 RBC 5.02 M/mm3 (4.00-5.60) 07/11/19 07:20 Hgb 15.1 GM/dL (11.7-16.9) 07/11/19 07:20 Hct 44.8 % (35.4-49) 07/11/19 07:20 MCV 89.2 fl (80-96) 07/11/19 07:20 MCH 30.1 pg (25.7-33.7) 07/11/19 07:20 MCHC 33.8 g/dl (32.0-35.9) 07/11/19 07:20 RDW 14.3 % (11.9-15.9) 07/11/19 07:20 Plt Count 207 K/MM3 (134-434) 07/11/19 07:20 MPV 8.9 fl (7.5-11.1) 07/11/19 07:20 Sodium 139 mmol/L (136-145) 07/11/19 07:20 Potassium 3.6 mmol/L (3.5-5.1) 07/11/19 07:20 Chloride 104 mmol/L (98-107) 07/11/19 07:20 Carbon Dioxide 30 mmol/L (21-32) 07/11/19 07:20 Anion Gap 5 MMOL/L (8-16) L 07/11/19 07:20 BUN 14.7 mg/dL (7-18) 07/11/19 07:20 Creatinine 0.8 mg/dL (0.55-1.3) 07/11/19 07:20 Est GFR (CKD-EPI)AfAm 118.20 07/11/19 07:20 Est GFR (CKD-EPI)NonAf 101.99 07/11/19 07:20 Random Glucose 90 mg/dL (74-106) 07/11/19 07:20 Calcium 8.3 mg/dL (8.5-10.1) L 07/11/19 07:20 Total Bilirubin 1.2 mg/dL (0.2-1) H 07/11/19 07:20 AST 18 U/L (15-37) 07/11/19 07:20 ALT 30 U/L (13-61) 07/11/19 07:20 Alkaline Phosphatase 102 U/L (45-117) 07/11/19 07:20 Total Protein 7.2 g/dl (6.4-8.2) 07/11/19 07:20 Albumin 3.4 g/dl (3.4-5.0) 07/11/19 07:20 RPR Titer Nonreactive (NONREACTIVE) 07/11/19 07:20 HIV 1&2 Ag/Ab, 4th Gen Non reactive (Non Reactive) 07/11/19 10:00 HIV 1&2 Antibody Screen Cancelled 07/11/19 07:20 HIV P24 Antigen Cancelled 07/11/19 07:20 lab noted - Treatment Hospital Course: Detox Protocol Followed, Detoxed Safely, Responded well, Discharged Condition Good, Rehab Referral Accepted Patient has Accepted a Rehab Referral to: [facility] Clear - Medication Discharge Medications: Ambulatory Orders Sertraline HCl [Zoloft -] 50 mg PO DAILY 06/02/19 Amlodipine Besylate [Norvasc -] 10 mg PO DAILY 15 Days #15 tablet 06/05/19 - Diagnosis (1) Alcohol dependence with withdrawal, uncomplicated Status: Acute (2) Essential hypertension Status: Chronic (3) GERD (gastroesophageal reflux disease) Status: Chronic Qualifiers: Esophagitis presence: without esophagitis Qualified Code(s): K21.9 - Gastro -esophageal reflux disease without esophagitis (4) Hyperlipidemia Status: Acute Qualifiers: Hyperlipidemia type: unspecified Qualified Code(s): E78.5 - Hyperlipidemia , unspecified (5) Neuropathy Status: Chronic (6) Substance induced mood disorder Status: Suspected - AMA Did Patient Leave Against Medical Advice: No CIWA Score - CIWA Score Nausea/Vomitin-No Nausea/No Vomiting Muscle Tremors: 1-None Visible, but [place] Anxiety: 1-Mildly Anxious Agitation: 0-Normal Activity Paroxysmal Sweats: 1-Minimal Palms Moist Orientation: 0-Oriented Tacttile Disturbances: 0-None Auditory Disturbances: 0-None Visual Disturbances: 0-None Headache: 0-None Present CIWA-Ar Total Score: 3
[2019-07-13] MEDS: METHYL SALICYLATE/MENTHOL OINT 30 GM TUBE TP SCH (11:11)
[2019-07-13] MEDS: amLODIPine BESYLATE 10 MG TABLET (FP) PO SCH (11:11)
[2019-07-13] MEDS: PRENATAL VITAMINS W/ FOLIC ACID TABLET (FP) PO SCH (11:12)
[2019-07-13] MEDS: SERTRALINE HCL 50 MG TABLET (FP) PO SCH (11:12)
[2019-07-14] MEDS ORDERED: chlordiazePOXIDE HCL 10 MG CAPSULE PO ONE (05:00)
== END 2019-07-13 10:22 | disposition home or self-care (01) | DRG 774 ==
LOC: YASAS 09:49 → Y3N 11:00
PROVIDERS: ADMIT Allergy & Immunology; ATTEND Allergy & Immunology
PROC: HZ2ZZZZ Detoxification Services for Substance Abuse Treatment (ICD-10-PCS; principal; 2019-07-10)
DX: F10.230 Alcohol dependence with withdrawal, uncomplicated (principal); F14.20 Cocaine dependence, uncomplicated; F19.24 Other psychoactive substance dependence with psychoactive substance-induced mood disorder; I10 Essential (primary) hypertension; E78.5 Hyperlipidemia, unspecified; K21.9 Gastro-esophageal reflux disease without esophagitis; G62.9 Polyneuropathy, unspecified; M54.5 Low back pain; M25.511 Pain in right shoulder; G89.29 Other chronic pain; Z87.891 Personal history of nicotine dependence; Z87.438 Personal history of other diseases of male genital organs; Z91.010 Allergy to peanuts
CPT/HCPCS: 36415; 80053; 85027; 86593; 87389

== ENCOUNTER 2019-08-07 14:25 | Inpatient (IN) | payer OTHER ==
--- NOTE | 2019-08-07 17:29 | BHS.RME ---
Substance Use & Tx History - Substance Use History Alcohol Frequency of use: Daily Substance route: Oral Date of Last Use: 08/07/19 - Last Treatment Date of last treatment: 07/10/2019 Where was last treatment: Detox Physical/Psych/Mental Status - Behavior General Behavior: Increased activity (restlessness, agitation) Eye Contact: Normal Other Behaviors: Mannerisms - Cooperativeness Cooperativeness: Cooperative - Thinking Thought Processes: Goal Directed Thought content: Future oriented - Physical Health Problems Is patient presently having any pain?: Yes (in legs and abdomen) Does patient presently have any injuries (include location): No Does patient currently have a fever: No Is patient : No (NA) CIWA Nausea/Vomitin Muscle Tremors: 2 Anxiety: 2 Agitation: 2 Paroxysmal Sweats: 2 Orientation: 0-Oriented Tacttile Disturbances: 2-Mild Itch/Numbness/Burn Auditory Disturbances: 0-None Visual Disturbances: 0-None Headache: 2-Mild CIWA-Ar Total Score: 14 Treatment Recommendation - Level of Care Level of Care: Acute Medical
--- NOTE | 2019-08-07 17:34 | HP ---
CIWA Score Nausea/Vomitin Muscle Tremors: 2 Anxiety: 2 Agitation: 2 Paroxysmal Sweats: 2 Orientation: 0-Oriented Tacttile Disturbances: 2-Mild Itch/Numbness/Burn Auditory Disturbances: 0-None Visual Disturbances: 0-None Headache: 2-Mild CIWA-Ar Total Score: 14 - Admission Criteria OASAS Guidelines: Admission for Medically Managed Detox: Requires at least one of the followin. CIWA greater than 12 2. Seizures within the past 24 hours 3. Delirium tremens within the past 24 hours 4. Hallucinations within the past 24 hours 5. Acute intervention needed for co occurring medical disorder 6. Acute intervention needed for co occurring psychiatric disorder 7. Severe withdrawal that cannot be handled at a lower level of care (continued vomiting, continued diarrhea, abnormal vital signs) requiring intravenous medication and/or fluids 8. Admitting History and Physical - Past Medical History HAT BLOCKER: Yes: Peripheral Neuropathy Cardiovascular: Yes: HTN Gastrointestinal: Yes: GERD Psych: Yes: Depression Musculoskeletal: Yes: Chronic low back pain, Other (Right shoulder pain) - Past Surgical History Past Surgical History: Yes: Hernia Repair - Smoking History Smoking history: Former smoker Have you smoked in the past 12 months: No Aproximately how many cigarettes per day: 2 If you are a former smoker, when did you quit?: 2015 - Alcohol/Substance Use Hx Alcohol Use: Yes History of Substance Use: reports: Cocaine - Social History ADL: Independent Occupation: Unemploy[employer] History of Recent Travel: No Admission [facility] Chief Complaint: I am trying to get clean so I can go to group home treatment Allergies/Adverse Reactions: Allergies Allergy/AdvReac Type Severity Reaction Status Date / Time No Known Drug Allergies Allergy Verified 06/02/19 17:55 peanut Allergy Difficulty Verified 07/10/19 09:53 Breathing History of Present Illness: Patient is a 53 year old man with long standing history of alcohol dependence who presents for detox. His last treatment was from 07/10/19 to 07/13/19 at this facility. He is admitted in no apparent distress. Exam Limitations: No Limitations - Ebola screening Have you traveled outside of the country in the last 21 days: No Have you had contact with anyone from an Ebola affected area: No Have you been sick,other than usual withdrawal symptoms: No Do you have a fever: No - Review of Systems Constitutional: Loss of Appetite, Changes in sleep, Weight Stable EENT: reports: No Symptoms Reported Respiratory: reports: Cough (dry scratchy throat) Cardiac: reports: No Symptoms Reported GI: reports: Nausea, Poor Appetite, Vomiting, Abdominal cramping : reports: No Symptoms Reported Musculoskeletal: reports: Back Pain, Joint Pain, Muscle Pain Neuro: reports: Headache, Numbness, Tremors, Other (blackouts, last episode a month ago) Endocrine: reports: No Symptoms Reported Hematology: reports: No Symptoms Reported Psychiatric: reports: Anxious, Depressed Other Systems: Reviewed and Negative Patient History - Patient Medical History Hx Anemia: No Hx Asthma: No Hx Chronic Obstructive Pulmonary Disease (COPD): No Hx Cancer: No Hx Cardiac Disorders: No Hx Congestive Heart Failure: No Hx Hypertension: Yes (Currently on medication) Hx Hypercholesterolemia: Yes Hx Pacemaker: No HX Cerebrovascular Accident: No Hx Seizures: No Hx Dementia: No Hx Diabetes: No Hx Gastrointestinal Disorders: No Hx Liver Disease: No Hx Genitourinary Disorders: No Hx Sexually Transmitted Disorders: No Hx Renal Disease (ESRD): No Hx Thyroid Disease: No Hx Human Immunodeficiency Virus (HIV): No Hx Hepatitis C: No Hx Depression: Yes Hx Suicide Attempt: No Hx Bipolar Disorder: Yes Hx Schizophrenia: No - Patient Surgical History Past Surgical History: Yes Hx Neurologic Surgery: No Hx Cataract Extraction: No Hx Cardiac Surgery: No Hx Lung Surgery: No Hx Breast Surgery: No Hx Breast Biopsy: No Hx Abdominal Surgery: Yes (umbilical hernia repair at age 11) Hx Appendectomy: No Hx Cholecystectomy: No Hx Genitourinary Surgery: No Hx Section: No Hx Orthopedic Surgery: Yes (right bunion surgery) Anesthesia Reaction: No - PPD History Previous Implant?: Yes Documented Results: Negative w/proof Implanted On Prior [facility] Admission?: Yes Date: 10/12/18 Results: 0 mm PPD to be Administered?: No - Smoking Cessation Smoking history: Former smoker Have you smoked in the past 12 months: No If you are a former smoker, when did you quit?: 2014 Cigars Per Day: 0 Hx Chewing Tobacco Use: No Initiated information on smoking cessation: No Admission Physical Exam BHS - Physical General Appearance: Yes: No Apparent Distress HEENTM: Yes: Hearing grossly Normal, Normocephalic, Normal Voice, Pharynx Normal Respiratory: Yes: Chest Non-Tender, Lungs Clear, Normal Breath Sounds, No Respiratory Distress, No Accessory Muscle Use Neck: Yes: No masses,lesions,Nodules, Supple Breast: Yes: Breast Exam Deferred Cardiology: Yes: Regular Rhythm, Regular Rate, S1, S2 Abdominal: Yes: Normal Bowel Sounds, Soft Genitourinary: Yes: Within Normal Limits Back: Yes: Normal Inspection Musculoskeletal: Yes: full range of Motion, Gait Steady Extremities: Yes: Normal Range of Motion, Non-Tender, Tremors 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, Fully Oriented, Alert, Normal Mood/Affect, Normal Response Integumentary: Yes: Moist Lymphatic: Yes: Within Normal Limits - Diagnostic (1) Alcohol dependence with withdrawal, uncomplicated Current Visit: Yes Status: Acute (2) Hyperlipidemia Current Visit: Yes Status: Chronic Qualifiers: Hyperlipidemia type: moderate mixed hyperlipidemia not requiring statin therapy Qualified Code(s): E78.2 - Mixed hyperlipidemia (3) Chronic low back pain Current Visit: Yes Status: Chronic Qualifiers: Back pain laterality: midline Sciatica presence: without sciatica Qualified Code(s): M54.5 - Low back pain; G89.29 - Other chronic pain (4) Cocaine dependence, uncomplicated Current Visit: Yes Status: Acute (5) Essential hypertension Current Visit: Yes Status: Chronic (6) GERD (gastroesophageal reflux disease) Current Visit: Yes Status: Chronic Qualifiers: Esophagitis presence: without esophagitis Qualified Code(s): K21.9 - Gastro-esophageal reflux disease without esophagitis (7) Neuropathy Current Visit: Yes Status: Chronic Cleared for Admission S - Detox or Rehab [facility] Level of Care: Medically Managed Detox Regimen/Protocol: Librium Claeared for Rehab Admission: No Breathalyzer - Breathalyzer Breathalyzer: 0 Urine Drug Screen - Test Device Lot number: [id number] Expiration date: 05/01/21 - Control Is test valid?: Yes - Results Drug screen NEGATIVE: No Urine drug screen results: JAZMIN-Cocaine Inpatient Rehab Admission - Rehab Decision to Admit Inpatient rehab admission?: No
[2019-08-07] MEDS ORDERED: MAGNESIUM CITRATE 300 ML BOTTLE PO PRN (17:39)
[2019-08-07] MEDS ORDERED: BISMUTH SUBSALICYLATE 524 MG/30 ML UD PO PRN (17:39)
[2019-08-07] MEDS ORDERED: MENTHOL/PHENOL 1 EACH UD MM PRN (17:39)
[2019-08-07] MEDS ORDERED: ONDANSETRON *ODT* 4 MG TABLET SL ONE (17:39)
[2019-08-07] MEDS ORDERED: chlordiazePOXIDE HCL 10 MG CAPSULE PO PRN (17:39)
[2019-08-07] MEDS ORDERED: MAGNESIUM HYDROX 2400MG/30ML ORAL SUSPENSION 30 ML CUP PO PRN (17:39)
[2019-08-07] MEDS ORDERED: MAG HYDROX/AL HYDROX/SIMETH 30 ML UNIT-DOSE CUP PO PRN (17:39)
[2019-08-07] MEDS ORDERED: ACETAMINOPHEN 325 MG TABLET (FP) PO PRN ×2 (17:39)
[2019-08-07] MEDS ORDERED: METHOCARBAMOL 500 MG TABLET PO PRN (17:39)
[2019-08-07] MEDS: hydrOXYzine PAMOATE 25 MG CAPSULE (FP) PO SCH ×2 (19:00→22:40)
[2019-08-07] MEDS: THIAMINE HCL 100 MG TABLET (FP) PO SCH (22:40)
[2019-08-07] MEDS: chlordiazePOXIDE HCL 25 MG CAPSULE PO SCH (22:41)
[2019-08-07] MEDS: MELATONIN 5 MG TABLETS PO SCH (22:41)
[2019-08-08] MEDS: hydrOXYzine PAMOATE 25 MG CAPSULE (FP) PO SCH ×5 (06:02→22:50)
[2019-08-08] MEDS: chlordiazePOXIDE HCL 25 MG CAPSULE PO SCH ×3 (06:03→22:49)
[2019-08-08] MEDS: amLODIPine BESYLATE 10 MG TABLET (FP) PO SCH (11:05)
[2019-08-08] MEDS: PRENATAL VITAMINS W/ FOLIC ACID TABLET (FP) PO SCH (11:05)
--- NOTE | 2019-08-08 11:31 | PN ---
S CIWA - CIWA Score Nausea/Vomitin-No Nausea/No Vomiting Muscle Tremors: 2 Anxiety: 2 Agitation: 2 Paroxysmal Sweats: 2 Orientation: 0-Oriented Tacttile Disturbances: 0-None Auditory Disturbances: 0-None Visual Disturbances: 0-None Headache: 0-None Present CIWA-Ar Total Score: 8 BHS Progress Note (SOAP) Subjective: sweats irritable agitation interrupted sleep Objective: 08/08/19 11:39 Vital Signs Temperature 97.9 F 08/08/19 09:36 Pulse Rate 66 08/08/19 09:36 Respiratory Rate 20 08/08/19 09:36 Blood Pressure 140/81 08/08/19 09:36 O2 Sat by Pulse Oximetry (%) aaox3 ambulating no acute distress Assessment: 08/08/19 11:40 withdrawals Plan: continue detox increase fluids pending labs
[2019-08-08 11:39] LABS: HEMATOCRIT 40.1 % (35.4-49); HEMOGLOBIN 13.5 GM/dL (11.7-16.9); MCH 30.4 pg (25.7-33.7); MCHC 33.8 g/dl (32.0-35.9); MEAN CELL VOLUME 90.1 fl (80-96); MEAN PLT VOLUME 8.1 fl (7.5-11.1); PLATELET COUNT 242 K/MM3 (134-434); RBC 4.45 M/mm3 (4.00-5.60); RDW 15.1 % (11.9-15.9); WHITE BLOOD COUNT 3.7 K/mm3 (4.0-10.0)
[2019-08-08 12:06] LABS: BILIRUBIN,TOTAL 0.6 mg/dL (0.2-1); BLOOD UREA NITROGEN 15.6 mg/dL (7-18); CALCIUM 8.1 mg/dL (8.5-10.1); TOT PROT 6.4 g/dl (6.4-8.2)
[2019-08-08] MEDS: THIAMINE HCL 100 MG TABLET (FP) PO SCH (22:49)
[2019-08-08] MEDS: MELATONIN 5 MG TABLETS PO SCH (22:50)
[2019-08-09] MEDS: hydrOXYzine PAMOATE 25 MG CAPSULE (FP) PO SCH ×5 (05:26→23:09)
[2019-08-09] MEDS: chlordiazePOXIDE 5 MG CAPSULE PO SCH ×3 (05:26→23:09)
--- NOTE | 2019-08-09 09:20 | CONSULT ---
[facility] Psychiatric Consult - Data Date of interview: 08/09/19 Admission source: Self-referred Identifying data: Mr Parra is a 53 years old single Black male, unemployed, domiciled seeking detox treatment for alcohol and cocaine Substance Abuse History: Reports history of alcohol and cocaine use. Refer to addiction counselor's summary for further information Medical History: Significant for hypertension, dyslipidemia, GERD, peripheral neuropathy, chronic low back pain, history of treatment for syphilis, bunionectomy (right toe) and umbilical hernia repair. Psychiatric History: Patient is known for multiple previous admissions to this facility. Historical narrative remains consistent. He reports that his first psychiatric contact occured while in halfway in 2009. He said that he was diagnos ed with MDD at first and started on psychotropic medications. He said that his diagnosis was later revised to Bipolar Disorder. Reports multiple previous psychiatric hospitalizations at [facility] and [facility]. Chronically non-adherent to OPD care and medications (dropped out of treatment at [facility] OPD clinic). No current OPD. Patient has been treated, in the past, on a regimen of Zoloft 50 mg/day, Seroquel 100 mg/hs and Trazodone 50 mg/hs. During most recent admission to this facility, he was seen by Dr Ruiz on 07/10/19 and he was prescribed only Zoloft 50nmg/day at his request. Denies previous suicide attempt. At present, denies experiencing psychotic, manic symptoms, S/H ideations. However, reports feeling depressed and sleeping poorly. He only requests medication for sleep Additional Comment: History of halfway incarceration Mental Status Exam - Mental Status Exam Alert and Oriented to: Time, Place, Person Cognitive Function: Fair Patient Appearance: Well Groomed Mood: Depressed Affect: Appropriate Patient Behavior: Cooperative Speech Pattern: Clear Voice Loudness: Normal Thought Process: Intact Hallucinations: Denies Suicidal Ideation: Denies Homicidal Ideation: Denies Insight/Judgement: Poor Sleep: Poorly Appetite: Good Muscle strength/Tone: Normal Gait/Station: Normal Psychiatric Findings - Problem List ([place] 1, 2,3) (1) Mood disorder Current Visit: Yes Status: Chronic (2) Bipolar disorder Current Visit: Yes Status: Ruled-out (3) Alcohol-induced mood disorder Current Visit: Yes Status: Acute (4) Alcohol-induced sleep disorder Current Visit: Yes Status: Acute (5) Alcohol dependence with withdrawal, uncomplicated Current Visit: Yes Status: Acute (6) Cocaine dependence, uncomplicated Current Visit: Yes Status: Acute (7) Nicotine dependence Current Visit: Yes Status: Chronic (8) Essential hypertension Current Visit: Yes Status: Chronic (9) Hyperlipidemia Current Visit: Yes Status: Chronic Qualifiers: Hyperlipidemia type: moderate mixed hyperlipidemia not requiring statin therapy Qualified Code(s): E78.2 - Mixed hyperlipidemia (10) GERD (gastroesophageal reflux disease) Current Visit: Yes Status: Chronic Qualifiers: Esophagitis presence: without esophagitis Qualified Code(s): K21.9 - [place] ro-esophageal reflux disease without esophagitis (11) Chronic low back pain Current Visit: Yes Status: Chronic Qualifiers: Back pain laterality: midline Sciatica presence: without sciatica Qualified Code(s): M54.5 - Low back pain; G89.29 - Other chronic pain (12) Neuropathy Current Visit: Yes Status: Chronic - Initial Treatment Plan Initial Treatment Plan: 1) Start Melatonin 10 mg po HS prn for insomnia. 2) Continue inpatient detoxification
[2019-08-09] MEDS ORDERED: MELATONIN 5 MG TABLETS PO PRN (09:50)
--- NOTE | 2019-08-09 09:53 | PN ---
[facility] CIWA - CIWA Score Nausea/Vomitin-Mild Nausea/No Vomiting Muscle Tremors: 2 Anxiety: 2 Agitation: 3 Paroxysmal Sweats: No Perspiration Orientation: 0-Oriented Tacttile Disturbances: 1-Very Mild Itch/Numbness Auditory Disturbances: 0-None Visual Disturbances: 0-None Headache: 2-Mild CIWA-Ar Total Score: 11 S Progress Note (SOAP) Subjective: alert,irritable,anxious,interrupted sleep,low back pain,chronic Objective: 08/09/19 09:51 Vital Signs Temperature 97.6 F 08/09/19 05:20 Pulse Rate 61 08/09/19 05:20 Respiratory Rate 18 08/09/19 05:20 Blood Pressure 127/64 08/09/19 05:20 O2 Sat by Pulse Oximetry (%) 08/09/19 09:52 Laboratory Last Values WBC 3.7 K/mm3 (4.0-10.0) L 08/08/19 07:50 RBC 4.45 M/mm3 (4.00-5.60) 08/08/19 07:50 Hgb 13.5 GM/dL (11.7-16.9) 08/08/19 07:50 Hct 40.1 % (35.4-49) 08/08/19 07:50 MCV 90.1 fl (80-96) 08/08/19 07:50 MCH 30.4 pg (25.7-33.7) 08/08/19 07:50 MCHC 33.8 g/dl (32.0-35.9) 08/08/19 07:50 RDW 15.1 % (11.9-15.9) 08/08/19 07:50 Plt Count 242 K/MM3 (134-434) 08/08/19 07:50 MPV 8.1 fl (7.5-11.1) 08/08/19 07:50 Sodium 141 mmol/L (136-145) 08/08/19 07:50 Potassium 4.0 mmol/L (3.5-5.1) 08/08/19 07:50 Chloride 105 mmol/L (98-107) 08/08/19 07:50 Carbon Dioxide 31 mmol/L (21-32) 08/08/19 07:50 Anion Gap 5 MMOL/L (8-16) L 08/08/19 07:50 BUN 15.6 mg/dL (7-18) 08/08/19 07:50 Creatinine 1.0 mg/dL (0.55-1.3) 08/08/19 07:50 Est GFR (CKD-EPI)AfAm 99.15 08/08/19 07:50 Est GFR (CKD-EPI)NonAf 85.55 08/08/19 07:50 Random Glucose 88 mg/dL (74-106) 08/08/19 07:50 Calcium 8.1 mg/dL (8.5-10.1) L 08/08/19 07:50 Total Bilirubin 0.6 mg/dL (0.2-1) 08/08/19 07:50 AST 15 U/L (15-37) 08/08/19 07:50 ALT 26 U/L (13-61) 08/08/19 07:50 Alkaline Phosphatase 81 U/L (45-117) 08/08/19 07:50 Total Protein 6.4 g/dl (6.4-8.2) 08/08/19 07:50 Albumin 3.0 g/dl (3.4-5.0) L 08/08/19 07:50 RPR Titer Nonreactive (NONREACTIVE) 08/08/19 07:50 Assessment: 08/09/19 09:52 withdrawal symptom Plan: continue detoix librium regimen,kim dubois to back
[2019-08-09] MEDS: PRENATAL VITAMINS W/ FOLIC ACID TABLET (FP) PO SCH (10:56)
[2019-08-09] MEDS: amLODIPine BESYLATE 10 MG TABLET (FP) PO SCH (10:56)
[2019-08-09] MEDS: METHYL SALICYLATE/MENTHOL OINT 30 GM TUBE TP SCH ×2 (10:56→23:09)
[2019-08-09] MEDS: THIAMINE HCL 100 MG TABLET (FP) PO SCH (23:09)
[2019-08-10] MEDS ORDERED: chlordiazePOXIDE HCL 10 MG CAPSULE PO PRN
[2019-08-10] MEDS: hydrOXYzine PAMOATE 25 MG CAPSULE (FP) PO SCH ×5 (05:03→23:03)
[2019-08-10] MEDS: chlordiazePOXIDE HCL 10 MG CAPSULE PO SCH ×3 (05:03→23:02)
--- NOTE | 2019-08-10 10:28 | PN ---
S CIWA - CIWA Score Nausea/Vomitin-Mild Nausea/No Vomiting Muscle Tremors: 1-None Visible, but [place] Anxiety: 2 Agitation: 2 Paroxysmal Sweats: No Perspiration Orientation: 0-Oriented Tacttile Disturbances: 1-Very Mild Itch/Numbness Auditory Disturbances: 0-None Visual Disturbances: 0-None Headache: 1-Very Mild CIWA-Ar Total Score: 8 BHS Progress Note (SOAP) Subjective: alert,irritable,anxious,interrupted sleep,pain in the body and back Objective: 08/10/19 10:26 Vital Signs Temperature 98.2 F 08/10/19 08:30 Pulse Rate 76 08/10/19 08:30 Respiratory Rate 18 08/10/19 08:30 Blood Pressure 124/76 08/10/19 08:30 O2 Sat by Pulse Oximetry (%) Assessment: 08/10/19 10:27 withdrawal symptom Plan: continue detox librium regimen,discharge in am
[2019-08-10] MEDS: PRENATAL VITAMINS W/ FOLIC ACID TABLET (FP) PO SCH (11:06)
[2019-08-10] MEDS: amLODIPine BESYLATE 10 MG TABLET (FP) PO SCH (11:06)
[2019-08-10] MEDS: IBUPROFEN 400 MG TABLET (FP) PO PRN (11:07)
[2019-08-10] MEDS: METHYL SALICYLATE/MENTHOL OINT 30 GM TUBE TP SCH ×2 (11:09→23:01)
[2019-08-10] MEDS: THIAMINE HCL 100 MG TABLET (FP) PO SCH (23:03)
[2019-08-11] MEDS ORDERED: chlordiazePOXIDE HCL 10 MG CAPSULE PO ONE (05:00)
[2019-08-11] MEDS: IBUPROFEN 400 MG TABLET (FP) PO PRN (05:43)
[2019-08-11] MEDS: hydrOXYzine PAMOATE 25 MG CAPSULE (FP) PO SCH (05:44)
[2019-08-11 06:38] VITALS: BP 127/76; PULSE 67; TEMP 97.3
--- NOTE | 2019-08-11 08:21 | DS ---
[facility] Detox Discharge Summary Admission Date: 08/07/19 Discharge Date: 08/11/19 - History Present History: Alcohol Dependence, Cocaine Dependence - Physical Exam Results Vital Signs: Vital Signs Temperature 97.3 F L 08/11/19 05:20 Pulse Rate 67 08/11/19 05:20 Respiratory Rate 18 08/11/19 05:20 Blood Pressure 127/76 08/11/19 05:20 O2 Sat by Pulse Oximetry (%) Pertinent Admission Physical Exam Findings: Vital Signs Temperature 97.3 F L 08/11/19 05:20 Pulse Rate 67 08/11/19 05:20 Respiratory Rate 18 08/11/19 05:20 Blood Pressure 127/76 08/11/19 05:20 O2 Sat by Pulse Oximetry (%) Laboratory Tests 08/08/19 08/08/19 08/08/19 07:50 07:50 07:50 WBC 3.7 L RBC 4.45 Hgb 13.5 Hct 40.1 MCV 90.1 MCH 30.4 MCHC 33.8 RDW 15.1 Plt Count 242 MPV 8.1 Sodium 141 Potassium 4.0 Chloride 105 Carbon Dioxide 31 Anion Gap 5 L BUN 15.6 Creatinine 1.0 Est GFR (CKD-EPI)AfAm 99.15 Est GFR (CKD-EPI)NonAf 85.55 Random Glucose 88 Calcium 8.1 L Total Bilirubin 0.6 AST 15 ALT 26 Alkaline Phosphatase 81 Total Protein 6.4 Albumin 3.0 L RPR Titer Nonreactive T.pallidum Ab Interpret 08/08/19 07:50 WBC RBC Hgb Hct MCV MCH MCHC RDW Plt Count MPV Sodium Potassium Chloride Carbon Dioxide Anion Gap BUN Creatinine Est GFR (CKD-EPI)AfAm Est GFR (CKD-EPI)NonAf Random Glucose Calcium Total Bilirubin AST ALT Alkaline Phosphatase Total Protein Albumin RPR Titer T.pallidum Ab Interpret Cancelled aaox3 ambulating no acute distress lungs CTA skin intact - Treatment Hospital Course: Detox Protocol Followed, Detoxed Safely, Responded well, Discharged Condition Good, Rehab Referral Accepted - Medication Discharge Medications: Ambulatory Orders Sertraline HCl [Zoloft -] 50 mg PO DAILY 06/02/19 Amlodipine Besylate [Norvasc -] 10 mg PO DAILY 15 Days #15 tablet 06/05/19 - Diagnosis (1) Alcohol dependence with withdrawal, uncomplicated Current Visit: Yes Status: Chronic (2) Alcohol-induced mood disorder Current Visit: Yes Status: Acute (3) Alcohol-induced sleep disorder Current Visit: Yes Status: Acute (4) Cocaine dependence, uncomplicated Current Visit: Yes Status: Chronic (5) Chronic low back pain Current Visit: Yes Status: Chronic Qualifiers: Back pain laterality: midline Sciatica presence: without sciatica Qualified Code(s): M54.5 - Low back pain; G89.29 - Other chronic pain (6) Essential hypertension Current Visit: Yes Status: Chronic (7) GERD (gastroesophageal reflux disease) Current Visit: Yes Status: Chronic Qualifiers: Esophagitis presence: without esophagitis Qualified Code(s): K21.9 - Gastro-esophageal reflux disease without esophagitis (8) Hyperlipidemia Current Visit: Yes Status: Chronic Qualifiers: Hyperlipidemia type: moderate mixed hyperlipidemia not requiring statin therapy Qualified Code(s): E78.2 - Mixed hyperlipidemia (9) Mood disorder Current Visit: Yes Status: Chronic (10) Neuropathy Current Visit: Yes Status: Chronic (11) Nicotine dependence Current Visit: Yes Status: Chronic Qualifiers: Nicotine product type: cigarettes Substance use status: in remission Qualified Code(s): F17.211 - Nicotine dependence, cigarettes, in remission (12) Bipolar disorder Current Visit: Yes Status: Ruled-out (13) Laceration Current Visit: No Status: Acute (14) Bipolar disorder Current Visit: No Status: Chronic Qualifiers: Active/Remission status: remission status unspecified Qualified Code(s): F31.9 - Bipolar disorder, unspecified (15) Cannabis abuse Current Visit: No Status: Chronic (16) Drug-induced mood disorder Current Visit: No Status: Chronic (17) Dry skin Current Visit: No Status: Chronic (18) History of depression Current Visit: No Status: Chronic (19) MDD (major depressive disorder) Current Visit: No Status: Chronic Qualifiers: Major depression recurrence: recurrent Major depression episode severity: moderate (20) MDD (major depressive disorder), recurrent episode, moderate Current Visit: No Status: Chronic (21) Mood disorder Current Visit: No Status: Chronic (22) Syncope Current Visit: No Status: Chronic Qualifiers: Syncope type: unspecified Qualified Code(s): R55 - Syncope and collapse (23) Substance induced mood disorder Current Visit: No Status: Suspected - AMA Did Patient Leave Against Medical Advice: No
== END 2019-08-11 09:57 | disposition home or self-care (01) | DRG 774 ==
LOC: YASAS 14:25 → Y6N 18:17
PROVIDERS: ADMIT Allergy & Immunology; ATTEND Allergy & Immunology
PROC: HZ2ZZZZ Detoxification Services for Substance Abuse Treatment (ICD-10-PCS; principal; 2019-08-07)
DX: F10.230 Alcohol dependence with withdrawal, uncomplicated (principal); F10.24 Alcohol dependence with alcohol-induced mood disorder; F10.282 Alcohol dependence with alcohol-induced sleep disorder; F14.20 Cocaine dependence, uncomplicated; F12.10 Cannabis abuse, uncomplicated; F17.211 Nicotine dependence, cigarettes, in remission; F39 Unspecified mood [affective] disorder; F33.1 Major depressive disorder, recurrent, moderate; F19.24 Other psychoactive substance dependence with psychoactive substance-induced mood disorder; I10 Essential (primary) hypertension; K21.9 Gastro-esophageal reflux disease without esophagitis; E78.5 Hyperlipidemia, unspecified; G62.9 Polyneuropathy, unspecified; M54.5 Low back pain; G89.29 Other chronic pain; L98.8 Other specified disorders of the skin and subcutaneous tissue; Z87.438 Personal history of other diseases of male genital organs; Z91.010 Allergy to peanuts
CPT/HCPCS: 36415; 80053; 85027; 86593; Q0162

== ENCOUNTER 2019-11-28 13:17 | Inpatient (IN) | payer OTHER ==
--- NOTE | 2019-11-28 16:19 | HP ---
CIWA Score Nausea/Vomitin Muscle Tremors: 2 Anxiety: 2 Agitation: 2 Paroxysmal Sweats: 3 Orientation: 0-Oriented Tacttile Disturbances: 1-Very Mild Itch/Numbness Auditory Disturbances: 1-Very Mild Visual Disturbances: 1-Very Mild Sensitivity Headache: 2-Mild CIWA-Ar Total Score: 16 - Admission Criteria OASAS Guidelines: Admission for Medically Managed Detox: Requires at least one of the followin. CIWA greater than 12 2. Seizures within the past 24 hours 3. Delirium tremens within the past 24 hours 4. Hallucinations within the past 24 hours 5. Acute intervention needed for co occurring medical disorder 6. Acute intervention needed for co occurring psychiatric disorder 7. Severe withdrawal that cannot be handled at a lower level of care (continued vomiting, continued diarrhea, abnormal vital signs) requiring intravenous medication and/or fluids 8. 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: Peripheral Neuropathy Cardiovascular: Yes: HTN Gastrointestinal: Yes: GERD Psych: Yes: Depression Musculoskeletal: Yes: Chronic low back pain, Other (Right shoulder pain) - Past Surgical History Past Surgical History: Yes: Hernia Repair - Smoking History Smoking history: Former smoker Have you smoked in the past 12 months: No Aproximately how many cigarettes per day: 2 If you are a former smoker, when did you quit?: 2014 - Alcohol/Substance Use Hx Alcohol Use: Yes History of Substance Use: reports: Cocaine - Social History ADL: Independent Occupation: [employer] History of Recent Travel: No Admission ROS [facility] - [facility] Chief Complaint: I am here for detox Allergies/Adverse Reactions: Allergies Allergy/AdvReac Type Severity Reaction Status Date / Time No Known Drug Allergies Allergy Verified 10/15/19 11:54 peanut Allergy Difficulty Verified 10/15/19 11:54 Breathing History of Present Illness: 54 year old man with alcohol and cocaine abuse presents for detox. His last detox was on 10/15/19, he reports blackouts, last episode 2 months ago, he denies seizures. Exam Limitations: No Limitations - Ebola screening Have you had contact with anyone from an Ebola affected area: No Have you been sick,other than usual withdrawal symptoms: No Do you have a fever: No - Review of Systems Constitutional: Chills, Changes in sleep, Weight Stable EENT: reports: No Symptoms Reported Respiratory: reports: No Symptoms reported Cardiac: reports: No Symptoms Reported GI: reports: Diarrhea, Nausea, Abdominal cramping : reports: No Symptoms Reported Musculoskeletal: reports: Back Pain, Muscle Pain, Muscle Weakness Integumentary: reports: Sweating Neuro: reports: Headache, Numbness, Tingling, Tremors Endocrine: reports: No Symptoms Reported Hematology: reports: No Symptoms Reported Psychiatric: reports: Anxious, Depressed Other Systems: Reviewed and Negative Patient History - Patient Medical History Hx Anemia: No Hx Asthma: No Hx Chronic Obstructive Pulmonary Disease (COPD): No Hx Cancer: No Hx Cardiac Disorders: No Hx Congestive Heart Failure: No Hx Hypertension: Yes (on meds) Hx Hypercholesterolemia: Yes Hx Pacemaker: No HX Cerebrovascular Accident: No Hx Seizures: No Hx Dementia: No Hx Diabetes: No Hx Gastrointestinal Disorders: Yes (GERD) Hx Liver Disease: No Hx Genitourinary Disorders: No Hx Sexually Transmitted Disorders: No Hx Renal Disease (ESRD): No Hx Thyroid Disease: No Hx Human Immunodeficiency Virus (HIV): No Hx Hepatitis C: No Hx Depression: Yes Hx Suicide Attempt: No Hx Bipolar Disorder: Yes Hx Schizophrenia: No - Patient Surgical History Past Surgical History: Yes Hx Neurologic Surgery: No Hx Cataract Extraction: No Hx Cardiac Surgery: No Hx Lung Surgery: No Hx Breast Surgery: No Hx Breast Biopsy: No Hx Abdominal Surgery: Yes (umbilical hernia repair at age 11) Hx Appendectomy: No Hx Cholecystectomy: No Hx Genitourinary Surgery: No Hx Section: No Hx Orthopedic Surgery: Yes (right bunion surgery) Other Surgical History: bunion right toe surgery done 06/18 Anesthesia Reaction: No - PPD History Previous Implant?: Yes Documented Results: Negative w/proof Implanted On Prior [facility] Admission?: Yes Date: 10/12/18 Results: 0 mm PPD to be Administered?: Yes - Smoking Cessation Smoking history: Former smoker Have you smoked in the past 12 months: No If you are a former smoker, when did you quit?: 2015 Cigars Per Day: 0 Hx Chewing Tobacco Use: No Initiated information on smoking cessation: No - Substance & Tx. History Hx Alcohol Use: Yes Hx Substance Use: Yes Substance Use Type: Cocaine - Substances abused Alcohol Other (specify): beer and liqour Substance route: Oral Frequency: Daily Amount used: 4 pints, 7 beers Date of last use: 06/28/20 Cocaine Substance route: Smoking Amount used: 4 grams Date of last use: 11/27/19 Admission Physical Exam [facility] - Physical General Appearance: Yes: No Apparent Distress HEENTM: Yes: EOMI, Hearing grossly Normal, Normocephalic, Normal Voice, MARISEL Respiratory: Yes: Chest Non-Tender, Lungs Clear, Normal Breath Sounds, No Respiratory Distress, No Accessory Muscle Use Breast: Yes: Breast Exam Deferred Cardiology: Yes: Regular Rhythm, Regular Rate, S1, S2 Abdominal: Yes: Normal Bowel Sounds, Soft Genitourinary: Yes: Within Normal Limits Back: Yes: Normal Inspection Musculoskeletal: Yes: full range of Motion, Gait Steady, Back pain, Muscle weakness Extremities: Yes: Non-Tender, Tremors 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: Yes: supervisor cytology II-XII NML intact, Fully Oriented, Alert, Normal Response Integumentary: Yes: Clammy Lymphatic: Yes: Within Normal Limits - Diagnostic (1) Alcohol dependence with withdrawal, uncomplicated Current Visit: Yes Status: Acute (2) Cocaine dependence, uncomplicated Current Visit: Yes Status: Acute (3) GERD (gastroesophageal reflux disease) Current Visit: No Status: Chronic Qualifiers: Esophagitis presence: without esophagitis Qualified Code(s): K21.9 - Gastro-esophageal reflux disease without esophagitis (4) History of depression Current Visit: Yes Status: Chronic (5) Hyperlipidemia Current Visit: Yes Status: Chronic Qualifiers: Hyperlipidemia type: moderate mixed hyperlipidemia not requiring statin therapy Qualified Code(s): E78.2 - Mixed hyperlipidemia (6) Neuropathy Current Visit: Yes Status: Chronic Cleared for Admission [facility] - Detox or Rehab [facility] Level of Care: Medically Managed Detox Regimen/Protocol: Librium Claeared for Rehab Admission: No Breathalyzer - Breathalyzer Breathalyzer: 0.006 Urine Drug Screen - Test Device Lot number: [id number] Expiration date: 01/30/21 - Control Is test valid?: Yes - Results Drug screen NEGATIVE: No Urine drug screen results: JAZMIN-Cocaine Inpatient Rehab Admission - Rehab Decision to Admit Inpatient rehab admission?: No
[2019-11-28] MEDS ORDERED: chlordiazePOXIDE HCL 10 MG CAPSULE PO PRN (16:24)
[2019-11-28] MEDS ORDERED: MAGNESIUM HYDROX 2400MG/30ML ORAL SUSPENSION 30 ML CUP PO PRN (16:24)
[2019-11-28] MEDS ORDERED: BISMUTH SUBSALICYLATE 524 MG/30 ML UD PO PRN (16:24)
[2019-11-28] MEDS ORDERED: MAGNESIUM CITRATE 300 ML BOTTLE PO PRN (16:24)
[2019-11-28] MEDS ORDERED: METHOCARBAMOL 500 MG TABLET PO PRN (16:24)
[2019-11-28] MEDS ORDERED: ACETAMINOPHEN 325 MG TABLET (FP) PO PRN ×2 (16:24)
[2019-11-28] MEDS ORDERED: MENTHOL/PHENOL 1 EACH UD MM PRN (16:24)
[2019-11-28] MEDS ORDERED: MAG HYDROX/AL HYDROX/SIMETH 30 ML UNIT-DOSE CUP PO PRN (16:24)
[2019-11-28] MEDS ORDERED: IBUPROFEN 400 MG TABLET (FP) PO PRN (16:24)
[2019-11-28] MEDS ORDERED: ONDANSETRON *ODT* 4 MG TABLET SL ONE (16:24)
[2019-11-28 16:45] VITALS: BMI 30.7
[2019-11-28] MEDS ORDERED: chlordiazePOXIDE HCL 25 MG CAPSULE PO ONE (17:00)
[2019-11-28] MEDS: hydrOXYzine PAMOATE 25 MG CAPSULE (FP) PO SCH ×2 (17:25→22:19)
[2019-11-28] MEDS: chlordiazePOXIDE HCL 25 MG CAPSULE PO SCH (22:00)
[2019-11-28] MEDS: THIAMINE HCL 100 MG TABLET (FP) PO SCH (22:18)
[2019-11-28] MEDS: MELATONIN 5 MG TABLETS PO SCH (22:19)
[2019-11-29] MEDS: hydrOXYzine PAMOATE 25 MG CAPSULE (FP) PO SCH ×5 (05:07→22:06)
[2019-11-29] MEDS: chlordiazePOXIDE HCL 25 MG CAPSULE PO SCH ×3 (05:07→22:04)
--- NOTE | 2019-11-29 08:56 | CONSULT ---
[facility] Psychiatric Consult - Data Date of interview: 11/29/19 Admission source: Self-referred Identifying data: Mr Parra is a 54 years old single Black male, unemployed, domiciled seeking detox treatment for alcohol and cocaine Substance Abuse History: Reports history of alcohol and cocaine use. Refer to addiction counselor's summary for further information Medical History: Significant for hypertension, dyslipidemia, GERD, peripheral neuropathy, chronic low back pain, history of treatment for syphilis, bunionectomy (right toe) in Jun 2016 and umbilical hernia repair at age 11. Psychiatric History: Patient is known for multiple previous admissions to this facility. Historical narrative remains consistent. He reports that his first psychiatric contact occured while in [place] in 2009. He said that he was diagnosed with MDD at first and started on psychotropic medications. He said that his diagnosis was later revised to Bipolar Disorder. Reports multiple previous psychiatric hospitalizations at [facility] and [facility]. Chronically non-adherent to OPD care and medications (dropped out of treatment at [facility] OPD clinic). During his recent admission to detox in October 2019, Zoloft 50 mg/day was resumed after reporting to automatic typewriter inspector that he saw a psychiatrist at [facility] in August 2019 and he was placed back on Zoloft 50 mg/day. Claims he has been taking medications since discharge from this facility on 10/18/19 and he ran out of it 4 days ago. Patient has been treated, in the past, on a regimen of Zoloft 50 mg/day, Seroquel 100 mg/hs and Trazodone 50 mg/hs. Denies previous suicide attempt. At present, denies experiencing psychotic, manic or depressive symptoms, S/H ideations. However, reports sleeping poorly. He requests to resume Zoloft Physical/Sexual Abuse/Trauma History: History of [facility] incarceration Mental Status Exam - Mental Status Exam Alert and Oriented to: Time, Place, Person Cognitive Function: Fair Patient Appearance: Well Groomed Mood: Hopeful, Euthymic Patient Behavior: Cooperative Speech Pattern: Clear Voice Loudness: Normal Thought Process: Intact, Goal Oriented Hallucinations: Denies Suicidal Ideation: Denies Homicidal Ideation: Denies Insight/Judgement: Poor Sleep: Poorly Appetite: Good Muscle strength/Tone: Normal Gait/Station: Normal Psychiatric Findings - Problem List (Hugo 1, 2,3) (1) Mood disorder Current Visit: No Status: Chronic (2) Bipolar disorder Current Visit: No Status: Ruled-out Qualifiers: Active/Remission status: remission status unspecified Qualified Code(s): F31.9 - Bipolar disorder, unspecified Comment: By history. Non-compliant with medications. (3) MDD (major depressive disorder), recurrent episode, moderate Current Visit: No Status: Ruled-out (4) Alcohol-induced sleep disorder Current Visit: No Status: Acute (5) Alcohol dependence with withdrawal, uncomplicated Current Visit: Yes Status: Acute (6) Cocaine dependence, uncomplicated Current Visit: Yes Status: Acute (7) Hyperlipidemia Current Visit: Yes Status: Chronic Qualifiers: Hyperlipidemia type: moderate mixed hyperlipidemia not requiring statin therapy Qualified Code(s): E78.2 - Mixed hyperlipidemia (8) Neuropathy Current Visit: Yes Status: Chronic (9) Essential hypertension Current Visit: No Status: Chronic (10) GERD (gastroesophageal reflux disease) Current Visit: No Status: Chronic Qualifiers: Esophagitis presence: without esophagitis Qualified Code(s): K21.9 - Gastro-esophageal reflux disease without esophagitis (11) Syphilis contact, treated Current Visit: No Status: Acute (12) Chronic low back pain Current Visit: No Status: Chronic Qualifiers: Back pain laterality: midline Sciatica presence: without sciatica Qualified Code(s): M54.5 - Low back pain; G89.29 - Other chronic pain - Initial Treatment Plan Initial Treatment Plan: 1) Resume Zoloft 50 mg po daily. 2) Continue inpatient detoxification
--- NOTE | 2019-11-29 09:52 | PN ---
S CIWA - CIWA Score Nausea/Vomitin-Mild Nausea/No Vomiting Muscle Tremors: 3 Anxiety: 2 Agitation: 2 Paroxysmal Sweats: No Perspiration Orientation: 0-Oriented Tacttile Disturbances: 1-Very Mild Itch/Numbness Auditory Disturbances: 0-None Visual Disturbances: 0-None Headache: 1-Very Mild CIWA-Ar Total Score: 10 S Progress Note (SOAP) Subjective: alert,irritable,anxious,interrupted sleep,pain in the lower back,nausea Objective: 11/29/19 09:49 Vital Signs Temperature 97.1 F L 11/29/19 08:57 Pulse Rate 77 11/29/19 08:57 Respiratory Rate 18 11/29/19 08:57 Blood Pressure 128/71 11/29/19 08:57 O2 Sat by Pulse Oximetry (%) 97 11/29/19 05:57 11/29/19 09:52 labs pending Assessment: 11/29/19 09:52 withdrawal symptom Plan: continue detox librium regimen,kim dubois for low back pain
[2019-11-29] MEDS: METHYL SALICYLATE/MENTHOL OINT 30 GM TUBE TP SCH ×2 (10:38→22:04)
[2019-11-29] MEDS: PRENATAL VITAMINS W/ FOLIC ACID TABLET (FP) PO SCH (10:38)
[2019-11-29] MEDS: SERTRALINE HCL 50 MG TABLET (FP) PO SCH (10:38)
[2019-11-29] MEDS: HYDROCHLOROTHIAZIDE 25 MG TABLET (FP) PO SCH (10:38)
[2019-11-29] MEDS: amLODIPine BESYLATE 10 MG TABLET (FP) PO SCH (10:38)
[2019-11-29 11:36] LABS: HEMATOCRIT 40.9 % (35.4-49); HEMOGLOBIN 13.8 GM/dL (11.7-16.9); MCH 30.4 pg (25.7-33.7); MCHC 33.7 g/dl (32.0-35.9); MEAN CELL VOLUME 90.1 fl (80-96); MEAN PLT VOLUME 8.7 fl (7.5-11.1); PLATELET COUNT 203 K/MM3 (134-434); RBC 4.54 M/mm3 (4.00-5.60); RDW 14.4 % (11.9-15.9); WHITE BLOOD COUNT 4.4 K/mm3 (4.0-10.0)
[2019-11-29 11:44] LABS: ALBUMIN 2.9 g/dl (3.4-5.0); BILIRUBIN,TOTAL 0.6 mg/dL (0.2-1); BLOOD UREA NITROGEN 15.4 mg/dL (7-18); CALCIUM 8.1 mg/dL (8.5-10.1); CREATININE 1.1 mg/dL (0.55-1.3); POTASSIUM 3.2 mmol/L (3.5-5.1); TOT PROT 6.2 g/dl (6.4-8.2)
[2019-11-29] MEDS ORDERED: POTASSIUM CHLORIDE TABS 20 MEQ TABLET.ER (FP) PO ONE (15:32)
--- NOTE | 2019-11-29 15:36 | PN ---
S Progress Note Note: Laboratory Last Values WBC 4.4 K/mm3 (4.0-10.0) 11/29/19 08:15 RBC 4.54 M/mm3 (4.00-5.60) 11/29/19 08:15 Hgb 13.8 GM/dL (11.7-16.9) 11/29/19 08:15 Hct 40.9 % (35.4-49) 11/29/19 08:15 MCV 90.1 fl (80-96) 11/29/19 08:15 MCH 30.4 pg (25.7-33.7) 11/29/19 08:15 MCHC 33.7 g/dl (32.0-35.9) 11/29/19 08:15 RDW 14.4 % (11.9-15.9) 11/29/19 08:15 Plt Count 203 K/MM3 (134-434) 11/29/19 08:15 MPV 8.7 fl (7.5-11.1) 11/29/19 08:15 Sodium 140 mmol/L (136-145) 11/29/19 08:15 Potassium 3.2 mmol/L (3.5-5.1) L 11/29/19 08:15 Chloride 103 mmol/L (98-107) 11/29/19 08:15 Carbon Dioxide 31 mmol/L (21-32) 11/29/19 08:15 Anion Gap 5 MMOL/L (8-16) L 11/29/19 08:15 BUN 15.4 mg/dL (7-18) 11/29/19 08:15 Creatinine 1.1 mg/dL (0.55-1.3) 11/29/19 08:15 Est GFR (CKD-EPI)AfAm 87.74 11/29/19 08:15 Est GFR (CKD-EPI)NonAf 75.70 11/29/19 08:15 Random Glucose 98 mg/dL (74-106) 11/29/19 08:15 Calcium 8.1 mg/dL (8.5-10.1) L 11/29/19 08:15 Total Bilirubin 0.6 mg/dL (0.2-1) 11/29/19 08:15 AST 22 U/L (15-37) 11/29/19 08:15 ALT 35 U/L (13-61) 11/29/19 08:15 Alkaline Phosphatase 81 U/L (45-117) 11/29/19 08:15 Total Protein 6.2 g/dl (6.4-8.2) L 11/29/19 08:15 Albumin 2.9 g/dl (3.4-5.0) L 11/29/19 08:15 Syphilis Serology Reactive (NONREACTIVE) A* 11/29/19 08:15 RPR Titer Reactive 1:1 (NONREACTIVE) H 11/29/19 08:15 patient was treated for syphilis in the past,also receiving bicillin la 2.4 million units on 10/16/2019 k dur 20 me po now then bid for 3 days will repeat k in am
[2019-11-29] MEDS: POTASSIUM CHLORIDE TABS 20 MEQ TABLET.ER (FP) PO SCH (22:04)
[2019-11-29] MEDS: THIAMINE HCL 100 MG TABLET (FP) PO SCH (22:04)
[2019-11-29] MEDS: ATORVASTATIN CA 10 MG TABLET (FP) PO SCH (22:04)
[2019-11-29] MEDS: MELATONIN 5 MG TABLETS PO SCH (22:06)
[2019-11-30] MEDS: hydrOXYzine PAMOATE 25 MG CAPSULE (FP) PO SCH ×5 (05:07→22:16)
[2019-11-30] MEDS: chlordiazePOXIDE 5 MG CAPSULE PO SCH ×3 (05:07→22:12)
--- NOTE | 2019-11-30 09:12 | PN ---
S CIWA - CIWA Score Nausea/Vomitin-Mild Nausea/No Vomiting Muscle Tremors: 2 Anxiety: 2 Agitation: 2 Paroxysmal Sweats: No Perspiration Orientation: 0-Oriented Tacttile Disturbances: 1-Very Mild Itch/Numbness Auditory Disturbances: 0-None Visual Disturbances: 0-None Headache: 1-Very Mild CIWA-Ar Total Score: 9 S Progress Note (SOAP) Subjective: alert,irritable,anxious,interrupted sleep,tremor,pain in the body and back Objective: 11/30/19 09:10 Laboratory Last Values WBC 4.4 K/mm3 (4.0-10.0) 11/29/19 08:15 RBC 4.54 M/mm3 (4.00-5.60) 11/29/19 08:15 Hgb 13.8 GM/dL (11.7-16.9) 11/29/19 08:15 Hct 40.9 % (35.4-49) 11/29/19 08:15 MCV 90.1 fl (80-96) 11/29/19 08:15 MCH 30.4 pg (25.7-33.7) 11/29/19 08:15 MCHC 33.7 g/dl (32.0-35.9) 11/29/19 08:15 RDW 14.4 % (11.9-15.9) 11/29/19 08:15 Plt Count 203 K/MM3 (134-434) 11/29/19 08:15 MPV 8.7 fl (7.5-11.1) 11/29/19 08:15 Sodium 140 mmol/L (136-145) 11/29/19 08:15 Potassium 3.2 mmol/L (3.5-5.1) L 11/29/19 08:15 Chloride 103 mmol/L (98-107) 11/29/19 08:15 Carbon Dioxide 31 mmol/L (21-32) 11/29/19 08:15 Anion Gap 5 MMOL/L (8-16) L 11/29/19 08:15 BUN 15.4 mg/dL (7-18) 11/29/19 08:15 Creatinine 1.1 mg/dL (0.55-1.3) 11/29/19 08:15 Est GFR (CKD-EPI)AfAm 87.74 11/29/19 08:15 Est GFR (CKD-EPI)NonAf 75.70 11/29/19 08:15 Random Glucose 98 mg/dL (74-106) 11/29/19 08:15 Calcium 8.1 mg/dL (8.5-10.1) L 11/29/19 08:15 Total Bilirubin 0.6 mg/dL (0.2-1) 11/29/19 08:15 AST 22 U/L (15-37) 11/29/19 08:15 ALT 35 U/L (13-61) 11/29/19 08:15 Alkaline Phosphatase 81 U/L (45-117) 11/29/19 08:15 Total Protein 6.2 g/dl (6.4-8.2) L 11/29/19 08:15 Albumin 2.9 g/dl (3.4-5.0) L 11/29/19 08:15 Syphilis Serology Reactive (NONREACTIVE) A* 11/29/19 08:15 RPR Titer Reactive 1:1 (NONREACTIVE) H 11/29/19 08:15 Assessment: 11/30/19 09:10 withdrawal symptom Plan: continue detox librium regimen,on k replacement,repeat k pending
[2019-11-30] MEDS: amLODIPine BESYLATE 10 MG TABLET (FP) PO SCH (10:34)
[2019-11-30] MEDS: METHYL SALICYLATE/MENTHOL OINT 30 GM TUBE TP SCH ×2 (10:34→22:50)
[2019-11-30] MEDS: POTASSIUM CHLORIDE TABS 20 MEQ TABLET.ER (FP) PO SCH ×2 (10:34→22:13)
[2019-11-30] MEDS: HYDROCHLOROTHIAZIDE 25 MG TABLET (FP) PO SCH (10:34)
[2019-11-30] MEDS: PRENATAL VITAMINS W/ FOLIC ACID TABLET (FP) PO SCH (10:35)
[2019-11-30] MEDS: SERTRALINE HCL 50 MG TABLET (FP) PO SCH (10:35)
[2019-11-30] MEDS: ATORVASTATIN CA 10 MG TABLET (FP) PO SCH (22:13)
[2019-11-30] MEDS: THIAMINE HCL 100 MG TABLET (FP) PO SCH (22:13)
[2019-11-30] MEDS: MELATONIN 5 MG TABLETS PO SCH (22:50)
[2019-12-01] MEDS ORDERED: chlordiazePOXIDE HCL 10 MG CAPSULE PO PRN
[2019-12-01] MEDS ORDERED: chlordiazePOXIDE HCL 10 MG CAPSULE PO SCH (05:00)
[2019-12-01] MEDS: hydrOXYzine PAMOATE 25 MG CAPSULE (FP) PO SCH (05:10)
[2019-12-01 05:42] VITALS: BP 124/61; PULSE 65; TEMP 97.4
--- NOTE | 2019-12-01 09:50 | PN ---
[facility] CIWA - CIWA Score Nausea/Vomitin-No Nausea/No Vomiting Muscle Tremors: None Anxiety: 1-Mildly Anxious Agitation: 0-Normal Activity Paroxysmal Sweats: No Perspiration Orientation: 0-Oriented Tacttile Disturbances: 0-None Auditory Disturbances: 0-None Visual Disturbances: 0-None Headache: 0-None Present CIWA-Ar Total Score: 1 S Progress Note (SOAP) Subjective: alert,no complaint Objective: 12/01/19 09:47 Vital Signs Temperature 97.4 F L 12/01/19 05:41 Pulse Rate 65 12/01/19 05:41 Respiratory Rate 18 12/01/19 05:41 Blood Pressure 124/61 12/01/19 05:41 O2 Sat by Pulse Oximetry (%) 97 12/01/19 05:41 Assessment: 12/01/19 09:48 patient would like to leave today,feel better,no withdrawal symptom Plan: stable for discharge today,follow up with after care program as arrangement Project renewal,change his mind did not want to go to rehab,awared that covid 19 test result did not come back yet
--- NOTE | 2019-12-01 09:53 | DS ---
[facility] Detox Discharge Summary Admission Date: 11/28/19 Discharge Date: 12/01/19 - History Present History: Alcohol Dependence, Cocaine Dependence Additional Comments: alert,oriented x 3 ambulation on the unit lung clear no abdominal pain,soft,no distension no withdrawal symptom stable for discharge patient is informed that the covid 19 test is pending patient changes his mind not to go to rehab will follow up with out patient program project renewal total time of discharge spending 35 minutes follow up with medical provider for medical problem and follow up Pertinent Past History: hypertension hyperlipidemia bipolar disorder gerd depression syncope history of syphilis treated - Physical Exam Results Vital Signs: Vital Signs Temperature 97.4 F L 12/01/19 05:41 Pulse Rate 65 12/01/19 05:41 Respiratory Rate 18 12/01/19 05:41 Blood Pressure 124/61 12/01/19 05:41 O2 Sat by Pulse Oximetry (%) 97 12/01/19 05:41 Pertinent Admission Physical Exam Findings: withdrawal signs and symptom - Treatment Hospital Course: Detox Protocol Followed, Detoxed Safely, Responded well, Discharged Condition Good Patient has Accepted a Rehab Referral to: declined - Medication Discharge Medications: Ambulatory Orders Sertraline HCl [Zoloft -] 50 mg PO DAILY 06/02/19 Amlodipine Besylate [Norvasc -] 10 mg PO DAILY #30 tablet 08/11/19 Hydrochlorothiazide [Hctz -] 25 mg PO DAILY 10/15/19 Simvastatin [Zocor] 20 mg PO HS 10/15/19 - Diagnosis (1) Alcohol dependence with withdrawal, uncomplicated Current Visit: Yes Status: Acute (2) Cocaine dependence, uncomplicated Current Visit: Yes Status: Acute (3) History of depression Current Visit: Yes Status: Chronic (4) Hyperlipidemia Current Visit: Yes Status: Chronic Qualifiers: Hyperlipidemia type: moderate mixed hyperlipidemia not requiring statin therapy Qualified Code(s): E78.2 - Mixed hyperlipidemia (5) Neuropathy Current Visit: Yes Status: Chronic (6) Syphilis contact, treated Current Visit: No Status: Acute (7) Essential hypertension Current Visit: No Status: Chronic (8) GERD (gastroesophageal reflux disease) Current Visit: No Status: Chronic Qualifiers: Esophagitis presence: without esophagitis Qualified Code(s): K21.9 - Gastro-esophageal reflux disease without esophagitis (9) MDD (major depressive disorder) Current Visit: No Status: Chronic Qualifiers: Major depression recurrence: recurrent Major depression episode severity: moderate (10) Syncope Current Visit: No Status: Chronic Qualifiers: Syncope type: unspecified Qualified Code(s): R55 - Syncope and collapse (11) Bipolar disorder Current Visit: No Status: Ruled-out (12) History of syphilis Current Visit: Yes Status: Acute - AMA Did Patient Leave Against Medical Advice: No
[2019-12-02] MEDS ORDERED: chlordiazePOXIDE HCL 10 MG CAPSULE PO ONE (05:00)
== END 2019-12-01 09:45 | disposition home or self-care (01) | DRG 774 ==
LOC: YASAS 13:17 → Y6N 16:47
PROVIDERS: ADMIT Allergy & Immunology; ATTEND Allergy & Immunology
PROC: HZ2ZZZZ Detoxification Services for Substance Abuse Treatment (ICD-10-PCS; principal; 2019-11-28)
DX: F10.230 Alcohol dependence with withdrawal, uncomplicated (principal); F14.20 Cocaine dependence, uncomplicated; F17.211 Nicotine dependence, cigarettes, in remission; F10.282 Alcohol dependence with alcohol-induced sleep disorder; F32.9 Major depressive disorder, single episode, unspecified; G62.9 Polyneuropathy, unspecified; E78.5 Hyperlipidemia, unspecified; I10 Essential (primary) hypertension; K21.9 Gastro-esophageal reflux disease without esophagitis; M54.5 Low back pain; G89.29 Other chronic pain; Z86.19 Personal history of other infectious and parasitic diseases; Z91.010 Allergy to peanuts; Z56.0 Unemployment, unspecified
CPT/HCPCS: 36415; 80053; 84132; 85027; 86593; 86780; Q0162; U0003

== ENCOUNTER 2020-02-06 08:41 | Inpatient (IN) | payer OTHER ==
--- NOTE | 2020-02-06 09:49 | BHS.RME ---
Substance Use & Tx History - Substance Use History Alcohol Substance amount: Vodka 4-5 pints, 7-8 bottles Frequency of use: Daily Substance route: Oral Date of Last Use: 02/06/20 Cocaine-Crack Substance amount: 3 grams Frequency of use: Daily Substance route: Oral, Inhalation (ex: sniffing or snorting), Smoking Date of Last Use: 02/04/20 - Last Treatment Date of last treatment: 11/28/19 Where was last treatment: Detox Physical/Psych/Mental Status - Behavior General Behavior: Increased activity (restlessness, agitation) Eye Contact: Normal Other Behaviors: Mannerisms - Cooperativeness Cooperativeness: Cooperative - Thinking Thought Processes: Tight, Logical, Goal Directed Thought content: Future oriented - Physical Health Problems Is patient presently having any pain?: Yes Does patient presently have any injuries (include location): No Does patient currently have a fever: No CIWA Nausea/Vomitin Muscle Tremors: 2 Anxiety: 2 Agitation: 2 Paroxysmal Sweats: 2 Orientation: 0-Oriented Tacttile Disturbances: 2-Mild Itch/Numbness/Burn Auditory Disturbances: 1-Very Mild Visual Disturbances: 1-Very Mild Sensitivity Headache: 3-Moderate CIWA-Ar Total Score: 18
[2020-02-06 09:54] VITALS: BMI 31.9
--- NOTE | 2020-02-06 10:00 | HP ---
CIWA Score Nausea/Vomitin Muscle Tremors: 2 Anxiety: 2 Agitation: 2 Paroxysmal Sweats: 2 Orientation: 0-Oriented Tacttile Disturbances: 2-Mild Itch/Numbness/Burn Auditory Disturbances: 1-Very Mild Visual Disturbances: 1-Very Mild Sensitivity Headache: 3-Moderate CIWA-Ar Total Score: 18 - Admission Criteria OASAS Guidelines: Admission for Medically Managed Detox: Requires at least one of the followin. CIWA greater than 12 2. Seizures within the past 24 hours 3. Delirium tremens within the past 24 hours 4. Hallucinations within the past 24 hours 5. Acute intervention needed for co occurring medical disorder 6. Acute intervention needed for co occurring psychiatric disorder 7. Severe withdrawal that cannot be handled at a lower level of care (continued vomiting, continued diarrhea, abnormal vital signs) requiring intravenous medication and/or fluids 8. Patient presents the following: CIWA greater than 12 Admission Criteria Met: Admission criteria met Admitting History and Physical - Past Medical History [employer]: Yes: Peripheral Neuropathy Cardiovascular: Yes: HTN Gastrointestinal: Yes: GERD Psych: Yes: Depression Musculoskeletal: Yes: Chronic low back pain, Other (Right shoulder pain) - Past Surgical History Past Surgical History: Yes: Hernia Repair - Smoking History Smoking history: Former smoker Have you smoked in the past 12 months: No Aproximately how many cigarettes per day: 2 If you are a former smoker, when did you quit?: 2014 - Alcohol/Substance Use Hx Alcohol Use: Yes History of Substance Use: reports: Cocaine - Social History ADL: Independent Occupation: Unemployeed History of Recent Travel: No Admission ROS [facility] Chief Complaint: I am here to detox from alcohol and cocaine Allergies/Adverse Reactions: Allergies Allergy/AdvReac Type Severity Reaction Status Date / Time No Known Drug Allergies Allergy Verified 10/15/19 11:54 peanut Allergy Difficulty Verified 10/15/19 11:54 Breathing History of Present Illness: Patient is a 54 year old man with alcohol dependence and cocaine abuse who presents for detox. His last detox was initiated on 11/28/19, he reports blackouts, last episode was in October, he denies seizures. Exam Limitations: No Limitations - Ebola screening Have you traveled outside of the country in the last 21 days: No Have you had contact with anyone from an Ebola affected area: No Have you been sick,other than usual withdrawal symptoms: No - Review of Systems Constitutional: Chills, Changes in sleep EENT: reports: Blurred Vision (without eye glasses) Respiratory: reports: No Symptoms reported Cardiac: reports: No Symptoms Reported GI: reports: Diarrhea, Nausea, Poor Fluid Intake, Abdominal cramping : reports: No Symptoms Reported Musculoskeletal: reports: Back Pain (low), Joint Pain, Muscle Pain, Muscle Weakness Integumentary: reports: Sweating Neuro: reports: Headache, Numbness, Tremors Endocrine: reports: No Symptoms Reported Hematology: reports: No Symptoms Reported Psychiatric: reports: Anxious, Depressed Other Systems: Reviewed and Negative Patient History - Patient Medical History Hx Anemia: No Hx Asthma: No Hx Chronic Obstructive Pulmonary Disease (COPD): No Hx Cancer: No Hx Cardiac Disorders: No Hx Congestive Heart Failure: No Hx Hypertension: Yes Hx Hypercholesterolemia: Yes Hx Pacemaker: No HX Cerebrovascular Accident: No Hx Seizures: No Hx Dementia: No Hx Diabetes: No Hx Gastrointestinal Disorders: Yes (GERD) Hx Liver Disease: No Hx Genitourinary Disorders: No Hx Sexually Transmitted Disorders: No Hx Renal Disease (ESRD): No Hx Thyroid Disease: No Hx Human Immunodeficiency Virus (HIV): No Hx Hepatitis C: No Hx Depression: Yes Hx Suicide Attempt: No Hx Bipolar Disorder: Yes Hx Schizophrenia: No - Patient Surgical History Past Surgical History: Yes Hx Neurologic Surgery: No Hx Cataract Extraction: No Hx Cardiac Surgery: No Hx Lung Surgery: No Hx Breast Surgery: No Hx Breast Biopsy: No Hx Abdominal Surgery: Yes (umbilical hernia repair at age 11) Hx Appendectomy: No Hx Cholecystectomy: No Hx Genitourinary Surgery: No Hx Section: No Hx Orthopedic Surgery: Yes (right bunion surgery) Other Surgical History: bunion right toe surgery done 06/18 Anesthesia Reaction: No - PPD History Previous Implant?: Yes Documented Results: Negative w/proof Implanted On Prior [facility] Admission?: Yes Date: 11/30/19 Results: 0 mm PPD to be Administered?: No - Smoking Cessation Smoking history: Former smoker Have you smoked in the past 12 months: No Aproximately how many cigarettes per day: 0 If you are a former smoker, when did you quit?: 2014 Cigars Per Day: 0 Hx Chewing Tobacco Use: No Initiated information on smoking cessation: No Admission Physical Exam BHS - Vital Signs Vital Signs: Vital Signs - 24 hr 02/06/20 09:53 Temperature 97.4 F L Pulse Rate 77 Respiratory 18 Rate Blood Pressure 117/77 - Physical General Appearance: Yes: No Apparent Distress, Sweating, Anxious HEENTM: Yes: Hearing grossly Normal, Normocephalic, Normal Voice Respiratory: Yes: Chest Non-Tender, Lungs Clear, Normal Breath Sounds, No Respiratory Distress, No Accessory Muscle Use Neck: Yes: No masses,lesions,Nodules, Supple Breast: Yes: Breast Exam Deferred Cardiology: Yes: Regular Rhythm, Regular Rate, S1, S2 Abdominal: Yes: Normal Bowel Sounds, Non Tender, Soft Genitourinary: Yes: Within Normal Limits Back: Yes: Other (low back pain) Extremities: Yes: Non-Tender, Tremors 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: Yes: Fully Oriented, Alert, Normal Mood/Affect, Normal Response Integumentary: Yes: Normal Color Lymphatic: Yes: Within Normal Limits - Diagnostic (1) Alcohol dependence with withdrawal, uncomplicated Current Visit: Yes Status: Acute (2) Cocaine dependence, uncomplicated Current Visit: Yes Status: Chronic (3) Cannabis abuse Current Visit: Yes Status: Chronic (4) Chronic low back pain Current Visit: Yes Status: Chronic Qualifiers: Back pain laterality: midline Sciatica presence: without sciatica Qualified Code(s): M54.5 - Low back pain; G89.29 - Other chronic pain (5) Essential hypertension Current Visit: Yes Status: Chronic (6) GERD (gastroesophageal reflux disease) Current Visit: Yes Status: Chronic Qualifiers: Esophagitis presence: without esophagitis Qualified Code(s): K21.9 - Gastro-esophageal reflux disease without esophagitis (7) Hyperlipidemia Current Visit: Yes Status: Chronic Qualifiers: Hyperlipidemia type: mixed hyperlipidemia Qualified Code(s): E78.2 - Mixed hyperlipidemia Cleared for Admission [facility] - Detox or Rehab [facility] Level of Care: Medically Managed Detox Regimen/Protocol: Librium Claeared for Rehab Admission: No Breathalyzer - Breathalyzer Breathalyzer: 0.075 Urine Drug Screen - Test Device Lot number: [id number] Expiration date: 09/07/21 - Control Is test valid?: Yes - Results Drug screen NEGATIVE: No Urine drug screen results: JAZMIN-Cocaine Inpatient Rehab Admission - Rehab Decision to Admit Inpatient rehab admission?: No
[2020-02-06] MEDS ORDERED: IBUPROFEN 400 MG TABLET (FP) PO PRN (10:04)
[2020-02-06] MEDS ORDERED: hydrOXYzine PAMOATE 25 MG CAPSULE (FP) PO PRN (10:04)
[2020-02-06] MEDS ORDERED: METHOCARBAMOL 500 MG TABLET PO PRN (10:04)
[2020-02-06] MEDS ORDERED: ONDANSETRON *ODT* 4 MG TABLET SL ONE (10:04)
[2020-02-06] MEDS ORDERED: BISMUTH SUBSALICYLATE 524 MG/30 ML UD PO PRN (10:04)
[2020-02-06] MEDS ORDERED: chlordiazePOXIDE HCL 10 MG CAPSULE PO PRN (10:04)
[2020-02-06] MEDS ORDERED: MAGNESIUM CITRATE 300 ML BOTTLE PO PRN (10:04)
[2020-02-06] MEDS ORDERED: MENTHOL/PHENOL 1 EACH UD MM PRN (10:04)
[2020-02-06] MEDS ORDERED: ACETAMINOPHEN 325 MG TABLET (FP) PO PRN ×2 (10:04)
[2020-02-06] MEDS ORDERED: MAG HYDROX/AL HYDROX/SIMETH 30 ML UNIT-DOSE CUP PO PRN (10:04)
[2020-02-06] MEDS ORDERED: MAGNESIUM HYDROX 2400MG/30ML ORAL SUSPENSION 30 ML CUP PO PRN (10:04)
[2020-02-06] MEDS: amLODIPine BESYLATE 10 MG TABLET (FP) PO SCH (11:54)
[2020-02-06] MEDS: HYDROCHLOROTHIAZIDE 25 MG TABLET (FP) PO SCH (11:55)
[2020-02-06] MEDS: chlordiazePOXIDE HCL 25 MG CAPSULE PO SCH ×2 (11:59→22:31)
--- NOTE | 2020-02-06 14:16 | CONSULT ---
[facility] Psychiatric Consult - Data Date of interview: 02/06/20 Admission source: Self-referred Identifying data: Mr Parra is a 54 years old single Black male, unemployed, domiciled seeking detox treatment for alcohol and cocaine Substance Abuse History: Reports history of alcohol and cocaine use. Refer to addiction counselor's summary for further information Medical History: Significant for hypertension, dyslipidemia, GERD, peripheral neuropathy, chronic low back pain, shoulder pain, history of treatment for syphilis, bunionectomy (right toe) in Jun 2016 and umbilical hernia repair at age 11. Psychiatric History: Patient is known for multiple previous admissions to this facility. He reports that his first psychiatric contact occured while in skilled nursing in 2009. He said that he was diagnosed with MDD at first and started on psychotropic medications. He said that his diagnosis was later revised to Bipolar Disorder. Reports multiple previous psychiatric hospitalizations at [facility] and [facility]. Chronically non-adherent to OPD care and medications (dropped out of treatment at [facility] OPD clinic). 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 Told check writer salesperson that after using the 30 days supply provided to him on discharge, he has been vising ED for medication refills.Patient has been treated, in the past, on a regimen of Zoloft 50 mg/day, Seroquel 100 mg/hs and Trazodone 50 mg/hs. Denies previous suicide attempt. At present, denies experiencing psychotic, manic or depressive symptoms, S/H ideations. However, reports sleeping poorly. He requests to resume Zoloft Physical/Sexual Abuse/Trauma History: Denies history of abuse as a child or DV relationship as an adult Additional Comment: History of assisted incarceration Mental Status Exam - Mental Status Exam Alert and Oriented to: Time, Place, Person Cognitive Function: Fair Patient Appearance: Well Groomed Mood: Depressed Affect: Appropriate Patient Behavior: Cooperative Speech Pattern: Clear Voice Loudness: Normal Thought Process: Intact, Goal Oriented Hallucinations: Denies Suicidal Ideation: Denies Homicidal Ideation: Denies Insight/Judgement: Poor Sleep: Poorly Appetite: Good Muscle strength/Tone: Normal Gait/Station: Normal Psychiatric Findings - Problem List (Katy 1, 2,3) (1) Mood disorder Current Visit: Yes Status: Chronic (2) Bipolar disorder Current Visit: No Status: Ruled-out Qualifiers: Active/Remission status: remission status unspecified Qualified Code(s): F31.9 - Bipolar disorder, unspecified Comment: By history. Non-compliant with medications. (3) MDD (major depressive disorder), recurrent episode, moderate Current Visit: No Status: Ruled-out (4) Substance induced mood disorder Current Visit: Yes Status: Acute (5) Substance-induced sleep disorder Current Visit: Yes Status: Acute (6) Alcohol dependence with withdrawal, uncomplicated Current Visit: Yes Status: Acute (7) Cocaine dependence, uncomplicated Current Visit: Yes Status: Chronic (8) Essential hypertension Current Visit: Yes Status: Chronic (9) GERD (gastroesophageal reflux disease) Current Visit: Yes Status: Chronic Qualifiers: Esophagitis presence: without esophagitis Qualified Code(s): K21.9 - Gastro-esophageal reflux disease without esophagitis (10) Hyperlipidemia Current Visit: Yes Status: Chronic Qualifiers: Hyperlipidemia type: mixed hyperlipidemia Qualified Code(s): E78.2 - Mixed hyperlipidemia (11) Chronic low back pain Current Visit: Yes Status: Chronic Qualifiers: Back pain laterality: midline Sciatica presence: without sciatica Qualif ied Code(s): M54.5 - Low back pain; G89.29 - Other chronic pain (12) Syphilis contact, treated Current Visit: No Status: Resolved (13) Neuropathy Current Visit: No Status: Chronic - Initial Treatment Plan Initial Treatment Plan: 1) Continue Zoloft 50 mg po daily. 2) Continue inpatient detoxification
[2020-02-06] MEDS: ATORVASTATIN CA 10 MG TABLET (FP) PO SCH (22:33)
[2020-02-06] MEDS: MELATONIN 5 MG TABLETS PO SCH (22:33)
[2020-02-06] MEDS: THIAMINE HCL 100 MG TABLET (FP) PO SCH (22:34)
[2020-02-06] MEDS: METHYL SALICYLATE/MENTHOL OINT 30 GM TUBE TP SCH (23:29)
[2020-02-07] MEDS: chlordiazePOXIDE HCL 25 MG CAPSULE PO SCH ×3 (06:25→22:24)
[2020-02-07 10:06] LABS: HEMATOCRIT 45.9 % (35.4-49); HEMOGLOBIN 15.4 GM/dL (11.7-16.9); MCH 29.7 pg (25.7-33.7); MCHC 33.6 g/dl (32.0-35.9); MEAN CELL VOLUME 88.3 fl (80-96); MEAN PLT VOLUME 8.5 fl (7.5-11.1); PLATELET COUNT 227 K/MM3 (134-434); RDW 15.2 % (11.9-15.9)
[2020-02-07] MEDS: amLODIPine BESYLATE 10 MG TABLET (FP) PO SCH (10:10)
[2020-02-07] MEDS: HYDROCHLOROTHIAZIDE 25 MG TABLET (FP) PO SCH (10:10)
[2020-02-07] MEDS: PRENATAL VITAMINS W/ FOLIC ACID TABLET (FP) PO SCH (10:11)
[2020-02-07] MEDS: SERTRALINE HCL 50 MG TABLET (FP) PO SCH (10:11)
[2020-02-07] MEDS: METHYL SALICYLATE/MENTHOL OINT 30 GM TUBE TP SCH ×2 (10:11→22:24)
[2020-02-07 10:17] LABS: ALBUMIN 3.6 g/dl (3.4-5.0); BILIRUBIN,TOTAL 0.7 mg/dL (0.2-1); BLOOD UREA NITROGEN 16.4 mg/dL (7-18); CREATININE 1.1 mg/dL (0.55-1.3); POTASSIUM 3.3 mmol/L (3.5-5.1); TOT PROT 7.8 g/dl (6.4-8.2)
--- NOTE | 2020-02-07 10:35 | PN ---
S CIWA - CIWA Score Nausea/Vomitin-No Nausea/No Vomiting Muscle Tremors: 2 Anxiety: 3 Agitation: 1-Slight > Activity Paroxysmal Sweats: 3 Orientation: 0-Oriented Tacttile Disturbances: 0-None Auditory Disturbances: 0-None Visual Disturbances: 0-None Headache: 2-Mild CIWA-Ar Total Score: 11 S Progress Note (SOAP) Subjective: c/o muscle aches, headache, sweats, anxiety, and shakes. Objective: 02/07/20 10:32 Vital Signs 02/07/20 02/07/20 05:40 08:55 Temperature 97.5 F L 97.6 F Pulse Rate 69 86 Respiratory 18 18 Rate Blood Pressure 115/78 132/69 O2 Sat by Pulse 100 Oximetry (%) Laboratory Last Values WBC 5.0 K/mm3 (4.0-10.0) 02/07/20 07:40 RBC 5.20 M/mm3 (4.00-5.60) 02/07/20 07:40 Hgb 15.4 GM/dL (11.7-16.9) 02/07/20 07:40 Hct 45.9 % (35.4-49) 02/07/20 07:40 MCV 88.3 fl (80-96) 02/07/20 07:40 MCH 29.7 pg (25.7-33.7) 02/07/20 07:40 MCHC 33.6 g/dl (32.0-35.9) 02/07/20 07:40 RDW 15.2 % (11.9-15.9) 02/07/20 07:40 Plt Count 227 K/MM3 (134-434) 02/07/20 07:40 MPV 8.5 fl (7.5-11.1) 02/07/20 07:40 Sodium 137 mmol/L (136-145) 02/07/20 07:40 Potassium 3.3 mmol/L (3.5-5.1) L 02/07/20 07:40 Chloride 101 mmol/L (98-107) 02/07/20 07:40 Carbon Dioxide 29 mmol/L (21-32) 02/07/20 07:40 Anion Gap 8 MMOL/L (8-16) 02/07/20 07:40 BUN 16.4 mg/dL (7-18) 02/07/20 07:40 Creatinine 1.1 mg/dL (0.55-1.3) 02/07/20 07:40 Est GFR (CKD-EPI)AfAm 87.74 02/07/20 07:40 Est GFR (CKD-EPI)NonAf 75.70 02/07/20 07:40 Random Glucose 167 mg/dL (74-106) H 02/07/20 07:40 Calcium 9.0 mg/dL (8.5-10.1) 02/07/20 07:40 Total Bilirubin 0.7 mg/dL (0.2-1) 02/07/20 07:40 AST 13 U/L (15-37) L 02/07/20 07:40 ALT 35 U/L (13-61) 02/07/20 07:40 Alkaline Phosphatase 102 U/L (45-117) 02/07/20 07:40 Total Protein 7.8 g/dl (6.4-8.2) 02/07/20 07:40 Albumin 3.6 g/dl (3.4-5.0) 02/07/20 07:40 Syphilis Serology Reactive (NONREACTIVE) A* 02/07/20 07:40 HIV Ag/Ab Combo Qual Negative (NEGATIVE) 02/07/20 07:40 Labs noted with low K+ level and elevated random glucose. Syphilis serology is reactive, pending RPR result. 02/07/20 12:24 Assessment: 02/07/20 10:33 AOX3, in no acute respiratory distress. Full ROM, ambulating in the unit. Withdrawal symptoms. Elevated serum glucose. Hypokalemia. Syphilis serology is reactive, pending RPR result. 02/07/20 12:25 Plan: continue detox. Give potassium chloride 40meq po x1dose now. Repeat K+ level in AM. Hemoglobin A1c in AM.
[2020-02-07] MEDS ORDERED: POTASSIUM CHLORIDE TABS 20 MEQ TABLET.ER (FP) PO ONE (11:30)
[2020-02-07] MEDS: ATORVASTATIN CA 10 MG TABLET (FP) PO SCH (22:22)
[2020-02-07] MEDS: THIAMINE HCL 100 MG TABLET (FP) PO SCH (22:22)
[2020-02-07] MEDS: MELATONIN 5 MG TABLETS PO SCH (22:24)
[2020-02-08] MEDS: chlordiazePOXIDE 5 MG CAPSULE PO SCH ×3 (05:23→22:10)
[2020-02-08] MEDS: amLODIPine BESYLATE 10 MG TABLET (FP) PO SCH (10:22)
[2020-02-08] MEDS: SERTRALINE HCL 50 MG TABLET (FP) PO SCH (10:22)
[2020-02-08] MEDS: METHYL SALICYLATE/MENTHOL OINT 30 GM TUBE TP SCH ×2 (10:22→22:12)
[2020-02-08] MEDS: HYDROCHLOROTHIAZIDE 25 MG TABLET (FP) PO SCH (10:22)
[2020-02-08] MEDS: PRENATAL VITAMINS W/ FOLIC ACID TABLET (FP) PO SCH (10:22)
--- NOTE | 2020-02-08 10:27 | PN ---
[facility] CIWA - CIWA Score Nausea/Vomitin-No Nausea/No Vomiting Muscle Tremors: 3 Anxiety: 2 Agitation: 2 Paroxysmal Sweats: 2 Orientation: 0-Oriented Tacttile Disturbances: 0-None Auditory Disturbances: 0-None Visual Disturbances: 0-None Headache: 0-None Present CIWA-Ar Total Score: 9 S Progress Note (SOAP) Subjective: sweats shakes chills body aches dry/itchy feet it my fungal on my toes Objective: 02/08/20 10:26 Vital Signs Temperature 96.9 F L 02/08/20 08:50 Pulse Rate 90 02/08/20 08:50 Respiratory Rate 19 02/08/20 08:50 Blood Pressure 127/76 02/08/20 08:50 O2 Sat by Pulse Oximetry (%) 96 02/08/20 08:50 Laboratory Tests 02/07/20 02/07/20 02/07/20 07:40 07:40 07:40 WBC 5.0 RBC 5.20 Hgb 15.4 Hct 45.9 MCV 88.3 MCH 29.7 MCHC 33.6 RDW 15.2 Plt Count 227 MPV 8.5 Sodium 137 Potassium 3.3 L Chloride 101 Carbon Dioxide 29 Anion Gap 8 BUN 16.4 Creatinine 1.1 Est GFR (CKD-EPI)AfAm 87.74 Est GFR (CKD-EPI)NonAf 75.70 Random Glucose 167 H Calcium 9.0 Total Bilirubin 0.7 AST 13 L ALT 35 Alkaline Phosphatase 102 Total Protein 7.8 Albumin 3.6 Syphilis Serology Reactive A* RPR Titer HIV Ag/Ab Combo Qual 02/07/20 02/07/20 07:40 07:40 WBC RBC Hgb Hct MCV MCH MCHC RDW Plt Count MPV Sodium Potassium Chloride Carbon Dioxide Anion Gap BUN Creatinine Est GFR (CKD-EPI)AfAm Est GFR (CKD-EPI)NonAf Random Glucose Calcium Total Bilirubin AST ALT Alkaline Phosphatase Total Protein Albumin Syphilis Serology RPR Titer Reactive 1:1 H HIV Ag/Ab Combo Qual Negative repeated labs pending aaox3 ambulating no acute distress Assessment: 02/08/20 10:26 withdrawals Plan: continue detox tinactin cream ordered increase fluids
[2020-02-08] MEDS ORDERED: TOLNAFTATE 1% CREAM 15 GM TUBE TP SCH (22:00)
[2020-02-08] MEDS: THIAMINE HCL 100 MG TABLET (FP) PO SCH (22:10)
[2020-02-08] MEDS: ATORVASTATIN CA 10 MG TABLET (FP) PO SCH (22:10)
[2020-02-08] MEDS: MELATONIN 5 MG TABLETS PO SCH (22:10)
[2020-02-09] MEDS ORDERED: chlordiazePOXIDE HCL 10 MG CAPSULE PO PRN
[2020-02-09] MEDS ORDERED: chlordiazePOXIDE HCL 10 MG CAPSULE PO SCH (05:00)
[2020-02-09 09:12] VITALS: BP 121/86; PULSE 80; TEMP 98.1
--- NOTE | 2020-02-09 13:45 | DS ---
[facility] Detox Discharge Summary Admission Date: 02/06/20 Discharge Date: 02/09/20 - History Present History: Alcohol Dependence - Physical Exam Results Vital Signs: Vital Signs Temperature 98.1 F 02/09/20 08:21 Pulse Rate 80 02/09/20 08:21 Respiratory Rate 16 02/09/20 08:21 Blood Pressure 121/86 02/09/20 08:21 O2 Sat by Pulse Oximetry (%) 95 02/08/20 20:53 Pertinent Admission Physical Exam Findings: Vital Signs Temperature 98.1 F 02/09/20 08:21 Pulse Rate 80 02/09/20 08:21 Respiratory Rate 16 02/09/20 08:21 Blood Pressure 121/86 02/09/20 08:21 O2 Sat by Pulse Oximetry (%) 95 02/08/20 20:53 Laboratory Tests 02/06/20 02/07/20 02/07/20 10:15 07:40 07:40 WBC 5.0 RBC 5.20 Hgb 15.4 Hct 45.9 MCV 88.3 MCH 29.7 MCHC 33.6 RDW 15.2 Plt Count 227 MPV 8.5 Sodium Potassium Chloride Carbon Dioxide Anion Gap BUN Creatinine Est GFR (CKD-EPI)AfAm Est GFR (CKD-EPI)NonAf Random Glucose Hemoglobin A1c % Calcium Total Bilirubin AST ALT Alkaline Phosphatase Total Protein Albumin Syphilis Serology Reactive A* RPR Titer COVID-19 (ARVIN) Not detected HIV Ag/Ab Combo Qual 02/07/20 02/07/20 02/07/20 07:40 07:40 07:40 WBC RBC Hgb Hct MCV MCH MCHC RDW Plt Count MPV Sodium 137 Potassium 3.3 L Chloride 101 Carbon Dioxide 29 Anion Gap 8 BUN 16.4 Creatinine 1.1 Est GFR (CKD-EPI)AfAm 87.74 Est GFR (CKD-EPI)NonAf 75.70 Random Glucose 167 H Hemoglobin A1c % Calcium 9.0 Total Bilirubin 0.7 AST 13 L ALT 35 Alkaline Phosphatase 102 Total Protein 7.8 Albumin 3.6 Syphilis Serology RPR Titer Reactive 1:1 H COVID-19 (ARVIN) HIV Ag/Ab Combo Qual Negative 02/08/20 02/08/20 07:45 07:45 WBC RBC Hgb Hct MCV MCH MCHC RDW Plt Count MPV Sodium Potassium 3.6 Chloride Carbon Dioxide Anion Gap BUN Creatinine Est GFR (CKD-EPI)AfAm Est GFR (CKD-EPI)NonAf Random Glucose Hemoglobin A1c % 5.9 Calcium Total Bilirubin AST ALT Alkaline Phosphatase Total Protein Albumin Syphilis Serology RPR Titer COVID-19 (ARVIN) HIV Ag/Ab Combo Qual labs noted aaox3 ambulating no acute distress lungs CTA - Treatment Hospital Course: Detox Protocol Followed, Detoxed Safely, Responded well, Discharged Condition Good, Rehab Referral Accepted - Medication Discharge Medications: Ambulatory Orders Sertraline HCl [Zoloft -] 50 mg PO DAILY 06/02/19 Amlodipine Besylate [Norvasc -] 10 mg PO DAILY #30 tablet 12/01/19 Hydrochlorothiazide [Hctz -] 25 mg PO DAILY #30 tablet 12/01/19 Simvastatin [Zocor] 20 mg PO HS #30 tablet 12/01/19 - Diagnosis (1) Alcohol dependence with withdrawal, uncomplicated Status: Chronic (2) Alcohol-induced mood disorder Status: Acute (3) Alcohol-induced sleep disorder Status: Acute (4) History of syphilis Status: Acute (5) Laceration Status: Acute (6) Substance induced mood disorder Status: Acute (7) Substance-induced anxiety disorder Status: Acute (8) Substance-induced sleep disorder Status: Acute (9) Cannabis abuse Status: Chronic (10) Chronic low back pain Status: Chronic Qualifiers: Back pain laterality: midline Sciatica presence: without sciatica Qualified Code(s): M54.5 - Low back pain; G89.29 - Other chronic pain (11) Cocaine dependence, uncomplicated Status: Chronic (12) Drug-induced mood disorder Status: Chronic (13) Dry skin Status: Chronic (14) Essential hypertension Status: Chronic (15) GERD (gastroesophageal reflux disease) Status: Chronic Qualifiers: Esophagitis presence: without esophagitis Qualified Code(s): K21.9 - Gastro-esophageal reflux disease without esophagitis (16) History of depression Status: Chronic (17) Hyperlipidemia Status: Chronic Qualifiers: Hyperlipidemia type: mixed hyperlipidemia Qualified Code(s): E78.2 - Mixed hyperlipidemia (18) MDD (major depressive disorder) Status: Chronic Qualifiers: Major depression recurrence: recurrent Major depression episode severity: moderate (19) Mood disorder Status: Chronic (20) Mood disorder Status: Chronic (21) Mood disorder Status: Chronic (22) Neuropathy Status: Chronic (23) Syncope Status: Chronic Qualifiers: Syncope type: unspecified Qualified Code(s): R55 - Syncope and collapse (24) Substance induced mood disorder Status: Suspected (25) Syphilis contact, treated Status: Resolved (26) Bipolar disorder Status: Ruled-out Qualifiers: Active/Remission status: remission status unspecified Qualified Code(s): F31.9 - Bipolar disorder, unspecified (27) Bipolar disorder Status: Ruled-out (28) MDD (major depressive disorder), recurrent episode, moderate Status: Ruled-out - AMA Did Patient Leave Against Medical Advice: No
[2020-02-10] MEDS ORDERED: chlordiazePOXIDE HCL 10 MG CAPSULE PO ONE (05:00)
== END 2020-02-09 10:13 | disposition home or self-care (01) | DRG 774 ==
LOC: YASAS 08:41 → Y6N 10:08
PROVIDERS: ADMIT Allergy & Immunology; ATTEND Allergy & Immunology
PROC: HZ2ZZZZ Detoxification Services for Substance Abuse Treatment (ICD-10-PCS; principal; 2020-02-06)
DX: F10.230 Alcohol dependence with withdrawal, uncomplicated (principal); F14.20 Cocaine dependence, uncomplicated; F12.10 Cannabis abuse, uncomplicated; F17.211 Nicotine dependence, cigarettes, in remission; F10.282 Alcohol dependence with alcohol-induced sleep disorder; F10.24 Alcohol dependence with alcohol-induced mood disorder; F19.282 Other psychoactive substance dependence with psychoactive substance-induced sleep disorder; F19.280 Other psychoactive substance dependence with psychoactive substance-induced anxiety disorder; F19.24 Other psychoactive substance dependence with psychoactive substance-induced mood disorder; F39 Unspecified mood [affective] disorder; E87.6 Hypokalemia; E78.5 Hyperlipidemia, unspecified; I10 Essential (primary) hypertension; G62.9 Polyneuropathy, unspecified; K21.9 Gastro-esophageal reflux disease without esophagitis; L85.3 Xerosis cutis; R73.9 Hyperglycemia, unspecified; Z86.19 Personal history of other infectious and parasitic diseases
CPT/HCPCS: 36415; 80053; 83036; 84132; 85027; 86593; 86780; 87389; U0003

== ENCOUNTER 2020-02-23 11:15 | Inpatient (IN) | payer OTHER ==
--- NOTE | 2020-02-23 11:24 | BHS.RME ---
Substance Use & Tx History - Substance Use History Alcohol Substance amount: 4-5 pints + 8 16 oz beers Frequency of use: Daily Substance route: Oral Date of Last Use: 02/16/20 Cocaine-Crack Substance amount: 5 grams Frequency of use: Daily Date of Last Use: 02/16/20 Nicotine Substance amount: 2-3 ciggs Frequency of use: Daily Substance route: Smoking Date of Last Use: 01/24/20 Physical/Psych/Mental Status - Behavior General Behavior: Increased activity (restlessness, agitation) Eye Contact: Normal - Cooperativeness Cooperativeness: Cooperative - Thinking Thought Processes: Tight, Logical, Goal Directed - Physical Health Problems Is patient presently having any pain?: No Does patient presently have any injuries (include location): No Does patient currently have a fever: No Is patient : No CIWA Nausea/Vomitin-No Nausea/No Vomiting Muscle Tremors: None Anxiety: 0-No Anxiety, at Ease Agitation: 0-Normal Activity Paroxysmal Sweats: No Perspiration Orientation: 0-Oriented Tacttile Disturbances: 0-None Auditory Disturbances: 0-None Visual Disturbances: 0-None Headache: 0-None Present CIWA-Ar Total Score: 0
[2020-02-23 13:28] VITALS: BMI 28.6
[2020-02-23] MEDS ORDERED: ACETAMINOPHEN 325 MG TABLET (FP) ONE (14:26)
--- NOTE | 2020-02-23 14:39 | HP ---
CIWA Score Nausea/Vomitin-No Nausea/No Vomiting Muscle Tremors: None Anxiety: 0-No Anxiety, at Ease Agitation: 0-Normal Activity Paroxysmal Sweats: No Perspiration Orientation: 0-Oriented Tacttile Disturbances: 0-None Auditory Disturbances: 0-None Visual Disturbances: 0-None Headache: 0-None Present CIWA-Ar Total Score: 0 - Admission Criteria OASAS Guidelines: Admission for Medically Managed Detox: Requires at least one of the followin. CIWA greater than 12 2. Seizures within the past 24 hours 3. Delirium tremens within the past 24 hours 4. Hallucinations within the past 24 hours 5. Acute intervention needed for co occurring medical disorder 6. Acute intervention needed for co occurring psychiatric disorder 7. Severe withdrawal that cannot be handled at a lower level of care (continued vomiting, continued diarrhea, abnormal vital signs) requiring intravenous medication and/or fluids 8. Admitting History and Physical - Admission Chief Complaint: Mr. Parra is a 54 yo gentleman who presents to [facility] requesting admission to rehab. History of Present Illness: Mr. Parra is a 54 yo gentleman who presents to [facility] requesting admission to rehab. He finished detox on 02/08 and wants to return for rehab. He tested negative today for COVID PMH: HTN, MAGUE, peripheral neuropathy, chronic low back pain, right hsoulder pain PSH: hernioraphy Psych: depression on zoloft SOC: homeless, on the streets Substance Use History Alcohol Substance amount: 4-5 pints + 8 16 oz beers Frequency of use: Daily Substance route: Oral Date of Last Use: 02/16/20 first use age 16y No seizures. 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 Cardiovascular: Yes: HTN Gastrointestinal: Yes: GERD Psych: Yes: Depression Musculoskeletal: Yes: Chronic low back pain, Other (Right shoulder pain) - Past Surgical History Past Surgical History: Yes: Hernia Repair - Smoking History Smoking history: Current some day smoker Have you smoked in the past 12 months: No Aproximately how many cigarettes per day: 3 If you are a former smoker, when did you quit?: 2014 - Alcohol/Substance Use Hx Alcohol Use: Yes History of Substance Use: reports: Cocaine - Social History ADL: Independent Occupation: Unemployeed History of Recent Travel: No Admission ROS S - HPI Allergies/Adverse Reactions: Allergies Allergy/AdvReac Type Severity Reaction Status Date / Time No Known Drug Allergies Allergy Verified 02/23/20 14:03 peanut Allergy Difficulty Verified 02/23/20 14:03 Breathing Exam Limitations: No Limitations - Ebola screening Have you traveled outside of the country in the last 21 days: No Have you been sick,other than usual withdrawal symptoms: No Do you have a fever: No - Review of Systems Constitutional: No Symptoms Reported EENT: reports: No Symptoms Reported Respiratory: reports: No Symptoms reported Cardiac: reports: No Symptoms Reported GI: reports: No Symptoms Reported : reports: No Symptoms Reported Musculoskeletal: reports: Back Pain (chronic), Joint Pain (right shoulder, chroini) Integumentary: reports: No Symptoms Reported Neuro: reports: Headache (frontal, 10/10, pounding, hx of headaches tx with Tylenol effectively in the past) Endocrine: reports: No Symptoms Reported Hematology: reports: No Symptoms Reported Psychiatric: reports: Depressed (on Zoloft) Patient History - Patient Medical History Hx Anemia: No Hx Asthma: No Hx Chronic Obstructive Pulmonary Disease (COPD): No Hx Cancer: No Hx Cardiac Disorders: No Hx Congestive Heart Failure: No Hx Hypertension: Yes Hx Hypercholesterolemia: Yes Hx Pacemaker: No HX Cerebrovascular Accident: No Hx Seizures: No Hx Dementia: No Hx Diabetes: No Hx Gastrointestinal Disorders: No Hx Liver Disease: No Hx Genitourinary Disorders: No Hx Sexually Transmitted Disorders: No Hx Renal Disease (ESRD): No Hx Thyroid Disease: No Hx Human Immunodeficiency Virus (HIV): No Hx Hepatitis C: No Hx Depression: Yes Hx Suicide Attempt: No Hx Bipolar Disorder: Yes Hx Schizophrenia: No - Patient Surgical History Past Surgical History: Yes Hx Neurologic Surgery: No Hx Cataract Extraction: No Hx Cardiac Surgery: No Hx Lung Surgery: No Hx Breast Surgery: No Hx Breast Biopsy: No Hx Abdominal Surgery: Yes (umbilical hernia repair at age 11) Hx Appendectomy: No Hx Cholecystectomy: No Hx Genitourinary Surgery: No Hx Section: No Hx Orthopedic Surgery: Yes (right bunion surgery) Other Surgical History: bunion right toe surgery done 06/18 Anesthesia Reaction: No - PPD History Previous Implant?: Yes Documented Results: Negative w/proof Date: 11/30/19 Results: neg - Reproductive History Patient : (n/a) - Smoking Cessation Smoking history: Current some day smoker Have you smoked in the past 12 months: No Aproximately how many cigarettes per day: 3 If you are a former smoker, when did you quit?: 2014 Cigars Per Day: 0 Hx Chewing Tobacco Use: No Initiated information on smoking cessation: Yes 'Breaking Loose' booklet given: 02/23/20 - Substances abused Alcohol Substance route: Oral Frequency: Daily Amount used: 4-5 pints of bacardi Age of first use: 16 Date of last use: 02/16/20 Admission Physical Exam [facility] - Vital Signs Vital Signs: Vital Signs - 24 hr 02/23/20 02/23/20 13:26 14:05 Temperature 97.7 F 97.7 F Pulse Rate 66 66 Respiratory 18 18 Rate Blood Pressure 124/78 124/78 - Physical General Appearance: Yes: No Apparent Distress, Nourished, Irritable HEENTM: Yes: EOMI, Hearing grossly Normal, Normocephalic, Normal Voice Respiratory: Yes: Lungs Clear, No Respiratory Distress, No Accessory Muscle Use Neck: Yes: Within Normal Limits, Supple Breast: Yes: Breast Exam Deferred Cardiology: Yes: Regular Rhythm, Regular Rate Abdominal: Yes: Normal Bowel Sounds, Non Tender, Flat, Soft Genitourinary: Yes: Other (deferred) Back: Yes: Normal Inspection Musculoskeletal: Yes: Gait Steady Extremities: Yes: Normal Inspection, Non-Tender 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: Yes: Alert, Normal Response Integumentary: Yes: Within Normal Limits - Diagnostic (1) Alcohol use disorder Current Visit: Yes Status: Acute Comment: 1. Admit to rehab (2) Nicotine dependence Current Visit: Yes Status: Acute (3) Cocaine dependence, uncomplicated Current Visit: No Status: Chronic (4) Essential hypertension Current Visit: No Status: Chronic (5) GERD (gastroesophageal reflux disease) Current Visit: No Status: Chronic Qualifiers: Esophagitis presence: without esophagitis Qualified Code(s): K21.9 - Gas tro-esophageal reflux disease without esophagitis (6) History of depression Current Visit: No Status: Chronic Cleared for Admission [facility] - Detox or Rehab [facility] Level of Care: Medically Supervised Breathalyzer - Breathalyzer Breathalyzer: 0.044 Urine Drug Screen - Test Device Lot number: [id number] Expiration date: 09/07/21 - Control Is test valid?: Yes - Results Drug screen NEGATIVE: No Urine drug screen results: JAZMIN-Cocaine, BZO-Benzodiazepines Inpatient Rehab Admission - Rehab Decision to Admit Inpatient rehab admission?: Yes - Initial Determination Are CD services needed?: Yes Free of communicable disease: Yes Not in need of hospitalization: Yes - Rehab Admission Criteria Previous failed treatment: Yes Poor recovery environment: Yes Comorbidities: Yes Lacks judgement: Yes Patient is meeting Inpatient Rehab admission criteria:: Yes
[2020-02-23] MEDS ORDERED: NICOTINE POLACRILEX 2 MG GUM BUC PRN (14:42)
[2020-02-23] MEDS ORDERED: MAG HYDROX/AL HYDROX/SIMETH 30 ML UNIT-DOSE CUP PO PRN (14:42)
[2020-02-23] MEDS ORDERED: MAGNESIUM CITRATE 300 ML BOTTLE PO PRN (14:42)
[2020-02-23] MEDS ORDERED: LOPERAMIDE HCL 2 MG CAPSULE PO PRN (14:42)
[2020-02-23] MEDS ORDERED: MAGNESIUM HYDROX 2400MG/30ML ORAL SUSPENSION 30 ML CUP PO PRN (14:42)
[2020-02-23] MEDS ORDERED: P-EPHED 60MG/TRIPROLIDI 2.5MG TABLET PO PRN (14:42)
[2020-02-23] MEDS ORDERED: ACETAMINOPHEN 325 MG TABLET (FP) PO ONE (14:51)
[2020-02-23] MEDS: amLODIPine BESYLATE 10 MG TABLET (FP) PO SCH (15:26)
[2020-02-23] MEDS: HYDROCHLOROTHIAZIDE 25 MG TABLET (FP) PO SCH (15:26)
[2020-02-23] MEDS: hydrOXYzine PAMOATE 25 MG CAPSULE (FP) PO SCH ×2 (18:48→23:04)
--- OUTSIDE RECORDS SUMMARY | 2020-02-23 19:16 | XMS ---
:1965 [facility] Support Name Relationship Address Phone UE, UNEMPLOYED Unavailable Unavailable Unavailable UE Unavailable Unavailable Unavailable JOSSY VASQUEZ SISTER [address] [place] [address] JOSSY VASQUEZ Sister [address] [place] [address] Re-disclosure Warning The records that you are about to access may contain information from federally- assisted alcohol or drug abuse programs. If such information is present, then the following federally mandated warning applies: This information has been disclosed to you from records protected by federal confidentiality rules (42 CFR part 2). The federal rules prohibit you from making any further disclosure of this information unless further disclosure is expressly permitted by the written consent of the person to whom it pertains or as otherwise permitted by 42 CFR part 2. A general authorization for the release of medical or other information is NOT sufficient for this purpose. The Federal rules restrict any use of the information to criminally investigate or prosecute any alcohol or drug abuse patient.The records that you are about to access may contain highly sensitive health information, the redisclosure of which is protected by Article 27-F of the [facility] Public Health law. If you continue you may haveaccess to information: Regarding HIV / AIDS; Provided by facilities licensed or operated by the [facility] Office of Mental Health; or Provided by the [facility] Office for People With Developmental Disabilities. If such information is present, then the following [facility] mandated warning applies: This information has been disclosed to you from confidential records which are protected by state law. State law prohibits you from making any further disclosure of this information without the specific written consent of the person to whom it pertains, or as otherwise permitted by law. Any unauthorized further disclosure in violation of state law may result in a fine or longterm sentence or both. A general authorization for the release of medical or other information is NOT sufficient authorization for further disclosure. Insurance Providers Payer name Policy type Policy ID Covered Covered alliance party's Policy P starla / Coverage alliance party ID relationship to Abdalla Inf ormation type abdalla BEACON [id number] SP [id number] [employer] BEACON [id number] SP [id number] [employer]ACON [id number] SP [id number] [employer] MEDICAID [id number] SP [id number] BEACON [id number] SP [id number] [employer] Results ID Date Data Source [id number] 02/06/2020 10:15:00 AM EDT [facility] Name Value Range Interpretation Description Data Sup porting Code Source(s) Document(s ) SARS [facility] coronavirus 2 RNA This lab was ordered by [facility] and reported by [facility]. ID Date Data Source [id number] 11/28/2019 08:27:00 AM EDT [facility] Name Value Range Interpretation Description Data Sup porting Code Source(s) Document(s ) SARS [facility] CORONAVIRUS 2 RNA This lab was ordered by [facility] and reported by [facility]. ID Date Data Source [id number] 10/15/2019 01:00:00 PM EDT [facility] Name Value Range Interpretation Description Data Sup porting Code Source(s) Document(s ) SARS [facility] CORONAVIRUS 2 RNA This lab was ordered by [facility] and reported by [facility]. Procedure
[2020-02-23] MEDS: MELATONIN 5 MG TABLETS PO SCH (22:01)
[2020-02-23] MEDS: THIAMINE HCL 100 MG TABLET (FP) PO SCH (22:01)
[2020-02-23] MEDS: ACETAMINOPHEN 325 MG TABLET (FP) PO PRN (22:01)
[2020-02-23] MEDS: ATORVASTATIN CA 10 MG TABLET (FP) PO SCH (22:01)
[2020-02-24] MEDS: hydrOXYzine PAMOATE 25 MG CAPSULE (FP) PO SCH ×2 (06:29→10:58)
--- NOTE | 2020-02-24 10:23 | PN ---
[facility] Progress Note Note: Pt is a 54 y/o male with a hx of ROSSY-alcohol admitted to rehab yesterday. Pt was in detox [facility] from 02/06/20 to 02/09/20 and returned to rehab treatment this time. reports he has a PCP Dr. Finley in [place]. PMHx:HTN,HLD,GERD,Chronic Lower back pain,Athletes feet Psych Hx: Depression Vital Signs - 24 hr 02/23/20 02/23/20 02/23/20 13:26 14:05 15:15 Temperature 97.7 F 97.7 F 97.3 F L Pulse Rate 66 66 60 Respiratory 18 18 18 Rate Blood Pressure 124/78 124/78 138/95 O2 Sat by Pulse 95 Oximetry (%) 02/23/20 02/24/20 20:32 07:00 Temperature 97.0 F L Pulse Rate 72 Respiratory 18 Rate Blood Pressure 140/90 O2 Sat by Pulse 99 99 Oximetry (%) Laboratory Tests 02/23/20 11:50 SARS-CoV-2 (PCR) Negative Alert o x 3 nad oob ambulating with steady gait Extremities;no edema, skin warm, dry and intact. New pt AUD Increase po fluids maintain safety tinactin Cream as directed Francesco-Bradley ointment apply as directed
[2020-02-24] MEDS: amLODIPine BESYLATE 10 MG TABLET (FP) PO SCH (10:58)
[2020-02-24] MEDS: NICOTINE 7 MG/24 HOURS TOPICAL PATCH TD SCH (10:58)
[2020-02-24] MEDS: PRENATAL VITAMINS W/ FOLIC ACID TABLET (FP) PO SCH (10:58)
[2020-02-24] MEDS: HYDROCHLOROTHIAZIDE 25 MG TABLET (FP) PO SCH (10:58)
[2020-02-24] MEDS ORDERED: hydrOXYzine PAMOATE 25 MG CAPSULE (FP) PO PRN (12:20)
[2020-02-24] MEDS: IBUPROFEN 400 MG TABLET (FP) PO PRN (14:20)
[2020-02-24] MEDS: METHYL SALICYLATE/MENTHOL OINT 30 GM TUBE TP SCH ×2 (14:20→21:42)
[2020-02-24] MEDS: TOLNAFTATE 1% CREAM 15 GM TUBE TP SCH ×2 (14:21→21:43)
[2020-02-24] MEDS: ACETAMINOPHEN 325 MG TABLET (FP) PO PRN (21:43)
[2020-02-24] MEDS: MELATONIN 5 MG TABLETS PO SCH (21:43)
[2020-02-24] MEDS: ATORVASTATIN CA 10 MG TABLET (FP) PO SCH (21:43)
[2020-02-24] MEDS: THIAMINE HCL 100 MG TABLET (FP) PO SCH (21:43)
[2020-02-25] MEDS: TOLNAFTATE 1% CREAM 15 GM TUBE TP SCH ×2 (10:42→21:51)
[2020-02-25] MEDS: HYDROCHLOROTHIAZIDE 25 MG TABLET (FP) PO SCH (10:42)
[2020-02-25] MEDS: PRENATAL VITAMINS W/ FOLIC ACID TABLET (FP) PO SCH (10:42)
[2020-02-25] MEDS: amLODIPine BESYLATE 10 MG TABLET (FP) PO SCH (10:42)
[2020-02-25] MEDS: NICOTINE 7 MG/24 HOURS TOPICAL PATCH TD SCH (10:43)
[2020-02-25] MEDS: METHYL SALICYLATE/MENTHOL OINT 30 GM TUBE TP SCH ×2 (10:43→21:51)
[2020-02-25] MEDS: guaiFENesin 200 MG/10 ML 10 ML UNIT-DOSE CUPS PO PRN ×2 (13:01→21:50)
[2020-02-25] MEDS: THIAMINE HCL 100 MG TABLET (FP) PO SCH (21:50)
[2020-02-25] MEDS: MELATONIN 5 MG TABLETS PO SCH (21:50)
[2020-02-25] MEDS: ATORVASTATIN CA 10 MG TABLET (FP) PO SCH (21:50)
[2020-02-26] MEDS: PRENATAL VITAMINS W/ FOLIC ACID TABLET (FP) PO SCH (10:23)
[2020-02-26] MEDS: HYDROCHLOROTHIAZIDE 25 MG TABLET (FP) PO SCH (10:23)
[2020-02-26] MEDS: amLODIPine BESYLATE 10 MG TABLET (FP) PO SCH (10:23)
[2020-02-26] MEDS: guaiFENesin 200 MG/10 ML 10 ML UNIT-DOSE CUPS PO PRN ×2 (10:24→21:45)
[2020-02-26] MEDS: TOLNAFTATE 1% CREAM 15 GM TUBE TP SCH ×2 (10:25→21:50)
[2020-02-26] MEDS: METHYL SALICYLATE/MENTHOL OINT 30 GM TUBE TP SCH ×2 (10:25→21:46)
[2020-02-26] MEDS: NICOTINE 7 MG/24 HOURS TOPICAL PATCH TD SCH (10:26)
[2020-02-26] MEDS: ATORVASTATIN CA 10 MG TABLET (FP) PO SCH (21:44)
[2020-02-26] MEDS: THIAMINE HCL 100 MG TABLET (FP) PO SCH (21:44)
[2020-02-26] MEDS: MELATONIN 5 MG TABLETS PO SCH (21:45)
[2020-02-27] MEDS: HYDROCHLOROTHIAZIDE 25 MG TABLET (FP) PO SCH (10:23)
[2020-02-27] MEDS: METHYL SALICYLATE/MENTHOL OINT 30 GM TUBE TP SCH ×2 (10:23→21:52)
[2020-02-27] MEDS: NICOTINE 7 MG/24 HOURS TOPICAL PATCH TD SCH (10:23)
[2020-02-27] MEDS: PRENATAL VITAMINS W/ FOLIC ACID TABLET (FP) PO SCH (10:23)
[2020-02-27] MEDS: TOLNAFTATE 1% CREAM 15 GM TUBE TP SCH ×2 (10:23→21:52)
[2020-02-27] MEDS: amLODIPine BESYLATE 10 MG TABLET (FP) PO SCH (10:24)
[2020-02-27] MEDS: guaiFENesin 200 MG/10 ML 10 ML UNIT-DOSE CUPS PO PRN ×2 (10:24→21:52)
[2020-02-27 17:14] LABS: URINE APPEARANCE CLEAR; URINE BILIRUBIN NEGATIVE (NEGATIVE); URINE COLOR YELLOW; URINE GLUCOSE (UA) NEGATIVE (NEGATIVE); URINE KETONE NEGATIVE (NEGATIVE); URINE LEUK ESTERASE NEGATIVE (NEGATIVE); URINE NITRITE NEGATIVE (NEGATIVE); URINE PROTEIN NEGATIVE (NEGATIVE); URINE UROBILINOGEN 0.2 mg/dL (0.2-1.0)
[2020-02-27] MEDS: MELATONIN 5 MG TABLETS PO SCH (21:52)
[2020-02-27] MEDS: THIAMINE HCL 100 MG TABLET (FP) PO SCH (21:52)
[2020-02-27] MEDS: ATORVASTATIN CA 10 MG TABLET (FP) PO SCH (21:52)
[2020-02-28] MEDS: HYDROCHLOROTHIAZIDE 25 MG TABLET (FP) PO SCH (11:09)
[2020-02-28] MEDS: amLODIPine BESYLATE 10 MG TABLET (FP) PO SCH (11:09)
[2020-02-28] MEDS: TOLNAFTATE 1% CREAM 15 GM TUBE TP SCH ×2 (11:10→22:13)
[2020-02-28] MEDS: PRENATAL VITAMINS W/ FOLIC ACID TABLET (FP) PO SCH (11:10)
[2020-02-28] MEDS: NICOTINE 7 MG/24 HOURS TOPICAL PATCH TD SCH (11:10)
[2020-02-28] MEDS: METHYL SALICYLATE/MENTHOL OINT 30 GM TUBE TP SCH ×2 (11:10→22:09)
[2020-02-28] MEDS: guaiFENesin 200 MG/10 ML 10 ML UNIT-DOSE CUPS PO PRN ×2 (11:11→22:11)
[2020-02-28] MEDS: IBUPROFEN 400 MG TABLET (FP) PO PRN (22:09)
[2020-02-28] MEDS: ATORVASTATIN CA 10 MG TABLET (FP) PO SCH (22:09)
[2020-02-28] MEDS: THIAMINE HCL 100 MG TABLET (FP) PO SCH (22:10)
[2020-02-28] MEDS: MELATONIN 5 MG TABLETS PO SCH (22:11)
[2020-02-29] MEDS: PRENATAL VITAMINS W/ FOLIC ACID TABLET (FP) PO SCH (10:30)
[2020-02-29] MEDS: NICOTINE 7 MG/24 HOURS TOPICAL PATCH TD SCH (10:59)
[2020-02-29] MEDS: amLODIPine BESYLATE 10 MG TABLET (FP) PO SCH (10:59)
[2020-02-29] MEDS: HYDROCHLOROTHIAZIDE 25 MG TABLET (FP) PO SCH (10:59)
[2020-02-29] MEDS: METHYL SALICYLATE/MENTHOL OINT 30 GM TUBE TP SCH ×2 (11:00→21:48)
[2020-02-29] MEDS: TOLNAFTATE 1% CREAM 15 GM TUBE TP SCH ×2 (11:00→21:48)
[2020-02-29] MEDS: guaiFENesin 200 MG/10 ML 10 ML UNIT-DOSE CUPS PO PRN (11:01)
[2020-02-29] MEDS ORDERED: MENTHOL/PHENOL 1 EACH UD MM PRN (12:01)
[2020-02-29] MEDS: MELATONIN 5 MG TABLETS PO SCH (21:48)
[2020-02-29] MEDS: THIAMINE HCL 100 MG TABLET (FP) PO SCH (21:48)
[2020-02-29] MEDS: ATORVASTATIN CA 10 MG TABLET (FP) PO SCH (21:48)
[2020-03-01 06:47] VITALS: TEMP 97.5
[2020-03-01] MEDS: METHYL SALICYLATE/MENTHOL OINT 30 GM TUBE TP SCH (11:08)
[2020-03-01] MEDS: HYDROCHLOROTHIAZIDE 25 MG TABLET (FP) PO SCH (11:09)
[2020-03-01] MEDS: NICOTINE 7 MG/24 HOURS TOPICAL PATCH TD SCH (11:09)
[2020-03-01] MEDS: PRENATAL VITAMINS W/ FOLIC ACID TABLET (FP) PO SCH (11:09)
[2020-03-01] MEDS: amLODIPine BESYLATE 10 MG TABLET (FP) PO SCH (11:09)
[2020-03-01] MEDS: TOLNAFTATE 1% CREAM 15 GM TUBE TP SCH (11:09)
[2020-03-01 11:31] VITALS: BP 106/62; PULSE 68
--- NOTE | 2020-03-01 14:02 | DS ---
[facility] Rehab Discharge Summary - [facility] Rehab Discharge Summary Admission Date: 02/23/20 Discharge Date: 03/01/20 - History Present History: Alcohol dependence, Cannabis dependence, Cocaine dependence Additional Comments: Pt requests to discharge today. Met with his counselor and will follow up with CD aftercare recommendations. Pertinent Past History: HTN HLD Chronic LBP Mood Disorder - Discharge Physical Exam Vital Signs: Vital Signs Temperature 97.5 F L 03/01/20 06:12 Pulse Rate 68 03/01/20 09:15 Respiratory Rate 18 03/01/20 06:12 Blood Pressure 106/62 03/01/20 09:15 O2 Sat by Pulse Oximetry (%) 95 03/01/20 12:57 VSS Alert o x 3 nad, no resp difficulty oob ambulating with steady gait MSK:Active FROM, all limbs Pertinent Admission Physical Exam Findings: Laboratory Tests 02/23/20 02/27/20 11:50 13:40 Urine Color Yellow Urine Appearance Clear Urine pH 6.0 Ur Specific Cut Off 1.013 Urine Protein Negative Urine Glucose (UA) Negative Urine Ketones Negative Urine Blood Negative Urine Nitrite Negative Urine Bilirubin Negative Urine Urobilinogen 0.2 Ur Leukocyte Esterase Negative SARS-CoV-2 (PCR) Negative - Treatment Discharge Condition: Discharge condition good, Rehabilitated safely, Outpatient referral accepted Hospital Course: Pt accepted Cd referral to [facility] - Medication Discharge Medications: Ambulatory Orders Sertraline HCl [Zoloft -] 50 mg PO DAILY 06/02/19 Amlodipine Besylate [Norvasc -] 10 mg PO DAILY #30 tablet 12/01/19 Hydrochlorothiazide [Hctz -] 25 mg PO DAILY #30 tablet 12/01/19 Simvastatin [Zocor] 20 mg PO HS #30 tablet 12/01/19 - Medication-Assisted Treatment (MAT) Medication-Assisted Treatment (MAT): No - Discharge Instructions Diet, activity, other medical instructions: Diet:TERRI Activity: oob ad yariel Other medical instructions:follow up with primary care at [facility] as needed. - Diagnosis (1) Alcohol use disorder Current Visit: Yes Status: Chronic (2) Nicotine dependence Current Visit: Yes Status: Chronic Qualifiers: Nicotine product type: cigarettes Substance use status: uncomplicated Qualified Code(s): F17.210 - Nicotine dependence, cigarettes, uncomplicated (3) History of syphilis Current Visit: Yes Status: Chronic (4) Cannabis abuse Current Visit: Yes Status: Chronic (5) Chronic low back pain Current Visit: Yes Status: Chronic Qualifiers: Back pain laterality: midline Sciatica presence: without sciatica Qualified Code(s): M54.5 - Low back pain; G89.29 - Other chronic pain (6) Cocaine dependence, uncomplicated Current Visit: Yes Status: Chronic (7) Essential hypertension Current Visit: Yes Status: Chronic (8) Hyperlipidemia Current Visit: Yes Status: Chronic Qualifiers: Hyperlipidemia type: mixed hyperlipidemia Qualified Code(s): E78.2 - Mixed hyperlipidemia - Follow-up Referral Minutes to complete discharge: 20 - AMA Did Patient Leave Against Medical Advice: No Additional Comments: Pt states""I have all my medicines in my bag downstairs in security. i don't need any from you".
== END 2020-03-01 14:00 | disposition home or self-care (01) | DRG 772 ==
LOC: YASAS 11:15 → Y5N 14:35
PROVIDERS: ADMIT Allergy & Immunology; ATTEND Allergy & Immunology
PROC: HZ42ZZZ Group Counseling for Substance Abuse Treatment, Cognitive-Behavioral (ICD-10-PCS; principal; 2020-02-23)
DX: F10.20 Alcohol dependence, uncomplicated (principal); F14.20 Cocaine dependence, uncomplicated; F12.20 Cannabis dependence, uncomplicated; F17.210 Nicotine dependence, cigarettes, uncomplicated; F32.9 Major depressive disorder, single episode, unspecified; F39 Unspecified mood [affective] disorder; I10 Essential (primary) hypertension; E78.5 Hyperlipidemia, unspecified; G62.9 Polyneuropathy, unspecified; M54.5 Low back pain; G89.29 Other chronic pain; B35.3 Tinea pedis; Z91.010 Allergy to peanuts
CPT/HCPCS: 81003; U0003

== ENCOUNTER 2020-04-24 13:54 | Inpatient (IN) | payer OTHER ==
[2020-04-24 16:21] VITALS: BMI 28.6
[2020-04-24] MEDS ORDERED: chlordiazePOXIDE HCL 25 MG CAPSULE PO PRN (16:41)
[2020-04-24] MEDS ORDERED: MENTHOL/PHENOL 1 EACH UD MM PRN (16:41)
[2020-04-24] MEDS ORDERED: NICOTINE POLACRILEX 2 MG GUM BUC PRN (16:41)
[2020-04-24] MEDS ORDERED: BISMUTH SUBSALICYLATE 524 MG/30 ML UD PO PRN (16:41)
[2020-04-24] MEDS ORDERED: MAGNESIUM CITRATE 300 ML BOTTLE PO PRN (16:41)
[2020-04-24] MEDS ORDERED: ONDANSETRON *ODT* 4 MG TABLET SL PRN (16:41)
[2020-04-24] MEDS ORDERED: METHOCARBAMOL 500 MG TABLET PO PRN (16:41)
[2020-04-24] MEDS ORDERED: ACETAMINOPHEN 325 MG TABLET (FP) PO PRN ×2 (16:41)
[2020-04-24] MEDS ORDERED: MAG HYDROX/AL HYDROX/SIMETH 30 ML UNIT-DOSE CUP PO PRN (16:41)
[2020-04-24] MEDS ORDERED: IBUPROFEN 400 MG TABLET (FP) PO PRN (16:41)
[2020-04-24] MEDS ORDERED: MAGNESIUM HYDROX 2400MG/30ML ORAL SUSPENSION 30 ML CUP PO PRN (16:41)
[2020-04-24] MEDS: chlordiazePOXIDE HCL 25 MG CAPSULE PO SCH ×2 (17:36→22:17)
[2020-04-24] MEDS: hydrOXYzine PAMOATE 25 MG CAPSULE (FP) PO SCH ×2 (17:37→22:17)
[2020-04-24] MEDS: PRENATAL VITAMINS W/ FOLIC ACID TABLET (FP) PO SCH (17:37)
[2020-04-24] MEDS: NICOTINE 7 MG/24 HOURS TOPICAL PATCH TD SCH (17:38)
[2020-04-24] MEDS ORDERED: PATIENT'S OWN MEDICATION (NON-FORMULARY) (Simvastatin [Zocor] 20 MG Tablet) PO SCH (22:00)
[2020-04-24] MEDS: THIAMINE HCL 100 MG TABLET (FP) PO SCH (22:16)
[2020-04-24] MEDS: MELATONIN 5 MG TABLETS PO SCH (22:16)
[2020-04-24] MEDS: ATORVASTATIN CA 10 MG TABLET (FP) PO SCH (22:18)
[2020-04-25] MEDS: chlordiazePOXIDE HCL 25 MG CAPSULE PO SCH ×4 (05:51→22:10)
[2020-04-25] MEDS: hydrOXYzine PAMOATE 25 MG CAPSULE (FP) PO SCH ×5 (05:52→22:12)
[2020-04-25] MEDS: PRENATAL VITAMINS W/ FOLIC ACID TABLET (FP) PO SCH (10:11)
[2020-04-25] MEDS: HYDROCHLOROTHIAZIDE 25 MG TABLET (FP) PO SCH (10:12)
[2020-04-25] MEDS: amLODIPine BESYLATE 10 MG TABLET (FP) PO SCH (10:12)
[2020-04-25] MEDS: NICOTINE 7 MG/24 HOURS TOPICAL PATCH TD SCH (10:12)
[2020-04-25 10:17] LABS: POTASSIUM 3.2 mmol/L (3.5-5.1)
[2020-04-25 10:19] LABS: CALCIUM 8.1 mg/dL (8.5-10.1)
[2020-04-25 10:20] LABS: ALBUMIN 3.1 g/dl (3.4-5.0); BLOOD UREA NITROGEN 13.5 mg/dL (7-18)
[2020-04-25 10:23] LABS: CREATININE 1.1 mg/dL (0.55-1.3)
[2020-04-25 10:24] LABS: BILIRUBIN,TOTAL 0.5 mg/dL (0.2-1); TOT PROT 6.5 g/dl (6.4-8.2)
[2020-04-25 10:25] LABS: HEMATOCRIT 41.4 % (35.4-49); HEMOGLOBIN 13.9 GM/dL (11.7-16.9); MCHC 33.6 g/dl (32.0-35.9); MEAN CELL VOLUME 89.4 fl (80-96); MEAN PLT VOLUME 8.7 fl (7.5-11.1); PLATELET COUNT 199 K/MM3 (134-434); RBC 4.63 M/mm3 (4.00-5.60); RDW 15.2 % (11.9-15.9); WHITE BLOOD COUNT 3.9 K/mm3 (4.0-10.0)
[2020-04-25 11:17] LABS: HIV INTERPRETATION NEGATIVE (NEGATIVE)
[2020-04-25] MEDS ORDERED: MASKS NR ONE (11:29)
[2020-04-25] MEDS ORDERED: FLU VACCINE (FLULAVAL) PF 60 MCG/0.5 ML SYRINGE 2020-2021 IM ONE (12:00)
[2020-04-25] MEDS: METHYL SALICYLATE/MENTHOL OINT 30 GM TUBE TP SCH ×2 (15:57→22:10)
[2020-04-25] MEDS ORDERED: POTASSIUM CHLORIDE ORAL LIQUID 20 MEQ/15 ML PO SCH (19:30)
[2020-04-25] MEDS: THIAMINE HCL 100 MG TABLET (FP) PO SCH (22:10)
[2020-04-25] MEDS: ATORVASTATIN CA 10 MG TABLET (FP) PO SCH (22:10)
[2020-04-25] MEDS: MELATONIN 5 MG TABLETS PO SCH (22:12)
[2020-04-26] MEDS: chlordiazePOXIDE HCL 25 MG CAPSULE PO SCH ×4 (05:36→22:36)
[2020-04-26] MEDS: hydrOXYzine PAMOATE 25 MG CAPSULE (FP) PO SCH ×5 (05:36→22:36)
[2020-04-26] MEDS: HYDROCHLOROTHIAZIDE 25 MG TABLET (FP) PO SCH (10:21)
[2020-04-26] MEDS: NICOTINE 7 MG/24 HOURS TOPICAL PATCH TD SCH (10:21)
[2020-04-26] MEDS: METHYL SALICYLATE/MENTHOL OINT 30 GM TUBE TP SCH ×2 (10:21→22:36)
[2020-04-26] MEDS: amLODIPine BESYLATE 10 MG TABLET (FP) PO SCH (10:21)
[2020-04-26] MEDS: SERTRALINE HCL 50 MG TABLET (FP) PO SCH (10:21)
[2020-04-26] MEDS: PRENATAL VITAMINS W/ FOLIC ACID TABLET (FP) PO SCH (10:27)
[2020-04-26] MEDS ORDERED: FLU VACCINE (FLULAVAL) PF 60 MCG/0.5 ML SYRINGE 2020-2021 IM ONE (12:00)
[2020-04-26] MEDS ORDERED: POTASSIUM CHLORIDE ORAL LIQUID 20 MEQ/15 ML PO ONE (14:30)
[2020-04-26] MEDS: THIAMINE HCL 100 MG TABLET (FP) PO SCH (22:36)
[2020-04-26] MEDS: ATORVASTATIN CA 10 MG TABLET (FP) PO SCH (22:36)
[2020-04-26] MEDS: MELATONIN 5 MG TABLETS PO SCH (22:36)
[2020-04-27] MEDS ORDERED: chlordiazePOXIDE HCL 10 MG CAPSULE PO PRN
[2020-04-27] MEDS: hydrOXYzine PAMOATE 25 MG CAPSULE (FP) PO SCH ×2 (05:48→10:05)
[2020-04-27] MEDS: chlordiazePOXIDE HCL 10 MG CAPSULE PO SCH ×2 (05:48→10:05)
[2020-04-27 09:19] VITALS: BP 122/81; PULSE 84; TEMP 97.1
[2020-04-27] MEDS: amLODIPine BESYLATE 10 MG TABLET (FP) PO SCH (10:05)
[2020-04-27] MEDS: HYDROCHLOROTHIAZIDE 25 MG TABLET (FP) PO SCH (10:05)
[2020-04-27] MEDS: METHYL SALICYLATE/MENTHOL OINT 30 GM TUBE TP SCH (10:05)
[2020-04-27] MEDS: PRENATAL VITAMINS W/ FOLIC ACID TABLET (FP) PO SCH (10:05)
[2020-04-27] MEDS: NICOTINE 7 MG/24 HOURS TOPICAL PATCH TD SCH (10:05)
[2020-04-27] MEDS: SERTRALINE HCL 50 MG TABLET (FP) PO SCH (10:05)
[2020-04-28] MEDS ORDERED: chlordiazePOXIDE HCL 10 MG CAPSULE PO SCH (05:00)
[2020-04-29] MEDS ORDERED: chlordiazePOXIDE HCL 10 MG CAPSULE PO ONE (05:00)
== END 2020-04-27 10:37 | disposition left against medical advice (07) | DRG 770 ==
LOC: YASAS 13:54 → Y3N 17:01
PROVIDERS: ADMIT Allergy & Immunology; ATTEND Allergy & Immunology
PROC: HZ2ZZZZ Detoxification Services for Substance Abuse Treatment (ICD-10-PCS; principal; 2020-04-24)
DX: F10.230 Alcohol dependence with withdrawal, uncomplicated (principal); F14.20 Cocaine dependence, uncomplicated; F17.210 Nicotine dependence, cigarettes, uncomplicated; F19.24 Other psychoactive substance dependence with psychoactive substance-induced mood disorder; F31.9 Bipolar disorder, unspecified; G62.9 Polyneuropathy, unspecified; E78.2 Mixed hyperlipidemia; I10 Essential (primary) hypertension; K21.9 Gastro-esophageal reflux disease without esophagitis; M54.5 Low back pain; M25.511 Pain in right shoulder; G89.29 Other chronic pain; Z98.890 Other specified postprocedural states; Z86.19 Personal history of other infectious and parasitic diseases; Z91.010 Allergy to peanuts; Z91.19 Patient's noncompliance with other medical treatment and regimen
CPT/HCPCS: 36415; 80053; 84132; 85027; 86593; 86780; 87389; C9803; G0008; Q2036; U0003

== ENCOUNTER 2020-06-08 12:40 | Inpatient (IN) | payer OTHER ==
[2020-06-08] MEDS ORDERED: METHOCARBAMOL 500 MG TABLET PO PRN (14:18)
[2020-06-08] MEDS ORDERED: IBUPROFEN 400 MG TABLET (FP) PO PRN (14:18)
[2020-06-08] MEDS ORDERED: MAGNESIUM CITRATE 300 ML BOTTLE PO PRN (14:18)
[2020-06-08] MEDS ORDERED: ACETAMINOPHEN 325 MG TABLET (FP) PO PRN ×2 (14:18)
[2020-06-08] MEDS ORDERED: ONDANSETRON *ODT* 4 MG TABLET SL PRN (14:18)
[2020-06-08] MEDS ORDERED: chlordiazePOXIDE HCL 25 MG CAPSULE PO PRN (14:18)
[2020-06-08] MEDS ORDERED: NICOTINE POLACRILEX 2 MG GUM BUC PRN (14:18)
[2020-06-08] MEDS ORDERED: MAGNESIUM HYDROX 2400MG/30ML ORAL SUSPENSION 30 ML CUP PO PRN (14:18)
[2020-06-08] MEDS ORDERED: BISMUTH SUBSALICYLATE 262 MG/15 ML BTL PO PRN (14:18)
[2020-06-08] MEDS ORDERED: MENTHOL/PHENOL 1 EACH UD MM PRN (14:18)
[2020-06-08] MEDS ORDERED: MAG HYDROX/AL HYDROX/SIMETH 30 ML UNIT-DOSE CUP PO PRN (14:18)
[2020-06-08 14:41] VITALS: BMI 29.0
[2020-06-08] MEDS: NICOTINE 7 MG/24 HOURS TOPICAL PATCH TD SCH (15:24)
[2020-06-08] MEDS: chlordiazePOXIDE HCL 25 MG CAPSULE PO SCH ×2 (17:46→22:14)
[2020-06-08] MEDS: hydrOXYzine PAMOATE 25 MG CAPSULE (FP) PO SCH ×2 (17:46→22:15)
[2020-06-08 17:49] LABS: HEMATOCRIT 41.4 % (35.4-49); MCH 30.2 pg (25.7-33.7); MCHC 33.9 g/dl (32.0-35.9); MEAN CELL VOLUME 89.2 fl (80-96); MEAN PLT VOLUME 8.4 fl (7.5-11.1); PLATELET COUNT 267 K/MM3 (134-434); RBC 4.64 M/mm3 (4.00-5.60); RDW 14.8 % (11.9-15.9); WHITE BLOOD COUNT 5.5 K/mm3 (4.0-10.0)
[2020-06-08 18:03] LABS: ALBUMIN 3.5 g/dl (3.4-5.0); BLOOD UREA NITROGEN 16.8 mg/dL (7-18)
[2020-06-08 18:06] LABS: BILIRUBIN,TOTAL 0.7 mg/dL (0.2-1); CREATININE 1.1 mg/dL (0.55-1.3); TOT PROT 7.5 g/dl (6.4-8.2)
[2020-06-08] MEDS: THIAMINE HCL 100 MG TABLET (FP) PO SCH (22:15)
[2020-06-08] MEDS: MELATONIN 5 MG TABLETS PO SCH (22:16)
[2020-06-09] MEDS: hydrOXYzine PAMOATE 25 MG CAPSULE (FP) PO SCH ×5 (05:42→22:12)
[2020-06-09] MEDS: chlordiazePOXIDE HCL 25 MG CAPSULE PO SCH (05:42)
[2020-06-09] MEDS ORDERED: diazePAM 5 MG TABLET PO PRN (08:48)
[2020-06-09] MEDS: PRENATAL VITAMINS W/ FOLIC ACID TABLET (FP) PO SCH (10:10)
[2020-06-09] MEDS: NICOTINE 7 MG/24 HOURS TOPICAL PATCH TD SCH (10:10)
[2020-06-09] MEDS: diazePAM 5 MG TABLET PO SCH ×3 (10:10→22:12)
[2020-06-09] MEDS: THIAMINE HCL 100 MG TABLET (FP) PO SCH (22:12)
[2020-06-09] MEDS: MELATONIN 5 MG TABLETS PO SCH (22:12)
[2020-06-10] MEDS ORDERED: chlordiazePOXIDE HCL 25 MG CAPSULE PO SCH (05:00)
[2020-06-10] MEDS: hydrOXYzine PAMOATE 25 MG CAPSULE (FP) PO SCH ×5 (05:27→22:38)
[2020-06-10] MEDS: diazePAM 5 MG TABLET PO SCH ×4 (05:27→22:39)
[2020-06-10] MEDS: PRENATAL VITAMINS W/ FOLIC ACID TABLET (FP) PO SCH (11:01)
[2020-06-10] MEDS: NICOTINE 7 MG/24 HOURS TOPICAL PATCH TD SCH (11:01)
[2020-06-10] MEDS: MELATONIN 5 MG TABLETS PO SCH (22:38)
[2020-06-10] MEDS: CALCIUM 500MG/VIT-D 200 UNITS COMBO TABLET (FP) PO SCH (22:38)
[2020-06-10] MEDS: THIAMINE HCL 100 MG TABLET (FP) PO SCH (22:39)
[2020-06-11] MEDS ORDERED: chlordiazePOXIDE HCL 10 MG CAPSULE PO PRN
[2020-06-11] MEDS ORDERED: chlordiazePOXIDE HCL 10 MG CAPSULE PO SCH (05:00)
[2020-06-11] MEDS ORDERED: diazePAM 5 MG TABLET PO SCH (06:00)
[2020-06-11] MEDS: hydrOXYzine PAMOATE 25 MG CAPSULE (FP) PO SCH ×2 (06:09→10:01)
[2020-06-11 06:17] VITALS: BP 101/53; PULSE 62; TEMP 97.1
[2020-06-11] MEDS: CALCIUM 500MG/VIT-D 200 UNITS COMBO TABLET (FP) PO SCH (10:00)
[2020-06-11] MEDS: NICOTINE 7 MG/24 HOURS TOPICAL PATCH TD SCH (10:00)
[2020-06-11] MEDS: PRENATAL VITAMINS W/ FOLIC ACID TABLET (FP) PO SCH (10:00)
[2020-06-12] MEDS ORDERED: chlordiazePOXIDE HCL 10 MG CAPSULE PO SCH (05:00)
[2020-06-12] MEDS ORDERED: diazePAM 5 MG TABLET PO SCH (06:00)
[2020-06-13] MEDS ORDERED: chlordiazePOXIDE HCL 10 MG CAPSULE PO ONE (05:00)
[2020-06-13] MEDS ORDERED: diazePAM 5 MG TABLET PO ONE (06:00)
== END 2020-06-11 13:24 | disposition home or self-care (01) | DRG 774 ==
LOC: YASAS 12:40 → Y6N 14:37
PROVIDERS: ADMIT Allergy & Immunology; ATTEND Allergy & Immunology
PROC: HZ2ZZZZ Detoxification Services for Substance Abuse Treatment (ICD-10-PCS; principal; 2020-06-08)
DX: F14.20 Cocaine dependence, uncomplicated (principal); F13.20 Sedative, hypnotic or anxiolytic dependence, uncomplicated; F17.210 Nicotine dependence, cigarettes, uncomplicated; F19.24 Other psychoactive substance dependence with psychoactive substance-induced mood disorder; F41.9 Anxiety disorder, unspecified; F32.9 Major depressive disorder, single episode, unspecified; U07.1 COVID-19; G62.9 Polyneuropathy, unspecified; E83.51 Hypocalcemia; I10 Essential (primary) hypertension; K21.9 Gastro-esophageal reflux disease without esophagitis; M25.511 Pain in right shoulder; M54.5 Low back pain; G89.29 Other chronic pain; R74.8 Abnormal levels of other serum enzymes; Z91.010 Allergy to peanuts
CPT/HCPCS: 36415; 80053; 85027; 86593; 86780; C9803; U0003

== ENCOUNTER 2020-08-05 09:13 | Inpatient (IN) | payer OTHER ==
[2020-08-05 12:04] VITALS: BMI 30.7
[2020-08-05] MEDS ORDERED: BISMUTH SUBSALICYLATE 524 MG/30 ML UD PO PRN (13:56)
[2020-08-05] MEDS ORDERED: MAG HYDROX/AL HYDROX/SIMETH 30 ML UNIT-DOSE CUP PO PRN (13:56)
[2020-08-05] MEDS ORDERED: METHOCARBAMOL 500 MG TABLET PO PRN (13:56)
[2020-08-05] MEDS ORDERED: chlordiazePOXIDE HCL 25 MG CAPSULE PO PRN (13:56)
[2020-08-05] MEDS ORDERED: MAGNESIUM CITRATE 300 ML BOTTLE PO PRN (13:56)
[2020-08-05] MEDS ORDERED: ACETAMINOPHEN 325 MG TABLET (FP) PO PRN ×2 (13:56)
[2020-08-05] MEDS ORDERED: IBUPROFEN 400 MG TABLET (FP) PO PRN (13:56)
[2020-08-05] MEDS ORDERED: NICOTINE POLACRILEX 2 MG GUM BUC PRN (13:56)
[2020-08-05] MEDS ORDERED: MAGNESIUM HYDROX 2400MG/30ML ORAL SUSPENSION 30 ML CUP PO PRN (13:56)
[2020-08-05] MEDS ORDERED: ONDANSETRON *ODT* 4 MG TABLET SL PRN (13:56)
[2020-08-05] MEDS ORDERED: MENTHOL/PHENOL 1 EACH UD MM PRN (13:56)
[2020-08-05] MEDS: hydrOXYzine PAMOATE 25 MG CAPSULE (FP) PO SCH ×3 (14:45→23:07)
[2020-08-05] MEDS: chlordiazePOXIDE HCL 25 MG CAPSULE PO SCH ×2 (17:36→23:07)
[2020-08-05] MEDS: MELATONIN 5 MG TABLETS PO SCH (23:07)
[2020-08-05] MEDS: THIAMINE HCL 100 MG TABLET (FP) PO SCH (23:07)
[2020-08-05] MEDS: METHYL SALICYLATE/MENTHOL OINT 30 GM TUBE TP SCH (23:07)
[2020-08-06] MEDS: hydrOXYzine PAMOATE 25 MG CAPSULE (FP) PO SCH ×5 (05:09→22:10)
[2020-08-06] MEDS: chlordiazePOXIDE HCL 25 MG CAPSULE PO SCH ×4 (05:09→22:09)
[2020-08-06] MEDS: PRENATAL VITAMINS W/ FOLIC ACID TABLET (FP) PO SCH (10:37)
[2020-08-06 11:46] LABS: POTASSIUM 3.3 mmol/L (3.5-5.1)
[2020-08-06 11:47] LABS: HEMATOCRIT 39.3 % (35.4-49); HEMOGLOBIN 13.4 GM/dL (11.7-16.9); MCH 30.2 pg (25.7-33.7); MEAN CELL VOLUME 88.7 fl (80-96); MEAN PLT VOLUME 8.6 fl (7.5-11.1); PLATELET COUNT 221 K/MM3 (134-434); RBC 4.43 M/mm3 (4.00-5.60); RDW 15.6 % (11.9-15.9); WHITE BLOOD COUNT 4.5 K/mm3 (4.0-10.0)
[2020-08-06] MEDS: METHYL SALICYLATE/MENTHOL OINT 30 GM TUBE TP SCH ×2 (11:48→22:09)
[2020-08-06 11:49] LABS: CALCIUM 7.9 mg/dL (8.5-10.1)
[2020-08-06 11:50] LABS: BLOOD UREA NITROGEN 19.1 mg/dL (7-18)
[2020-08-06 11:53] LABS: CREATININE 1.2 mg/dL (0.55-1.3)
[2020-08-06 11:54] LABS: BILIRUBIN,TOTAL 0.7 mg/dL (0.2-1); TOT PROT 6.3 g/dl (6.4-8.2)
[2020-08-06 12:57] LABS: HIV INTERPRETATION NEGATIVE (NEGATIVE)
[2020-08-06] MEDS: SERTRALINE HCL 50 MG TABLET (FP) PO SCH (15:48)
[2020-08-06] MEDS ORDERED: POTASSIUM CHLORIDE ORAL LIQUID 20 MEQ/15 ML PO ONE (21:22)
[2020-08-06] MEDS: MELATONIN 5 MG TABLETS PO SCH (22:10)
[2020-08-06] MEDS: CALCIUM CARBONATE 650 MG TABLET PO SCH (22:10)
[2020-08-06] MEDS: THIAMINE HCL 100 MG TABLET (FP) PO SCH (22:10)
[2020-08-07] MEDS: chlordiazePOXIDE HCL 25 MG CAPSULE PO SCH ×4 (05:34→22:19)
[2020-08-07] MEDS: hydrOXYzine PAMOATE 25 MG CAPSULE (FP) PO SCH ×5 (05:34→22:18)
[2020-08-07] MEDS: PRENATAL VITAMINS W/ FOLIC ACID TABLET (FP) PO SCH (10:30)
[2020-08-07] MEDS: CALCIUM CARBONATE 650 MG TABLET PO SCH ×2 (10:30→22:21)
[2020-08-07] MEDS: SERTRALINE HCL 50 MG TABLET (FP) PO SCH (10:31)
[2020-08-07 10:54] LABS: POTASSIUM 3.9 mmol/L (3.5-5.1)
[2020-08-07 11:02] LABS: BLOOD UREA NITROGEN 18.8 mg/dL (7-18)
[2020-08-07 11:05] LABS: CALCIUM 8.4 mg/dL (8.5-10.1); CREATININE 0.9 mg/dL (0.55-1.3)
[2020-08-07] MEDS: METHYL SALICYLATE/MENTHOL OINT 30 GM TUBE TP SCH ×2 (15:30→22:17)
[2020-08-07] MEDS: MELATONIN 5 MG TABLETS PO SCH (22:18)
[2020-08-07] MEDS: THIAMINE HCL 100 MG TABLET (FP) PO SCH (22:20)
[2020-08-08] MEDS ORDERED: chlordiazePOXIDE HCL 10 MG CAPSULE PO PRN
[2020-08-08] MEDS: chlordiazePOXIDE HCL 10 MG CAPSULE PO SCH ×4 (05:25→23:52)
[2020-08-08] MEDS: hydrOXYzine PAMOATE 25 MG CAPSULE (FP) PO SCH ×5 (05:25→23:54)
[2020-08-08] MEDS: PRENATAL VITAMINS W/ FOLIC ACID TABLET (FP) PO SCH (10:05)
[2020-08-08] MEDS: METHYL SALICYLATE/MENTHOL OINT 30 GM TUBE TP SCH ×2 (10:05→23:53)
[2020-08-08] MEDS: CALCIUM CARBONATE 650 MG TABLET PO SCH ×2 (10:05→23:53)
[2020-08-08] MEDS: SERTRALINE HCL 50 MG TABLET (FP) PO SCH (10:06)
[2020-08-08] MEDS: THIAMINE HCL 100 MG TABLET (FP) PO SCH (23:53)
[2020-08-08] MEDS: MELATONIN 5 MG TABLETS PO SCH (23:53)
[2020-08-09] MEDS ORDERED: chlordiazePOXIDE HCL 10 MG CAPSULE PO SCH (05:00)
[2020-08-09] MEDS: hydrOXYzine PAMOATE 25 MG CAPSULE (FP) PO SCH (06:54)
[2020-08-09 09:29] VITALS: BP 112/85; PULSE 85; TEMP 96.6
[2020-08-10] MEDS ORDERED: chlordiazePOXIDE HCL 10 MG CAPSULE PO ONE (05:00)
== END 2020-08-09 09:38 | disposition home or self-care (01) | DRG 774 ==
LOC: YASAS 09:13 → Y3N 13:05
PROVIDERS: ADMIT Allergy & Immunology; ATTEND Allergy & Immunology
PROC: HZ2ZZZZ Detoxification Services for Substance Abuse Treatment (ICD-10-PCS; principal; 2020-08-05)
DX: F10.230 Alcohol dependence with withdrawal, uncomplicated (principal); F14.20 Cocaine dependence, uncomplicated; F12.20 Cannabis dependence, uncomplicated; F17.210 Nicotine dependence, cigarettes, uncomplicated; F39 Unspecified mood [affective] disorder; E88.09 Other disorders of plasma-protein metabolism, not elsewhere classified; E46 Unspecified protein-calorie malnutrition; Z68.30 Body mass index [BMI] 30.0-30.9, adult; E83.51 Hypocalcemia; G62.9 Polyneuropathy, unspecified; A53.0 Latent syphilis, unspecified as early or late; E78.5 Hyperlipidemia, unspecified; R79.89 Other specified abnormal findings of blood chemistry; K21.9 Gastro-esophageal reflux disease without esophagitis; M54.5 Low back pain; M25.511 Pain in right shoulder; G89.29 Other chronic pain; R73.9 Hyperglycemia, unspecified; R74.8 Abnormal levels of other serum enzymes; Z86.19 Personal history of other infectious and parasitic diseases; Z91.011 Allergy to milk products; Z56.0 Unemployment, unspecified; Z59.0 Homelessness; Z98.890 Other specified postprocedural states
CPT/HCPCS: 36415; 80048; 80053; 83036; 85027; 86593; 86780; 87389; C9803; U0003

== ENCOUNTER 2020-09-21 08:55 | Inpatient (IN) | payer OTHER ==
[2020-09-21 09:35] VITALS: BMI 30.7
[2020-09-21] MEDS ORDERED: MAG HYDROX/AL HYDROX/SIMETH 30 ML UNIT-DOSE CUP PO PRN (10:45)
[2020-09-21] MEDS ORDERED: MAGNESIUM CITRATE 300 ML BOTTLE PO PRN (10:45)
[2020-09-21] MEDS ORDERED: MENTHOL/PHENOL 1 EACH UD MM PRN (10:45)
[2020-09-21] MEDS ORDERED: chlordiazePOXIDE HCL 25 MG CAPSULE PO PRN (10:45)
[2020-09-21] MEDS ORDERED: BISMUTH SUBSALICYLATE 262 MG/15 ML BTL PO PRN (10:45)
[2020-09-21] MEDS ORDERED: ACETAMINOPHEN 325 MG TABLET (FP) PO PRN ×2 (10:45)
[2020-09-21] MEDS ORDERED: MAGNESIUM HYDROX 2400MG/30ML ORAL SUSPENSION 30 ML CUP PO PRN (10:45)
[2020-09-21] MEDS ORDERED: NICOTINE POLACRILEX 2 MG GUM BUC PRN (10:45)
[2020-09-21] MEDS ORDERED: ONDANSETRON *ODT* 4 MG TABLET SL PRN (10:45)
[2020-09-21] MEDS ORDERED: IBUPROFEN 400 MG TABLET (FP) PO PRN (10:45)
[2020-09-21] MEDS: METHOCARBAMOL 500 MG TABLET PO PRN (11:21)
[2020-09-21] MEDS: amLODIPine BESYLATE 10 MG TABLET (FP) PO SCH (11:22)
[2020-09-21] MEDS: NICOTINE 21 MG/24 HOURS TOPICAL PATCH TD SCH (11:24)
[2020-09-21] MEDS: hydrOXYzine PAMOATE 25 MG CAPSULE (FP) PO SCH ×3 (13:14→22:18)
[2020-09-21 13:42] LABS: HEMATOCRIT 43.4 % (35.4-49); HEMOGLOBIN 14.7 GM/dL (11.7-16.9); MEAN CELL VOLUME 88.5 fl (80-96); MEAN PLT VOLUME 8.5 fl (7.5-11.1); PLATELET COUNT 213 K/MM3 (134-434); RDW 15.3 % (11.9-15.9); WHITE BLOOD COUNT 5.8 K/mm3 (4.0-10.0)
[2020-09-21 13:49] LABS: BLOOD UREA NITROGEN 19.1 mg/dL (7-18)
[2020-09-21 13:50] LABS: CALCIUM 8.6 mg/dL (8.5-10.1)
[2020-09-21 13:51] LABS: ALBUMIN 3.8 g/dl (3.4-5.0)
[2020-09-21 13:55] LABS: BILIRUBIN,TOTAL 1.7 mg/dL (0.2-1)
[2020-09-21 13:58] LABS: TOT PROT 7.7 g/dl (6.4-8.2)
[2020-09-21] MEDS: chlordiazePOXIDE HCL 25 MG CAPSULE PO SCH ×2 (17:20→22:16)
[2020-09-21 18:39] LABS: HIV INTERPRETATION NEGATIVE (NEGATIVE)
[2020-09-21] MEDS: THIAMINE HCL 100 MG TABLET (FP) PO SCH (22:16)
[2020-09-21] MEDS: MELATONIN 5 MG TABLETS PO SCH (22:18)
[2020-09-22] MEDS: chlordiazePOXIDE HCL 25 MG CAPSULE PO SCH ×4 (05:49→22:54)
[2020-09-22] MEDS: hydrOXYzine PAMOATE 25 MG CAPSULE (FP) PO SCH ×5 (05:49→22:54)
[2020-09-22] MEDS: NICOTINE 21 MG/24 HOURS TOPICAL PATCH TD SCH (10:12)
[2020-09-22] MEDS: SERTRALINE HCL 50 MG TABLET (FP) PO SCH (10:12)
[2020-09-22] MEDS: amLODIPine BESYLATE 10 MG TABLET (FP) PO SCH (10:12)
[2020-09-22] MEDS: PRENATAL VITAMINS W/ FOLIC ACID TABLET (FP) PO SCH (10:12)
[2020-09-22] MEDS: METHOCARBAMOL 500 MG TABLET PO PRN (10:14)
[2020-09-22] MEDS: MELATONIN 5 MG TABLETS PO SCH (22:54)
[2020-09-22] MEDS: THIAMINE HCL 100 MG TABLET (FP) PO SCH (22:54)
[2020-09-23] MEDS: chlordiazePOXIDE HCL 25 MG CAPSULE PO SCH ×4 (06:17→22:53)
[2020-09-23] MEDS: hydrOXYzine PAMOATE 25 MG CAPSULE (FP) PO SCH ×5 (06:18→22:52)
[2020-09-23] MEDS: NICOTINE 21 MG/24 HOURS TOPICAL PATCH TD SCH (10:54)
[2020-09-23] MEDS: PRENATAL VITAMINS W/ FOLIC ACID TABLET (FP) PO SCH (10:55)
[2020-09-23] MEDS: SERTRALINE HCL 50 MG TABLET (FP) PO SCH (10:55)
[2020-09-23] MEDS: amLODIPine BESYLATE 10 MG TABLET (FP) PO SCH (10:55)
[2020-09-23] MEDS: METHOCARBAMOL 500 MG TABLET PO PRN (10:56)
[2020-09-23] MEDS: METHYL SALICYLATE/MENTHOL OINT 30 GM TUBE TP SCH ×2 (15:05→22:55)
[2020-09-23] MEDS: THIAMINE HCL 100 MG TABLET (FP) PO SCH (22:52)
[2020-09-23] MEDS: MELATONIN 5 MG TABLETS PO SCH (22:55)
[2020-09-24] MEDS ORDERED: chlordiazePOXIDE HCL 10 MG CAPSULE PO PRN
[2020-09-24] MEDS: hydrOXYzine PAMOATE 25 MG CAPSULE (FP) PO SCH ×5 (06:18→22:26)
[2020-09-24] MEDS: chlordiazePOXIDE HCL 10 MG CAPSULE PO SCH ×4 (06:18→22:27)
[2020-09-24] MEDS: METHYL SALICYLATE/MENTHOL OINT 30 GM TUBE TP SCH ×2 (10:44→22:29)
[2020-09-24] MEDS: amLODIPine BESYLATE 10 MG TABLET (FP) PO SCH (10:44)
[2020-09-24] MEDS: NICOTINE 21 MG/24 HOURS TOPICAL PATCH TD SCH (10:44)
[2020-09-24] MEDS: PRENATAL VITAMINS W/ FOLIC ACID TABLET (FP) PO SCH (10:44)
[2020-09-24] MEDS: SERTRALINE HCL 50 MG TABLET (FP) PO SCH (10:45)
[2020-09-24 14:07] LABS: SARS-CoV-2 NAA Not Detected (Not Detected)
[2020-09-24] MEDS: MELATONIN 5 MG TABLETS PO SCH (22:26)
[2020-09-24] MEDS: THIAMINE HCL 100 MG TABLET (FP) PO SCH (22:26)
[2020-09-25] MEDS ORDERED: chlordiazePOXIDE HCL 10 MG CAPSULE PO SCH (05:00)
[2020-09-25] MEDS: hydrOXYzine PAMOATE 25 MG CAPSULE (FP) PO SCH (05:40)
[2020-09-25 06:19] VITALS: BP 116/68; PULSE 72; TEMP 96.9
[2020-09-26] MEDS ORDERED: chlordiazePOXIDE HCL 10 MG CAPSULE PO ONE (05:00)
== END 2020-09-25 09:00 | disposition home or self-care (01) | DRG 774 ==
LOC: YASAS 08:55 → Y6N 10:11
PROVIDERS: ADMIT Allergy & Immunology; ATTEND Allergy & Immunology
PROC: HZ2ZZZZ Detoxification Services for Substance Abuse Treatment (ICD-10-PCS; principal; 2020-09-21)
DX: F10.230 Alcohol dependence with withdrawal, uncomplicated (principal); F14.20 Cocaine dependence, uncomplicated; F17.213 Nicotine dependence, cigarettes, with withdrawal; F19.280 Other psychoactive substance dependence with psychoactive substance-induced anxiety disorder; F19.282 Other psychoactive substance dependence with psychoactive substance-induced sleep disorder; F19.24 Other psychoactive substance dependence with psychoactive substance-induced mood disorder; F39 Unspecified mood [affective] disorder; A53.0 Latent syphilis, unspecified as early or late; G62.9 Polyneuropathy, unspecified; E78.5 Hyperlipidemia, unspecified; I10 Essential (primary) hypertension; E80.6 Other disorders of bilirubin metabolism; M54.5 Low back pain; M54.6 Pain in thoracic spine; G89.29 Other chronic pain; K21.9 Gastro-esophageal reflux disease without esophagitis; Z86.16 Personal history of COVID-19
CPT/HCPCS: 36415; 80053; 82607; 85027; 86593; 86780; 87389; C9803; U0003; U0005

== ENCOUNTER 2020-11-04 10:21 | Inpatient (IN) | payer OTHER ==
[2020-11-04 11:16] VITALS: BMI 32.4
[2020-11-04] MEDS ORDERED: MAGNESIUM CITRATE 300 ML BOTTLE PO PRN (12:37)
[2020-11-04] MEDS ORDERED: MENTHOL/PHENOL 1 EACH UD MM PRN (12:37)
[2020-11-04] MEDS ORDERED: BISMUTH SUBSALICYLATE 524 MG/30 ML PO PRN (12:37)
[2020-11-04] MEDS ORDERED: ACETAMINOPHEN 325 MG TABLET (FP) PO PRN ×2 (12:37)
[2020-11-04] MEDS ORDERED: MAGNESIUM HYDROX 2400MG/30ML ORAL SUSPENSION 30 ML CUP PO PRN (12:37)
[2020-11-04] MEDS ORDERED: IBUPROFEN 400 MG TABLET (FP) PO PRN (12:37)
[2020-11-04] MEDS ORDERED: METHOCARBAMOL 500 MG TABLET PO PRN (12:37)
[2020-11-04] MEDS ORDERED: ONDANSETRON *ODT* 4 MG TABLET SL PRN (12:37)
[2020-11-04] MEDS ORDERED: MAG HYDROX/AL HYDROX/SIMETH 30 ML UNIT-DOSE CUP PO PRN (12:37)
[2020-11-04] MEDS ORDERED: NICOTINE POLACRILEX 2 MG GUM BUC PRN (12:37)
[2020-11-04] MEDS ORDERED: LORazepam 1 MG TABLET PO PRN (12:53)
[2020-11-04] MEDS: hydrOXYzine PAMOATE 25 MG CAPSULE (FP) PO SCH ×3 (13:41→23:36)
[2020-11-04] MEDS ORDERED: MASKS NR ONE (17:48)
[2020-11-04] MEDS: LORazepam 2 MG TABLET PO SCH ×2 (18:25→22:51)
[2020-11-04] MEDS: THIAMINE HCL 100 MG TABLET (FP) PO SCH (22:52)
[2020-11-04] MEDS: MELATONIN 5 MG TABLETS PO SCH (23:36)
[2020-11-05] MEDS: hydrOXYzine PAMOATE 25 MG CAPSULE (FP) PO SCH ×5 (06:10→22:46)
[2020-11-05] MEDS: LORazepam 2 MG TABLET PO SCH ×4 (06:10→22:44)
[2020-11-05] MEDS: PRENATAL VITAMINS W/ FOLIC ACID TABLET (FP) PO SCH (10:30)
[2020-11-05] MEDS: amLODIPine BESYLATE 10 MG TABLET (FP) PO SCH (10:30)
[2020-11-05] MEDS: METHYL SALICYLATE/MENTHOL OINT 30 GM TUBE TP SCH ×2 (13:21→22:45)
[2020-11-05] MEDS: THIAMINE HCL 100 MG TABLET (FP) PO SCH (22:44)
[2020-11-05] MEDS: MELATONIN 5 MG TABLETS PO SCH (22:45)
[2020-11-06] MEDS: hydrOXYzine PAMOATE 25 MG CAPSULE (FP) PO SCH ×5 (06:13→23:32)
[2020-11-06] MEDS: LORazepam 1 MG TABLET PO SCH ×4 (06:13→23:31)
[2020-11-06] MEDS: PRENATAL VITAMINS W/ FOLIC ACID TABLET (FP) PO SCH (10:22)
[2020-11-06] MEDS: amLODIPine BESYLATE 10 MG TABLET (FP) PO SCH (10:22)
[2020-11-06 10:23] LABS: HEMATOCRIT 41.7 % (35.4-49); HEMOGLOBIN 14.2 GM/dL (11.7-16.9); MCH 30.3 pg (25.7-33.7); MEAN CELL VOLUME 89.1 fl (80-96); MEAN PLT VOLUME 8.3 fl (7.5-11.1); PLATELET COUNT 199 K/MM3 (134-434); RBC 4.68 M/mm3 (4.00-5.60); RDW 14.7 % (11.9-15.9); WHITE BLOOD COUNT 4.4 K/mm3 (4.0-10.0)
[2020-11-06] MEDS: METHYL SALICYLATE/MENTHOL OINT 30 GM TUBE TP SCH ×2 (10:24→23:32)
[2020-11-06 10:38] LABS: BLOOD UREA NITROGEN 12.8 mg/dL (7-18)
[2020-11-06 10:39] LABS: ALBUMIN 3.1 g/dl (3.4-5.0)
[2020-11-06 10:40] LABS: CALCIUM 8.4 mg/dL (8.5-10.1)
[2020-11-06 10:41] LABS: CREATININE 0.9 mg/dL (0.55-1.3)
[2020-11-06 10:44] LABS: BILIRUBIN,TOTAL 0.8 mg/dL (0.2-1); TOT PROT 6.7 g/dl (6.4-8.2)
[2020-11-06] MEDS ORDERED: POTASSIUM CHLORIDE ORAL LIQUID 20 MEQ/15 ML PO ONE ×2 (14:30→18:30)
[2020-11-06 15:16] LABS: PH,URINE 7.5 (5.0-8.0); URINE APPEARANCE CLEAR; URINE BILIRUBIN NEGATIVE (NEGATIVE); URINE COLOR YELLOW; URINE GLUCOSE (UA) NEGATIVE (NEGATIVE); URINE KETONE NEGATIVE (NEGATIVE); URINE LEUK ESTERASE NEGATIVE (NEGATIVE); URINE NITRITE NEGATIVE (NEGATIVE); URINE PROTEIN NEGATIVE (NEGATIVE); URINE UROBILINOGEN 0.2 mg/dL (0.2-1.0)
[2020-11-06] MEDS: THIAMINE HCL 100 MG TABLET (FP) PO SCH (23:32)
[2020-11-06] MEDS: MELATONIN 5 MG TABLETS PO SCH (23:32)
[2020-11-07] MEDS ORDERED: LORazepam 0.5 MG TABLET PO PRN
[2020-11-07] MEDS: hydrOXYzine PAMOATE 25 MG CAPSULE (FP) PO SCH ×3 (05:27→15:16)
[2020-11-07] MEDS: LORazepam 0.5 MG TABLET PO SCH ×2 (05:27→10:20)
[2020-11-07] MEDS: PRENATAL VITAMINS W/ FOLIC ACID TABLET (FP) PO SCH (10:20)
[2020-11-07] MEDS: amLODIPine BESYLATE 10 MG TABLET (FP) PO SCH (10:20)
[2020-11-07] MEDS: METHYL SALICYLATE/MENTHOL OINT 30 GM TUBE TP SCH (10:20)
[2020-11-07 12:48] VITALS: BP 134/98; PULSE 96; TEMP 97.8
[2020-11-08] MEDS ORDERED: LORazepam 0.5 MG TABLET PO ONE (05:00)
== END 2020-11-07 14:38 | disposition home or self-care (01) | DRG 774 ==
LOC: YASAS 10:21 → Y6N 12:13
PROVIDERS: ADMIT Allergy & Immunology; ATTEND Allergy & Immunology
PROC: HZ2ZZZZ Detoxification Services for Substance Abuse Treatment (ICD-10-PCS; principal; 2020-11-04)
DX: F10.230 Alcohol dependence with withdrawal, uncomplicated (principal); F14.20 Cocaine dependence, uncomplicated; F17.210 Nicotine dependence, cigarettes, uncomplicated; F41.8 Other specified anxiety disorders; F32.9 Major depressive disorder, single episode, unspecified; A53.0 Latent syphilis, unspecified as early or late; I10 Essential (primary) hypertension; K21.9 Gastro-esophageal reflux disease without esophagitis; M25.511 Pain in right shoulder; M54.5 Low back pain; G89.29 Other chronic pain; Z56.0 Unemployment, unspecified; Z59.0 Homelessness; Z91.010 Allergy to peanuts
CPT/HCPCS: 36415; 80053; 81003; 85027; 86593; 86780; C9803; U0003; U0005

== ENCOUNTER 2020-12-24 09:39 | Inpatient (IN) | payer OTHER ==
[2020-12-24 10:26] VITALS: BMI 28.1
[2020-12-24] MEDS ORDERED: MAGNESIUM HYDROX 2400MG/30ML ORAL SUSPENSION 30 ML CUP PO PRN (11:10)
[2020-12-24] MEDS ORDERED: ACETAMINOPHEN 325 MG TABLET (FP) PO PRN (11:10)
[2020-12-24] MEDS ORDERED: IBUPROFEN 400 MG TABLET (FP) PO PRN (11:10)
[2020-12-24] MEDS ORDERED: BISMUTH SUBSALICYLATE 524 MG/30 ML PO PRN (11:10)
[2020-12-24] MEDS ORDERED: MAGNESIUM CITRATE 300 ML BOTTLE PO PRN (11:10)
[2020-12-24] MEDS ORDERED: MENTHOL/PHENOL 1 EACH UD MM PRN (11:10)
[2020-12-24] MEDS ORDERED: MAG HYDROX/AL HYDROX/SIMETH 30 ML UNIT-DOSE CUP PO PRN (11:10)
[2020-12-24] MEDS ORDERED: METHOCARBAMOL 500 MG TABLET PO PRN (11:10)
[2020-12-24] MEDS ORDERED: ONDANSETRON *ODT* 4 MG TABLET SL PRN (11:10)
[2020-12-24] MEDS ORDERED: diazePAM 5 MG TABLET PO PRN (11:10)
[2020-12-24] MEDS: ACETAMINOPHEN 325 MG TABLET (FP) PO PRN (13:23)
[2020-12-24] MEDS: hydrOXYzine PAMOATE 25 MG CAPSULE (FP) PO SCH ×3 (13:31→22:15)
[2020-12-24] MEDS: diazePAM 5 MG TABLET PO SCH ×2 (18:22→22:14)
[2020-12-24] MEDS: THIAMINE HCL 100 MG TABLET (FP) PO SCH (22:15)
[2020-12-24] MEDS: MELATONIN 5 MG TABLETS PO SCH (22:15)
[2020-12-25] MEDS: diazePAM 5 MG TABLET PO SCH ×4 (05:41→22:23)
[2020-12-25] MEDS: hydrOXYzine PAMOATE 25 MG CAPSULE (FP) PO SCH ×5 (05:42→22:21)
[2020-12-25] MEDS: PRENATAL VITAMINS W/ FOLIC ACID TABLET (FP) PO SCH (10:15)
[2020-12-25] MEDS: METHYL SALICYLATE/MENTHOL OINT 30 GM TUBE TP SCH ×2 (10:16→22:21)
[2020-12-25] MEDS: ACETAMINOPHEN 325 MG TABLET (FP) PO PRN (10:16)
[2020-12-25] MEDS: amLODIPine BESYLATE 10 MG TABLET (FP) PO SCH (10:18)
[2020-12-25 10:19] LABS: HEMOGLOBIN 15.2 GM/dL (11.7-16.9); MCH 29.9 pg (25.7-33.7); MCHC 33.7 g/dl (32.0-35.9); MEAN CELL VOLUME 88.7 fl (80-96); MEAN PLT VOLUME 8.5 fl (7.5-11.1); PLATELET COUNT 249 10^3/uL (134-434); RBC 5.07 M/mm3 (4.00-5.60); RDW 15.1 % (11.9-15.9); WHITE BLOOD COUNT 4.4 K/mm3 (4.0-10.0)
[2020-12-25 11:03] LABS: ALBUMIN 3.5 g/dl (3.4-5.0); BILIRUBIN,TOTAL 0.4 mg/dL (0.2-1); BLOOD UREA NITROGEN 16.6 mg/dL (7-18); CALCIUM 8.8 mg/dL (8.5-10.1); TOT PROT 7.4 g/dl (6.4-8.2)
[2020-12-25] MEDS: MELATONIN 5 MG TABLETS PO SCH (22:21)
[2020-12-25] MEDS: THIAMINE HCL 100 MG TABLET (FP) PO SCH (22:21)
[2020-12-26] MEDS: diazePAM 5 MG TABLET PO SCH ×3 (05:29→22:40)
[2020-12-26] MEDS: hydrOXYzine PAMOATE 25 MG CAPSULE (FP) PO SCH ×2 (05:30→11:17)
[2020-12-26] MEDS ORDERED: hydrOXYzine PAMOATE 25 MG CAPSULE (FP) PO PRN (11:11)
[2020-12-26] MEDS: METHYL SALICYLATE/MENTHOL OINT 30 GM TUBE TP SCH ×2 (11:16→22:46)
[2020-12-26] MEDS: amLODIPine BESYLATE 10 MG TABLET (FP) PO SCH (11:17)
[2020-12-26] MEDS: PRENATAL VITAMINS W/ FOLIC ACID TABLET (FP) PO SCH (11:17)
[2020-12-26] MEDS: THIAMINE HCL 100 MG TABLET (FP) PO SCH (22:40)
[2020-12-26] MEDS: ACETAMINOPHEN 325 MG TABLET (FP) PO PRN (22:41)
[2020-12-26] MEDS: MELATONIN 5 MG TABLETS PO SCH (22:42)
[2020-12-27] MEDS ORDERED: MASKS NR ONE (05:38)
[2020-12-27] MEDS ORDERED: diazePAM 5 MG TABLET PO SCH (06:00)
[2020-12-27 09:05] VITALS: BP 136/93; PULSE 83; TEMP 97.2
[2020-12-28] MEDS ORDERED: diazePAM 5 MG TABLET PO ONE (06:00)
== END 2020-12-27 09:22 | disposition home or self-care (01) | DRG 774 ==
LOC: YASAS 09:39 → Y6N 12:44
PROVIDERS: ADMIT Allergy & Immunology; ATTEND Allergy & Immunology
PROC: HZ2ZZZZ Detoxification Services for Substance Abuse Treatment (ICD-10-PCS; principal; 2020-12-24)
DX: F10.230 Alcohol dependence with withdrawal, uncomplicated (principal); F14.20 Cocaine dependence, uncomplicated; F12.10 Cannabis abuse, uncomplicated; F17.210 Nicotine dependence, cigarettes, uncomplicated; F33.1 Major depressive disorder, recurrent, moderate; F39 Unspecified mood [affective] disorder; G62.9 Polyneuropathy, unspecified; E78.5 Hyperlipidemia, unspecified; I10 Essential (primary) hypertension; K21.9 Gastro-esophageal reflux disease without esophagitis; M25.511 Pain in right shoulder; M54.5 Low back pain; G89.29 Other chronic pain; Z86.19 Personal history of other infectious and parasitic diseases; Z98.890 Other specified postprocedural states
CPT/HCPCS: 36415; 80053; 85027; 86593; 86780; C9803; U0003; U0005

== ENCOUNTER 2021-01-25 20:44 | Inpatient (IN) | payer OTHER ==
[2021-01-25] MEDS ORDERED: MAGNESIUM CITRATE 300 ML BOTTLE PO PRN (22:39)
[2021-01-25] MEDS ORDERED: ACETAMINOPHEN 325 MG TABLET (FP) PO PRN ×2 (22:39)
[2021-01-25] MEDS ORDERED: NICOTINE 10 MG CARTRIDGE (INHALER) IH PRN (22:39)
[2021-01-25] MEDS ORDERED: BISMUTH SUBSALICYLATE 524 MG/30 ML PO PRN (22:39)
[2021-01-25] MEDS ORDERED: METHOCARBAMOL 500 MG TABLET PO PRN (22:39)
[2021-01-25] MEDS ORDERED: MAGNESIUM HYDROX 2400MG/30ML ORAL SUSPENSION 30 ML CUP PO PRN (22:39)
[2021-01-25] MEDS ORDERED: ONDANSETRON *ODT* 4 MG TABLET SL PRN (22:39)
[2021-01-25] MEDS ORDERED: MAG HYDROX/AL HYDROX/SIMETH 30 ML UNIT-DOSE CUP PO PRN (22:39)
[2021-01-25] MEDS ORDERED: MENTHOL/PHENOL 1 EACH UD MM PRN (22:39)
[2021-01-25 23:49] VITALS: BMI 31.1
[2021-01-26] MEDS ORDERED: hydrOXYzine PAMOATE 25 MG CAPSULE (FP) PO SCH (06:00)
[2021-01-26] MEDS ORDERED: hydrOXYzine PAMOATE 25 MG CAPSULE (FP) PO PRN (08:02)
[2021-01-26] MEDS ORDERED: diazePAM 5 MG TABLET PO PRN (08:03)
[2021-01-26] MEDS: amLODIPine BESYLATE 10 MG TABLET (FP) PO SCH (10:24)
[2021-01-26] MEDS: diazePAM 5 MG TABLET PO SCH ×3 (10:24→22:13)
[2021-01-26] MEDS: METHYL SALICYLATE/MENTHOL OINT 30 GM TUBE TP SCH ×2 (10:24→22:15)
[2021-01-26] MEDS: PRENATAL VITAMINS W/ FOLIC ACID TABLET (FP) PO SCH (10:24)
[2021-01-26] MEDS: LORATADINE 10 MG TABLET PO SCH (10:24)
[2021-01-26] MEDS: SERTRALINE HCL 50 MG TABLET (FP) PO SCH (10:24)
[2021-01-26] MEDS: IBUPROFEN 400 MG TABLET (FP) PO PRN ×2 (10:27→17:29)
[2021-01-26 11:22] LABS: HEMOGLOBIN 13.9 GM/dL (11.7-16.9); MCH 30.8 pg (25.7-33.7); MCHC 33.7 g/dl (32.0-35.9); MEAN CELL VOLUME 91.3 fl (80-96); MEAN PLT VOLUME 8.6 fl (7.5-11.1); PLATELET COUNT 228 10^3/uL (134-434); RDW 16.3 % (11.9-15.9); WHITE BLOOD COUNT 4.2 K/mm3 (4.0-10.0)
[2021-01-26 11:26] LABS: ALBUMIN 3.2 g/dl (3.4-5.0); BLOOD UREA NITROGEN 15.6 mg/dL (7-18); CALCIUM 7.8 mg/dL (8.5-10.1)
[2021-01-26 11:30] LABS: CREATININE 1.3 mg/dL (0.55-1.3)
[2021-01-26 11:32] LABS: BILIRUBIN,TOTAL 0.4 mg/dL (0.2-1); TOT PROT 6.7 g/dl (6.4-8.2)
[2021-01-26 12:21] LABS: HIV INTERPRETATION NEGATIVE (NEGATIVE)
[2021-01-26] MEDS: POTASSIUM CHLORIDE TABS 20 MEQ TABLET.ER (FP) PO SCH (12:56)
[2021-01-26] MEDS: THIAMINE HCL 100 MG TABLET (FP) PO SCH (22:13)
[2021-01-26] MEDS: MELATONIN 5 MG TABLETS PO SCH (22:13)
[2021-01-27] MEDS: diazePAM 5 MG TABLET PO SCH ×4 (05:24→23:02)
[2021-01-27] MEDS: METHYL SALICYLATE/MENTHOL OINT 30 GM TUBE TP SCH ×2 (10:39→23:02)
[2021-01-27] MEDS: amLODIPine BESYLATE 10 MG TABLET (FP) PO SCH (10:40)
[2021-01-27] MEDS: LORATADINE 10 MG TABLET PO SCH (10:40)
[2021-01-27] MEDS: PRENATAL VITAMINS W/ FOLIC ACID TABLET (FP) PO SCH (10:40)
[2021-01-27] MEDS: SERTRALINE HCL 50 MG TABLET (FP) PO SCH (10:40)
[2021-01-27] MEDS: POTASSIUM CHLORIDE TABS 20 MEQ TABLET.ER (FP) PO SCH (10:40)
[2021-01-27] MEDS: IBUPROFEN 400 MG TABLET (FP) PO PRN (18:39)
[2021-01-27] MEDS: MELATONIN 5 MG TABLETS PO SCH (23:02)
[2021-01-27] MEDS: THIAMINE HCL 100 MG TABLET (FP) PO SCH (23:03)
[2021-01-28] MEDS: diazePAM 5 MG TABLET PO SCH ×3 (05:17→23:24)
[2021-01-28] MEDS: METHYL SALICYLATE/MENTHOL OINT 30 GM TUBE TP SCH ×2 (10:53→23:23)
[2021-01-28] MEDS: amLODIPine BESYLATE 10 MG TABLET (FP) PO SCH (10:54)
[2021-01-28] MEDS: POTASSIUM CHLORIDE TABS 20 MEQ TABLET.ER (FP) PO SCH (10:54)
[2021-01-28] MEDS: SERTRALINE HCL 50 MG TABLET (FP) PO SCH (10:54)
[2021-01-28] MEDS: PRENATAL VITAMINS W/ FOLIC ACID TABLET (FP) PO SCH (10:54)
[2021-01-28] MEDS: LORATADINE 10 MG TABLET PO SCH (10:54)
[2021-01-28] MEDS: IBUPROFEN 400 MG TABLET (FP) PO PRN (10:57)
[2021-01-28] MEDS: MELATONIN 5 MG TABLETS PO SCH (23:23)
[2021-01-28] MEDS: THIAMINE HCL 100 MG TABLET (FP) PO SCH (23:25)
[2021-01-29] MEDS: diazePAM 5 MG TABLET PO SCH ×2 (05:56→18:00)
[2021-01-29] MEDS: METHYL SALICYLATE/MENTHOL OINT 30 GM TUBE TP SCH ×2 (10:13→22:33)
[2021-01-29] MEDS: LORATADINE 10 MG TABLET PO SCH (10:13)
[2021-01-29] MEDS: SERTRALINE HCL 50 MG TABLET (FP) PO SCH (10:13)
[2021-01-29] MEDS: amLODIPine BESYLATE 10 MG TABLET (FP) PO SCH (10:13)
[2021-01-29] MEDS: PRENATAL VITAMINS W/ FOLIC ACID TABLET (FP) PO SCH (10:14)
[2021-01-29] MEDS: IBUPROFEN 400 MG TABLET (FP) PO PRN (10:15)
[2021-01-29] MEDS: THIAMINE HCL 100 MG TABLET (FP) PO SCH (22:33)
[2021-01-29] MEDS: MELATONIN 5 MG TABLETS PO SCH (22:33)
[2021-01-30] MEDS ORDERED: diazePAM 5 MG TABLET PO ONE (06:00)
[2021-01-30 08:57] VITALS: BP 132/92; PULSE 86; TEMP 97.1
== END 2021-01-30 09:00 | disposition home or self-care (01) | DRG 774 ==
LOC: YASAS 20:44 → Y3N 23:03
PROVIDERS: ADMIT Allergy & Immunology; ATTEND Allergy & Immunology
PROC: HZ2ZZZZ Detoxification Services for Substance Abuse Treatment (ICD-10-PCS; principal; 2021-01-25)
DX: F10.230 Alcohol dependence with withdrawal, uncomplicated (principal); F14.20 Cocaine dependence, uncomplicated; F12.10 Cannabis abuse, uncomplicated; F17.210 Nicotine dependence, cigarettes, uncomplicated; F39 Unspecified mood [affective] disorder; E87.6 Hypokalemia; E78.5 Hyperlipidemia, unspecified; G62.9 Polyneuropathy, unspecified; I10 Essential (primary) hypertension; K21.9 Gastro-esophageal reflux disease without esophagitis; M54.5 Low back pain; G89.29 Other chronic pain; Z86.19 Personal history of other infectious and parasitic diseases
CPT/HCPCS: 36415; 80053; 84132; 85027; 86593; 86780; 87389; C9803; U0003; U0005

== ENCOUNTER 2021-03-09 10:22 | Inpatient (IN) | payer OTHER ==
[2021-03-09 13:15] VITALS: BMI 31.3
[2021-03-09] MEDS ORDERED: MENTHOL/PHENOL 1 EACH UD MM PRN (13:29)
[2021-03-09] MEDS ORDERED: MAGNESIUM CITRATE 300 ML BOTTLE PO PRN (13:29)
[2021-03-09] MEDS ORDERED: MAGNESIUM HYDROX 2400MG/30ML ORAL SUSPENSION 30 ML CUP PO PRN (13:29)
[2021-03-09] MEDS ORDERED: ONDANSETRON *ODT* 4 MG TABLET SL PRN (13:29)
[2021-03-09] MEDS ORDERED: BISMUTH SUBSALICYLATE 524 MG/30 ML PO PRN (13:29)
[2021-03-09] MEDS ORDERED: ACETAMINOPHEN 325 MG TABLET (FP) PO PRN ×2 (13:29)
[2021-03-09] MEDS ORDERED: NICOTINE 10 MG CARTRIDGE (INHALER) IH PRN (13:29)
[2021-03-09] MEDS ORDERED: METHOCARBAMOL 500 MG TABLET PO PRN (13:29)
[2021-03-09] MEDS ORDERED: MAG HYDROX/AL HYDROX/SIMETH 30 ML UNIT-DOSE CUP PO PRN (13:29)
[2021-03-09] MEDS: amLODIPine BESYLATE 10 MG TABLET (FP) PO SCH (15:04)
[2021-03-09] MEDS: SERTRALINE HCL 50 MG TABLET (FP) PO SCH (15:04)
[2021-03-09] MEDS: hydrOXYzine PAMOATE 25 MG CAPSULE (FP) PO SCH ×3 (15:04→23:24)
[2021-03-09] MEDS: IBUPROFEN 400 MG TABLET (FP) PO PRN (15:06)
[2021-03-09] MEDS: PRENATAL VITAMINS W/ FOLIC ACID TABLET (FP) PO SCH (15:07)
[2021-03-09] MEDS: diazePAM 5 MG TABLET PO SCH ×2 (17:42→23:24)
[2021-03-09] MEDS: THIAMINE HCL 100 MG TABLET (FP) PO SCH (23:24)
[2021-03-09] MEDS: MELATONIN 5 MG TABLETS PO SCH (23:24)
[2021-03-10] MEDS: diazePAM 5 MG TABLET PO SCH ×4 (05:52→22:46)
[2021-03-10] MEDS: hydrOXYzine PAMOATE 25 MG CAPSULE (FP) PO SCH ×5 (05:52→22:47)
[2021-03-10] MEDS: SERTRALINE HCL 50 MG TABLET (FP) PO SCH (10:49)
[2021-03-10] MEDS: PRENATAL VITAMINS W/ FOLIC ACID TABLET (FP) PO SCH (10:49)
[2021-03-10] MEDS: amLODIPine BESYLATE 10 MG TABLET (FP) PO SCH (10:49)
[2021-03-10] MEDS: IBUPROFEN 400 MG TABLET (FP) PO PRN (10:50)
[2021-03-10] MEDS ORDERED: FLU VACC QS2021-22(6MOS UP)/PF 60 MCG/0.5 ML SYRINGE IM ONE (12:00)
[2021-03-10 13:00] LABS: HEMATOCRIT 42.9 % (35.4-49); HEMOGLOBIN 14.8 GM/dL (11.7-16.9); MCH 30.5 pg (25.7-33.7); MCHC 34.6 g/dl (32.0-35.9); MEAN CELL VOLUME 88.2 fl (80-96); MEAN PLT VOLUME 8.5 fl (7.5-11.1); PLATELET COUNT 239 10^3/uL (134-434); RBC 4.86 M/mm3 (4.00-5.60); RDW 14.8 % (11.9-15.9); WHITE BLOOD COUNT 4.4 K/mm3 (4.0-10.0)
[2021-03-10 13:57] LABS: HIV INTERPRETATION NEGATIVE (NEGATIVE)
[2021-03-10] MEDS: MELATONIN 5 MG TABLETS PO SCH (22:47)
[2021-03-10] MEDS: THIAMINE HCL 100 MG TABLET (FP) PO SCH (22:47)
[2021-03-11] MEDS: hydrOXYzine PAMOATE 25 MG CAPSULE (FP) PO SCH (05:54)
[2021-03-11] MEDS: diazePAM 5 MG TABLET PO SCH ×3 (05:54→23:28)
[2021-03-11] MEDS: IBUPROFEN 400 MG TABLET (FP) PO PRN (05:56)
[2021-03-11] MEDS ORDERED: hydrOXYzine PAMOATE 25 MG CAPSULE (FP) PO PRN (08:43)
[2021-03-11] MEDS: diazePAM 5 MG TABLET PO PRN ×2 (10:24→22:35)
[2021-03-11] MEDS: SERTRALINE HCL 50 MG TABLET (FP) PO SCH (10:24)
[2021-03-11] MEDS: amLODIPine BESYLATE 10 MG TABLET (FP) PO SCH (10:24)
[2021-03-11] MEDS: PRENATAL VITAMINS W/ FOLIC ACID TABLET (FP) PO SCH (10:25)
[2021-03-11] MEDS: METHYL SALICYLATE/MENTHOL OINT 30 GM TUBE TP SCH ×2 (11:26→22:37)
[2021-03-11] MEDS: THIAMINE HCL 100 MG TABLET (FP) PO SCH (22:36)
[2021-03-11] MEDS: MELATONIN 5 MG TABLETS PO SCH (22:37)
[2021-03-12] MEDS: diazePAM 5 MG TABLET PO SCH ×2 (06:19→17:19)
[2021-03-12 10:28] LABS: BLOOD UREA NITROGEN 14.5 mg/dL (7-18)
[2021-03-12 10:31] LABS: CREATININE 0.8 mg/dL (0.55-1.3)
[2021-03-12 10:33] LABS: BILIRUBIN,TOTAL 0.4 mg/dL (0.2-1); TOT PROT 6.9 g/dl (6.4-8.2)
[2021-03-12] MEDS: METHYL SALICYLATE/MENTHOL OINT 30 GM TUBE TP SCH ×2 (10:40→22:39)
[2021-03-12] MEDS: amLODIPine BESYLATE 10 MG TABLET (FP) PO SCH (10:41)
[2021-03-12] MEDS: SERTRALINE HCL 50 MG TABLET (FP) PO SCH (10:41)
[2021-03-12] MEDS: PRENATAL VITAMINS W/ FOLIC ACID TABLET (FP) PO SCH (10:41)
[2021-03-12] MEDS: IBUPROFEN 400 MG TABLET (FP) PO PRN (10:43)
[2021-03-12] MEDS: THIAMINE HCL 100 MG TABLET (FP) PO SCH (22:39)
[2021-03-12] MEDS: MELATONIN 5 MG TABLETS PO SCH (22:39)
[2021-03-13] MEDS ORDERED: diazePAM 5 MG TABLET PO ONE (06:00)
[2021-03-13 09:03] VITALS: BP 105/77; PULSE 98; TEMP 96.4
[2021-03-13] MEDS: PRENATAL VITAMINS W/ FOLIC ACID TABLET (FP) PO SCH (09:36)
[2021-03-13] MEDS: SERTRALINE HCL 50 MG TABLET (FP) PO SCH (09:36)
[2021-03-13] MEDS: amLODIPine BESYLATE 10 MG TABLET (FP) PO SCH (09:36)
== END 2021-03-13 09:39 | disposition home or self-care (01) | DRG 774 ==
LOC: YASAS 10:22 → Y3N 13:22
PROVIDERS: ADMIT Allergy & Immunology; ATTEND Allergy & Immunology
PROC: HZ2ZZZZ Detoxification Services for Substance Abuse Treatment (ICD-10-PCS; principal; 2021-03-09)
DX: F10.230 Alcohol dependence with withdrawal, uncomplicated (principal); F14.20 Cocaine dependence, uncomplicated; F12.20 Cannabis dependence, uncomplicated; F17.210 Nicotine dependence, cigarettes, uncomplicated; F41.9 Anxiety disorder, unspecified; F32.9 Major depressive disorder, single episode, unspecified; G62.9 Polyneuropathy, unspecified; E78.5 Hyperlipidemia, unspecified; I10 Essential (primary) hypertension; K21.9 Gastro-esophageal reflux disease without esophagitis; M54.50 Low back pain, unspecified; Z86.19 Personal history of other infectious and parasitic diseases
CPT/HCPCS: 36415; 80053; 85027; 86593; 86780; 87389; 90686; C9803; G0008; U0003; U0005

== ENCOUNTER 2021-04-27 09:25 | Inpatient (IN) | payer OTHER ==
[2021-04-27 09:57] VITALS: BMI 31.3
[2021-04-27] MEDS ORDERED: diazePAM 5 MG TABLET PO PRN (10:30)
[2021-04-27] MEDS ORDERED: BISMUTH SUBSALICYLATE 262 MG/15 ML BTL PO PRN (10:30)
[2021-04-27] MEDS ORDERED: MAG HYDROX/AL HYDROX/SIMETH 30 ML UNIT-DOSE CUP PO PRN (10:30)
[2021-04-27] MEDS ORDERED: ONDANSETRON *ODT* 4 MG TABLET SL PRN (10:30)
[2021-04-27] MEDS ORDERED: MAGNESIUM CITRATE 300 ML BOTTLE PO PRN (10:30)
[2021-04-27] MEDS ORDERED: NICOTINE 10 MG CARTRIDGE (INHALER) IH PRN (10:30)
[2021-04-27] MEDS ORDERED: MAGNESIUM HYDROX 2400MG/30ML ORAL SUSPENSION 30 ML CUP PO PRN (10:30)
[2021-04-27] MEDS ORDERED: ACETAMINOPHEN 325 MG TABLET (FP) PO PRN ×2 (10:30)
[2021-04-27] MEDS ORDERED: MENTHOL/PHENOL 1 EACH UD MM PRN (10:30)
[2021-04-27] MEDS: diazePAM 5 MG TABLET PO SCH ×3 (12:04→22:28)
[2021-04-27] MEDS: IBUPROFEN 400 MG TABLET (FP) PO PRN (12:09)
[2021-04-27] MEDS: hydrOXYzine PAMOATE 25 MG CAPSULE (FP) PO SCH ×3 (14:07→22:26)
[2021-04-27 14:47] LABS: HEMATOCRIT 41.4 % (35.4-49); HEMOGLOBIN 13.9 GM/dL (11.7-16.9); MCH 30.8 pg (25.7-33.7); MCHC 33.7 g/dl (32.0-35.9); MEAN CELL VOLUME 91.4 fl (80-96); MEAN PLT VOLUME 8.3 fl (7.5-11.1); PLATELET COUNT 233 10^3/uL (134-434); RBC 4.53 M/mm3 (4.00-5.60); RDW 15.3 % (11.9-15.9); WHITE BLOOD COUNT 3.4 K/mm3 (4.0-10.0)
[2021-04-27 15:25] LABS: ALBUMIN 3.3 g/dl (3.4-5.0); BILIRUBIN,TOTAL 0.3 mg/dL (0.2-1); BLOOD UREA NITROGEN 13.1 mg/dL (7-18); CALCIUM 8.4 mg/dL (8.5-10.1); CREATININE 1.2 mg/dL (0.55-1.3); TOT PROT 7.1 g/dl (6.4-8.2)
[2021-04-27] MEDS: THIAMINE HCL 100 MG TABLET (FP) PO SCH (22:25)
[2021-04-27] MEDS: METHYL SALICYLATE/MENTHOL OINT 30 GM TUBE TP SCH (22:25)
[2021-04-27] MEDS: MELATONIN 5 MG TABLETS PO SCH (22:25)
[2021-04-28] MEDS: hydrOXYzine PAMOATE 25 MG CAPSULE (FP) PO SCH ×5 (05:43→22:25)
[2021-04-28] MEDS: diazePAM 5 MG TABLET PO SCH ×4 (05:44→22:25)
[2021-04-28] MEDS: METHOCARBAMOL 500 MG TABLET PO PRN (10:43)
[2021-04-28] MEDS: SERTRALINE HCL 50 MG TABLET (FP) PO SCH (10:44)
[2021-04-28] MEDS: PRENATAL VITAMINS W/ FOLIC ACID TABLET (FP) PO SCH (10:44)
[2021-04-28] MEDS: IBUPROFEN 400 MG TABLET (FP) PO PRN (10:45)
[2021-04-28] MEDS: METHYL SALICYLATE/MENTHOL OINT 30 GM TUBE TP SCH ×2 (10:59→22:26)
[2021-04-28] MEDS: MELATONIN 5 MG TABLETS PO SCH (22:25)
[2021-04-28] MEDS: THIAMINE HCL 100 MG TABLET (FP) PO SCH (22:25)
[2021-04-29] MEDS: hydrOXYzine PAMOATE 25 MG CAPSULE (FP) PO SCH ×5 (05:25→22:23)
[2021-04-29] MEDS: diazePAM 5 MG TABLET PO SCH ×3 (05:25→22:23)
[2021-04-29] MEDS: SERTRALINE HCL 50 MG TABLET (FP) PO SCH (10:17)
[2021-04-29] MEDS: METHYL SALICYLATE/MENTHOL OINT 30 GM TUBE TP SCH ×2 (10:17→22:25)
[2021-04-29] MEDS: METHOCARBAMOL 500 MG TABLET PO PRN (10:17)
[2021-04-29] MEDS: PRENATAL VITAMINS W/ FOLIC ACID TABLET (FP) PO SCH (10:17)
[2021-04-29] MEDS: amLODIPine BESYLATE 10 MG TABLET (FP) PO SCH (11:50)
[2021-04-29] MEDS: THIAMINE HCL 100 MG TABLET (FP) PO SCH (22:23)
[2021-04-29] MEDS: MELATONIN 5 MG TABLETS PO SCH (22:24)
[2021-04-30] MEDS: hydrOXYzine PAMOATE 25 MG CAPSULE (FP) PO SCH ×5 (05:32→22:11)
[2021-04-30] MEDS: diazePAM 5 MG TABLET PO SCH ×2 (05:32→17:55)
[2021-04-30] MEDS: IBUPROFEN 400 MG TABLET (FP) PO PRN (05:34)
[2021-04-30] MEDS: SERTRALINE HCL 50 MG TABLET (FP) PO SCH (10:01)
[2021-04-30] MEDS: PRENATAL VITAMINS W/ FOLIC ACID TABLET (FP) PO SCH (10:01)
[2021-04-30] MEDS: amLODIPine BESYLATE 10 MG TABLET (FP) PO SCH (10:01)
[2021-04-30] MEDS: METHYL SALICYLATE/MENTHOL OINT 30 GM TUBE TP SCH ×2 (10:02→22:11)
[2021-04-30] MEDS: THIAMINE HCL 100 MG TABLET (FP) PO SCH (22:11)
[2021-04-30] MEDS: MELATONIN 5 MG TABLETS PO SCH (22:11)
[2021-05-01] MEDS ORDERED: diazePAM 5 MG TABLET PO ONE (06:00)
[2021-05-01] MEDS: hydrOXYzine PAMOATE 25 MG CAPSULE (FP) PO SCH ×2 (06:15→11:11)
[2021-05-01 09:25] VITALS: BP 143/79; PULSE 70; TEMP 97.1
[2021-05-01] MEDS: SERTRALINE HCL 50 MG TABLET (FP) PO SCH (10:27)
[2021-05-01] MEDS: amLODIPine BESYLATE 10 MG TABLET (FP) PO SCH (10:27)
[2021-05-01] MEDS: IBUPROFEN 400 MG TABLET (FP) PO PRN (10:29)
[2021-05-01] MEDS: METHYL SALICYLATE/MENTHOL OINT 30 GM TUBE TP SCH (11:10)
[2021-05-01] MEDS: PRENATAL VITAMINS W/ FOLIC ACID TABLET (FP) PO SCH (11:10)
== END 2021-05-01 11:56 | disposition home or self-care (01) | DRG 774 ==
LOC: YASAS 09:25 → Y6N 11:07
PROVIDERS: ADMIT Allergy & Immunology; ATTEND Allergy & Immunology
PROC: HZ2ZZZZ Detoxification Services for Substance Abuse Treatment (ICD-10-PCS; principal; 2021-04-27)
DX: F10.230 Alcohol dependence with withdrawal, uncomplicated (principal); F10.220 Alcohol dependence with intoxication, uncomplicated; F14.20 Cocaine dependence, uncomplicated; F12.10 Cannabis abuse, uncomplicated; F17.210 Nicotine dependence, cigarettes, uncomplicated; F32.A Depression, unspecified; F19.280 Other psychoactive substance dependence with psychoactive substance-induced anxiety disorder; F39 Unspecified mood [affective] disorder; I10 Essential (primary) hypertension; E78.5 Hyperlipidemia, unspecified; K21.9 Gastro-esophageal reflux disease without esophagitis; D72.819 Decreased white blood cell count, unspecified; G62.9 Polyneuropathy, unspecified; M54.59 Other low back pain; G89.29 Other chronic pain; Z86.19 Personal history of other infectious and parasitic diseases; Z91.010 Allergy to peanuts; Z56.0 Unemployment, unspecified; Z59.00 Homelessness unspecified
CPT/HCPCS: 36415; 80053; 85027; 86593; 86780; C9803; Q0162; U0003; U0005

== ENCOUNTER 2021-07-26 15:09 | Inpatient (IN) | payer OTHER ==
[2021-07-26] MEDS ORDERED: diazePAM 5 MG TABLET PO PRN (17:20)
[2021-07-26] MEDS ORDERED: MENTHOL/PHENOL 1 EACH UD MM PRN (17:21)
[2021-07-26] MEDS ORDERED: guaiFENesin 200 MG/10 ML 10 ML UNIT-DOSE CUPS PO PRN (17:21)
[2021-07-26] MEDS ORDERED: BISMUTH SUBSALICYLATE 524 MG/30 ML PO PRN (17:21)
[2021-07-26] MEDS ORDERED: ONDANSETRON *ODT* 4 MG TABLET SL PRN (17:21)
[2021-07-26] MEDS ORDERED: MAGNESIUM HYDROX 2400MG/30ML ORAL SUSPENSION 30 ML CUP PO PRN (17:21)
[2021-07-26] MEDS ORDERED: MAGNESIUM CITRATE 300 ML BOTTLE PO PRN (17:21)
[2021-07-26] MEDS ORDERED: MAG HYDROX/AL HYDROX/SIMETH 30 ML UNIT-DOSE CUP PO PRN (17:21)
[2021-07-26] MEDS ORDERED: MELATONIN 5 MG TABLETS PO PRN (17:21)
[2021-07-26] MEDS ORDERED: LOPERAMIDE HCL 2 MG CAPSULE PO PRN (17:21)
[2021-07-26] MEDS ORDERED: hydrOXYzine PAMOATE 25 MG CAPSULE (FP) PO PRN (17:21)
[2021-07-26] MEDS ORDERED: ACETAMINOPHEN 325 MG TABLET (FP) PO PRN (17:21)
[2021-07-26] MEDS ORDERED: P-EPHED 60MG/TRIPROLIDI 2.5MG TABLET PO PRN (17:21)
[2021-07-26 21:14] VITALS: BMI 31.9
[2021-07-26] MEDS: amLODIPine BESYLATE 10 MG TABLET (FP) PO SCH (22:46)
[2021-07-26] MEDS: IBUPROFEN 400 MG TABLET (FP) PO PRN (22:46)
[2021-07-26] MEDS: diazePAM 5 MG TABLET PO SCH (22:47)
[2021-07-26] MEDS: THIAMINE HCL 100 MG TABLET (FP) PO SCH (22:48)
[2021-07-26] MEDS: METHYL SALICYLATE/MENTHOL OINT 30 GM TUBE TP SCH (23:14)
[2021-07-27] MEDS: METHOCARBAMOL 500 MG TABLET PO PRN (05:18)
[2021-07-27] MEDS: diazePAM 5 MG TABLET PO SCH ×4 (05:18→22:50)
[2021-07-27] MEDS: PRENATAL VITAMINS W/ FOLIC ACID TABLET (FP) PO SCH (11:13)
[2021-07-27] MEDS: amLODIPine BESYLATE 10 MG TABLET (FP) PO SCH (11:13)
[2021-07-27] MEDS: METHYL SALICYLATE/MENTHOL OINT 30 GM TUBE TP SCH ×2 (11:14→22:53)
[2021-07-27 11:54] LABS: HEMATOCRIT 42.8 % (35.4-49); HEMOGLOBIN 14.2 GM/dL (11.7-16.9); MCH 28.8 pg (25.7-33.7); MCHC 33.1 g/dl (32.0-35.9); MEAN CELL VOLUME 87.2 fl (80-96); MEAN PLT VOLUME 8.1 fl (7.5-11.1); PLATELET COUNT 205 10^3/uL (134-434); RBC 4.91 M/mm3 (4.00-5.60); RDW 14.5 % (11.9-15.9); WHITE BLOOD COUNT 3.6 K/mm3 (4.0-10.0)
[2021-07-27 12:08] LABS: ALBUMIN 3.4 g/dl (3.4-5.0); BLOOD UREA NITROGEN 14.6 mg/dL (7-18); CALCIUM 8.4 mg/dL (8.5-10.1)
[2021-07-27 12:11] LABS: CREATININE 0.7 mg/dL (0.55-1.3)
[2021-07-27 12:12] LABS: BILIRUBIN,TOTAL 0.8 mg/dL (0.2-1); TOT PROT 7.1 g/dl (6.4-8.2)
[2021-07-27] MEDS ORDERED: cloNIDine HCL 0.1 MG TABLET PO PRN (12:24)
[2021-07-27] MEDS: IBUPROFEN 400 MG TABLET (FP) PO PRN (18:49)
[2021-07-27] MEDS: THIAMINE HCL 100 MG TABLET (FP) PO SCH (22:49)
[2021-07-28] MEDS: diazePAM 5 MG TABLET PO SCH ×3 (05:50→22:57)
[2021-07-28] MEDS: METHOCARBAMOL 500 MG TABLET PO PRN (10:16)
[2021-07-28] MEDS: PRENATAL VITAMINS W/ FOLIC ACID TABLET (FP) PO SCH (10:16)
[2021-07-28] MEDS: amLODIPine BESYLATE 10 MG TABLET (FP) PO SCH (10:16)
[2021-07-28] MEDS: METHYL SALICYLATE/MENTHOL OINT 30 GM TUBE TP SCH ×2 (10:16→22:56)
[2021-07-28] MEDS: ACETAMINOPHEN 325 MG TABLET (FP) PO PRN (10:18)
[2021-07-28 14:06] LABS: SARS-CoV-2 NAA Not Detected (Not Detected)
[2021-07-28] MEDS: THIAMINE HCL 100 MG TABLET (FP) PO SCH (22:57)
[2021-07-29] MEDS: ACETAMINOPHEN 325 MG TABLET (FP) PO PRN (03:59)
[2021-07-29] MEDS: diazePAM 5 MG TABLET PO SCH ×2 (05:48→20:03)
[2021-07-29] MEDS: PRENATAL VITAMINS W/ FOLIC ACID TABLET (FP) PO SCH (10:27)
[2021-07-29] MEDS: amLODIPine BESYLATE 10 MG TABLET (FP) PO SCH (10:28)
[2021-07-29] MEDS: METHYL SALICYLATE/MENTHOL OINT 30 GM TUBE TP SCH ×2 (10:28→22:52)
[2021-07-29] MEDS: THIAMINE HCL 100 MG TABLET (FP) PO SCH (22:52)
[2021-07-29] MEDS: IBUPROFEN 400 MG TABLET (FP) PO PRN (22:53)
[2021-07-30] MEDS ORDERED: diazePAM 5 MG TABLET PO ONE (06:00)
[2021-07-30 09:31] VITALS: BP 137/89; PULSE 73; TEMP 97.3
[2021-07-30] MEDS: amLODIPine BESYLATE 10 MG TABLET (FP) PO SCH (10:22)
[2021-07-30] MEDS: METHYL SALICYLATE/MENTHOL OINT 30 GM TUBE TP SCH (10:22)
[2021-07-30] MEDS: PRENATAL VITAMINS W/ FOLIC ACID TABLET (FP) PO SCH (10:22)
== END 2021-07-30 10:26 | disposition home or self-care (01) | DRG 774 ==
LOC: YASAS 15:09 → Y6N 21:33
PROVIDERS: ADMIT Allergy & Immunology; ATTEND Allergy & Immunology
PROC: HZ2ZZZZ Detoxification Services for Substance Abuse Treatment (ICD-10-PCS; principal; 2021-07-26)
DX: F10.230 Alcohol dependence with withdrawal, uncomplicated (principal); F14.20 Cocaine dependence, uncomplicated; F12.20 Cannabis dependence, uncomplicated; F17.210 Nicotine dependence, cigarettes, uncomplicated; G62.9 Polyneuropathy, unspecified; I10 Essential (primary) hypertension; K21.9 Gastro-esophageal reflux disease without esophagitis; E78.5 Hyperlipidemia, unspecified; A53.0 Latent syphilis, unspecified as early or late; Z86.19 Personal history of other infectious and parasitic diseases; Z91.010 Allergy to peanuts
CPT/HCPCS: 36415; 80053; 85027; 86593; 86780; 87811; C9803; U0003; U0005

== ENCOUNTER 2021-09-29 12:00 | Inpatient (IN) | payer OTHER ==
[2021-09-29] MEDS ORDERED: MAGNESIUM CITRATE 300 ML BOTTLE PO PRN (13:34)
[2021-09-29] MEDS ORDERED: diazePAM 5 MG TABLET PO PRN (13:34)
[2021-09-29] MEDS ORDERED: METHOCARBAMOL 500 MG TABLET PO PRN (13:34)
[2021-09-29] MEDS ORDERED: ACETAMINOPHEN 325 MG TABLET (FP) PO PRN ×2 (13:34)
[2021-09-29] MEDS ORDERED: MAGNESIUM HYDROX 2400MG/30ML ORAL SUSPENSION 30 ML CUP PO PRN (13:34)
[2021-09-29] MEDS ORDERED: DICYCLOMINE HCL 10 MG CAPSULE PO PRN (13:34)
[2021-09-29] MEDS ORDERED: diazePAM 5 MG TABLET PO ONE (13:34)
[2021-09-29] MEDS ORDERED: MAG HYDROX/AL HYDROX/SIMETH 30 ML UNIT-DOSE CUP PO PRN (13:34)
[2021-09-29] MEDS ORDERED: BISMUTH SUBSALICYLATE 524 MG/30 ML PO PRN (13:34)
[2021-09-29] MEDS ORDERED: ONDANSETRON *ODT* 4 MG TABLET SL PRN (13:34)
[2021-09-29] MEDS ORDERED: BENZOCAINE/MENTHOL (CHLORASEPTIC ) LOZENGE MM PRN (13:34)
[2021-09-29] MEDS ORDERED: LOPERAMIDE HCL 2 MG CAPSULE PO PRN (13:34)
[2021-09-29 14:18] VITALS: BMI 31.3
[2021-09-29] MEDS: hydrOXYzine PAMOATE 25 MG CAPSULE (FP) PO SCH ×3 (14:57→22:55)
[2021-09-29] MEDS: amLODIPine BESYLATE 10 MG TABLET (FP) PO SCH (15:50)
[2021-09-29] MEDS: diazePAM 5 MG TABLET PO SCH ×2 (18:13→22:55)
[2021-09-29] MEDS: MELATONIN 5 MG TABLETS PO SCH (22:54)
[2021-09-29] MEDS: THIAMINE HCL 100 MG TABLET (FP) PO SCH (22:55)
[2021-09-30] MEDS: diazePAM 5 MG TABLET PO SCH ×4 (05:52→22:51)
[2021-09-30] MEDS: hydrOXYzine PAMOATE 25 MG CAPSULE (FP) PO SCH ×5 (05:53→22:51)
[2021-09-30] MEDS: amLODIPine BESYLATE 10 MG TABLET (FP) PO SCH (10:30)
[2021-09-30] MEDS: PRENATAL VITAMINS W/ FOLIC ACID TABLET (FP) PO SCH (10:30)
[2021-09-30] MEDS: IBUPROFEN 400 MG TABLET (FP) PO PRN (10:32)
[2021-09-30] MEDS: MELATONIN 5 MG TABLETS PO SCH (22:50)
[2021-09-30] MEDS: THIAMINE HCL 100 MG TABLET (FP) PO SCH (22:51)
[2021-10-01] MEDS: diazePAM 5 MG TABLET PO SCH ×3 (06:01→22:51)
[2021-10-01] MEDS: hydrOXYzine PAMOATE 25 MG CAPSULE (FP) PO SCH ×5 (06:01→22:51)
[2021-10-01] MEDS: PRENATAL VITAMINS W/ FOLIC ACID TABLET (FP) PO SCH (10:06)
[2021-10-01] MEDS: amLODIPine BESYLATE 10 MG TABLET (FP) PO SCH (10:06)
[2021-10-01 12:30] LABS: HEMATOCRIT 41.7 % (35.4-49); HEMOGLOBIN 13.8 GM/dL (11.7-16.9); MCH 29.2 pg (25.7-33.7); MCHC 33.2 g/dl (32.0-35.9); MEAN CELL VOLUME 88.1 fl (80-96); MEAN PLT VOLUME 8.5 fl (7.5-11.1); PLATELET COUNT 189 10^3/uL (134-434); RBC 4.73 M/mm3 (4.00-5.60); RDW 14.6 % (11.9-15.9); WHITE BLOOD COUNT 3.9 K/mm3 (4.0-10.0)
[2021-10-01 13:07] LABS: CALCIUM 8.1 mg/dL (8.5-10.1)
[2021-10-01 13:08] LABS: ALBUMIN 3.2 g/dl (3.4-5.0); BLOOD UREA NITROGEN 16.5 mg/dL (7-18)
[2021-10-01 13:11] LABS: CREATININE 0.8 mg/dL (0.55-1.3)
[2021-10-01 13:12] LABS: BILIRUBIN,TOTAL 0.2 mg/dL (0.2-1); TOT PROT 6.8 g/dl (6.4-8.2)
[2021-10-01] MEDS: MELATONIN 5 MG TABLETS PO SCH (22:51)
[2021-10-01] MEDS: THIAMINE HCL 100 MG TABLET (FP) PO SCH (22:51)
[2021-10-02] MEDS ORDERED: diazePAM 5 MG TABLET PO SCH (06:00)
[2021-10-02] MEDS: hydrOXYzine PAMOATE 25 MG CAPSULE (FP) PO SCH ×2 (06:12→10:08)
[2021-10-02] MEDS: IBUPROFEN 400 MG TABLET (FP) PO PRN (10:07)
[2021-10-02] MEDS: amLODIPine BESYLATE 10 MG TABLET (FP) PO SCH (10:07)
[2021-10-02] MEDS: PRENATAL VITAMINS W/ FOLIC ACID TABLET (FP) PO SCH (10:07)
[2021-10-02 12:54] VITALS: BP 141/94; PULSE 97; TEMP 98.4
[2021-10-03 00:06] LABS: SARS-CoV-2 NAA Not Detected (Not Detected)
[2021-10-03] MEDS ORDERED: diazePAM 5 MG TABLET PO ONE (06:00)
== END 2021-10-02 12:59 | disposition home or self-care (01) | DRG 774 ==
LOC: YASAS 12:00 → Y3N 13:54
PROVIDERS: ADMIT Allergy & Immunology; ATTEND Allergy & Immunology
PROC: HZ2ZZZZ Detoxification Services for Substance Abuse Treatment (ICD-10-PCS; principal; 2021-09-29)
DX: F10.230 Alcohol dependence with withdrawal, uncomplicated (principal); F14.20 Cocaine dependence, uncomplicated; F12.20 Cannabis dependence, uncomplicated; F31.9 Bipolar disorder, unspecified; F41.9 Anxiety disorder, unspecified; G62.9 Polyneuropathy, unspecified; E78.5 Hyperlipidemia, unspecified; I10 Essential (primary) hypertension; K21.9 Gastro-esophageal reflux disease without esophagitis; M54.50 Low back pain, unspecified; G89.29 Other chronic pain; Z28.310 Unvaccinated for COVID-19; Z28.20 Immunization not carried out because of patient decision for unspecified reason; Z87.891 Personal history of nicotine dependence; Z86.19 Personal history of other infectious and parasitic diseases; Z56.0 Unemployment, unspecified; Z59.00 Homelessness unspecified
CPT/HCPCS: 36415; 80053; 85027; 86593; 86780; C9803-CS; U0003; U0005

== ENCOUNTER 2021-11-13 10:40 | Inpatient (IN) | payer OTHER ==
[2021-11-13 11:03] VITALS: BMI 29.5
[2021-11-13] MEDS ORDERED: IBUPROFEN 600 MG TABLET (FP) PO PRN (12:19)
[2021-11-13] MEDS ORDERED: MAGNESIUM HYDROX 2400MG/30ML ORAL SUSPENSION 30 ML CUP PO PRN (12:19)
[2021-11-13] MEDS ORDERED: ONDANSETRON *ODT* 4 MG TABLET SL PRN (12:19)
[2021-11-13] MEDS ORDERED: DICYCLOMINE HCL 10 MG CAPSULE PO PRN (12:19)
[2021-11-13] MEDS ORDERED: LOPERAMIDE HCL 2 MG CAPSULE PO PRN (12:19)
[2021-11-13] MEDS ORDERED: IBUPROFEN 400 MG TABLET (FP) PO PRN (12:19)
[2021-11-13] MEDS ORDERED: ACETAMINOPHEN 325 MG TABLET (FP) PO PRN ×2 (12:19)
[2021-11-13] MEDS ORDERED: NICOTINE 10 MG CARTRIDGE (INHALER) IH PRN (12:19)
[2021-11-13] MEDS ORDERED: diazePAM 5 MG TABLET PO PRN (12:19)
[2021-11-13] MEDS ORDERED: MAG HYDROX/AL HYDROX/SIMETH 30 ML UNIT-DOSE CUP PO PRN (12:19)
[2021-11-13] MEDS ORDERED: BENZOCAINE/MENTHOL (CHLORASEPTIC ) LOZENGE MM PRN (12:19)
[2021-11-13] MEDS ORDERED: BISMUTH SUBSALICYLATE 262 MG/15 ML BTL PO PRN (12:19)
[2021-11-13] MEDS ORDERED: MAGNESIUM CITRATE 300 ML BOTTLE PO PRN (12:19)
[2021-11-13] MEDS: METHOCARBAMOL 500 MG TABLET PO PRN (14:38)
[2021-11-13 14:42] LABS: ALBUMIN 3.8 g/dl (3.4-5.0); BLOOD UREA NITROGEN 16.4 mg/dL (7-18); CALCIUM 8.7 mg/dL (8.5-10.1); HEMATOCRIT 43.6 % (35.4-49); HEMOGLOBIN 14.8 GM/dL (11.7-16.9); MCH 29.7 pg (25.7-33.7); MCHC 33.9 g/dl (32.0-35.9); MEAN CELL VOLUME 87.5 fl (80-96); MEAN PLT VOLUME 8.3 fl (7.5-11.1); PLATELET COUNT 250 10^3/uL (134-434); RBC 4.98 M/mm3 (4.00-5.60); RDW 14.9 % (11.9-15.9); WHITE BLOOD COUNT 7.6 K/mm3 (4.0-10.0)
[2021-11-13] MEDS: diazePAM 5 MG TABLET PO SCH ×3 (14:42→22:48)
[2021-11-13] MEDS: PRENATAL VITAMINS W/ FOLIC ACID TABLET (FP) PO SCH (14:42)
[2021-11-13] MEDS: hydrOXYzine PAMOATE 25 MG CAPSULE (FP) PO SCH ×3 (14:43→22:48)
[2021-11-13] MEDS: amLODIPine BESYLATE 10 MG TABLET (FP) PO SCH (14:43)
[2021-11-13 14:45] LABS: CREATININE 1.1 mg/dL (0.55-1.3)
[2021-11-13 14:47] LABS: BILIRUBIN,TOTAL 0.5 mg/dL (0.2-1); TOT PROT 8.3 g/dl (6.4-8.2)
[2021-11-13] MEDS: THIAMINE HCL 100 MG TABLET (FP) PO SCH (22:48)
[2021-11-13] MEDS: MELATONIN 5 MG TABLETS PO SCH (22:48)
[2021-11-14] MEDS: diazePAM 5 MG TABLET PO SCH ×4 (05:05→22:30)
[2021-11-14] MEDS: hydrOXYzine PAMOATE 25 MG CAPSULE (FP) PO SCH ×5 (05:05→22:30)
[2021-11-14] MEDS: METHOCARBAMOL 500 MG TABLET PO PRN ×2 (05:06→10:12)
[2021-11-14] MEDS: SERTRALINE HCL 50 MG TABLET (FP) PO SCH (10:12)
[2021-11-14] MEDS: PRENATAL VITAMINS W/ FOLIC ACID TABLET (FP) PO SCH (10:13)
[2021-11-14] MEDS: amLODIPine BESYLATE 10 MG TABLET (FP) PO SCH (13:51)
[2021-11-14] MEDS: METHYL SALICYLATE/MENTHOL OINT 30 GM TUBE TP SCH ×2 (13:53→22:32)
[2021-11-14] MEDS: THIAMINE HCL 100 MG TABLET (FP) PO SCH (22:30)
[2021-11-14] MEDS: MELATONIN 5 MG TABLETS PO SCH (22:31)
[2021-11-15] MEDS: hydrOXYzine PAMOATE 25 MG CAPSULE (FP) PO SCH ×5 (05:00→23:57)
[2021-11-15] MEDS: diazePAM 5 MG TABLET PO SCH ×3 (05:00→23:57)
[2021-11-15] MEDS: SERTRALINE HCL 50 MG TABLET (FP) PO SCH (10:08)
[2021-11-15] MEDS: METHOCARBAMOL 500 MG TABLET PO PRN (10:08)
[2021-11-15] MEDS: PRENATAL VITAMINS W/ FOLIC ACID TABLET (FP) PO SCH (10:09)
[2021-11-15] MEDS: METHYL SALICYLATE/MENTHOL OINT 30 GM TUBE TP SCH ×2 (10:50→23:57)
[2021-11-15] MEDS: MELATONIN 5 MG TABLETS PO SCH (23:57)
[2021-11-15] MEDS: THIAMINE HCL 100 MG TABLET (FP) PO SCH (23:57)
[2021-11-16] MEDS: diazePAM 5 MG TABLET PO SCH ×2 (05:03→18:57)
[2021-11-16] MEDS: hydrOXYzine PAMOATE 25 MG CAPSULE (FP) PO SCH ×5 (05:03→23:19)
[2021-11-16] MEDS ORDERED: amLODIPine BESYLATE 10 MG TABLET (FP) PO SCH (10:00)
[2021-11-16] MEDS: SERTRALINE HCL 50 MG TABLET (FP) PO SCH (10:16)
[2021-11-16] MEDS: PRENATAL VITAMINS W/ FOLIC ACID TABLET (FP) PO SCH (10:17)
[2021-11-16] MEDS: METHYL SALICYLATE/MENTHOL OINT 30 GM TUBE TP SCH ×2 (10:33→23:19)
[2021-11-16] MEDS: MELATONIN 5 MG TABLETS PO SCH (23:19)
[2021-11-16] MEDS: THIAMINE HCL 100 MG TABLET (FP) PO SCH (23:19)
[2021-11-17] MEDS: diazePAM 5 MG TABLET PO SCH (05:07)
[2021-11-17] MEDS: hydrOXYzine PAMOATE 25 MG CAPSULE (FP) PO SCH (05:10)
[2021-11-17] MEDS ORDERED: diazePAM 5 MG TABLET PO ONE (06:00)
[2021-11-17 09:16] VITALS: BP 133/86; PULSE 78; TEMP 98.2
== END 2021-11-17 10:13 | disposition home or self-care (01) | DRG 774 ==
LOC: YASAS 10:40 → Y6N 13:42
PROVIDERS: ADMIT Allergy & Immunology; ATTEND Surgery
PROC: HZ2ZZZZ Detoxification Services for Substance Abuse Treatment (ICD-10-PCS; principal; 2021-11-13)
DX: F10.230 Alcohol dependence with withdrawal, uncomplicated (principal); F14.20 Cocaine dependence, uncomplicated; F31.9 Bipolar disorder, unspecified; F41.9 Anxiety disorder, unspecified; E78.5 Hyperlipidemia, unspecified; I10 Essential (primary) hypertension; G62.9 Polyneuropathy, unspecified; K21.9 Gastro-esophageal reflux disease without esophagitis; M54.50 Low back pain, unspecified; G89.28 Other chronic postprocedural pain; Z28.310 Unvaccinated for COVID-19; Z86.19 Personal history of other infectious and parasitic diseases; Z56.0 Unemployment, unspecified; Z59.00 Homelessness unspecified
CPT/HCPCS: 36415; 80053; 82962; 85027; 86593; 86780; C9803-CS; Q0162; U0003; U0005

== ENCOUNTER 2021-12-22 10:49 | Inpatient (IN) | payer OTHER ==
[2021-12-22 14:21] VITALS: BMI 32.2
[2021-12-22] MEDS ORDERED: guaiFENesin 200 MG/10 ML 10 ML UNIT-DOSE CUPS PO PRN (18:46)
[2021-12-22] MEDS ORDERED: diazePAM 5 MG TABLET PO PRN (18:46)
[2021-12-22] MEDS ORDERED: DICYCLOMINE HCL 10 MG CAPSULE PO PRN (18:46)
[2021-12-22] MEDS ORDERED: BENZOCAINE/MENTHOL (CHLORASEPTIC ) LOZENGE MM PRN (18:46)
[2021-12-22] MEDS ORDERED: IBUPROFEN 600 MG TABLET (FP) PO PRN (18:46)
[2021-12-22] MEDS ORDERED: MAGNESIUM HYDROX 2400MG/30ML ORAL SUSPENSION 30 ML CUP PO PRN (18:46)
[2021-12-22] MEDS ORDERED: IBUPROFEN 400 MG TABLET (FP) PO PRN (18:46)
[2021-12-22] MEDS ORDERED: ONDANSETRON *ODT* 4 MG TABLET SL PRN (18:46)
[2021-12-22] MEDS ORDERED: BISMUTH SUBSALICYLATE 524 MG/30 ML PO PRN (18:46)
[2021-12-22] MEDS ORDERED: MAG HYDROX/AL HYDROX/SIMETH 30 ML UNIT-DOSE CUP PO PRN (18:46)
[2021-12-22] MEDS ORDERED: P-EPHED 60MG/TRIPROLIDI 2.5MG TABLET PO PRN (18:46)
[2021-12-22] MEDS ORDERED: LOPERAMIDE HCL 2 MG CAPSULE PO PRN (18:46)
[2021-12-22] MEDS ORDERED: ACETAMINOPHEN 325 MG TABLET (FP) PO PRN ×2 (18:46)
[2021-12-22] MEDS ORDERED: MAGNESIUM CITRATE 300 ML BOTTLE PO PRN (18:46)
[2021-12-22] MEDS ORDERED: METHYL SALICYLATE/MENTHOL OINT 30 GM TUBE TP PRN (18:49)
[2021-12-22] MEDS: amLODIPine BESYLATE 10 MG TABLET (FP) PO SCH (19:43)
[2021-12-22] MEDS: THIAMINE HCL 100 MG TABLET (FP) PO SCH (22:39)
[2021-12-22] MEDS: MELATONIN 5 MG TABLETS PO SCH (22:39)
[2021-12-22] MEDS: diazePAM 5 MG TABLET PO SCH (22:39)
[2021-12-23] MEDS: diazePAM 5 MG TABLET PO SCH ×4 (06:27→22:11)
[2021-12-23 09:05] LABS: HEMATOCRIT 43.4 % (35.4-49); HEMOGLOBIN 14.5 GM/dL (11.7-16.9); MCH 29.1 pg (25.7-33.7); MCHC 33.5 g/dl (32.0-35.9); MEAN CELL VOLUME 86.9 fl (80-96); MEAN PLT VOLUME 8.7 fl (7.5-11.1); PLATELET COUNT 218 10^3/uL (134-434); WHITE BLOOD COUNT 4.5 K/mm3 (4.0-10.0)
[2021-12-23 09:10] LABS: CALCIUM 8.4 mg/dL (8.5-10.1)
[2021-12-23 09:11] LABS: ALBUMIN 3.5 g/dl (3.4-5.0); BLOOD UREA NITROGEN 10.8 mg/dL (7-18)
[2021-12-23 09:15] LABS: TOT PROT 7.4 g/dl (6.4-8.2)
[2021-12-23 09:16] LABS: BILIRUBIN,TOTAL 0.8 mg/dL (0.2-1)
[2021-12-23] MEDS: METHOCARBAMOL 500 MG TABLET PO PRN (10:08)
[2021-12-23] MEDS: PRENATAL VITAMINS W/ FOLIC ACID TABLET (FP) PO SCH (10:08)
[2021-12-23] MEDS: amLODIPine BESYLATE 10 MG TABLET (FP) PO SCH (10:09)
[2021-12-23] MEDS: THIAMINE HCL 100 MG TABLET (FP) PO SCH (22:11)
[2021-12-23] MEDS: MELATONIN 5 MG TABLETS PO SCH (22:13)
[2021-12-24] MEDS: diazePAM 5 MG TABLET PO SCH ×3 (06:01→22:22)
[2021-12-24] MEDS: METHOCARBAMOL 500 MG TABLET PO PRN (06:01)
[2021-12-24] MEDS: PRENATAL VITAMINS W/ FOLIC ACID TABLET (FP) PO SCH (09:56)
[2021-12-24] MEDS: amLODIPine BESYLATE 10 MG TABLET (FP) PO SCH (09:56)
[2021-12-24] MEDS: MELATONIN 5 MG TABLETS PO SCH (22:21)
[2021-12-24] MEDS: THIAMINE HCL 100 MG TABLET (FP) PO SCH (22:21)
[2021-12-25] MEDS: diazePAM 5 MG TABLET PO SCH ×2 (05:31→17:25)
[2021-12-25] MEDS: METHOCARBAMOL 500 MG TABLET PO PRN (05:32)
[2021-12-25] MEDS: amLODIPine BESYLATE 10 MG TABLET (FP) PO SCH (10:06)
[2021-12-25] MEDS: PRENATAL VITAMINS W/ FOLIC ACID TABLET (FP) PO SCH (10:07)
[2021-12-25 17:11] VITALS: RESP 18
[2021-12-25] MEDS: MELATONIN 5 MG TABLETS PO SCH (23:31)
[2021-12-25] MEDS: THIAMINE HCL 100 MG TABLET (FP) PO SCH (23:31)
[2021-12-26] MEDS ORDERED: diazePAM 5 MG TABLET PO ONE (06:00)
[2021-12-26 08:48] VITALS: BP 140/80; PULSE 87; TEMP 97.5
[2021-12-26] MEDS: PRENATAL VITAMINS W/ FOLIC ACID TABLET (FP) PO SCH (09:45)
[2021-12-26] MEDS: amLODIPine BESYLATE 10 MG TABLET (FP) PO SCH (09:45)
== END 2021-12-26 11:56 | disposition other institution (70) | DRG 774 ==
LOC: YASAS 10:49 → Y3N 16:08
PROVIDERS: ADMIT Allergy & Immunology; ATTEND Surgery
PROC: HZ2ZZZZ Detoxification Services for Substance Abuse Treatment (ICD-10-PCS; principal; 2021-12-22)
DX: F10.230 Alcohol dependence with withdrawal, uncomplicated (principal); F14.20 Cocaine dependence, uncomplicated; F13.20 Sedative, hypnotic or anxiolytic dependence, uncomplicated; F31.9 Bipolar disorder, unspecified; F41.9 Anxiety disorder, unspecified; G62.9 Polyneuropathy, unspecified; I10 Essential (primary) hypertension; E78.5 Hyperlipidemia, unspecified; M25.511 Pain in right shoulder; M54.50 Low back pain, unspecified; G89.29 Other chronic pain; Z87.891 Personal history of nicotine dependence; Z28.310 Unvaccinated for COVID-19; Z28.21 Immunization not carried out because of patient refusal
CPT/HCPCS: 36415; 80053; 85027; 86593; 86780; 87811; C9803-CS; U0003; U0005

== ENCOUNTER 2021-12-26 11:47 | Inpatient (IN) | payer OTHER ==
[2021-12-26] MEDS ORDERED: amLODIPine BESYLATE 10 MG TABLET (FP) PO SCH (12:00)
[2021-12-26] MEDS ORDERED: SERTRALINE HCL 50 MG TABLET (FP) PO SCH (12:00)
[2021-12-26] MEDS ORDERED: guaiFENesin 200 MG/10 ML 10 ML UNIT-DOSE CUPS PO PRN (16:43)
[2021-12-26] MEDS ORDERED: MAGNESIUM CITRATE 300 ML BOTTLE PO PRN (16:43)
[2021-12-26] MEDS ORDERED: IBUPROFEN 400 MG TABLET (FP) PO PRN (16:43)
[2021-12-26] MEDS ORDERED: MAG HYDROX/AL HYDROX/SIMETH 30 ML UNIT-DOSE CUP PO PRN (16:43)
[2021-12-26] MEDS ORDERED: hydrOXYzine PAMOATE 25 MG CAPSULE (FP) PO PRN (16:43)
[2021-12-26] MEDS ORDERED: P-EPHED 60MG/TRIPROLIDI 2.5MG TABLET PO PRN (16:43)
[2021-12-26] MEDS ORDERED: LOPERAMIDE HCL 2 MG CAPSULE PO PRN (16:43)
[2021-12-26] MEDS ORDERED: MAGNESIUM HYDROX 2400MG/30ML ORAL SUSPENSION 30 ML CUP PO PRN (16:43)
[2021-12-26] MEDS ORDERED: NICOTINE 10 MG CARTRIDGE (INHALER) IH PRN (16:43)
[2021-12-26] MEDS ORDERED: BENZOCAINE/MENTHOL (CHLORASEPTIC ) LOZENGE MM PRN (16:43)
[2021-12-26] MEDS: amLODIPine BESYLATE 10 MG TABLET (FP) PO SCH ×2 (19:30→19:31)
[2021-12-26] MEDS: THIAMINE HCL 100 MG TABLET (FP) PO SCH (21:31)
[2021-12-26] MEDS: MELATONIN 5 MG TABLETS PO SCH (21:31)
[2021-12-27] MEDS: NICOTINE 7 MG/24 HOURS TOPICAL PATCH TD SCH (09:54)
[2021-12-27] MEDS: amLODIPine BESYLATE 10 MG TABLET (FP) PO SCH (09:54)
[2021-12-27] MEDS: PRENATAL VITAMINS W/ FOLIC ACID TABLET (FP) PO SCH (09:54)
[2021-12-27] MEDS: THIAMINE HCL 100 MG TABLET (FP) PO SCH (21:41)
[2021-12-27] MEDS: MELATONIN 5 MG TABLETS PO SCH (21:41)
[2021-12-28] MEDS: PRENATAL VITAMINS W/ FOLIC ACID TABLET (FP) PO SCH (09:50)
[2021-12-28] MEDS: amLODIPine BESYLATE 10 MG TABLET (FP) PO SCH (09:50)
[2021-12-28] MEDS: NICOTINE 7 MG/24 HOURS TOPICAL PATCH TD SCH (09:50)
[2021-12-28] MEDS: ACETAMINOPHEN 325 MG TABLET (FP) PO PRN (09:51)
[2021-12-28] MEDS: THIAMINE HCL 100 MG TABLET (FP) PO SCH (22:05)
[2021-12-28] MEDS: MELATONIN 5 MG TABLETS PO SCH (22:05)
[2021-12-29] MEDS: PRENATAL VITAMINS W/ FOLIC ACID TABLET (FP) PO SCH (09:46)
[2021-12-29] MEDS: amLODIPine BESYLATE 10 MG TABLET (FP) PO SCH (09:46)
[2021-12-29] MEDS: MELATONIN 5 MG TABLETS PO SCH (21:45)
[2021-12-29] MEDS: THIAMINE HCL 100 MG TABLET (FP) PO SCH (21:45)
[2021-12-30] MEDS: PRENATAL VITAMINS W/ FOLIC ACID TABLET (FP) PO SCH (10:06)
[2021-12-30] MEDS: amLODIPine BESYLATE 10 MG TABLET (FP) PO SCH (10:06)
[2021-12-30] MEDS: THIAMINE HCL 100 MG TABLET (FP) PO SCH (22:00)
[2021-12-30] MEDS: MELATONIN 5 MG TABLETS PO SCH (22:00)
[2021-12-31] MEDS: PRENATAL VITAMINS W/ FOLIC ACID TABLET (FP) PO SCH (10:47)
[2021-12-31] MEDS: amLODIPine BESYLATE 10 MG TABLET (FP) PO SCH (10:47)
[2021-12-31] MEDS: MELATONIN 5 MG TABLETS PO SCH (21:34)
[2021-12-31] MEDS: THIAMINE HCL 100 MG TABLET (FP) PO SCH (21:34)
[2022-01-01] MEDS: PRENATAL VITAMINS W/ FOLIC ACID TABLET (FP) PO SCH (10:10)
[2022-01-01] MEDS: ACETAMINOPHEN 325 MG TABLET (FP) PO PRN (10:11)
[2022-01-01] MEDS: amLODIPine BESYLATE 10 MG TABLET (FP) PO SCH (10:11)
[2022-01-01] MEDS: MELATONIN 5 MG TABLETS PO SCH (21:25)
[2022-01-01] MEDS: THIAMINE HCL 100 MG TABLET (FP) PO SCH (21:25)
[2022-01-02] MEDS: PRENATAL VITAMINS W/ FOLIC ACID TABLET (FP) PO SCH (10:02)
[2022-01-02] MEDS: amLODIPine BESYLATE 10 MG TABLET (FP) PO SCH (10:02)
[2022-01-02 10:42] VITALS: PULSE 78; RESP 18
[2022-01-02] MEDS: MELATONIN 5 MG TABLETS PO SCH (21:20)
[2022-01-02] MEDS: THIAMINE HCL 100 MG TABLET (FP) PO SCH (21:20)
[2022-01-03 07:15] VITALS: TEMP 97.7
[2022-01-03 09:30] VITALS: BP 112/74
[2022-01-03] MEDS: amLODIPine BESYLATE 10 MG TABLET (FP) PO SCH (09:54)
[2022-01-03] MEDS: PRENATAL VITAMINS W/ FOLIC ACID TABLET (FP) PO SCH (09:55)
[2022-01-03] MEDS ORDERED: METHYL SALICYLATE/MENTHOL OINT 30 GM TUBE TP SCH (10:00)
== END 2022-01-03 11:40 | disposition home or self-care (01) | DRG 772 ==
LOC: YASAS 11:47 → Y3E 11:48
PROVIDERS: ADMIT Allergy & Immunology; ATTEND Family Medicine
PROC: HZ42ZZZ Group Counseling for Substance Abuse Treatment, Cognitive-Behavioral (ICD-10-PCS; principal; 2021-12-26)
DX: F14.20 Cocaine dependence, uncomplicated (principal); I10 Essential (primary) hypertension; E78.5 Hyperlipidemia, unspecified; G62.9 Polyneuropathy, unspecified; K21.9 Gastro-esophageal reflux disease without esophagitis; M54.59 Other low back pain; G89.29 Other chronic pain; Z87.438 Personal history of other diseases of male genital organs; Z87.891 Personal history of nicotine dependence; Z91.010 Allergy to peanuts

== ENCOUNTER 2022-02-09 08:56 | Inpatient (IN) | payer OTHER ==
[2022-02-09 09:34] VITALS: BMI 32.7
[2022-02-09] MEDS ORDERED: BENZOCAINE/MENTHOL (CHLORASEPTIC ) LOZENGE MM PRN (10:06)
[2022-02-09] MEDS ORDERED: LOPERAMIDE HCL 2 MG CAPSULE PO PRN (10:06)
[2022-02-09] MEDS ORDERED: chlordiazePOXIDE HCL 25 MG CAPSULE PO ONE (10:06)
[2022-02-09] MEDS ORDERED: DICYCLOMINE HCL 10 MG CAPSULE PO PRN (10:06)
[2022-02-09] MEDS ORDERED: ONDANSETRON *ODT* 4 MG TABLET SL PRN (10:06)
[2022-02-09] MEDS ORDERED: ACETAMINOPHEN 325 MG TABLET (FP) PO PRN (10:06)
[2022-02-09] MEDS ORDERED: METHOCARBAMOL 500 MG TABLET PO PRN (10:06)
[2022-02-09] MEDS ORDERED: IBUPROFEN 600 MG TABLET (FP) PO PRN (10:06)
[2022-02-09] MEDS ORDERED: chlordiazePOXIDE HCL 25 MG CAPSULE PO PRN (10:06)
[2022-02-09] MEDS ORDERED: IBUPROFEN 400 MG TABLET (FP) PO PRN (10:06)
[2022-02-09] MEDS ORDERED: MAG HYDROX/AL HYDROX/SIMETH 30 ML UNIT-DOSE CUP PO PRN (10:06)
[2022-02-09] MEDS ORDERED: MAGNESIUM HYDROX 2400MG/30ML ORAL SUSPENSION 30 ML CUP PO PRN (10:06)
[2022-02-09] MEDS ORDERED: MAGNESIUM CITRATE 300 ML BOTTLE PO PRN (10:06)
[2022-02-09] MEDS ORDERED: BISMUTH SUBSALICYLATE 524 MG/30 ML PO PRN (10:06)
[2022-02-09] MEDS: hydrOXYzine PAMOATE 25 MG CAPSULE (FP) PO SCH ×3 (14:13→22:32)
[2022-02-09] MEDS: ACETAMINOPHEN 325 MG TABLET (FP) PO PRN ×2 (14:15→22:34)
[2022-02-09] MEDS: chlordiazePOXIDE HCL 25 MG CAPSULE PO SCH ×2 (17:49→22:33)
[2022-02-09] MEDS: THIAMINE HCL 100 MG TABLET (FP) PO SCH (22:32)
[2022-02-09] MEDS: MELATONIN 5 MG TABLETS PO SCH (22:36)
[2022-02-10] MEDS: chlordiazePOXIDE HCL 25 MG CAPSULE PO SCH ×4 (06:01→22:24)
[2022-02-10] MEDS: hydrOXYzine PAMOATE 25 MG CAPSULE (FP) PO SCH ×5 (06:01→22:24)
[2022-02-10 09:23] VITALS: RESP 18
[2022-02-10] MEDS: PRENATAL VITAMINS W/ FOLIC ACID TABLET (FP) PO SCH (10:23)
[2022-02-10] MEDS: METHYL SALICYLATE/MENTHOL OINT 30 GM TUBE TP SCH ×2 (14:19→22:23)
[2022-02-10] MEDS: THIAMINE HCL 100 MG TABLET (FP) PO SCH (22:24)
[2022-02-10] MEDS: MELATONIN 5 MG TABLETS PO SCH (22:24)
[2022-02-11] MEDS: chlordiazePOXIDE HCL 25 MG CAPSULE PO SCH ×2 (05:20→10:40)
[2022-02-11] MEDS: hydrOXYzine PAMOATE 25 MG CAPSULE (FP) PO SCH ×2 (05:21→10:40)
[2022-02-11 09:02] VITALS: BP 121/78; PULSE 60; TEMP 98.2
[2022-02-11] MEDS: METHYL SALICYLATE/MENTHOL OINT 30 GM TUBE TP SCH (10:38)
[2022-02-11] MEDS: PRENATAL VITAMINS W/ FOLIC ACID TABLET (FP) PO SCH (10:40)
[2022-02-11 12:12] LABS: CALCIUM 8.6 mg/dL (8.5-10.1)
[2022-02-11 12:13] LABS: BLOOD UREA NITROGEN 12.4 mg/dL (7-18)
[2022-02-11 12:15] LABS: CREATININE 0.9 mg/dL (0.55-1.3)
[2022-02-11 12:17] LABS: BILIRUBIN,TOTAL 0.3 mg/dL (0.2-1); TOT PROT 6.3 g/dl (6.4-8.2)
[2022-02-11 12:23] LABS: HEMATOCRIT 41.2 % (35.4-49); HEMOGLOBIN 14.1 GM/dL (11.7-16.9); MCH 29.9 pg (25.7-33.7); MCHC 34.2 g/dl (32.0-35.9); MEAN CELL VOLUME 87.4 fl (80-96); MEAN PLT VOLUME 8.5 fl (7.5-11.1); PLATELET COUNT 216 10^3/uL (134-434); RBC 4.71 M/mm3 (4.00-5.60); RDW 14.7 % (11.9-15.9); WHITE BLOOD COUNT 3.9 K/mm3 (4.0-10.0)
[2022-02-12] MEDS ORDERED: chlordiazePOXIDE HCL 10 MG CAPSULE PO PRN
[2022-02-12] MEDS ORDERED: chlordiazePOXIDE HCL 10 MG CAPSULE PO SCH (05:00)
[2022-02-13] MEDS ORDERED: chlordiazePOXIDE HCL 10 MG CAPSULE PO SCH (05:00)
[2022-02-14] MEDS ORDERED: chlordiazePOXIDE HCL 10 MG CAPSULE PO ONE (05:00)
== END 2022-02-11 09:50 | disposition left against medical advice (07) | DRG 770 ==
LOC: YASAS 08:56 → Y3N 12:48
PROVIDERS: ADMIT Allergy & Immunology; ATTEND Family Medicine Addiction Medicine
PROC: HZ2ZZZZ Detoxification Services for Substance Abuse Treatment (ICD-10-PCS; principal; 2022-02-09)
DX: F10.230 Alcohol dependence with withdrawal, uncomplicated (principal); F14.20 Cocaine dependence, uncomplicated; F12.10 Cannabis abuse, uncomplicated; G62.9 Polyneuropathy, unspecified; E78.5 Hyperlipidemia, unspecified; I10 Essential (primary) hypertension; K21.9 Gastro-esophageal reflux disease without esophagitis; M54.50 Low back pain, unspecified; G89.29 Other chronic pain; Z87.891 Personal history of nicotine dependence; Z28.310 Unvaccinated for COVID-19; Z28.21 Immunization not carried out because of patient refusal
CPT/HCPCS: 36415; 80053; 85027; 86593; 86780; 87811; C9803-CS; U0003; U0005

== ENCOUNTER 2022-04-10 11:18 | Inpatient (IN) | payer OTHER ==
[2022-04-10 11:42] VITALS: BMI 32.1
[2022-04-10] MEDS ORDERED: BENZOCAINE/MENTHOL (CHLORASEPTIC ) LOZENGE MM PRN (13:07)
[2022-04-10] MEDS ORDERED: MAG HYDROX/AL HYDROX/SIMETH 30 ML UNIT-DOSE CUP PO PRN (13:07)
[2022-04-10] MEDS ORDERED: NICOTINE 10 MG CARTRIDGE (INHALER) IH PRN (13:07)
[2022-04-10] MEDS ORDERED: ONDANSETRON *ODT* 4 MG TABLET SL PRN (13:07)
[2022-04-10] MEDS ORDERED: hydrOXYzine PAMOATE 25 MG CAPSULE (FP) PO PRN (13:07)
[2022-04-10] MEDS ORDERED: ACETAMINOPHEN 325 MG TABLET (FP) PO PRN ×2 (13:07)
[2022-04-10] MEDS ORDERED: METHOCARBAMOL 500 MG TABLET PO PRN (13:07)
[2022-04-10] MEDS ORDERED: MAGNESIUM CITRATE 300 ML BOTTLE PO PRN (13:07)
[2022-04-10] MEDS ORDERED: DICYCLOMINE HCL 10 MG CAPSULE PO PRN (13:07)
[2022-04-10] MEDS ORDERED: diazePAM 5 MG TABLET PO PRN (13:07)
[2022-04-10] MEDS ORDERED: MAGNESIUM HYDROX 2400MG/30ML ORAL SUSPENSION 30 ML CUP PO PRN (13:07)
[2022-04-10] MEDS ORDERED: BISMUTH SUBSALICYLATE 524 MG/30 ML PO PRN (13:07)
[2022-04-10] MEDS ORDERED: LOPERAMIDE HCL 2 MG CAPSULE PO PRN (13:07)
[2022-04-10] MEDS ORDERED: IBUPROFEN 400 MG TABLET (FP) PO PRN (13:07)
[2022-04-10] MEDS: diazePAM 5 MG TABLET PO SCH ×2 (18:21→22:56)
[2022-04-10] MEDS: IBUPROFEN 600 MG TABLET (FP) PO PRN (19:48)
[2022-04-10] MEDS: FAMOTIDINE 20 MG TABLET PO SCH (22:55)
[2022-04-10] MEDS: THIAMINE HCL 100 MG TABLET (FP) PO SCH (22:55)
[2022-04-10] MEDS: MELATONIN 5 MG TABLETS PO SCH (23:13)
[2022-04-10] MEDS: METHYL SALICYLATE/MENTHOL OINT 30 GM TUBE TP SCH (23:13)
[2022-04-11] MEDS: diazePAM 5 MG TABLET PO SCH ×4 (06:06→22:25)
[2022-04-11] MEDS: PRENATAL VITAMINS W/ FOLIC ACID TABLET (FP) PO SCH (10:23)
[2022-04-11] MEDS: FAMOTIDINE 20 MG TABLET PO SCH ×2 (10:24→22:25)
[2022-04-11] MEDS: METHYL SALICYLATE/MENTHOL OINT 30 GM TUBE TP SCH ×2 (10:24→22:27)
[2022-04-11] MEDS: IBUPROFEN 600 MG TABLET (FP) PO PRN (10:26)
[2022-04-11 11:18] LABS: HEMATOCRIT 40.8 % (35.4-49); HEMOGLOBIN 13.4 GM/dL (11.7-16.9); MCH 28.6 pg (25.7-33.7); MCHC 32.8 g/dl (32.0-35.9); MEAN CELL VOLUME 87.1 fl (80-96); MEAN PLT VOLUME 8.4 fl (7.5-11.1); PLATELET COUNT 218 10^3/uL (134-434); RBC 4.68 M/mm3 (4.00-5.60); RDW 14.7 % (11.9-15.9); WHITE BLOOD COUNT 3.5 K/mm3 (4.0-10.0)
[2022-04-11] MEDS ORDERED: FLU VACC QS2022-23(6MOS UP)/PF 60 MCG/0.5 ML SYRINGE IM ONE (12:00)
[2022-04-11 12:41] LABS: CALCIUM 8.1 mg/dL (8.5-10.1)
[2022-04-11 12:47] LABS: BILIRUBIN,TOTAL 0.3 mg/dL (0.2-1); TOT PROT 6.2 g/dl (6.4-8.2)
[2022-04-11 13:26] LABS: HIV INTERPRETATION NEGATIVE (NEGATIVE)
[2022-04-11] MEDS ORDERED: POTASSIUM CHLORIDE ORAL LIQUID 20 MEQ/15 ML PO ONE (15:15)
[2022-04-11] MEDS: POTASSIUM CHLORIDE ORAL LIQUID 20 MEQ/15 ML PO SCH (22:25)
[2022-04-11] MEDS: THIAMINE HCL 100 MG TABLET (FP) PO SCH (22:25)
[2022-04-11] MEDS: MELATONIN 5 MG TABLETS PO SCH (22:27)
[2022-04-12] MEDS: diazePAM 5 MG TABLET PO SCH ×3 (05:37→22:46)
[2022-04-12] MEDS: FAMOTIDINE 20 MG TABLET PO SCH ×2 (10:06→22:47)
[2022-04-12] MEDS: PRENATAL VITAMINS W/ FOLIC ACID TABLET (FP) PO SCH (10:06)
[2022-04-12] MEDS: amLODIPine BESYLATE 10 MG TABLET (FP) PO SCH (10:06)
[2022-04-12] MEDS: POTASSIUM CHLORIDE ORAL LIQUID 20 MEQ/15 ML PO SCH ×2 (10:06→22:48)
[2022-04-12] MEDS: METHYL SALICYLATE/MENTHOL OINT 30 GM TUBE TP SCH ×2 (10:07→22:47)
[2022-04-12] MEDS: MELATONIN 5 MG TABLETS PO SCH (22:46)
[2022-04-12] MEDS: THIAMINE HCL 100 MG TABLET (FP) PO SCH (22:46)
[2022-04-13] MEDS ORDERED: diazePAM 5 MG TABLET PO SCH (06:00)
[2022-04-13] MEDS: diazePAM 5 MG TABLET PO SCH ×2 (07:30→19:30)
[2022-04-13] MEDS: PRENATAL VITAMINS W/ FOLIC ACID TABLET (FP) PO SCH (10:19)
[2022-04-13] MEDS: amLODIPine BESYLATE 10 MG TABLET (FP) PO SCH (10:20)
[2022-04-13] MEDS: METHYL SALICYLATE/MENTHOL OINT 30 GM TUBE TP SCH ×2 (10:20→22:39)
[2022-04-13] MEDS: FAMOTIDINE 20 MG TABLET PO SCH ×2 (10:20→22:39)
[2022-04-13] MEDS: THIAMINE HCL 100 MG TABLET (FP) PO SCH (22:39)
[2022-04-13] MEDS: MELATONIN 5 MG TABLETS PO SCH (22:39)
[2022-04-14] MEDS ORDERED: diazePAM 5 MG TABLET PO ONE (06:00)
[2022-04-14] MEDS: PRENATAL VITAMINS W/ FOLIC ACID TABLET (FP) PO SCH (10:30)
[2022-04-14] MEDS: FAMOTIDINE 20 MG TABLET PO SCH (10:31)
[2022-04-14] MEDS: METHYL SALICYLATE/MENTHOL OINT 30 GM TUBE TP SCH (10:31)
[2022-04-14] MEDS: amLODIPine BESYLATE 10 MG TABLET (FP) PO SCH (10:31)
[2022-04-14 11:03] VITALS: BP 136/85; PULSE 74; RESP 16; TEMP 97.5
== END 2022-04-14 12:20 | disposition other institution (70) | DRG 774 ==
LOC: YASAS 11:18 → Y3N 13:04
PROVIDERS: ADMIT Allergy & Immunology; ATTEND Surgery
PROC: HZ2ZZZZ Detoxification Services for Substance Abuse Treatment (ICD-10-PCS; principal; 2022-04-10)
DX: F10.230 Alcohol dependence with withdrawal, uncomplicated (principal); F14.20 Cocaine dependence, uncomplicated; F12.20 Cannabis dependence, uncomplicated; G62.1 Alcoholic polyneuropathy; I10 Essential (primary) hypertension; K21.9 Gastro-esophageal reflux disease without esophagitis; Z86.19 Personal history of other infectious and parasitic diseases; Z99.89 Dependence on other enabling machines and devices; Z91.010 Allergy to peanuts
CPT/HCPCS: 36415; 80053; 84132; 85027; 86593; 86780; 87389; 87811; C9803-CS; Q2036; U0003; U0005

== ENCOUNTER 2022-06-08 12:04 | Inpatient (IN) | payer OTHER ==
[2022-06-08 13:58] VITALS: BMI 31.3
[2022-06-08] MEDS ORDERED: IBUPROFEN 400 MG TABLET (FP) PO PRN (18:54)
[2022-06-08] MEDS ORDERED: BISMUTH SUBSALICYLATE 524 MG/30 ML PO PRN (18:54)
[2022-06-08] MEDS ORDERED: ACETAMINOPHEN 325 MG TABLET (FP) PO PRN ×2 (18:54)
[2022-06-08] MEDS ORDERED: POLYETHYLENE GLYCOL (HEALTHYLAX) 3350 17 GM PACKET PO PRN (18:54)
[2022-06-08] MEDS ORDERED: LOPERAMIDE HCL 2 MG CAPSULE PO PRN (18:54)
[2022-06-08] MEDS ORDERED: NALOXONE HCL (KLOXXADO) 8 MG SPRAY NS PRN (18:54)
[2022-06-08] MEDS ORDERED: BENZOCAINE/MENTHOL (CHLORASEPTIC ) LOZENGE MM PRN (18:54)
[2022-06-08] MEDS ORDERED: ONDANSETRON *ODT* 4 MG TABLET SL PRN (18:54)
[2022-06-08] MEDS ORDERED: MAGNESIUM HYDROX 2400MG/30ML ORAL SUSPENSION 30 ML CUP PO PRN (18:54)
[2022-06-08] MEDS ORDERED: DICYCLOMINE HCL 10 MG CAPSULE PO PRN (18:54)
[2022-06-08] MEDS ORDERED: IBUPROFEN 600 MG TABLET (FP) PO PRN (18:54)
[2022-06-08] MEDS ORDERED: hydrOXYzine PAMOATE 25 MG CAPSULE (FP) PO PRN (18:54)
[2022-06-08] MEDS ORDERED: METHOCARBAMOL 500 MG TABLET PO PRN (18:54)
[2022-06-08] MEDS ORDERED: NICOTINE 10 MG CARTRIDGE (INHALER) IH PRN (18:54)
[2022-06-08] MEDS ORDERED: MAG HYDROX/AL HYDROX/SIMETH 30 ML UNIT-DOSE CUP PO PRN (18:54)
[2022-06-08] MEDS ORDERED: chlordiazePOXIDE HCL 25 MG CAPSULE PO PRN (18:58)
[2022-06-08] MEDS: MELATONIN 5 MG TABLETS PO SCH (23:52)
[2022-06-08] MEDS: chlordiazePOXIDE HCL 25 MG CAPSULE PO SCH (23:52)
[2022-06-08] MEDS: THIAMINE HCL 100 MG TABLET (FP) PO SCH (23:52)
[2022-06-09] MEDS: chlordiazePOXIDE HCL 25 MG CAPSULE PO SCH ×4 (05:43→22:06)
[2022-06-09] MEDS ORDERED: PRENATAL VITAMINS W/ FOLIC ACID TABLET (FP) PO SCH (10:00)
[2022-06-09 11:05] LABS: HEMOGLOBIN 13.4 GM/dL (11.7-16.9); MCH 29.3 pg (25.7-33.7); MCHC 32.7 g/dl (32.0-35.9); MEAN CELL VOLUME 89.6 fl (80-96); MEAN PLT VOLUME 7.9 fl (7.5-11.1); PLATELET COUNT 267 10^3/uL (134-434); RBC 4.58 M/mm3 (4.00-5.60); RDW 15.3 % (11.9-15.9); WHITE BLOOD COUNT 4.1 K/mm3 (4.0-10.0)
[2022-06-09 11:06] LABS: BLOOD UREA NITROGEN 13.9 mg/dL (7-18)
[2022-06-09 11:07] LABS: CALCIUM 8.4 mg/dL (8.5-10.1)
[2022-06-09 11:10] LABS: CREATININE 1.1 mg/dL (0.55-1.3)
[2022-06-09 11:12] LABS: BILIRUBIN,TOTAL 0.4 mg/dL (0.2-1); TOT PROT 6.4 g/dl (6.4-8.2)
[2022-06-09] MEDS: MELATONIN 5 MG TABLETS PO SCH (22:06)
[2022-06-09] MEDS: THIAMINE HCL 100 MG TABLET (FP) PO SCH (22:06)
[2022-06-10] MEDS ORDERED: chlordiazePOXIDE HCL 25 MG CAPSULE PO SCH (05:00)
[2022-06-10] MEDS ORDERED: POTASSIUM CHLORIDE ORAL LIQUID 20 MEQ/15 ML PO SCH (10:00)
[2022-06-10] MEDS ORDERED: amLODIPine BESYLATE 10 MG TABLET (FP) PO SCH (10:00)
[2022-06-10 11:17] VITALS: BP 123/79; PULSE 83; RESP 18; TEMP 97.7
[2022-06-11] MEDS ORDERED: chlordiazePOXIDE HCL 10 MG CAPSULE PO PRN
[2022-06-11] MEDS ORDERED: chlordiazePOXIDE HCL 10 MG CAPSULE PO SCH (05:00)
[2022-06-12] MEDS ORDERED: chlordiazePOXIDE HCL 10 MG CAPSULE PO SCH (05:00)
[2022-06-13] MEDS ORDERED: chlordiazePOXIDE HCL 10 MG CAPSULE PO ONE (05:00)
== END 2022-06-10 09:47 | disposition left against medical advice (07) | DRG 770 ==
LOC: YASAS 12:04 → Y3N 19:33
PROVIDERS: ADMIT Allergy & Immunology; ATTEND Surgery
PROC: HZ2ZZZZ Detoxification Services for Substance Abuse Treatment (ICD-10-PCS; principal; 2022-06-08)
DX: F10.230 Alcohol dependence with withdrawal, uncomplicated (principal); F14.20 Cocaine dependence, uncomplicated; F12.20 Cannabis dependence, uncomplicated; F19.282 Other psychoactive substance dependence with psychoactive substance-induced sleep disorder; F32.A Depression, unspecified; E87.6 Hypokalemia; E78.5 Hyperlipidemia, unspecified; G62.1 Alcoholic polyneuropathy; I10 Essential (primary) hypertension; K21.9 Gastro-esophageal reflux disease without esophagitis; M54.50 Low back pain, unspecified; G89.29 Other chronic pain; R73.9 Hyperglycemia, unspecified; Z86.19 Personal history of other infectious and parasitic diseases; Z56.0 Unemployment, unspecified; Z59.00 Homelessness unspecified
CPT/HCPCS: 36415; 80053; 85027; 86593; 86780; C9803-CS; U0003; U0005

== ENCOUNTER 2022-08-14 09:39 | Inpatient (IN) | payer OTHER ==
[2022-08-14 10:16] VITALS: BMI 31.4
[2022-08-14] MEDS ORDERED: DICYCLOMINE HCL 10 MG CAPSULE PO PRN (10:19)
[2022-08-14] MEDS ORDERED: BISMUTH SUBSALICYLATE 262 MG/15 ML BTL PO PRN (10:19)
[2022-08-14] MEDS ORDERED: ONDANSETRON *ODT* 4 MG TABLET SL PRN (10:19)
[2022-08-14] MEDS ORDERED: IBUPROFEN 400 MG TABLET (FP) PO PRN (10:19)
[2022-08-14] MEDS ORDERED: METHOCARBAMOL 500 MG TABLET PO PRN (10:19)
[2022-08-14] MEDS ORDERED: guaiFENesin 600 MG TABLET.ER (FP) PO PRN (10:19)
[2022-08-14] MEDS ORDERED: BENZOCAINE/MENTHOL (CHLORASEPTIC ) LOZENGE MM PRN (10:19)
[2022-08-14] MEDS ORDERED: LOPERAMIDE HCL 2 MG CAPSULE PO PRN (10:19)
[2022-08-14] MEDS ORDERED: diazePAM 5 MG TABLET PO PRN (10:19)
[2022-08-14] MEDS ORDERED: BENZONATATE 200 MG CAPSULE PO PRN (10:19)
[2022-08-14] MEDS ORDERED: hydrOXYzine PAMOATE 25 MG CAPSULE (FP) PO PRN (10:19)
[2022-08-14] MEDS ORDERED: MAG HYDROX/AL HYDROX/SIMETH 30 ML UNIT-DOSE CUP PO PRN (10:19)
[2022-08-14] MEDS ORDERED: IBUPROFEN 600 MG TABLET (FP) PO PRN (10:19)
[2022-08-14] MEDS ORDERED: MAGNESIUM HYDROX 2400MG/30ML ORAL SUSPENSION 30 ML CUP PO PRN (10:19)
[2022-08-14] MEDS ORDERED: POLYETHYLENE GLYCOL (HEALTHYLAX) 3350 17 GM PACKET PO PRN (10:19)
[2022-08-14] MEDS ORDERED: diazePAM 5 MG TABLET PO SCH (11:00)
[2022-08-14] MEDS: ACETAMINOPHEN 325 MG TABLET (FP) PO PRN (12:33)
[2022-08-14] MEDS: diazePAM 5 MG TABLET PO SCH ×2 (17:12→22:18)
[2022-08-14] MEDS: METHYL SALICYLATE/MENTHOL OINT 30 GM TUBE TP SCH (22:18)
[2022-08-14] MEDS: MELATONIN 5 MG TABLETS PO SCH (22:20)
[2022-08-14] MEDS: THIAMINE HCL 100 MG TABLET (FP) PO SCH (22:20)
[2022-08-15] MEDS: diazePAM 5 MG TABLET PO SCH ×4 (05:24→22:39)
[2022-08-15] MEDS: PRENATAL VITAMINS W/ FOLIC ACID TABLET (FP) PO SCH (10:04)
[2022-08-15] MEDS: METHYL SALICYLATE/MENTHOL OINT 30 GM TUBE TP SCH ×2 (10:06→23:29)
[2022-08-15 10:35] LABS: HEMATOCRIT 41.3 % (35.4-49); HEMOGLOBIN 13.6 GM/dL (11.7-16.9); MCH 28.8 pg (25.7-33.7); MCHC 32.9 g/dl (32.0-35.9); MEAN CELL VOLUME 87.4 fl (80-96); PLATELET COUNT 221 10^3/uL (134-434); RBC 4.72 M/mm3 (4.00-5.60); RDW 14.9 % (11.9-15.9); WHITE BLOOD COUNT 3.8 K/mm3 (4.0-10.0)
[2022-08-15 11:01] LABS: CALCIUM 8.2 mg/dL (8.5-10.1)
[2022-08-15 11:02] LABS: ALBUMIN 2.9 g/dl (3.4-5.0); BLOOD UREA NITROGEN 18.2 mg/dL (7-18)
[2022-08-15 11:05] LABS: CREATININE 0.9 mg/dL (0.55-1.3)
[2022-08-15] MEDS: amLODIPine BESYLATE 10 MG TABLET (FP) PO SCH (11:05)
[2022-08-15 11:06] LABS: BILIRUBIN,TOTAL 0.6 mg/dL (0.2-1); TOT PROT 6.3 g/dl (6.4-8.2)
[2022-08-15] MEDS: ACETAMINOPHEN 325 MG TABLET (FP) PO PRN (17:39)
[2022-08-15 21:01] VITALS: RESP 18
[2022-08-15] MEDS: MELATONIN 5 MG TABLETS PO SCH (22:39)
[2022-08-15] MEDS: THIAMINE HCL 100 MG TABLET (FP) PO SCH (22:40)
[2022-08-16] MEDS ORDERED: diazePAM 5 MG TABLET PO SCH (06:00)
[2022-08-16 09:22] VITALS: BP 125/89; PULSE 77; TEMP 97.7
[2022-08-16] MEDS: amLODIPine BESYLATE 10 MG TABLET (FP) PO SCH (10:47)
[2022-08-16] MEDS: METHYL SALICYLATE/MENTHOL OINT 30 GM TUBE TP SCH (10:47)
[2022-08-16] MEDS: PRENATAL VITAMINS W/ FOLIC ACID TABLET (FP) PO SCH (10:48)
[2022-08-17] MEDS ORDERED: diazePAM 5 MG TABLET PO SCH (06:00)
[2022-08-18] MEDS ORDERED: diazePAM 5 MG TABLET PO ONE (06:00)
== END 2022-08-16 11:35 | disposition left against medical advice (07) | DRG 770 ==
LOC: YASAS 09:39 → Y6N 11:12
PROVIDERS: ADMIT Allergy & Immunology; ATTEND Surgery
PROC: HZ2ZZZZ Detoxification Services for Substance Abuse Treatment (ICD-10-PCS; principal; 2022-08-14)
DX: F10.230 Alcohol dependence with withdrawal, uncomplicated (principal); F14.20 Cocaine dependence, uncomplicated; G62.9 Polyneuropathy, unspecified; E78.5 Hyperlipidemia, unspecified; I10 Essential (primary) hypertension; Z86.19 Personal history of other infectious and parasitic diseases; Z28.310 Unvaccinated for COVID-19; Z28.9 Immunization not carried out for unspecified reason
CPT/HCPCS: 36415; 80053; 85027; 86593; 86780; 87811; C9803-CS; U0003; U0005

== ENCOUNTER 2022-10-05 08:45 | Inpatient (IN) | payer OTHER ==
[2022-10-05 09:13] VITALS: BMI 31.3
[2022-10-05] MEDS ORDERED: POLYETHYLENE GLYCOL (HEALTHYLAX) 3350 17 GM PACKET PO PRN (09:32)
[2022-10-05] MEDS ORDERED: MAGNESIUM HYDROX 2400MG/30ML ORAL SUSPENSION 30 ML CUP PO PRN (09:32)
[2022-10-05] MEDS ORDERED: guaiFENesin 600 MG TABLET.ER (FP) PO PRN (09:32)
[2022-10-05] MEDS ORDERED: BENZOCAINE/MENTHOL (CHLORASEPTIC ) LOZENGE MM PRN (09:32)
[2022-10-05] MEDS ORDERED: DICYCLOMINE HCL 10 MG CAPSULE PO PRN (09:32)
[2022-10-05] MEDS ORDERED: BENZONATATE 200 MG CAPSULE PO PRN (09:32)
[2022-10-05] MEDS ORDERED: NALOXONE HCL 0.4 MG/ML VIAL IM PRN (09:32)
[2022-10-05] MEDS ORDERED: diazePAM 5 MG TABLET PO PRN (09:32)
[2022-10-05] MEDS ORDERED: NALOXONE HCL (KLOXXADO) 8 MG SPRAY NS PRN (09:32)
[2022-10-05] MEDS ORDERED: diazePAM 5 MG TABLET PO ONE (09:32)
[2022-10-05] MEDS ORDERED: IBUPROFEN 600 MG TABLET (FP) PO PRN (09:32)
[2022-10-05] MEDS ORDERED: LOPERAMIDE HCL 2 MG CAPSULE PO PRN (09:32)
[2022-10-05] MEDS ORDERED: MAG HYDROX/AL HYDROX/SIMETH 30 ML UNIT-DOSE CUP PO PRN (09:32)
[2022-10-05] MEDS ORDERED: IBUPROFEN 400 MG TABLET (FP) PO PRN (09:32)
[2022-10-05] MEDS ORDERED: BISMUTH SUBSALICYLATE 524 MG/30 ML PO PRN (09:32)
[2022-10-05] MEDS ORDERED: ONDANSETRON *ODT* 4 MG TABLET SL PRN (09:32)
[2022-10-05] MEDS ORDERED: diazePAM 5 MG TABLET ONE (09:58)
[2022-10-05] MEDS ORDERED: PRENATAL VITAMINS W/ FOLIC ACID TABLET (FP) PO ONE (09:58)
[2022-10-05] MEDS: PRENATAL VITAMINS W/ FOLIC ACID TABLET (FP) PO SCH (10:00)
[2022-10-05] MEDS: diazePAM 5 MG TABLET PO SCH ×3 (12:33→22:14)
[2022-10-05] MEDS: METHOCARBAMOL 500 MG TABLET PO PRN (15:53)
[2022-10-05] MEDS: MELATONIN 5 MG TABLETS PO SCH (22:13)
[2022-10-05] MEDS: THIAMINE HCL 100 MG TABLET (FP) PO SCH (22:13)
[2022-10-05] MEDS: ACETAMINOPHEN 325 MG TABLET (FP) PO PRN (22:14)
[2022-10-06] MEDS: diazePAM 5 MG TABLET PO SCH ×4 (05:46→22:31)
[2022-10-06] MEDS: ACETAMINOPHEN 325 MG TABLET (FP) PO PRN (05:47)
[2022-10-06] MEDS: PRENATAL VITAMINS W/ FOLIC ACID TABLET (FP) PO SCH (10:16)
[2022-10-06] MEDS: METHOCARBAMOL 500 MG TABLET PO PRN ×2 (10:16→22:30)
[2022-10-06] MEDS: amLODIPine BESYLATE 10 MG TABLET (FP) PO SCH (14:06)
[2022-10-06] MEDS: THIAMINE HCL 100 MG TABLET (FP) PO SCH (22:30)
[2022-10-06] MEDS: MELATONIN 5 MG TABLETS PO SCH (22:32)
[2022-10-07] MEDS: diazePAM 5 MG TABLET PO SCH ×3 (05:49→22:11)
[2022-10-07] MEDS: PRENATAL VITAMINS W/ FOLIC ACID TABLET (FP) PO SCH (09:35)
[2022-10-07] MEDS: amLODIPine BESYLATE 10 MG TABLET (FP) PO SCH (09:35)
[2022-10-07] MEDS: METHYL SALICYLATE/MENTHOL OINT 30 GM TUBE TP SCH ×2 (10:40→22:09)
[2022-10-07 12:04] LABS: HEMATOCRIT 40.5 % (35.4-49); HEMOGLOBIN 14.2 GM/dL (11.7-16.9); MCH 30.4 pg (25.7-33.7); MCHC 35.2 g/dl (32.0-35.9); MEAN CELL VOLUME 86.5 fl (80-96); MEAN PLT VOLUME 8.5 fl (7.5-11.1); PLATELET COUNT 216 10^3/uL (134-434); RBC 4.68 M/mm3 (4.00-5.60); RDW 14.4 % (11.9-15.9)
[2022-10-07 12:18] LABS: POTASSIUM 3.5 mmol/L (3.5-5.1)
[2022-10-07 12:22] LABS: CALCIUM 8.5 mg/dL (8.5-10.1)
[2022-10-07 12:23] LABS: ALBUMIN 3.1 g/dl (3.4-5.0); BLOOD UREA NITROGEN 10.3 mg/dL (7-18)
[2022-10-07 12:28] LABS: BILIRUBIN,TOTAL 0.5 mg/dL (0.2-1); TOT PROT 6.7 g/dl (6.4-8.2)
[2022-10-07] MEDS: MELATONIN 5 MG TABLETS PO SCH (22:09)
[2022-10-07] MEDS: THIAMINE HCL 100 MG TABLET (FP) PO SCH (22:10)
[2022-10-08] MEDS: diazePAM 5 MG TABLET PO SCH ×2 (05:30→17:28)
[2022-10-08] MEDS: ACETAMINOPHEN 325 MG TABLET (FP) PO PRN (05:31)
[2022-10-08] MEDS: amLODIPine BESYLATE 10 MG TABLET (FP) PO SCH (10:05)
[2022-10-08] MEDS: PRENATAL VITAMINS W/ FOLIC ACID TABLET (FP) PO SCH (10:05)
[2022-10-08] MEDS: METHYL SALICYLATE/MENTHOL OINT 30 GM TUBE TP SCH ×2 (10:06→21:58)
[2022-10-08] MEDS: METHOCARBAMOL 500 MG TABLET PO PRN (21:57)
[2022-10-08] MEDS: MELATONIN 5 MG TABLETS PO SCH (21:58)
[2022-10-08] MEDS: THIAMINE HCL 100 MG TABLET (FP) PO SCH (21:58)
[2022-10-09] MEDS: ACETAMINOPHEN 325 MG TABLET (FP) PO PRN (05:52)
[2022-10-09] MEDS ORDERED: diazePAM 5 MG TABLET PO ONE (06:00)
[2022-10-09 08:47] VITALS: BP 118/84; PULSE 81; RESP 16; TEMP 97.8
== END 2022-10-09 10:10 | disposition other institution (70) | DRG 774 ==
LOC: YASAS 08:45 → Y3N 11:59
PROVIDERS: ADMIT Allergy & Immunology; ATTEND Surgery
PROC: HZ2ZZZZ Detoxification Services for Substance Abuse Treatment (ICD-10-PCS; principal; 2022-10-05)
DX: F10.230 Alcohol dependence with withdrawal, uncomplicated (principal); F14.20 Cocaine dependence, uncomplicated; F19.24 Other psychoactive substance dependence with psychoactive substance-induced mood disorder; I10 Essential (primary) hypertension; E78.5 Hyperlipidemia, unspecified; K21.9 Gastro-esophageal reflux disease without esophagitis; Z87.891 Personal history of nicotine dependence; Z86.59 Personal history of other mental and behavioral disorders; Z86.19 Personal history of other infectious and parasitic diseases; Z28.310 Unvaccinated for COVID-19; Z28.21 Immunization not carried out because of patient refusal
CPT/HCPCS: 36415; 80053; 85027; 86593; 86780; 87811; C9803-CS; U0003; U0005

== ENCOUNTER 2022-12-09 08:48 | Inpatient (IN) | payer OTHER ==
[2022-12-09 09:12] VITALS: BMI 32.2
[2022-12-09] MEDS ORDERED: BENZOCAINE/MENTHOL (CHLORASEPTIC ) LOZENGE MM PRN (09:45)
[2022-12-09] MEDS ORDERED: IBUPROFEN 400 MG TABLET (FP) PO PRN (09:45)
[2022-12-09] MEDS ORDERED: MAGNESIUM HYDROX 2400MG/30ML ORAL SUSPENSION 30 ML CUP PO PRN (09:45)
[2022-12-09] MEDS ORDERED: ACETAMINOPHEN 325 MG TABLET (FP) PO PRN (09:45)
[2022-12-09] MEDS ORDERED: METHOCARBAMOL 500 MG TABLET PO PRN (09:45)
[2022-12-09] MEDS ORDERED: LOPERAMIDE HCL 2 MG CAPSULE PO PRN (09:45)
[2022-12-09] MEDS ORDERED: BISMUTH SUBSALICYLATE 524 MG/30 ML PO PRN (09:45)
[2022-12-09] MEDS ORDERED: DICYCLOMINE HCL 10 MG CAPSULE PO PRN (09:45)
[2022-12-09] MEDS ORDERED: NICOTINE 10 MG CARTRIDGE (INHALER) IH PRN (09:45)
[2022-12-09] MEDS ORDERED: BENZONATATE 200 MG CAPSULE PO PRN (09:45)
[2022-12-09] MEDS ORDERED: NALOXONE HCL (KLOXXADO) 8 MG SPRAY NS PRN (09:45)
[2022-12-09] MEDS ORDERED: IBUPROFEN 600 MG TABLET (FP) PO PRN (09:45)
[2022-12-09] MEDS ORDERED: guaiFENesin 600 MG TABLET.ER (FP) PO PRN (09:45)
[2022-12-09] MEDS ORDERED: POLYETHYLENE GLYCOL (HEALTHYLAX) 3350 17 GM PACKET PO PRN (09:45)
[2022-12-09] MEDS ORDERED: NALOXONE HCL 0.4 MG/ML VIAL IM PRN (09:45)
[2022-12-09] MEDS ORDERED: MAG HYDROX/AL HYDROX/SIMETH 30 ML UNIT-DOSE CUP PO PRN (09:45)
[2022-12-09] MEDS ORDERED: ONDANSETRON *ODT* 4 MG TABLET SL PRN (09:45)
[2022-12-09] MEDS ORDERED: chlordiazePOXIDE HCL 25 MG CAPSULE ONE (10:18)
[2022-12-09] MEDS ORDERED: PRENATAL VITAMINS W/ FOLIC ACID TABLET (FP) PO ONE (10:19)
[2022-12-09] MEDS: chlordiazePOXIDE HCL 25 MG CAPSULE PO SCH ×3 (10:21→22:36)
[2022-12-09] MEDS: PRENATAL VITAMINS W/ FOLIC ACID TABLET (FP) PO SCH (10:21)
[2022-12-09] MEDS: amLODIPine BESYLATE 10 MG TABLET (FP) PO SCH (12:39)
[2022-12-09 16:11] LABS: HEMATOCRIT 43.1 % (35.4-49); HEMOGLOBIN 13.8 GM/dL (11.7-16.9); MCH 28.8 pg (25.7-33.7); MCHC 32.1 g/dl (32.0-35.9); MEAN CELL VOLUME 89.9 fl (80-96); MEAN PLT VOLUME 9.3 fl (7.5-11.1); PLATELET COUNT 205 10^3/uL (134-434); RBC 4.79 M/mm3 (4.00-5.60); WHITE BLOOD COUNT 5.3 K/mm3 (4.0-10.0)
[2022-12-09 16:13] LABS: POTASSIUM 3.5 mmol/L (3.5-5.1)
[2022-12-09 16:14] LABS: CALCIUM 8.5 mg/dL (8.5-10.1)
[2022-12-09 16:15] LABS: ALBUMIN 3.4 g/dl (3.4-5.0)
[2022-12-09 16:19] LABS: BILIRUBIN,TOTAL 0.4 mg/dL (0.2-1)
[2022-12-09] MEDS: THIAMINE HCL 100 MG TABLET (FP) PO SCH (22:36)
[2022-12-09] MEDS: MELATONIN 5 MG TABLETS PO SCH (22:38)
[2022-12-10] MEDS: chlordiazePOXIDE HCL 25 MG CAPSULE PO SCH ×4 (05:56→22:37)
[2022-12-10] MEDS ORDERED: ACETAMINOPHEN 325 MG TABLET (FP) PO PRN (10:09)
[2022-12-10] MEDS: PRENATAL VITAMINS W/ FOLIC ACID TABLET (FP) PO SCH (10:32)
[2022-12-10] MEDS: amLODIPine BESYLATE 10 MG TABLET (FP) PO SCH (10:32)
[2022-12-10] MEDS: THIAMINE HCL 100 MG TABLET (FP) PO SCH (22:38)
[2022-12-10] MEDS: METHYL SALICYLATE/MENTHOL OINT 30 GM TUBE TP SCH (22:39)
[2022-12-10] MEDS: MELATONIN 5 MG TABLETS PO SCH (22:40)
[2022-12-11] MEDS: chlordiazePOXIDE HCL 25 MG CAPSULE PO SCH ×4 (05:36→22:30)
[2022-12-11] MEDS: PRENATAL VITAMINS W/ FOLIC ACID TABLET (FP) PO SCH (10:17)
[2022-12-11] MEDS: amLODIPine BESYLATE 10 MG TABLET (FP) PO SCH (10:18)
[2022-12-11] MEDS: METHYL SALICYLATE/MENTHOL OINT 30 GM TUBE TP SCH ×2 (10:18→22:30)
[2022-12-11] MEDS: THIAMINE HCL 100 MG TABLET (FP) PO SCH (22:30)
[2022-12-11] MEDS: MELATONIN 5 MG TABLETS PO SCH (22:30)
[2022-12-12] MEDS: chlordiazePOXIDE HCL 10 MG CAPSULE PO SCH ×2 (05:52→10:59)
[2022-12-12 06:48] VITALS: TEMP 97.7
[2022-12-12 09:35] VITALS: BP 122/76; PULSE 81; RESP 19
[2022-12-12] MEDS: METHYL SALICYLATE/MENTHOL OINT 30 GM TUBE TP SCH (10:41)
[2022-12-12] MEDS: PRENATAL VITAMINS W/ FOLIC ACID TABLET (FP) PO SCH (10:42)
[2022-12-12] MEDS: amLODIPine BESYLATE 10 MG TABLET (FP) PO SCH (10:42)
[2022-12-13] MEDS ORDERED: chlordiazePOXIDE HCL 10 MG CAPSULE PO SCH (05:00)
[2022-12-14] MEDS ORDERED: chlordiazePOXIDE HCL 10 MG CAPSULE PO ONE (05:00)
== END 2022-12-12 09:47 | disposition home or self-care (01) | DRG 774 ==
LOC: YASAS 08:48 → Y6N 10:01
PROVIDERS: ADMIT Allergy & Immunology; ATTEND Surgery
PROC: HZ2ZZZZ Detoxification Services for Substance Abuse Treatment (ICD-10-PCS; principal; 2022-12-09)
DX: F10.230 Alcohol dependence with withdrawal, uncomplicated (principal); F14.20 Cocaine dependence, uncomplicated; E78.5 Hyperlipidemia, unspecified; I10 Essential (primary) hypertension; M54.50 Low back pain, unspecified; E66.9 Obesity, unspecified; R73.09 Other abnormal glucose; Z68.32 Body mass index [BMI] 32.0-32.9, adult; Z86.19 Personal history of other infectious and parasitic diseases; Z86.59 Personal history of other mental and behavioral disorders; Z28.310 Unvaccinated for COVID-19; Z28.9 Immunization not carried out for unspecified reason; Z59.00 Homelessness unspecified
CPT/HCPCS: 36415; 80053; 83036; 85027; 86593; 86780; 87635; 87811

== ENCOUNTER 2023-01-10 13:29 | Inpatient (IN) | payer OTHER ==
[2023-01-10 14:47] VITALS: BMI 32.8
[2023-01-10] MEDS ORDERED: BISMUTH SUBSALICYLATE 524 MG/30 ML PO PRN (18:00)
[2023-01-10] MEDS ORDERED: MAG HYDROX/AL HYDROX/SIMETH 30 ML UNIT-DOSE CUP PO PRN (18:00)
[2023-01-10] MEDS ORDERED: DICYCLOMINE HCL 10 MG CAPSULE PO PRN (18:00)
[2023-01-10] MEDS ORDERED: ONDANSETRON *ODT* 4 MG TABLET SL PRN (18:00)
[2023-01-10] MEDS ORDERED: POLYETHYLENE GLYCOL (HEALTHYLAX) 3350 17 GM PACKET PO PRN (18:00)
[2023-01-10] MEDS ORDERED: diazePAM 5 MG TABLET PO PRN (18:00)
[2023-01-10] MEDS ORDERED: guaiFENesin 600 MG TABLET.ER (FP) PO PRN (18:00)
[2023-01-10] MEDS ORDERED: MAGNESIUM HYDROX 2400MG/30ML ORAL SUSPENSION 30 ML CUP PO PRN (18:00)
[2023-01-10] MEDS ORDERED: IBUPROFEN 400 MG TABLET (FP) PO PRN (18:00)
[2023-01-10] MEDS ORDERED: hydrOXYzine PAMOATE 25 MG CAPSULE (FP) PO PRN (18:00)
[2023-01-10] MEDS ORDERED: BENZOCAINE/MENTHOL (CHLORASEPTIC ) LOZENGE MM PRN (18:00)
[2023-01-10] MEDS ORDERED: NALOXONE HCL 0.4 MG/ML VIAL IM PRN (18:00)
[2023-01-10] MEDS ORDERED: IBUPROFEN 600 MG TABLET (FP) PO PRN (18:00)
[2023-01-10] MEDS ORDERED: LOPERAMIDE HCL 2 MG CAPSULE PO PRN (18:00)
[2023-01-10] MEDS ORDERED: NALOXONE HCL (KLOXXADO) 8 MG SPRAY NS PRN (18:00)
[2023-01-10] MEDS ORDERED: BENZONATATE 200 MG CAPSULE PO PRN (18:00)
[2023-01-10] MEDS: ACETAMINOPHEN 325 MG TABLET (FP) PO PRN (19:19)
[2023-01-10] MEDS: MELATONIN 5 MG TABLETS PO SCH (22:19)
[2023-01-10] MEDS: diazePAM 5 MG TABLET PO SCH (22:19)
[2023-01-10] MEDS: THIAMINE HCL 100 MG TABLET (FP) PO SCH (22:19)
[2023-01-11] MEDS: diazePAM 5 MG TABLET PO SCH ×4 (05:53→22:57)
[2023-01-11 09:35] LABS: HEMATOCRIT 43.1 % (35.4-49); HEMOGLOBIN 14.6 GM/dL (11.7-16.9); MCH 29.8 pg (25.7-33.7); MCHC 33.8 g/dl (32.0-35.9); MEAN CELL VOLUME 88.2 fl (80-96); MEAN PLT VOLUME 8.6 fl (7.5-11.1); PLATELET COUNT 281 10^3/uL (134-434); RBC 4.88 M/mm3 (4.00-5.60); RDW 14.9 % (11.9-15.9); WHITE BLOOD COUNT 4.4 K/mm3 (4.0-10.0)
[2023-01-11 09:44] LABS: POTASSIUM 3.9 mmol/L (3.5-5.1)
[2023-01-11 10:01] LABS: ALBUMIN 3.5 g/dl (3.4-5.0); CALCIUM 8.9 mg/dL (8.5-10.1)
[2023-01-11 10:02] LABS: BLOOD UREA NITROGEN 17.8 mg/dL (7-18)
[2023-01-11] MEDS: PRENATAL VITAMINS W/ FOLIC ACID TABLET (FP) PO SCH (10:05)
[2023-01-11] MEDS: amLODIPine BESYLATE 10 MG TABLET (FP) PO SCH (10:05)
[2023-01-11 10:06] LABS: BILIRUBIN,TOTAL 0.4 mg/dL (0.2-1); TOT PROT 7.6 g/dl (6.4-8.2)
[2023-01-11] MEDS: ACETAMINOPHEN 325 MG TABLET (FP) PO PRN (10:06)
[2023-01-11] MEDS: METHOCARBAMOL 500 MG TABLET PO PRN (21:55)
[2023-01-11] MEDS: THIAMINE HCL 100 MG TABLET (FP) PO SCH (21:55)
[2023-01-11] MEDS: MELATONIN 5 MG TABLETS PO SCH (22:56)
[2023-01-12] MEDS: diazePAM 5 MG TABLET PO SCH ×3 (05:38→22:03)
[2023-01-12] MEDS: PRENATAL VITAMINS W/ FOLIC ACID TABLET (FP) PO SCH (09:40)
[2023-01-12] MEDS: amLODIPine BESYLATE 10 MG TABLET (FP) PO SCH (09:40)
[2023-01-12] MEDS: METHOCARBAMOL 500 MG TABLET PO PRN (22:02)
[2023-01-12] MEDS: THIAMINE HCL 100 MG TABLET (FP) PO SCH (22:02)
[2023-01-12] MEDS: MELATONIN 5 MG TABLETS PO SCH (22:04)
[2023-01-13] MEDS: diazePAM 5 MG TABLET PO SCH ×2 (05:58→18:01)
[2023-01-13] MEDS: PRENATAL VITAMINS W/ FOLIC ACID TABLET (FP) PO SCH (10:37)
[2023-01-13] MEDS: amLODIPine BESYLATE 10 MG TABLET (FP) PO SCH (10:37)
[2023-01-13] MEDS ORDERED: ACETAMINOPHEN 325 MG TABLET (FP) PO PRN ×2 (12:29→12:52)
[2023-01-13 12:55] VITALS: TEMP 97.7
[2023-01-13] MEDS: MELATONIN 5 MG TABLETS PO SCH (23:02)
[2023-01-13] MEDS: THIAMINE HCL 100 MG TABLET (FP) PO SCH (23:02)
[2023-01-14] MEDS: ACETAMINOPHEN 325 MG TABLET (FP) PO PRN (05:57)
[2023-01-14] MEDS ORDERED: diazePAM 5 MG TABLET PO ONE (06:00)
[2023-01-14 06:16] VITALS: RESP 16
[2023-01-14 09:56] VITALS: BP 132/81; PULSE 77
[2023-01-14] MEDS: PRENATAL VITAMINS W/ FOLIC ACID TABLET (FP) PO SCH (10:17)
[2023-01-14] MEDS: amLODIPine BESYLATE 10 MG TABLET (FP) PO SCH (10:17)
== END 2023-01-14 10:39 | disposition home or self-care (01) | DRG 774 ==
LOC: YASAS 13:29 → Y3N 18:26
PROVIDERS: ADMIT Allergy & Immunology; ATTEND Allergy & Immunology
PROC: HZ2ZZZZ Detoxification Services for Substance Abuse Treatment (ICD-10-PCS; principal; 2023-01-10)
DX: F10.230 Alcohol dependence with withdrawal, uncomplicated (principal); F14.20 Cocaine dependence, uncomplicated; I10 Essential (primary) hypertension; E78.2 Mixed hyperlipidemia; Z28.310 Unvaccinated for COVID-19; Z87.891 Personal history of nicotine dependence; Z91.010 Allergy to peanuts; Z87.438 Personal history of other diseases of male genital organs; Z86.19 Personal history of other infectious and parasitic diseases
CPT/HCPCS: 36415; 80053; 85027; 86593; 86780; 87635; 87811

== ENCOUNTER 2023-02-15 11:02 | Inpatient (IN) | payer OTHER ==
[2023-02-15 11:51] VITALS: BMI 33.2
[2023-02-15] MEDS ORDERED: NALOXONE HCL (KLOXXADO) 8 MG SPRAY NS PRN (13:50)
[2023-02-15] MEDS ORDERED: BISMUTH SUBSALICYLATE 524 MG/30 ML PO PRN (13:50)
[2023-02-15] MEDS ORDERED: IBUPROFEN 600 MG TABLET (FP) PO PRN (13:50)
[2023-02-15] MEDS ORDERED: IBUPROFEN 400 MG TABLET (FP) PO PRN (13:50)
[2023-02-15] MEDS ORDERED: guaiFENesin 600 MG TABLET.ER (FP) PO PRN (13:50)
[2023-02-15] MEDS ORDERED: MAGNESIUM HYDROX 2400MG/30ML ORAL SUSPENSION 30 ML CUP PO PRN (13:50)
[2023-02-15] MEDS ORDERED: LOPERAMIDE HCL 2 MG CAPSULE PO PRN (13:50)
[2023-02-15] MEDS ORDERED: BENZOCAINE/MENTHOL (CHLORASEPTIC ) LOZENGE MM PRN (13:50)
[2023-02-15] MEDS ORDERED: DICYCLOMINE HCL 10 MG CAPSULE PO PRN (13:50)
[2023-02-15] MEDS ORDERED: POLYETHYLENE GLYCOL (HEALTHYLAX) 3350 17 GM PACKET PO PRN (13:50)
[2023-02-15] MEDS ORDERED: BENZONATATE 200 MG CAPSULE PO PRN (13:50)
[2023-02-15] MEDS ORDERED: chlordiazePOXIDE HCL 25 MG CAPSULE PO PRN (13:50)
[2023-02-15] MEDS ORDERED: METHOCARBAMOL 500 MG TABLET PO PRN (13:50)
[2023-02-15] MEDS ORDERED: NALOXONE HCL 0.4 MG/ML VIAL IM PRN (13:50)
[2023-02-15] MEDS ORDERED: ONDANSETRON *ODT* 4 MG TABLET SL PRN (13:50)
[2023-02-15] MEDS ORDERED: ACETAMINOPHEN 325 MG TABLET (FP) PO PRN (13:50)
[2023-02-15] MEDS ORDERED: hydrOXYzine PAMOATE 25 MG CAPSULE (FP) PO PRN (13:50)
[2023-02-15] MEDS ORDERED: MAG HYDROX/AL HYDROX/SIMETH 30 ML UNIT-DOSE CUP PO PRN (13:50)
[2023-02-15] MEDS ORDERED: METHOCARBAMOL 500 MG TABLET ONE (15:03)
[2023-02-15] MEDS ORDERED: chlordiazePOXIDE HCL 25 MG CAPSULE PO SCH (17:00)
[2023-02-15] MEDS ORDERED: diazePAM 5 MG TABLET PO PRN (17:54)
[2023-02-15] MEDS: diazePAM 5 MG TABLET PO SCH ×2 (17:59→22:18)
[2023-02-15] MEDS: THIAMINE HCL 100 MG TABLET (FP) PO SCH (22:19)
[2023-02-15] MEDS: MELATONIN 5 MG TABLETS PO SCH (22:19)
[2023-02-16] MEDS: diazePAM 5 MG TABLET PO SCH ×4 (05:21→22:17)
[2023-02-16] MEDS: PRENATAL VITAMINS W/ FOLIC ACID TABLET (FP) PO SCH (10:20)
[2023-02-16 11:52] LABS: HEMOGLOBIN 14.3 GM/dL (11.7-16.9); MCH 30.1 pg (25.7-33.7); MCHC 34.8 g/dl (32.0-35.9); MEAN CELL VOLUME 86.3 fl (80-96); MEAN PLT VOLUME 8.1 fl (7.5-11.1); PLATELET COUNT 228 10^3/uL (134-434); RBC 4.75 M/mm3 (4.00-5.60); RDW 14.7 % (11.9-15.9); WHITE BLOOD COUNT 5.1 K/mm3 (4.0-10.0)
[2023-02-16 11:56] LABS: POTASSIUM 3.6 mmol/L (3.5-5.1)
[2023-02-16 12:04] LABS: ALBUMIN 3.2 g/dl (3.4-5.0); BLOOD UREA NITROGEN 13.8 mg/dL (7-18); CREATININE 0.9 mg/dL (0.55-1.3)
[2023-02-16 12:05] LABS: CALCIUM 8.1 mg/dL (8.5-10.1)
[2023-02-16 12:06] LABS: BILIRUBIN,TOTAL 0.5 mg/dL (0.2-1); TOT PROT 6.6 g/dl (6.4-8.2)
[2023-02-16] MEDS: METHYL SALICYLATE/MENTHOL OINT 30 GM TUBE TP SCH (22:17)
[2023-02-16] MEDS: THIAMINE HCL 100 MG TABLET (FP) PO SCH (22:17)
[2023-02-16] MEDS: MELATONIN 5 MG TABLETS PO SCH (22:18)
[2023-02-17] MEDS ORDERED: chlordiazePOXIDE HCL 25 MG CAPSULE PO SCH (05:00)
[2023-02-17] MEDS: diazePAM 5 MG TABLET PO SCH ×3 (05:39→22:36)
[2023-02-17] MEDS: PRENATAL VITAMINS W/ FOLIC ACID TABLET (FP) PO SCH (10:07)
[2023-02-17] MEDS: amLODIPine BESYLATE 10 MG TABLET (FP) PO SCH (10:09)
[2023-02-17] MEDS: METHYL SALICYLATE/MENTHOL OINT 30 GM TUBE TP SCH ×2 (10:10→22:48)
[2023-02-17] MEDS ORDERED: ACETAMINOPHEN 325 MG TABLET (FP) PO PRN (11:16)
[2023-02-17] MEDS: THIAMINE HCL 100 MG TABLET (FP) PO SCH (22:35)
[2023-02-17] MEDS: MELATONIN 5 MG TABLETS PO SCH (22:35)
[2023-02-18] MEDS ORDERED: chlordiazePOXIDE HCL 10 MG CAPSULE PO PRN
[2023-02-18] MEDS ORDERED: chlordiazePOXIDE HCL 10 MG CAPSULE PO SCH (05:00)
[2023-02-18] MEDS ORDERED: diazePAM 5 MG TABLET PO SCH (06:00)
[2023-02-18 09:54] VITALS: BP 150/100; PULSE 82; RESP 18; TEMP 97.3
[2023-02-18] MEDS: METHYL SALICYLATE/MENTHOL OINT 30 GM TUBE TP SCH (10:30)
[2023-02-18] MEDS: amLODIPine BESYLATE 10 MG TABLET (FP) PO SCH (10:30)
[2023-02-18] MEDS: PRENATAL VITAMINS W/ FOLIC ACID TABLET (FP) PO SCH (10:30)
[2023-02-19] MEDS ORDERED: chlordiazePOXIDE HCL 10 MG CAPSULE PO SCH (05:00)
[2023-02-19] MEDS ORDERED: diazePAM 5 MG TABLET PO ONE (06:00)
[2023-02-20] MEDS ORDERED: chlordiazePOXIDE HCL 10 MG CAPSULE PO ONE (05:00)
== END 2023-02-18 10:40 | disposition home or self-care (01) | DRG 774 ==
LOC: YASAS 11:02 → Y6N 14:15
PROVIDERS: ADMIT Allergy & Immunology; ATTEND Surgery
PROC: HZ2ZZZZ Detoxification Services for Substance Abuse Treatment (ICD-10-PCS; principal; 2023-02-15)
DX: F10.230 Alcohol dependence with withdrawal, uncomplicated (principal); F14.20 Cocaine dependence, uncomplicated; F32.9 Major depressive disorder, single episode, unspecified; G62.9 Polyneuropathy, unspecified; I10 Essential (primary) hypertension; K21.9 Gastro-esophageal reflux disease without esophagitis; M17.0 Bilateral primary osteoarthritis of knee; M54.50 Low back pain, unspecified; G89.29 Other chronic pain; Z87.891 Personal history of nicotine dependence; Z86.19 Personal history of other infectious and parasitic diseases; Z28.310 Unvaccinated for COVID-19; Z28.21 Immunization not carried out because of patient refusal
CPT/HCPCS: 36415; 80053; 85027; 87635

== ENCOUNTER 2023-07-04 09:45 | Inpatient (IN) | payer OTHER ==
[2023-07-04 10:17] VITALS: BMI 33.6
[2023-07-04] MEDS ORDERED: ONDANSETRON *ODT* 4 MG TABLET SL PRN (11:16)
[2023-07-04] MEDS ORDERED: POLYETHYLENE GLYCOL (HEALTHYLAX) 3350 17 GM PACKET PO PRN (11:16)
[2023-07-04] MEDS ORDERED: NALOXONE HCL (KLOXXADO) 8 MG SPRAY NS PRN (11:16)
[2023-07-04] MEDS ORDERED: MAG HYDROX/AL HYDROX/SIMETH 30 ML UNIT-DOSE CUP PO PRN (11:16)
[2023-07-04] MEDS ORDERED: BISMUTH SUBSALICYLATE 524 MG/30 ML PO PRN (11:16)
[2023-07-04] MEDS ORDERED: BENZONATATE 200 MG CAPSULE PO PRN (11:16)
[2023-07-04] MEDS ORDERED: IBUPROFEN 600 MG TABLET (FP) PO PRN (11:16)
[2023-07-04] MEDS ORDERED: hydrOXYzine PAMOATE 25 MG CAPSULE (FP) PO PRN (11:16)
[2023-07-04] MEDS ORDERED: IBUPROFEN 400 MG TABLET (FP) PO PRN (11:16)
[2023-07-04] MEDS ORDERED: LOPERAMIDE HCL 2 MG CAPSULE PO PRN (11:16)
[2023-07-04] MEDS ORDERED: MAGNESIUM HYDROX 2400MG/30ML ORAL SUSPENSION 30 ML CUP PO PRN (11:16)
[2023-07-04] MEDS ORDERED: NALOXONE HCL 0.4 MG/ML VIAL IM PRN (11:16)
[2023-07-04] MEDS ORDERED: NICOTINE POLACRILEX 2 MG GUM BUC PRN (11:16)
[2023-07-04] MEDS ORDERED: METHOCARBAMOL 500 MG TABLET PO PRN (11:16)
[2023-07-04] MEDS ORDERED: chlordiazePOXIDE HCL 25 MG CAPSULE PO PRN (11:31)
[2023-07-04] MEDS: chlordiazePOXIDE HCL 25 MG CAPSULE PO SCH (11:50)
[2023-07-04] MEDS ORDERED: chlordiazePOXIDE HCL 25 MG CAPSULE ONE (11:52)
[2023-07-04] MEDS: BENZOCAINE/MENTHOL (CHLORASEPTIC ) LOZENGE MM PRN (17:15)
[2023-07-04] MEDS: ACETAMINOPHEN 325 MG TABLET (FP) PO PRN (17:15)
[2023-07-04] MEDS: THIAMINE HCL 100 MG TABLET (FP) PO SCH (22:45)
[2023-07-04] MEDS: MELATONIN 5 MG TABLETS PO SCH (22:46)
[2023-07-05] MEDS: NICOTINE 21 MG/24 HOURS TOPICAL PATCH TD SCH (10:54)
[2023-07-05] MEDS: PRENATAL VITAMINS W/ FOLIC ACID TABLET (FP) PO SCH (10:54)
[2023-07-05] MEDS: amLODIPine BESYLATE 10 MG TABLET (FP) PO SCH (10:54)
[2023-07-05] MEDS: guaiFENesin 600 MG TABLET.ER (FP) PO PRN (10:59)
[2023-07-05] MEDS: FLU VACCINE (FLULAVAL) PF 60 MCG/0.5 ML SYRINGE 2023-2024 IM ONE (12:05)
[2023-07-05 14:33] LABS: HEMATOCRIT 44.9 % (35.4-49); HEMOGLOBIN 14.9 GM/dL (11.7-16.9); MCH 29.3 pg (25.7-33.7); MCHC 33.3 g/dl (32.0-35.9); MEAN CELL VOLUME 88.2 fl (80-96); MEAN PLT VOLUME 8.6 fl (7.5-11.1); PLATELET COUNT 230 10^3/uL (134-434); RBC 5.09 M/mm3 (4.00-5.60); RDW 14.7 % (11.9-15.9); WHITE BLOOD COUNT 5.5 K/mm3 (4.0-10.0)
[2023-07-05 14:37] LABS: POTASSIUM 3.8 mmol/L (3.5-5.1)
[2023-07-05 15:11] LABS: ALBUMIN 3.7 g/dl (3.4-5.0)
[2023-07-05 15:12] LABS: BLOOD UREA NITROGEN 15.6 mg/dL (7-18)
[2023-07-05 15:15] LABS: BILIRUBIN,TOTAL 0.2 mg/dL (0.2-1)
[2023-07-06] MEDS: chlordiazePOXIDE HCL 25 MG CAPSULE PO SCH (05:29)
[2023-07-06] MEDS: guaiFENesin/D-METHORPHAN HB 10 ML UNIT-DOSE CUPS PO PRN (13:48)
[2023-07-07] MEDS ORDERED: chlordiazePOXIDE HCL 10 MG CAPSULE PO PRN
[2023-07-07] MEDS: chlordiazePOXIDE HCL 10 MG CAPSULE PO SCH (05:17)
[2023-07-07 09:30] VITALS: BP 128/80; PULSE 84; RESP 18; TEMP 97.5
[2023-07-08] MEDS ORDERED: chlordiazePOXIDE HCL 10 MG CAPSULE PO SCH (05:00)
[2023-07-09] MEDS ORDERED: chlordiazePOXIDE HCL 10 MG CAPSULE PO ONE (05:00)
== END 2023-07-07 10:22 | disposition home or self-care (01) | DRG 774 ==
LOC: YASAS 09:45 → Y6N 11:48
PROVIDERS: ADMIT Allergy & Immunology; ATTEND Allergy & Immunology
PROC: HZ2ZZZZ Detoxification Services for Substance Abuse Treatment (ICD-10-PCS; principal; 2023-07-04)
DX: F10.230 Alcohol dependence with withdrawal, uncomplicated (principal); F14.20 Cocaine dependence, uncomplicated; F17.210 Nicotine dependence, cigarettes, uncomplicated; G62.9 Polyneuropathy, unspecified; I10 Essential (primary) hypertension; E78.5 Hyperlipidemia, unspecified; K21.9 Gastro-esophageal reflux disease without esophagitis; M54.50 Low back pain, unspecified; G89.29 Other chronic pain; Z86.19 Personal history of other infectious and parasitic diseases; Z28.310 Unvaccinated for COVID-19; Z28.9 Immunization not carried out for unspecified reason
CPT/HCPCS: 36415; 80053; 80307; 85027; 86593; 86780; 87635; 90686; G0008

== ENCOUNTER 2023-09-19 09:58 | Inpatient (IN) | payer OTHER ==
[2023-09-19 10:44] VITALS: BMI 33.8
[2023-09-19] MEDS ORDERED: IBUPROFEN 600 MG TABLET (FP) PO PRN (11:41)
[2023-09-19] MEDS ORDERED: DICYCLOMINE HCL 10 MG CAPSULE PO PRN (11:41)
[2023-09-19] MEDS ORDERED: LOPERAMIDE HCL 2 MG CAPSULE PO PRN (11:41)
[2023-09-19] MEDS ORDERED: BISMUTH SUBSALICYLATE 262 MG/15 ML BTL PO PRN (11:41)
[2023-09-19] MEDS ORDERED: chlordiazePOXIDE HCL 25 MG CAPSULE PO PRN (11:41)
[2023-09-19] MEDS ORDERED: BENZOCAINE/MENTHOL (CHLORASEPTIC ) LOZENGE MM PRN (11:41)
[2023-09-19] MEDS ORDERED: IBUPROFEN 400 MG TABLET (FP) PO PRN (11:41)
[2023-09-19] MEDS ORDERED: BENZONATATE 200 MG CAPSULE PO PRN (11:41)
[2023-09-19] MEDS ORDERED: NALOXONE HCL (KLOXXADO) 8 MG SPRAY NS PRN (11:41)
[2023-09-19] MEDS ORDERED: ONDANSETRON *ODT* 4 MG TABLET SL PRN (11:41)
[2023-09-19] MEDS ORDERED: MAG HYDROX/AL HYDROX/SIMETH 30 ML UNIT-DOSE CUP PO PRN (11:41)
[2023-09-19] MEDS ORDERED: POLYETHYLENE GLYCOL (HEALTHYLAX) 3350 17 GM PACKET PO PRN (11:41)
[2023-09-19] MEDS ORDERED: NALOXONE HCL 0.4 MG/ML VIAL IM PRN (11:41)
[2023-09-19] MEDS ORDERED: hydrOXYzine PAMOATE 25 MG CAPSULE (FP) PO PRN (11:41)
[2023-09-19] MEDS ORDERED: PRENATAL VITAMINS W/ FOLIC ACID TABLET (FP) PO ONE (12:09)
[2023-09-19] MEDS ORDERED: amLODIPine BESYLATE 5 MG TABLET (FP) ONE (12:09)
[2023-09-19] MEDS: PRENATAL VITAMINS W/ FOLIC ACID TABLET (FP) PO SCH (12:11)
[2023-09-19] MEDS: amLODIPine BESYLATE 10 MG TABLET (FP) PO SCH (12:11)
[2023-09-19] MEDS: chlordiazePOXIDE HCL 25 MG CAPSULE PO SCH (17:46)
[2023-09-19] MEDS: THIAMINE HCL 100 MG TABLET (FP) PO SCH (22:34)
[2023-09-19] MEDS: MELATONIN 5 MG TABLETS PO SCH (22:36)
[2023-09-20] MEDS: guaiFENesin 600 MG TABLET.ER (FP) PO PRN (10:30)
[2023-09-20 11:56] LABS: POTASSIUM 3.5 mmol/L (3.5-5.1)
[2023-09-20 11:58] LABS: ALBUMIN 3.6 g/dl (3.4-5.0); BLOOD UREA NITROGEN 12.7 mg/dL (7-18); CALCIUM 8.9 mg/dL (8.5-10.1); HEMATOCRIT 43.6 % (35.4-49); HEMOGLOBIN 14.4 GM/dL (11.7-16.9); MEAN CELL VOLUME 87.9 fl (80-96); MEAN PLT VOLUME 8.9 fl (7.5-11.1); PLATELET COUNT 198 10^3/uL (134-434); RBC 4.96 M/mm3 (4.00-5.60)
[2023-09-20 12:01] LABS: CREATININE 0.9 mg/dL (0.55-1.3)
[2023-09-20 12:03] LABS: BILIRUBIN,TOTAL 0.5 mg/dL (0.2-1); TOT PROT 7.8 g/dl (6.4-8.2)
[2023-09-20] MEDS: MAGNESIUM HYDROX 2400MG/30ML ORAL SUSPENSION 30 ML CUP PO PRN (17:40)
[2023-09-20] MEDS: ACETAMINOPHEN 325 MG TABLET (FP) PO PRN (22:46)
[2023-09-21] MEDS: chlordiazePOXIDE HCL 25 MG CAPSULE PO SCH (05:29)
[2023-09-21] MEDS: METHOCARBAMOL 500 MG TABLET PO PRN (05:32)
[2023-09-22] MEDS ORDERED: chlordiazePOXIDE HCL 10 MG CAPSULE PO PRN
[2023-09-22] MEDS: chlordiazePOXIDE HCL 10 MG CAPSULE PO SCH (05:48)
[2023-09-22 06:19] VITALS: BP 121/71; PULSE 78; RESP 16; TEMP 98.6
[2023-09-23] MEDS ORDERED: chlordiazePOXIDE HCL 10 MG CAPSULE PO SCH (05:00)
[2023-09-24] MEDS ORDERED: chlordiazePOXIDE HCL 10 MG CAPSULE PO ONE (05:00)
== END 2023-09-22 09:30 | disposition home or self-care (01) | DRG 774 ==
LOC: YASAS 09:58 → Y6N 11:57
PROVIDERS: ADMIT Allergy & Immunology; ATTEND Surgery
PROC: HZ2ZZZZ Detoxification Services for Substance Abuse Treatment (ICD-10-PCS; principal; 2023-09-19)
DX: F10.230 Alcohol dependence with withdrawal, uncomplicated (principal); F14.20 Cocaine dependence, uncomplicated; F19.24 Other psychoactive substance dependence with psychoactive substance-induced mood disorder; I10 Essential (primary) hypertension; R73.9 Hyperglycemia, unspecified; Z87.891 Personal history of nicotine dependence; Z86.59 Personal history of other mental and behavioral disorders; Z86.19 Personal history of other infectious and parasitic diseases; Z28.310 Unvaccinated for COVID-19; Z28.21 Immunization not carried out because of patient refusal
CPT/HCPCS: 36415; 80053; 80307; 82140; 85027; 86593; 86780; 93005; 93010

== ENCOUNTER 2023-10-13 13:30 | Inpatient (IN) | payer OTHER ==
[2023-10-13 14:24] VITALS: BMI 37.1
[2023-10-13] MEDS ORDERED: NALOXONE (NYS OPIOID OVERDOSE PROGRAM) 4 MG/0.1 ML SPRAY NS PRN (15:04)
[2023-10-13] MEDS ORDERED: BENZONATATE 200 MG CAPSULE PO PRN (15:04)
[2023-10-13] MEDS ORDERED: guaiFENesin 600 MG TABLET.ER (FP) PO PRN (15:04)
[2023-10-13] MEDS ORDERED: NALOXONE HCL 0.4 MG/ML VIAL IVPUSH PRN (15:04)
[2023-10-13] MEDS ORDERED: hydrOXYzine PAMOATE 25 MG CAPSULE (FP) PO PRN (15:04)
[2023-10-13] MEDS ORDERED: MAGNESIUM HYDROX 2400MG/30ML ORAL SUSPENSION 30 ML CUP PO PRN (15:04)
[2023-10-13] MEDS ORDERED: BENZOCAINE/MENTHOL (CHLORASEPTIC ) LOZENGE MM PRN (15:04)
[2023-10-13] MEDS ORDERED: LOPERAMIDE HCL 2 MG CAPSULE PO PRN (15:04)
[2023-10-13] MEDS ORDERED: POLYETHYLENE GLYCOL (HEALTHYLAX) 3350 17 GM PACKET PO PRN (15:04)
[2023-10-13] MEDS ORDERED: PRENATAL VITAMINS W/ FOLIC ACID TABLET (FP) PO ONE (16:16)
[2023-10-13] MEDS ORDERED: amLODIPine BESYLATE 5 MG TABLET (FP) ONE (16:16)
[2023-10-13] MEDS: PRENATAL VITAMINS W/ FOLIC ACID TABLET (FP) PO SCH (16:19)
[2023-10-13] MEDS: amLODIPine BESYLATE 10 MG TABLET (FP) PO SCH (16:19)
[2023-10-13 20:15] LABS: PH,URINE 5.5 (5.0-8.0); URINE APPEARANCE TURBID; URINE BILIRUBIN NEGATIVE (NEGATIVE); URINE COLOR YELLOW; URINE GLUCOSE (UA) TRACE (NEGATIVE); URINE KETONE TRACE (NEGATIVE); URINE LEUK ESTERASE NEGATIVE (NEGATIVE); URINE NITRITE NEGATIVE (NEGATIVE); URINE PROTEIN TRACE (NEGATIVE)
[2023-10-13] MEDS: THIAMINE 100 MG TABLET PO SCH (22:41)
[2023-10-13] MEDS: MELATONIN 5 MG TABLETS PO SCH (22:41)
[2023-10-14] MEDS: MAG HYDROX/AL HYDROX/SIMETH 30 ML UNIT-DOSE CUP PO PRN (10:47)
[2023-10-14] MEDS: ACETAMINOPHEN 325 MG TABLET (FP) PO PRN (10:47)
[2023-10-14] MEDS ORDERED: CALAMINE 8% TOPICAL LOTION 177 ML BOTTLE TP PRN (14:52)
[2023-10-15] MEDS: METHOCARBAMOL 500 MG TABLET PO PRN (09:59)
[2023-10-15] MEDS: PRENATAL VITAMINS W/ FOLIC ACID TABLET (FP) PO SCH (09:59)
[2023-10-15] MEDS: TOLNAFTATE 1% CREAM 15 GM TUBE TP SCH (13:58)
[2023-10-16] MEDS: METHYL SALICYLATE/MENTHOL OINT 30 GM TUBE TP PRN (06:34)
[2023-10-16 11:43] LABS: POTASSIUM 3.9 mmol/L (3.5-5.1)
[2023-10-16 11:46] LABS: ALBUMIN 3.6 g/dl (3.4-5.0); CALCIUM 8.7 mg/dL (8.5-10.1); HEMATOCRIT 44.5 % (35.4-49); HEMOGLOBIN 14.7 GM/dL (11.7-16.9); MCH 29.7 pg (25.7-33.7); MCHC 33.1 g/dl (32.0-35.9); MEAN CELL VOLUME 89.9 fl (80-96); MEAN PLT VOLUME 9.6 fl (7.5-11.1); PLATELET COUNT 255 10^3/uL (134-434); RBC 4.96 M/mm3 (4.00-5.60); RDW 15.8 % (11.9-15.9); WHITE BLOOD COUNT 5.5 K/mm3 (4.0-10.0)
[2023-10-16 11:47] LABS: BLOOD UREA NITROGEN 12.8 mg/dL (7-18); MAGNESIUM 2.2 mg/dL (1.8-2.4)
[2023-10-16 11:49] LABS: CREATININE 0.9 mg/dL (0.55-1.3)
[2023-10-16 11:51] LABS: BILIRUBIN,TOTAL 0.7 mg/dL (0.2-1); TOT PROT 7.6 g/dl (6.4-8.2)
[2023-10-16 13:07] LABS: ANISOCYTOSIS 0; MACROCYTOSIS 0
[2023-10-16 13:50] LABS: PROTHROMBIN TIME (PATIENT) 11.3 SEC (9.7-13.0)
[2023-10-17] MEDS: CHOLECALCIFEROL (VIT D3) 400 UNIT (10 MCG) TABLET PO SCH (11:24)
[2023-10-17] MEDS: LACTULOSE 20 GM/30 ML UDC (FOR ORAL USE ONLY) PO SCH (13:07)
[2023-10-21] MEDS: IBUPROFEN 600 MG TABLET (FP) PO PRN (18:17)
[2023-10-25] MEDS: IBUPROFEN 400 MG TABLET (FP) PO PRN (09:59)
[2023-11-04 06:24] VITALS: TEMP 97.3
[2023-11-04 08:58] VITALS: BP 125/80; PULSE 69; RESP 17
== END 2023-11-04 12:39 | disposition home or self-care (01) | DRG 772 ==
LOC: YASAS 13:30 → Y3NR 15:36 → Y3E 10-14 11:00
PROVIDERS: ADMIT Allergy & Immunology; ATTEND Psychiatry & Neurology Pain Medicine
PROC: HZ42ZZZ Group Counseling for Substance Abuse Treatment, Cognitive-Behavioral (ICD-10-PCS; principal; 2023-10-13)
DX: F10.20 Alcohol dependence, uncomplicated (principal); F14.20 Cocaine dependence, uncomplicated; E72.20 Disorder of urea cycle metabolism, unspecified; I10 Essential (primary) hypertension; B35.3 Tinea pedis; M54.50 Low back pain, unspecified; G89.29 Other chronic pain; Z87.891 Personal history of nicotine dependence; Z86.59 Personal history of other mental and behavioral disorders; Z59.01 Sheltered homelessness
CPT/HCPCS: 36415; 80053; 80305; 80307; 81003; 82140; 82306; 83735; 85025; 85610; 86803; 87811; 93005; 93010

== ENCOUNTER 2023-12-13 12:19 | Inpatient (IN) | payer OTHER ==
[2023-12-13 13:13] VITALS: BMI 33.6
[2023-12-13] MEDS ORDERED: diazePAM 5 MG TABLET PO PRN (14:20)
[2023-12-13] MEDS ORDERED: NALOXONE (NARCAN) HCL 4 MG/0.1 ML SPRAY NS PRN (14:23)
[2023-12-13] MEDS ORDERED: BENZONATATE 200 MG CAPSULE PO PRN (14:23)
[2023-12-13] MEDS ORDERED: LOPERAMIDE HCL 2 MG CAPSULE PO PRN (14:23)
[2023-12-13] MEDS ORDERED: DICYCLOMINE HCL 10 MG CAPSULE PO PRN (14:23)
[2023-12-13] MEDS ORDERED: ACETAMINOPHEN 325 MG TABLET (FP) PO PRN (14:23)
[2023-12-13] MEDS ORDERED: MAGNESIUM HYDROX 2400MG/30ML ORAL SUSPENSION 30 ML CUP PO PRN (14:23)
[2023-12-13] MEDS ORDERED: BISMUTH SUBSALICYLATE 524 MG/30 ML PO PRN (14:23)
[2023-12-13] MEDS ORDERED: NALOXONE HCL 0.4 MG/ML VIAL IM PRN (14:23)
[2023-12-13] MEDS ORDERED: MAG HYDROX/AL HYDROX/SIMETH 30 ML UNIT-DOSE CUP PO PRN (14:23)
[2023-12-13] MEDS ORDERED: hydrOXYzine PAMOATE 25 MG CAPSULE (FP) PO PRN (14:23)
[2023-12-13] MEDS ORDERED: BENZOCAINE/MENTHOL (CHLORASEPTIC ) LOZENGE MM PRN (14:23)
[2023-12-13] MEDS ORDERED: POLYETHYLENE GLYCOL (HEALTHYLAX) 3350 17 GM PACKET PO PRN (14:23)
[2023-12-13] MEDS ORDERED: guaiFENesin 600 MG TABLET.ER (FP) PO PRN (14:23)
[2023-12-13] MEDS ORDERED: ONDANSETRON *ODT* 4 MG TABLET SL PRN (14:23)
[2023-12-13] MEDS: amLODIPine BESYLATE 10 MG TABLET (FP) PO SCH (14:50)
[2023-12-13] MEDS: diazePAM 5 MG TABLET PO SCH (17:26)
[2023-12-13] MEDS: IBUPROFEN 400 MG TABLET (FP) PO PRN (22:27)
[2023-12-13] MEDS: MELATONIN 5 MG TABLETS PO SCH (22:29)
[2023-12-13] MEDS: THIAMINE 100 MG TABLET PO SCH (22:29)
[2023-12-14] MEDS: PRENATAL VITAMINS W/ FOLIC ACID TABLET (FP) PO SCH (10:05)
[2023-12-14 10:55] LABS: HEMATOCRIT 42.8 % (35.4-49); HEMOGLOBIN 14.5 GM/dL (11.7-16.9); MCH 29.3 pg (25.7-33.7); PLATELET COUNT 219 10^3/uL (134-434); RBC 4.97 M/mm3 (4.00-5.60); RDW 14.7 % (11.9-15.9); WHITE BLOOD COUNT 4.4 K/mm3 (4.0-10.0)
[2023-12-14 11:04] LABS: CHLORIDE 102 mmol/L (98-107); POTASSIUM 3.3 mmol/L (3.5-5.1); SODIUM 138 mmol/L (136-145)
[2023-12-14 11:08] LABS: CALCIUM 8.4 mg/dL (8.5-10.1)
[2023-12-14 11:09] LABS: ALBUMIN 3.5 g/dl (3.4-5.0); ANION GAP 6 mmol/L (4-13); BLOOD UREA NITROGEN 11.4 mg/dL (7-18); CO2 31 mmol/L (21-32); GLUCOSE,RANDOM 119 mg/dL (74-106)
[2023-12-14 11:12] LABS: SGOT/AST 23 U/L (15-37); SGPT/ALT 31 U/L (13-61)
[2023-12-14 11:14] LABS: BILIRUBIN,TOTAL 0.8 mg/dL (0.2-1)
[2023-12-14 11:15] LABS: ALK PHOS 112 U/L (45-117)
[2023-12-14] MEDS: POTASSIUM CHLORIDE ORAL LIQUID 20 MEQ/15 ML PO SCH (13:09)
[2023-12-15] MEDS: diazePAM 5 MG TABLET PO SCH (05:48)
[2023-12-15] MEDS: METHOCARBAMOL 500 MG TABLET PO PRN (10:13)
[2023-12-15] MEDS: IBUPROFEN 600 MG TABLET (FP) PO PRN (10:14)
[2023-12-16] MEDS: diazePAM 5 MG TABLET PO SCH (05:33)
[2023-12-16] MEDS: METHYL SALICYLATE/MENTHOL OINT 30 GM TUBE TP SCH (12:13)
[2023-12-17] MEDS: diazePAM 5 MG TABLET PO ONE (06:36)
[2023-12-17 12:03] VITALS: BP 149/83; PULSE 85; RESP 18; TEMP 97.9
== END 2023-12-17 09:21 | disposition home or self-care (01) | DRG 774 ==
LOC: YASAS 12:19 → Y6N 14:03 → Y3N 14:06
PROVIDERS: ADMIT Allergy & Immunology; ATTEND Surgery
PROC: HZ2ZZZZ Detoxification Services for Substance Abuse Treatment (ICD-10-PCS; principal; 2023-12-13)
DX: F10.230 Alcohol dependence with withdrawal, uncomplicated (principal); F14.10 Cocaine abuse, uncomplicated; F12.20 Cannabis dependence, uncomplicated; F17.210 Nicotine dependence, cigarettes, uncomplicated; E78.5 Hyperlipidemia, unspecified; G47.00 Insomnia, unspecified; I10 Essential (primary) hypertension; Z86.19 Personal history of other infectious and parasitic diseases
CPT/HCPCS: 36415; 80053; 80305; 80307; 85027; 86593; 86780; 93005; 93010

== ENCOUNTER 2024-02-03 21:36 | Inpatient (IN) | payer OTHER ==
[2024-02-03 22:17] VITALS: BMI 34.4
[2024-02-03] MEDS ORDERED: BENZONATATE 200 MG CAPSULE PO PRN (23:00)
[2024-02-03] MEDS ORDERED: METHOCARBAMOL 500 MG TABLET PO PRN (23:00)
[2024-02-03] MEDS ORDERED: NALOXONE (NARCAN) HCL 4 MG/0.1 ML SPRAY NS PRN (23:00)
[2024-02-03] MEDS ORDERED: MAG HYDROX/AL HYDROX/SIMETH 30 ML UNIT-DOSE CUP PO PRN (23:00)
[2024-02-03] MEDS ORDERED: ONDANSETRON *ODT* 4 MG TABLET SL PRN (23:00)
[2024-02-03] MEDS ORDERED: POLYETHYLENE GLYCOL (HEALTHYLAX) 3350 17 GM PACKET PO PRN (23:00)
[2024-02-03] MEDS ORDERED: NALOXONE HCL 0.4 MG/ML VIAL IM PRN (23:00)
[2024-02-03] MEDS ORDERED: IBUPROFEN 400 MG TABLET (FP) PO PRN (23:00)
[2024-02-03] MEDS ORDERED: hydrOXYzine PAMOATE 25 MG CAPSULE (FP) PO PRN (23:00)
[2024-02-03] MEDS ORDERED: BISMUTH SUBSALICYLATE 524 MG/30 ML PO PRN (23:00)
[2024-02-03] MEDS ORDERED: IBUPROFEN 600 MG TABLET (FP) PO PRN (23:00)
[2024-02-03] MEDS ORDERED: MAGNESIUM HYDROX 2400MG/30ML ORAL SUSPENSION 30 ML CUP PO PRN (23:00)
[2024-02-03] MEDS ORDERED: guaiFENesin 600 MG TABLET.ER (FP) PO PRN (23:00)
[2024-02-03] MEDS ORDERED: DICYCLOMINE HCL 10 MG CAPSULE PO PRN (23:00)
[2024-02-03] MEDS ORDERED: BENZOCAINE/MENTHOL (CHLORASEPTIC ) LOZENGE MM PRN (23:00)
[2024-02-03] MEDS ORDERED: LOPERAMIDE HCL 2 MG CAPSULE PO PRN (23:00)
[2024-02-04] MEDS: PRENATAL VITAMINS W/ FOLIC ACID TABLET (FP) PO SCH (09:34)
[2024-02-04] MEDS ORDERED: chlordiazePOXIDE HCL 25 MG CAPSULE PO PRN (09:56)
[2024-02-04] MEDS: chlordiazePOXIDE HCL 25 MG CAPSULE PO SCH (10:23)
[2024-02-04] MEDS: amLODIPine BESYLATE 10 MG TABLET (FP) PO SCH (10:23)
[2024-02-04 15:10] LABS: CHLORIDE 101 mmol/L (98-107); POTASSIUM 3.6 mmol/L (3.5-5.1); SODIUM 138 mmol/L (136-145)
[2024-02-04 15:12] LABS: HEMATOCRIT 42.6 % (35.4-49); HEMOGLOBIN 14.5 GM/dL (11.7-16.9); MCH 29.4 pg (25.7-33.7); MCHC 34.1 g/dl (32.0-35.9); MEAN CELL VOLUME 86.2 fl (80-96); MEAN PLT VOLUME 8.3 fl (7.5-11.1); PLATELET COUNT 252 10^3/uL (134-434); RBC 4.95 M/mm3 (4.00-5.60); WHITE BLOOD COUNT 5.7 K/mm3 (4.0-10.0)
[2024-02-04 15:17] LABS: ALBUMIN 3.6 g/dl (3.4-5.0); ANION GAP 7 mmol/L (4-13); BLOOD UREA NITROGEN 16.9 mg/dL (7-18); CALCIUM 8.9 mg/dL (8.5-10.1); CO2 30 mmol/L (21-32); GLUCOSE,RANDOM 132 mg/dL (74-106)
[2024-02-04 15:19] LABS: SGPT/ALT 33 U/L (13-61)
[2024-02-04 15:20] LABS: SGOT/AST 35 U/L (15-37)
[2024-02-04 15:21] LABS: TOT PROT 7.4 g/dl (6.4-8.2)
[2024-02-04 15:24] LABS: BILIRUBIN,TOTAL 1.2 mg/dL (0.2-1)
[2024-02-04 15:25] LABS: ALK PHOS 108 U/L (45-117)
[2024-02-04] MEDS: THIAMINE 100 MG TABLET PO SCH (22:42)
[2024-02-04] MEDS: MELATONIN 5 MG TABLETS PO SCH (22:44)
[2024-02-05] MEDS: ACETAMINOPHEN 325 MG TABLET (FP) PO PRN (05:17)
[2024-02-06] MEDS: chlordiazePOXIDE HCL 25 MG CAPSULE PO SCH (05:22)
[2024-02-06 06:20] VITALS: RESP 18
[2024-02-06] MEDS ORDERED: OFLOXACIN 0.3% OTIC SOLUTION 5 ML BOTTLE AD SCH (09:15)
[2024-02-06] MEDS ORDERED: guaiFENesin 200 MG/10 ML 10 ML UNIT-DOSE CUPS PO PRN (10:27)
[2024-02-06] MEDS ORDERED: P-EPHED 60MG/TRIPROLIDI 2.5MG TABLET PO PRN (10:27)
[2024-02-06] MEDS: OFLOXACIN 0.3% OTIC SOLUTION 5 ML BOTTLE AD SCH (10:57)
[2024-02-06 12:40] VITALS: BP 122/72; PULSE 72; TEMP 97.6
[2024-02-07] MEDS ORDERED: chlordiazePOXIDE HCL 10 MG CAPSULE PO PRN
[2024-02-07] MEDS ORDERED: chlordiazePOXIDE HCL 10 MG CAPSULE PO SCH (05:00)
[2024-02-08] MEDS ORDERED: chlordiazePOXIDE HCL 10 MG CAPSULE PO SCH (05:00)
[2024-02-09] MEDS ORDERED: chlordiazePOXIDE HCL 10 MG CAPSULE PO ONE (05:00)
== END 2024-02-06 17:50 | disposition home or self-care (01) | DRG 774 ==
LOC: YASAS 21:36 → Y6N 23:11
PROVIDERS: ADMIT Allergy & Immunology; ATTEND Surgery
PROC: HZ2ZZZZ Detoxification Services for Substance Abuse Treatment (ICD-10-PCS; principal; 2024-02-03)
DX: F10.230 Alcohol dependence with withdrawal, uncomplicated (principal); F14.20 Cocaine dependence, uncomplicated; F32.9 Major depressive disorder, single episode, unspecified; G62.9 Polyneuropathy, unspecified; I10 Essential (primary) hypertension; K21.9 Gastro-esophageal reflux disease without esophagitis; H92.01 Otalgia, right ear; E78.5 Hyperlipidemia, unspecified; M54.50 Low back pain, unspecified; G89.29 Other chronic pain; Z87.891 Personal history of nicotine dependence; Z86.19 Personal history of other infectious and parasitic diseases
CPT/HCPCS: 36415; 80053; 80305; 80307; 83036; 85027; 86593; 86780

== ENCOUNTER 2024-02-29 11:00 | Inpatient (IN) | payer OTHER ==
[2024-02-29 11:58] VITALS: BMI 34.6
[2024-02-29] MEDS ORDERED: guaiFENesin 600 MG TABLET.ER (FP) PO PRN (12:36)
[2024-02-29] MEDS ORDERED: ONDANSETRON *ODT* 4 MG TABLET SL PRN (12:36)
[2024-02-29] MEDS ORDERED: LOPERAMIDE HCL 2 MG CAPSULE PO PRN (12:36)
[2024-02-29] MEDS ORDERED: BENZONATATE 200 MG CAPSULE PO PRN (12:36)
[2024-02-29] MEDS ORDERED: DICYCLOMINE HCL 10 MG CAPSULE PO PRN (12:36)
[2024-02-29] MEDS ORDERED: BENZOCAINE/MENTHOL (CHLORASEPTIC ) LOZENGE MM PRN (12:36)
[2024-02-29] MEDS ORDERED: hydrOXYzine PAMOATE 25 MG CAPSULE (FP) PO PRN (12:36)
[2024-02-29] MEDS ORDERED: BISMUTH SUBSALICYLATE 524 MG/30 ML PO PRN (12:36)
[2024-02-29] MEDS ORDERED: IBUPROFEN 400 MG TABLET (FP) PO PRN (12:36)
[2024-02-29] MEDS ORDERED: MAGNESIUM HYDROX 2400MG/30ML ORAL SUSPENSION 30 ML CUP PO PRN (12:36)
[2024-02-29] MEDS ORDERED: MAG HYDROX/AL HYDROX/SIMETH 30 ML UNIT-DOSE CUP PO PRN (12:36)
[2024-02-29] MEDS ORDERED: POLYETHYLENE GLYCOL (HEALTHYLAX) 3350 17 GM PACKET PO PRN (12:36)
[2024-02-29] MEDS: METHYL SALICYLATE/MENTHOL 30 GM TUBE TP SCH (14:03)
[2024-02-29] MEDS: THIAMINE 100 MG TABLET PO SCH (22:27)
[2024-02-29] MEDS: MELATONIN 5 MG TABLETS PO SCH (22:27)
[2024-02-29] MEDS: METHOCARBAMOL 500 MG TABLET PO PRN (22:28)
[2024-02-29] MEDS: IBUPROFEN 600 MG TABLET (FP) PO PRN (22:28)
[2024-03-01] MEDS ORDERED: diazePAM 5 MG TABLET PO PRN (09:32)
[2024-03-01] MEDS: PRENATAL VITAMINS W/ FOLIC ACID TABLET (FP) PO SCH (09:33)
[2024-03-01] MEDS: amLODIPine BESYLATE 10 MG TABLET (FP) PO SCH (09:33)
[2024-03-01] MEDS: diazePAM 5 MG TABLET PO SCH (10:22)
[2024-03-01 15:55] LABS: HIV INTERPRETATION NEGATIVE (NEGATIVE)
[2024-03-02] MEDS: ACETAMINOPHEN 325 MG TABLET (FP) PO PRN (05:34)
[2024-03-03] MEDS: diazePAM 5 MG TABLET PO SCH (05:51)
[2024-03-04] MEDS: diazePAM 5 MG TABLET PO SCH (05:53)
[2024-03-04 08:47] VITALS: BP 138/87; PULSE 70; RESP 20; TEMP 97
[2024-03-05] MEDS ORDERED: diazePAM 5 MG TABLET PO ONE (06:00)
== END 2024-03-04 10:51 | disposition home or self-care (01) | DRG 774 ==
LOC: YASAS 11:00 → Y3N 13:10
PROVIDERS: ADMIT Allergy & Immunology; ATTEND Surgery
PROC: HZ2ZZZZ Detoxification Services for Substance Abuse Treatment (ICD-10-PCS; principal; 2024-02-29)
DX: F10.230 Alcohol dependence with withdrawal, uncomplicated (principal); F14.20 Cocaine dependence, uncomplicated; F32.A Depression, unspecified; G62.9 Polyneuropathy, unspecified; E78.5 Hyperlipidemia, unspecified; I10 Essential (primary) hypertension; K21.9 Gastro-esophageal reflux disease without esophagitis; M54.50 Low back pain, unspecified; G89.29 Other chronic pain; Z86.19 Personal history of other infectious and parasitic diseases; Z87.891 Personal history of nicotine dependence
CPT/HCPCS: 36415; 80305; 80307; 86803; 87389

== ENCOUNTER 2024-04-10 15:18 | Inpatient (IN) | payer OTHER ==
[2024-04-10 16:15] VITALS: BMI 31.3
[2024-04-10] MEDS ORDERED: ONDANSETRON *ODT* 4 MG TABLET SL PRN (17:11)
[2024-04-10] MEDS ORDERED: MAG HYDROX/AL HYDROX/SIMETH 30 ML UNIT-DOSE CUP PO PRN (17:11)
[2024-04-10] MEDS ORDERED: POLYETHYLENE GLYCOL (HEALTHYLAX) 3350 17 GM PACKET PO PRN (17:11)
[2024-04-10] MEDS ORDERED: guaiFENesin 600 MG TABLET.ER (FP) PO PRN (17:11)
[2024-04-10] MEDS ORDERED: ACETAMINOPHEN 325 MG TABLET (FP) PO PRN (17:11)
[2024-04-10] MEDS ORDERED: IBUPROFEN 400 MG TABLET (FP) PO PRN (17:11)
[2024-04-10] MEDS ORDERED: BENZONATATE 200 MG CAPSULE PO PRN (17:11)
[2024-04-10] MEDS ORDERED: DICYCLOMINE HCL 10 MG CAPSULE PO PRN (17:11)
[2024-04-10] MEDS ORDERED: BENZOCAINE/MENTHOL (CHLORASEPTIC ) LOZENGE MM PRN (17:11)
[2024-04-10] MEDS ORDERED: BISMUTH SUBSALICYLATE 524 MG/30 ML PO PRN (17:11)
[2024-04-10] MEDS ORDERED: LOPERAMIDE HCL 2 MG CAPSULE PO PRN (17:11)
[2024-04-10] MEDS: MELATONIN 5 MG TABLETS PO SCH (22:14)
[2024-04-10] MEDS: THIAMINE 100 MG TABLET PO SCH (22:14)
[2024-04-11 08:05] LABS: HEMATOCRIT 43.7 % (35.4-49); HEMOGLOBIN 14.5 GM/dL (11.7-16.9); MCHC 33.1 g/dl (32.0-35.9); MEAN CELL VOLUME 87.6 fl (80-96); PLATELET COUNT 213 10^3/uL (134-434); RDW 14.9 % (11.9-15.9); WHITE BLOOD COUNT 4.9 K/mm3 (4.0-10.0)
[2024-04-11 08:19] LABS: ALBUMIN 3.5 g/dl (3.4-5.0); BLOOD UREA NITROGEN 16.2 mg/dL (7-18); CALCIUM 8.3 mg/dL (8.5-10.1); POTASSIUM 3.4 mmol/L (3.5-5.1)
[2024-04-11 08:27] LABS: BILIRUBIN,TOTAL 0.7 mg/dL (0.2-1); TOT PROT 7.2 g/dl (6.4-8.2)
[2024-04-11] MEDS: amLODIPine BESYLATE 10 MG TABLET (FP) PO SCH (09:42)
[2024-04-11] MEDS: METHOCARBAMOL 500 MG TABLET PO PRN (09:42)
[2024-04-11] MEDS: hydrOXYzine PAMOATE 25 MG CAPSULE (FP) PO PRN (09:42)
[2024-04-11] MEDS: PRENATAL VITAMINS W/ FOLIC ACID TABLET (FP) PO SCH (09:42)
[2024-04-11] MEDS ORDERED: chlordiazePOXIDE HCL 25 MG CAPSULE PO PRN (10:47)
[2024-04-11] MEDS: chlordiazePOXIDE HCL 25 MG CAPSULE PO SCH (11:15)
[2024-04-11] MEDS: IBUPROFEN 600 MG TABLET (FP) PO PRN (22:29)
[2024-04-12] MEDS: METHYL SALICYLATE/MENTHOL 30 GM TUBE TP SCH (22:31)
[2024-04-13] MEDS: chlordiazePOXIDE HCL 25 MG CAPSULE PO SCH (05:43)
[2024-04-13] MEDS: POTASSIUM CHLORIDE ORAL LIQUID 20 MEQ/15 ML PO ONE (14:15)
[2024-04-13] MEDS: POTASSIUM CHLORIDE ORAL LIQUID 20 MEQ/15 ML PO SCH (22:18)
[2024-04-14] MEDS ORDERED: chlordiazePOXIDE HCL 10 MG CAPSULE PO PRN
[2024-04-14] MEDS: chlordiazePOXIDE HCL 10 MG CAPSULE PO SCH (05:57)
[2024-04-14] MEDS: NALTREXONE HCL 50 MG TABLET PO SCH (12:50)
[2024-04-14] MEDS: NALOXONE (NYS OPIOID OVERDOSE PROGRAM) 4 MG/0.1 ML SPRAY NS SCH (12:50)
[2024-04-14 13:47] LABS: POTASSIUM 3.8 mmol/L (3.5-5.1)
[2024-04-14 13:55] LABS: BLOOD UREA NITROGEN 9.8 mg/dL (7-18)
[2024-04-14 13:57] LABS: CALCIUM 9.1 mg/dL (8.5-10.1)
[2024-04-14 13:59] LABS: CREATININE 0.9 mg/dL (0.55-1.3)
[2024-04-14] MEDS: MAGNESIUM HYDROX 2400MG/30ML ORAL SUSPENSION 30 ML CUP PO PRN (17:31)
[2024-04-15] MEDS: chlordiazePOXIDE HCL 10 MG CAPSULE PO SCH (05:34)
[2024-04-15] MEDS: NALOXONE (NYS OPIOID OVERDOSE PROGRAM) 4 MG/0.1 ML SPRAY NS PRN (09:13)
[2024-04-15 09:15] VITALS: BP 146/86; PULSE 85; RESP 18; TEMP 98
[2024-04-15] MEDS: NALOXONE (NYS OPIOID OVERDOSE PROGRAM) 4 MG/0.1 ML SPRAY NS SCH (09:40)
[2024-04-16] MEDS ORDERED: chlordiazePOXIDE HCL 10 MG CAPSULE PO ONE (05:00)
== END 2024-04-15 09:20 | disposition home or self-care (01) | DRG 774 ==
LOC: YASAS 15:18 → Y6N 17:50
PROVIDERS: ADMIT Allergy & Immunology; ATTEND Surgery
PROC: HZ2ZZZZ Detoxification Services for Substance Abuse Treatment (ICD-10-PCS; principal; 2024-04-10)
DX: F10.230 Alcohol dependence with withdrawal, uncomplicated (principal); F14.20 Cocaine dependence, uncomplicated; E87.6 Hypokalemia; E78.5 Hyperlipidemia, unspecified; G47.00 Insomnia, unspecified; G62.9 Polyneuropathy, unspecified; I10 Essential (primary) hypertension; K21.9 Gastro-esophageal reflux disease without esophagitis; M54.50 Low back pain, unspecified; G89.29 Other chronic pain; R73.03 Prediabetes; Z86.19 Personal history of other infectious and parasitic diseases
CPT/HCPCS: 36415; 80048; 80053; 80305; 80307; 82962; 83036; 85027

== ENCOUNTER 2024-05-21 11:04 | Inpatient (IN) | payer OTHER ==
[2024-05-21 11:19] VITALS: BMI 33.2
[2024-05-21] MEDS ORDERED: chlordiazePOXIDE HCL 25 MG CAPSULE PO PRN (12:51)
[2024-05-21] MEDS ORDERED: POLYETHYLENE GLYCOL (HEALTHYLAX) 3350 17 GM PACKET PO PRN (12:51)
[2024-05-21] MEDS ORDERED: DICYCLOMINE HCL 10 MG CAPSULE PO PRN (12:51)
[2024-05-21] MEDS ORDERED: NALOXONE (NARCAN) HCL 4 MG/0.1 ML SPRAY NS PRN (12:51)
[2024-05-21] MEDS ORDERED: ONDANSETRON *ODT* 4 MG TABLET SL PRN (12:51)
[2024-05-21] MEDS ORDERED: MAG HYDROX/AL HYDROX/SIMETH 30 ML UNIT-DOSE CUP PO PRN (12:51)
[2024-05-21] MEDS ORDERED: hydrOXYzine PAMOATE 25 MG CAPSULE (FP) PO PRN (12:51)
[2024-05-21] MEDS ORDERED: BENZONATATE 200 MG CAPSULE PO PRN (12:51)
[2024-05-21] MEDS ORDERED: LOPERAMIDE HCL 2 MG CAPSULE PO PRN (12:51)
[2024-05-21] MEDS ORDERED: BISMUTH SUBSALICYLATE 524 MG/30 ML PO PRN (12:51)
[2024-05-21] MEDS ORDERED: MAGNESIUM HYDROX 2400MG/30ML ORAL SUSPENSION 30 ML CUP PO PRN (12:51)
[2024-05-21] MEDS ORDERED: IBUPROFEN 400 MG TABLET (FP) PO PRN (12:51)
[2024-05-21] MEDS: chlordiazePOXIDE HCL 25 MG CAPSULE PO SCH (17:37)
[2024-05-21] MEDS: IBUPROFEN 600 MG TABLET (FP) PO PRN (22:27)
[2024-05-21] MEDS: THIAMINE 100 MG TABLET PO SCH (22:27)
[2024-05-21] MEDS: MELATONIN 5 MG TABLETS PO SCH (22:28)
[2024-05-21] MEDS: METHOCARBAMOL 500 MG TABLET PO PRN (22:28)
[2024-05-21] MEDS: guaiFENesin 600 MG TABLET.ER (FP) PO PRN (22:29)
[2024-05-22 09:08] LABS: HEMATOCRIT 40.9 % (35.4-49); HEMOGLOBIN 14.1 GM/dL (11.7-16.9); MCH 29.6 pg (25.7-33.7); MCHC 34.4 g/dl (32.0-35.9); MEAN CELL VOLUME 86.2 fl (80-96); MEAN PLT VOLUME 8.3 fl (7.5-11.1); PLATELET COUNT 208 10^3/uL (134-434); RBC 4.75 M/mm3 (4.00-5.60); RDW 14.9 % (11.9-15.9); WHITE BLOOD COUNT 4.5 K/mm3 (4.0-10.0)
[2024-05-22 09:45] LABS: CHLORIDE 102 mmol/L (98-107); POTASSIUM 3.1 mmol/L (3.5-5.1); SODIUM 139 mmol/L (136-145)
[2024-05-22 09:55] LABS: ALBUMIN 3.2 g/dl (3.4-5.0)
[2024-05-22 09:56] LABS: ANION GAP 4 mmol/L (4-13); BLOOD UREA NITROGEN 18.3 mg/dL (7-18); CALCIUM 8.1 mg/dL (8.5-10.1); CO2 33 mmol/L (21-32)
[2024-05-22 09:57] LABS: CREATININE 0.9 mg/dL (0.55-1.3); SGOT/AST 11 U/L (15-37); SGPT/ALT 22 U/L (13-61)
[2024-05-22 09:59] LABS: BILIRUBIN,TOTAL 0.4 mg/dL (0.2-1); GLUCOSE,RANDOM 113 mg/dL (74-106)
[2024-05-22 10:00] LABS: ALK PHOS 101 U/L (45-117); TOT PROT 6.6 g/dl (6.4-8.2)
[2024-05-22] MEDS: amLODIPine BESYLATE 10 MG TABLET (FP) PO SCH (10:36)
[2024-05-22] MEDS: PRENATAL VITAMINS W/ FOLIC ACID TABLET (FP) PO SCH (10:36)
[2024-05-22] MEDS: ACETAMINOPHEN 325 MG TABLET (FP) PO PRN (10:37)
[2024-05-22] MEDS: PANTOPRAZOLE 40 MG TABLET PO SCH (12:05)
[2024-05-22] MEDS: POTASSIUM CHLORIDE ORAL LIQUID 20 MEQ/15 ML PO ONE (12:05)
[2024-05-23] MEDS: chlordiazePOXIDE HCL 25 MG CAPSULE PO SCH (05:16)
[2024-05-23 10:05] LABS: POTASSIUM 3.5 mmol/L (3.5-5.1)
[2024-05-23 10:10] LABS: BLOOD UREA NITROGEN 12.1 mg/dL (7-18)
[2024-05-23 10:11] LABS: CALCIUM 7.9 mg/dL (8.5-10.1)
[2024-05-23 10:16] LABS: CREATININE 0.9 mg/dL (0.55-1.3)
[2024-05-24] MEDS ORDERED: chlordiazePOXIDE HCL 10 MG CAPSULE PO PRN
[2024-05-24] MEDS: chlordiazePOXIDE HCL 10 MG CAPSULE PO SCH (05:43)
[2024-05-24] MEDS: BENZOCAINE/MENTHOL (CHLORASEPTIC ) LOZENGE MM PRN (22:11)
[2024-05-25] MEDS: chlordiazePOXIDE HCL 10 MG CAPSULE PO SCH (05:50)
[2024-05-25] MEDS: NALOXONE (NYS OPIOID OVERDOSE PROGRAM) 4 MG/0.1 ML SPRAY NS SCH (12:57)
[2024-05-26] MEDS: chlordiazePOXIDE HCL 10 MG CAPSULE PO ONE (05:50)
[2024-05-26 05:57] VITALS: RESP 17
[2024-05-26 08:57] VITALS: BP 133/86; PULSE 87; TEMP 98
== END 2024-05-26 09:16 | disposition home or self-care (01) | DRG 774 ==
LOC: YASAS 11:04 → Y3N 14:28
PROVIDERS: ADMIT Allergy & Immunology; ATTEND Surgery
PROC: HZ2ZZZZ Detoxification Services for Substance Abuse Treatment (ICD-10-PCS; principal; 2024-05-21)
DX: F10.230 Alcohol dependence with withdrawal, uncomplicated (principal); F14.20 Cocaine dependence, uncomplicated; F32.A Depression, unspecified; E87.6 Hypokalemia; E11.9 Type 2 diabetes mellitus without complications; G62.9 Polyneuropathy, unspecified; I10 Essential (primary) hypertension; K21.9 Gastro-esophageal reflux disease without esophagitis; M54.50 Low back pain, unspecified; G89.29 Other chronic pain; Z59.00 Homelessness unspecified
CPT/HCPCS: 36415; 80048; 80053; 80307; 82962; 85027; 86593; 86780; 93005; 93010

== ENCOUNTER 2024-06-30 08:05 | Inpatient (IN) | payer OTHER ==
[2024-06-30 08:29] VITALS: BMI 37.4
[2024-06-30] MEDS ORDERED: diazePAM 5 MG TABLET PO PRN (08:32)
[2024-06-30] MEDS ORDERED: hydrOXYzine PAMOATE 25 MG CAPSULE (FP) PO PRN (08:34)
[2024-06-30] MEDS ORDERED: METHOCARBAMOL 500 MG TABLET PO PRN (08:34)
[2024-06-30] MEDS ORDERED: LOPERAMIDE HCL 2 MG CAPSULE PO PRN (08:34)
[2024-06-30] MEDS ORDERED: POLYETHYLENE GLYCOL (HEALTHYLAX) 3350 17 GM PACKET PO PRN (08:34)
[2024-06-30] MEDS ORDERED: BENZOCAINE/MENTHOL (CHLORASEPTIC ) LOZENGE MM PRN (08:34)
[2024-06-30] MEDS ORDERED: DICYCLOMINE HCL 10 MG CAPSULE PO PRN (08:34)
[2024-06-30] MEDS ORDERED: BENZONATATE 200 MG CAPSULE PO PRN (08:34)
[2024-06-30] MEDS ORDERED: guaiFENesin 600 MG TABLET.ER (FP) PO PRN (08:34)
[2024-06-30] MEDS ORDERED: MAG HYDROX/AL HYDROX/SIMETH 30 ML UNIT-DOSE CUP PO PRN (08:34)
[2024-06-30] MEDS ORDERED: BISMUTH SUBSALICYLATE 524 MG/30 ML PO PRN (08:34)
[2024-06-30] MEDS ORDERED: ONDANSETRON *ODT* 4 MG TABLET SL PRN (08:34)
[2024-06-30] MEDS ORDERED: IBUPROFEN 400 MG TABLET (FP) PO PRN (08:34)
[2024-06-30] MEDS ORDERED: MAGNESIUM HYDROX 2400MG/30ML ORAL SUSPENSION 30 ML CUP PO PRN (08:34)
[2024-06-30] MEDS: diazePAM 5 MG TABLET PO SCH (10:26)
[2024-06-30] MEDS: PRENATAL VITAMINS W/ FOLIC ACID TABLET (FP) PO SCH (10:26)
[2024-06-30] MEDS: IBUPROFEN 600 MG TABLET (FP) PO PRN (10:29)
[2024-06-30] MEDS: THIAMINE 100 MG TABLET PO SCH (22:12)
[2024-06-30] MEDS: MELATONIN 5 MG TABLETS PO SCH (22:12)
[2024-07-01] MEDS: amLODIPine BESYLATE 10 MG TABLET (FP) PO SCH (10:10)
[2024-07-01] MEDS: ACETAMINOPHEN 325 MG TABLET (FP) PO PRN (10:10)
[2024-07-01] MEDS: METHYL SALICYLATE/MENTHOL 30 GM TUBE TP SCH (10:43)
[2024-07-01 11:17] LABS: POTASSIUM 3.6 mmol/L (3.5-5.1)
[2024-07-01 11:20] LABS: CALCIUM 8.4 mg/dL (8.5-10.1)
[2024-07-01 11:21] LABS: BLOOD UREA NITROGEN 13.1 mg/dL (7-18)
[2024-07-01 11:23] LABS: CREATININE 0.9 mg/dL (0.55-1.3)
[2024-07-01 11:25] LABS: BILIRUBIN,TOTAL 0.5 mg/dL (0.2-1); TOT PROT 6.5 g/dl (6.4-8.2)
[2024-07-01 11:27] LABS: HEMOGLOBIN 13.6 GM/dL (11.7-16.9); MCH 29.3 pg (25.7-33.7); MEAN CELL VOLUME 86.2 fl (80-96); MEAN PLT VOLUME 8.5 fl (7.5-11.1); PLATELET COUNT 186 10^3/uL (134-434); RBC 4.63 M/mm3 (4.00-5.60); RDW 14.7 % (11.9-15.9); WHITE BLOOD COUNT 5.1 K/mm3 (4.0-10.0)
[2024-07-01] MEDS: FLU VACCINE (FLULAVAL) PF 45 MCG/0.5 ML SYRINGE 2024-2025 IM ONE (12:57)
[2024-07-01] MEDS: NALTREXONE HCL 50 MG TABLET PO ONE (16:50)
[2024-07-01] MEDS: MIRTAZAPINE 15 MG TABLET (FP) PO SCH (22:13)
[2024-07-02] MEDS: diazePAM 5 MG TABLET PO SCH (05:47)
[2024-07-02] MEDS: NALTREXONE HCL 50 MG TABLET PO SCH (09:39)
[2024-07-03] MEDS: diazePAM 5 MG TABLET PO SCH (06:00)
[2024-07-03 21:27] VITALS: RESP 16
[2024-07-04] MEDS: diazePAM 5 MG TABLET PO ONE (05:55)
[2024-07-04 09:22] VITALS: BP 154/87; PULSE 89; TEMP 97.1
== END 2024-07-04 09:20 | disposition home or self-care (01) | DRG 774 ==
LOC: YASAS 08:05 → Y3N 08:50
PROVIDERS: ADMIT Allergy & Immunology; ATTEND Allergy & Immunology
PROC: HZ2ZZZZ Detoxification Services for Substance Abuse Treatment (ICD-10-PCS; principal; 2024-06-30)
DX: F10.230 Alcohol dependence with withdrawal, uncomplicated (principal); F14.20 Cocaine dependence, uncomplicated; G60.9 Hereditary and idiopathic neuropathy, unspecified; E78.2 Mixed hyperlipidemia; I10 Essential (primary) hypertension; K21.9 Gastro-esophageal reflux disease without esophagitis; M54.50 Low back pain, unspecified; G89.29 Other chronic pain; Z87.891 Personal history of nicotine dependence
CPT/HCPCS: 36415; 80053; 80305; 85027; 90656; G0008